=== PATIENT | male | born 1980 | race Caucasian/White ===

== ENCOUNTER 2019-11-09 21:18 | Inpatient (IN) | payer OTHER, SELFPAY ==
--- NOTE | ~2019-11-09 | XR_ITS ---
EXAMINATION: XR chest 1V portable EXAM DATE: 11/09/2019 22:23 INDICATION: Fever. TECHNIQUE: Portable AP frontal chest x-ray was obtained. Comparison is made to prior examination from 11/09/2019. FINDINGS: The lungs are clear. There are no pleural effusions. Cardiac silhouette is prominent but magnified on this AP technique. There is no pneumothorax suspected. The bones and soft tissues are unremarkable. IMPRESSION: No acute cardiopulmonary findings. Reviewed, dictated and finalized at location A.
[2019-11-09 21:14] VITALS: BP 157/67; PULSE 119; RESP 18; TEMP 37.8; O2SAT 98
--- NOTE | 2019-11-09 21:24 | ECG_ITS ---
Measurements Intervals [place] Rate: 108 P: WI: 0 QRS: 65 QRSD: 105 T: 33 QT: 342 QTc: 459 Interpretive Statements ATRIAL FIBRILLATION WITH RAPID VENTRICULAR RESPONSE NONSPECIFIC ST & T-WAVE ABNORMALITY- INF/LAT LEADS ABNORMAL ECG Electronically Signed On 11-10-2019 7:02:05 CDT by Dl Dobbs D.O.
[2019-11-09 21:46] LABS: Basophils Percent Auto 0.2 % (0.2-1.2); Eosinophils Absolute Auto 0.1 K/mm3 (0-0.3); Hemoglobin 12.1 g/dL (14.0-18.0); Immature Granulocyte Percent A 0.7 % (0-0.5); Lymphocytes Absolute Auto 1.14 K/mm3 (0.9-3.2); Lymphocytes Percent Auto 8.3 % (18.3-44.2); Mean Corpuscular Hemoglobin 25.1 pg (26-34); Mean Corpuscular Volume 80.9 fl (80-100); Mean Platelet Volume 10.6 fl (7.4-10.4); Monocytes Absolute Auto 0.8 K/mm3 (0.1-0.6); Monocytes Percent Auto 5.7 % (2.6-8.5); Neutrophils Absolute Auto 11.5 K/mm3 (1.3-6.7); Neutrophils Percent Auto 84.1 % (45.5-73.1); Platelet Count Result 300 k/mm3 (150-375); Red Blood Count 4.82 M/mm3 (4.6-6.20); Red Cell Distribution Width 13.3 % (11.5-14.5); White Blood Count 13.7 K/mm3 (4.5-10.0)
[2019-11-09 21:50] LABS: Add Urine Microscopic? YES; Appearance Urine Clear (Clear); Bilirubin Urine Negative (Negative); Blood Urine 1+ (Negative); Color Urine Straw (Yellow); Glucose Urine UA 1+ mg/dL (Negative); Ketones Urine Negative (Negative); Leukocyte Esterase Ur Negative LEU/UL (Negative); Mucus Urine Rare /lpf; Nitrate Urine Negative (Negative); Protein Urine 1+ mg/dL (Negative); Specific Grav Ur 1.012 (1.001-1.035); Squamous Epithelial Cell Urine Rare /hpf (Few); WBC Urine 0-3 /hpf
[2019-11-09 21:54] VITALS: BP 138/64; PULSE 103; RESP 21; O2SAT 95
[2019-11-09 21:55] LABS: INR 1.3; Prothrombin Time 16.1 Seconds (11.1-14.7)
[2019-11-09 21:56] LABS: Partial Thromboplastin Time 30.1 SECONDS (22.3-36.8)
[2019-11-09 21:58] LABS: Lactic Acid Reflex 1.6 mmol/L (0.7-2.1)
[2019-11-09 22:00] LABS: Alanine Aminotransferase 15 U/L (4-50); Albumin Level 4.1 g/dL (3.5-5.1); Alkaline Phosphatase 90 U/L (38-126); Aspartate Amino Transferase 18 U/L (17-59); Bilirubin,Total 0.7 mg/dL (0.2-1.3); Blood Urea Nitrogen 7 mg/dL (9-20); CRP 5.5 mg/dL (<1.0); Calcium 8.7 mg/dL (8.4-10.2); Carbon Dioxide 32 mmol/L (22-30); Chloride 92 mmol/L (98-107); Estimated CRCL calculation 285 ml/min; Estimated Glomerular Filt Rate > 60; Glucose 202 mg/dL (75-110); Potassium 4.3 mmol/L (3.4-5.0); Sodium 131 mmol/L (137-145)
[2019-11-09 22:09] LABS: NT Pro B Type Natriuretic Pept 624 PG/ML (5-100); Troponin I < 0.012 ng/mL (0.000-0.034)
--- NOTE | 2019-11-09 22:24 | ED.GENADULT ---
HPI - General Adult General Chief complaint: Extremity Injury, Lower Stated complaint: leg swelling, dental pain Time Seen by Provider: 11/09/19 21:23 Source: patient Mode of arrival: EMS Limitations: no limitations History of Present Illness HPI narrative: This patient is a 39 yo morbidly obese male with h/o chronic afib, bed bound, HTN who presents from home for evaluation of worsening leg pain and chills. Patient reports he has bilateral lower extremity swelling progressively worsening over the past 1 month. He has swelling, weaping and redness. Tonight he developed severe chills that made his feel like he was breathing fast and developing a fever. He states in the past when he had similar symptoms he was septic. Patient states his shortness of breath has resolved. He was found to have a fever in the ER. HE reports mild productive cough x 1 week. Onset (ago): month(s) (1 month) Location: lower extremity Related Data Home Medications Medication Instructions Recorded Confirmed chlorthalidone 25 mg PO DAILY 11/09/19 11/10/19 diltiazem HCl 90 mg TID 11/09/19 11/10/19 gabapentin 200 mg PO TID 11/09/19 11/10/19 lisinopril 40 mg PO DAILY 11/09/19 11/10/19 rivaroxaban [Xarelto] 20 mg PO DAILY 11/09/19 11/10/19 Lantus U-100 Insulin 15 units HS 11/10/19 11/10/19 Novolog PenFill U-100 Insulin See Protocol ACHS 11/10/19 11/10/19 Allergies Allergy/AdvReac Type Severity Reaction Status Date / Time No Known Allergies Allergy Verified 11/09/19 21:23 Review of Systems Review of Systems: All systems reviewed & are unremarkable except as noted in HPI and below Constitutional: Constitutional: Reports chills, Reports fever(s) and Reports weakness ENT: Reports dental pain and Reports sore throat Cardiovascular: Cardiovascular: Reports chest pain (chest tightness that has resolved), Denies rapid heart rate and Denies radiating jaw, neck or arm pain Respiratory: Respiratory: Reports cough and Reports dyspnea (now resolved) Gastrointestinal: Gastrointestinal: Denies abdominal pain, Denies diarrhea, Reports nausea and Denies vomiting Genitourinary: Genitourinary: Denies oliguria and Denies dysuria Musculoskeletal: Musculoskeletal: Reports muscle cramps (bilateral leg pain and swelling) Integumentary/Breasts: Skin/Breast: Reports erythema PMFSH Surgical History Surgical History Hx of tonsillectomy Family History Family History (Updated 11/10/19 @ 12:13 by Jovani Antonio PA-C) Father Patient's father is Diabetes mellitus Acute myocardial infarction Mother COPD (chronic obstructive pulmonary disease) Social History Social History Social History: Patient lives at home alone with a ve teacher coming to the house every day for 8 hours and with her aunt/uncle and another uncle living next door to either side of him. He wishes to list his Aunt, Kailyn, as his surrogate MDM. He wishes to be listed as a Full Code. His PCP is Dr. Pettit from [facility] Smoking status: Never smoker Second hand tobacco smoke exposure: No Alcohol intake: former Substance use: never Gender identity (if verbalized by the patient): Male Spiritual care concerns: No Agree to blood products: Yes Exam Const: General: no acute distress and alert Nutritional Appearance: obese morbidly obese Orientation/consciousness: patient oriented x3 Eyes: Pupils: Equal, round and reactive pupils present EOM: EOMs intact bilaterally Chest: Chest palpation & inspection: normal inspection of the chest Resp: Effort & Inspection: normal respiratory effort, not tachypneic and no use of accessory muscles Auscultation: clear to auscultation bilaterally Cardio: Rate: tachycardic Rhythm: abnormal rhythm irregularly irregular GI: GI Palp: Yes Soft to palpation, No Tenderness to palpation present (GI), No G
[2019-11-09 22:31] VITALS: TEMP 37.6
[2019-11-09 23:09] VITALS: BP 138/64; PULSE 101; RESP 18; TEMP 37.3; O2SAT 94
[2019-11-10] VITALS (18 sets, daily range): BP systolic 104–158; BP diastolic 42–83; PULSE 89–110; RESP 12–24; TEMP 36.3–37.9; O2SAT 95–100; BMI 72.3
--- NOTE | 2019-11-10 01:53 | PC.NURSE ---
No PRN 4mg Morphine dose given to patient. Patient states he took Suboxone yesterday. Per EDP Gracia, do not give Morphine at this time.
[2019-11-10] MEDS: MORPHINE SULFATE 4 MG/ML INJ IV PUSH (06:46)
--- NOTE | 2019-11-10 08:00 | PC.NURSE ---
PT RESTING QUIETLY. STILL AWAITING THE BARIATRIC BED TO ARRIVE PRIOR TO TAKING PT UP TO 327. FLOOR IS TO CALL US WHEN THE BED ARRIVES.
[2019-11-10 09:03] LABS: Glucose Point of Care 176 (65-105)
--- NOTE | 2019-11-10 09:30 | PC.NURSE ---
STILL AWAITING THE BED TO ARRIVE FOR 327. FLOOR STATES WILL CALL WHEN IT ARRIVES. PT CONT TO REST QUIETLY AT THIS TIME.
--- NOTE | 2019-11-10 10:20 | PC.NURSE ---
BED HAS ARRIVED AND IS CURRENTLY BEING SET UP. WILL TAKE PT UP AT 1034
--- NOTE | 2019-11-10 11:31 | PC.NURSE ---
This patient, Tito Fam, was admitted to [facility] Surg Room 327-01. Patient/family oriented to hospital policies and general routines including ID bracelet, bed and alarms, visiting hours, pain management, procedures, bathroom and other care routines, personal items, smoking policy, room service/diet, and visiting hours. Valuables list has been completed. Information on how to activate the Rapid Response Team has been discussed. Patient/Family are encouraged to report perceived risks to care and to ask questions if they do not understand what they are told or what they should do.
--- NOTE | 2019-11-10 11:34 | PM.IMHP ---
H&P: HPI History of Present Illness Chief complaint: Sepsis, Right leg Cellulitis Narrative: Tito Fam is a 39 year old diabetic, morbidly obese (bed bound) male with history of chronic a. fib (on chronic a/c, rate controlled), HTN, and sleep apnea who presented to the ER on evening of 11/08 with complaints of worsening lower extremity redness and pain. As above, patient is morbidly obese and primarily bed bound and has not left the house since July. About one month prior to presentation he noticed some increased swelling and some wounds on primarily his right lower leg that eventually scabbed over and started flaking off . He then began noticing the swelling worsening and noticed some yellowish discharge from where the flaked skin was located. He has some associated pain. He notes that both legs appear red and swollen but more so on the right. He attempted to rub topical triple antibiotic on the leg with little relief. He denies any history of lymphedema or DVT. He is complaint with his Xarelto. While in the ER he was noted to have temp of 100.0, HR of 119, BP 157/67, RR 18, saturations of 98% on RA. He was placed on vancomycin and zosyn for suspected b/l LE cellulitis. He had improvement in HR with two doses of cardizem in the ER. He reports feeling somewhat better at this time but does note he has a headache which is abnormal for him. Upon further questioning, he denies any recent contacts of COVID or showing signs of respiratory issues at home but was coughing in the ER and was subsequently tested for COVID. He was hesitant on seeing his PCP about his LE symptoms given the recent COVID outbreak but decided to come into the ED due to worsening pain, swelling, and redness/discharge from some areas. [facility] Surgical History Surgical History Hx of tonsillectomy Family History Family History (Updated 11/10/19 @ 12:13 by Jovani Antonio PA-C) Father Patient's father is Diabetes mellitus Acute myocardial infarction Mother COPD (chronic obstructive pulmonary disease) Social History Social History Social History: Patient lives at home alone with a composite mechanic coming to the house every day for 8 hours and with her aunt/uncle and another uncle living next door to either side of him. He wishes to list his Aunt, Kailyn, as his surrogate MDM. He wishes to be listed as a Full Code. His PCP is Dr. Pettit from [facility] Smoking status: Never smoker Second hand tobacco smoke exposure: No Alcohol intake: former Substance use: never Gender identity (if verbalized by the patient): Male Spiritual care concerns: No Agree to blood products: Yes Meds Home Medications and Allergies Home Medications Medication Instructions Recorded Confirmed Type chlorthalidone 11/09/19 History diltiazem HCl 11/09/19 History gabapentin 11/09/19 History lisinopril 11/09/19 History rivaroxaban [Xarelto] mg 11/09/19 History Lantus U-100 Insulin 15 units HS 11/10/19 11/10/19 History Novolog PenFill U-100 Insulin See Protocol ACHS 11/10/19 11/10/19 History Allergies Allergy/AdvReac Type Severity Reaction Status Date / Time No Known Allergies Allergy Verified 11/09/19 21:23 Vital Signs Vital Signs - 24 hr 11/09/19 21:14 11/09/19 21:54 11/09/19 22:31 Temperature 100.0 F H 99.6 F Pulse Rate 119 H 103 H Respiratory Rate 18 21 H Blood Pressure 157/67 H 138/64 Pulse Oximetry 98 95 11/09/19 23:09 11/10/19 00:21 11/10/19 01:30 Temperature 99.1 F 99.6 F Pulse Rate 101 H 100 97 Respiratory Rate 18 22 H 15 Blood Pressure 138/64 158/48 H 142/42 H Pulse Oximetry 94 95 96 11/10/19 02:30 11/10/19 02:33 11/10/19 03:30 Temperature 99.6 F 100.2 F H Pulse Rate 109 H 110 H Respiratory Rate 23 H 12 Blood Pressure 115/67 130/48 L Pulse Oximetry 95 95 11/10/19 04:36 11/10/19 0
[2019-11-10 11:37] LABS: Basophils Percent Auto 0.2 % (0.2-1.2); Eosinophils Percent Auto 0.3 % (0-4.4); Hemoglobin 11.4 g/dL (14.0-18.0); Immature Granulocyte Absolute 0.08 K/mm3 (0.00-0.031); Immature Granulocyte Percent A 0.7 % (0-0.5); Lymphocytes Absolute Auto 0.96 K/mm3 (0.9-3.2); Lymphocytes Percent Auto 7.9 % (18.3-44.2); Mean Corpuscular HGB Conc 30.8 g/dl (32-36); Mean Corpuscular Hemoglobin 24.6 pg (26-34); Mean Corpuscular Volume 79.9 fl (80-100); Mean Platelet Volume 10.2 fl (7.4-10.4); Monocytes Absolute Auto 0.4 K/mm3 (0.1-0.6); Monocytes Percent Auto 3.6 % (2.6-8.5); Neutrophils Absolute Auto 10.6 K/mm3 (1.3-6.7); Neutrophils Percent Auto 87.3 % (45.5-73.1); Platelet Count Result 254 k/mm3 (150-375); Red Blood Count 4.63 M/mm3 (4.6-6.20); Red Cell Distribution Width 13.7 % (11.5-14.5); White Blood Count 12.1 K/mm3 (4.5-10.0)
[2019-11-10 11:48] LABS: Alanine Aminotransferase 13 U/L (4-50); Albumin Level 3.8 g/dL (3.5-5.1); Alkaline Phosphatase 80 U/L (38-126); Aspartate Amino Transferase 15 U/L (17-59); Blood Urea Nitrogen 6 mg/dL (9-20); Calcium 8.4 mg/dL (8.4-10.2); Carbon Dioxide 29 mmol/L (22-30); Chloride 94 mmol/L (98-107); Estimated CRCL calculation 285 ml/min; Estimated Glomerular Filt Rate > 60; Glucose 153 mg/dL (75-110); Sodium 130 mmol/L (137-145)
[2019-11-10] MEDS: ACETAMINOPHEN 325 MG TABLET 650 MG PO (11:50)
[2019-11-10 12:16] LABS: Hemoglobin A1C 7.8 % (<5.7)
[2019-11-10 14:01] LABS: SARS-CoV-2 RNA PCR Negative
[2019-11-10] MEDS: GABAPENTIN 100 MG CAPSULE 200 MG PO ×2 (15:54→17:57)
[2019-11-10] MEDS: DILTIAZEM HCL 30 MG TABLET 90 MG PO ×2 (15:55→17:57)
[2019-11-10] MEDS: CHLORTHALIDONE 25 MG TABLET PO (15:56)
[2019-11-10] MEDS: lisinopriL 20 MG TABLET 40 MG PO (15:56)
[2019-11-10] MEDS: RIVAROXABAN 20 MG TABLET PO (15:57)
[2019-11-10] MEDS: FUROSEMIDE INJ 40 MG/4 ML VIAL 20 MG IV PUSH (16:00)
[2019-11-10 17:35] LABS: Glucose Point of Care 131 (65-105)
[2019-11-10 18:13] LABS: Glucose Point of Care 140 (65-105)
[2019-11-10] MEDS: MORPHINE SULFATE 2 MG/ML INJ IV PUSH (20:48)
[2019-11-10] MEDS: INSULIN GLARGINE (LANTUS) 1,000 UNITS/10 ML VIAL 15 UNITS SUB-Q (22:34)
[2019-11-10 22:47] LABS: Glucose Point of Care 205 (65-105)
[2019-11-11 02:00] VITALS: BP 123/66; PULSE 90; RESP 20; TEMP 36.5; O2SAT 94
[2019-11-11 06:00] VITALS: BP 106/64; PULSE 84; RESP 20; TEMP 36.6; O2SAT 96
[2019-11-11 06:06] LABS: Basophils Percent Auto 0.4 % (0.2-1.2); Eosinophils Absolute Auto 0.1 K/mm3 (0-0.3); Eosinophils Percent Auto 1.7 % (0-4.4); Hematocrit 34.9 % (42.0-52.0); Hemoglobin 10.7 g/dL (14.0-18.0); Immature Granulocyte Absolute 0.03 K/mm3 (0.00-0.031); Immature Granulocyte Percent A 0.4 % (0-0.5); Lymphocytes Percent Auto 23.5 % (18.3-44.2); Mean Corpuscular HGB Conc 30.7 g/dl (32-36); Mean Corpuscular Hemoglobin 24.7 pg (26-34); Mean Corpuscular Volume 80.4 fl (80-100); Mean Platelet Volume 10.3 fl (7.4-10.4); Monocytes Absolute Auto 0.7 K/mm3 (0.1-0.6); Monocytes Percent Auto 9.7 % (2.6-8.5); Neutrophils Absolute Auto 4.7 K/mm3 (1.3-6.7); Neutrophils Percent Auto 64.3 % (45.5-73.1); Platelet Count Result 249 k/mm3 (150-375); Red Blood Count 4.34 M/mm3 (4.6-6.20); Red Cell Distribution Width 13.7 % (11.5-14.5); White Blood Count 7.2 K/mm3 (4.5-10.0)
[2019-11-11 06:13] LABS: Blood Urea Nitrogen 8 mg/dL (9-20); Calcium 8.4 mg/dL (8.4-10.2); Carbon Dioxide 32 mmol/L (22-30); Chloride 96 mmol/L (98-107); Estimated CRCL calculation 328 ml/min; Estimated Glomerular Filt Rate > 60; Glucose 145 mg/dL (75-110); Magnesium 2.2 mg/dL (1.6-2.3); Potassium 3.8 mmol/L (3.4-5.0); Sodium 130 mmol/L (137-145)
[2019-11-11] MEDS: GABAPENTIN 100 MG CAPSULE 200 MG PO ×3 (10:11→17:45)
[2019-11-11 10:12] VITALS: BP 140/71; PULSE 94; RESP 18; TEMP 36.6; O2SAT 97
[2019-11-11] MEDS: CHLORTHALIDONE 25 MG TABLET PO (10:13)
[2019-11-11] MEDS: DILTIAZEM HCL 30 MG TABLET 90 MG PO ×3 (10:13→17:45)
[2019-11-11] MEDS: RIVAROXABAN 20 MG TABLET PO (10:14)
[2019-11-11] MEDS: lisinopriL 20 MG TABLET 40 MG PO (10:14)
[2019-11-11 10:21] LABS: Glucose Point of Care 131 (65-105)
--- NOTE | 2019-11-11 10:44 | P.PNIM_ITS ---
Progress Note: A&P Assessment and Plan (1) Cellulitis of right leg: Code(s): L03.115 - Cellulitis of right lower limb Status: Acute Assessment and Plan: Right more so then left. Left appears to be more chronic venous stasis in nature. Appears to be improved symptomatically with IV antibiotics since presentation. DVT less likely as patient is on chronic a/c. Osteomyelitis less likely based on exam. Interval improvement in swelling b/l LE. * Wound Care following; recommendations appreciated * Will continue with IV vanc and Zosyn for now; consider switching to PO medications at discharge * Monitor for improvement * Trend CBC, monitor vitals * Tyenol for pain/fevers and morphine for breakthrough pain * Will do another one time dose of IV lasix for swelling; continue home chlorthalidone * Encourage elevation of LE, particularly right * Patient bed bound so will hold off on PT/OT (2) Sepsis: Code(s): A41.9 - Sepsis, unspecified organism Status: Acute Assessment and Plan: With leukocytosis, tachypnea, tachycardia, and fever at presentation. WBC WNL today, VSS, afebrile. Lactic acid 1.6. Likely secondary to above * Will monitor vitals and trend CBC daily * Treat underlying infection as above (3) Atrial fibrillation, chronic: Code(s): I48.20 - Chronic atrial fibrillation, unspecified Status: Acute Assessment and Plan: Rate controlled and on vermin exterminator a/c. No cp/palpitations. No acute issues. HR currently 94 * Continue home diltiazem and Xarelto * Monitor closely (4) Neuropathy: Code(s): G62.9 - Polyneuropathy, unspecified Status: Acute Assessment and Plan: Pain reasonable at the moment * Continue with home gabapentin (5) Hypertension: Code(s): I10 - Essential (primary) hypertension Status: Acute Assessment and Plan: BP reviewed and relatively stable - 140s sys this morning * Continue home antihypertensives * Monitor closely * consider PRN hydralazine if elevated (6) Diabetes mellitus: Code(s): E11.9 - Type 2 diabetes mellitus without complications Status: Acute Assessment and Plan: BGL in mid 100s today. A1c 7.8 which is up from his last A1c 7.0 which he reported * Continue home 15 u lantus qhs * Will do pulping machine operator consultation for encouraging healthy lifestyles/diet changes although patient is bed bound * F/u with PCP on worsened A1c * Accuchecks ACHS, hypoglycemia protocol, correctional insulin, diabetic diet during stay * Monitor (7) Suspected COVID-19 virus infection: Code(s): R68.89 - Other general symptoms and signs Status: Ruled-out Assessment and Plan: COVID testing negative. (8) Sleep apnea with use of continuous positive airway pressure (CPAP): Code(s): G47.30 - Sleep apnea, unspecified Status: Acute Assessment and Plan: * Continue home CPAP settings Subjective Date/time seen: 11/11/19 10:44 Interval history: Patient is a 39 yo diabetic, morbidly obese (bed bound) male with history of chronic a. fib (on chronic a/c, rate controlled), HTN, and sleep apnea who is here for right lower leg cellulitis. Patient states he feels somewhat better today. He noticed his swelling has improved, noting that legs
--- NOTE | 2019-11-11 10:44 | PM.IMPN ---
Progress Note: A&P Assessment and Plan (1) Cellulitis of right leg: Code(s): L03.115 - Cellulitis of right lower limb Status: Acute Assessment and Plan: Right more so then left. Left appears to be more chronic venous stasis in nature. Appears to be improved symptomatically with IV antibiotics since presentation. DVT less likely as patient is on chronic a/c. Osteomyelitis less likely based on exam. Interval improvement in swelling b/l LE. Wound Care following; recommendations appreciated Will continue with IV vanc and Zosyn for now; consider switching to PO medications at discharge Monitor for improvement Trend CBC, monitor vitals Tyenol for pain/fevers and morphine for breakthrough pain Will do another one time dose of IV lasix for swelling; continue home chlorthalidone Encourage elevation of LE, particularly right Patient bed bound so will hold off on PT/OT (2) Sepsis: Code(s): A41.9 - Sepsis, unspecified organism Status: Acute Assessment and Plan: With leukocytosis, tachypnea, tachycardia, and fever at presentation. WBC WNL today, VSS, afebrile. Lactic acid 1.6. Likely secondary to above Will monitor vitals and trend CBC daily Treat underlying infection as above (3) Atrial fibrillation, chronic: Code(s): I48.20 - Chronic atrial fibrillation, unspecified Status: Acute Assessment and Plan: Rate controlled and on terminal computer operator a/c. No cp/palpitations. No acute issues. HR currently 94 Continue home diltiazem and Xarelto Monitor closely (4) Neuropathy: Code(s): G62.9 - Polyneuropathy, unspecified Status: Acute Assessment and Plan: Pain reasonable at the moment Continue with home gabapentin (5) Hypertension: Code(s): I10 - Essential (primary) hypertension Status: Acute Assessment and Plan: BP reviewed and relatively stable - 140s sys this morning Continue home antihypertensives Monitor closely consider PRN hydralazine if elevated (6) Diabetes mellitus: Code(s): E11.9 - Type 2 diabetes mellitus without complications Status: Acute Assessment and Plan: BGL in mid 100s today. A1c 7.8 which is up from his last A1c 7.0 which he reported Continue home 15 u lantus [facility] Will do top distribution executive consultation for encouraging healthy lifestyles/diet changes although patient is bed bound F/u with PCP on worsened A1c Accuchecks ACHS, hypoglycemia protocol, correctional insulin, diabetic diet during stay Monitor (7) Suspected COVID-19 virus infection: Code(s): R68.89 - Other general symptoms and signs Status: Ruled-out Assessment and Plan: COVID testing negative. (8) Sleep apnea with use of continuous positive airway pressure (CPAP): Code(s): G47.30 - Sleep apnea, unspecified Status: Acute Assessment and Plan: Continue home CPAP settings Subjective Date/time seen: 11/11/19 10:44 Interval history: Patient is a 39 yo diabetic, morbidly obese (bed bound) male with history of chronic a. fib (on chronic a/c, rate controlled), HTN, and sleep apnea who is here for right lower leg cellulitis. Patient states he feels somewhat better today. He noticed his swelling has improved, noting that legs looks like a prune . He notes some discomfort in his right side of pannus stating it feels like a knot ; he also notes he is typically shifted over to his right side most of the time. He notes some loose stools. Noting increased urine op with lasix yesterday. Has a cough when he gets sinus drainage. Otherwise has no complaints. Denies f/c/s, cp/palpitations, sob, n/v, abd pain, dysuria, hematuria, cloud
[2019-11-11] MEDS: FUROSEMIDE INJ 40 MG/4 ML VIAL 20 MG IV PUSH (10:57)
--- NOTE | 2019-11-11 11:51 | PCDIET ---
Physician consult for Morbid Obesity, unable to walk due to neck injury: bed bound. See Nutritional Teaching Intervention. Thank you for the consult.
[2019-11-11 12:38] LABS: Glucose Point of Care 169 (65-105)
[2019-11-11] MEDS: SACCHAROMYCES BOULARDII 250 MG CAPSULE PO ×2 (14:30→17:45)
[2019-11-11 14:32] VITALS: BP 129/68; PULSE 81
[2019-11-11 17:23] LABS: Glucose Point of Care 127 (65-105)
[2019-11-11 19:15] LABS: Vancomycin Trough 10.2 ug/mL (10.0-20.0)
[2019-11-11 21:05] VITALS: PULSE 84; O2SAT 97
[2019-11-11] MEDS: INSULIN GLARGINE (LANTUS) 1,000 UNITS/10 ML VIAL 15 UNITS SUB-Q (21:25)
[2019-11-11 22:00] VITALS: BP 130/54; PULSE 81; RESP 18; TEMP 37.7; O2SAT 98
[2019-11-12 00:29] VITALS: PULSE 86; O2SAT 96
[2019-11-12 02:08] LABS: Glucose Point of Care 178 (65-105)
[2019-11-12 06:00] VITALS: BP 126/62; PULSE 87; RESP 18; TEMP 36.6; O2SAT 98
[2019-11-12 06:36] LABS: Basophils Percent Auto 0.4 % (0.2-1.2); Eosinophils Absolute Auto 0.2 K/mm3 (0-0.3); Eosinophils Percent Auto 2.7 % (0-4.4); Hematocrit 36.2 % (42.0-52.0); Hemoglobin 11.1 g/dL (14.0-18.0); Immature Granulocyte Absolute 0.06 K/mm3 (0.00-0.031); Immature Granulocyte Percent A 0.8 % (0-0.5); Lymphocytes Absolute Auto 1.67 K/mm3 (0.9-3.2); Lymphocytes Percent Auto 23.6 % (18.3-44.2); Mean Corpuscular HGB Conc 30.7 g/dl (32-36); Mean Corpuscular Hemoglobin 24.6 pg (26-34); Mean Corpuscular Volume 80.3 fl (80-100); Mean Platelet Volume 10.6 fl (7.4-10.4); Monocytes Absolute Auto 0.6 K/mm3 (0.1-0.6); Monocytes Percent Auto 8.9 % (2.6-8.5); Neutrophils Absolute Auto 4.5 K/mm3 (1.3-6.7); Neutrophils Percent Auto 63.6 % (45.5-73.1); Platelet Count Result 271 k/mm3 (150-375); Red Blood Count 4.51 M/mm3 (4.6-6.20); Red Cell Distribution Width 13.6 % (11.5-14.5); White Blood Count 7.1 K/mm3 (4.5-10.0)
[2019-11-12 06:51] LABS: Blood Urea Nitrogen 9 mg/dL (9-20); Calcium 8.4 mg/dL (8.4-10.2); Carbon Dioxide 34 mmol/L (22-30); Chloride 94 mmol/L (98-107); Estimated CRCL calculation 285 ml/min; Estimated Glomerular Filt Rate > 60; Glucose 158 mg/dL (75-110); Magnesium 2.2 mg/dL (1.6-2.3); Potassium 3.6 mmol/L (3.4-5.0); Sodium 131 mmol/L (137-145)
[2019-11-12] MEDS: GABAPENTIN 100 MG CAPSULE 200 MG PO ×2 (08:52→13:04)
[2019-11-12] MEDS: DILTIAZEM HCL 30 MG TABLET 90 MG PO ×2 (08:52→13:04)
[2019-11-12] MEDS: POTASSIUM CHLORIDE 20 MEQ TABLET 40 MEQ PO (08:52)
[2019-11-12] MEDS: RIVAROXABAN 20 MG TABLET PO (08:53)
[2019-11-12] MEDS: lisinopriL 20 MG TABLET 40 MG PO (08:53)
[2019-11-12] MEDS: CHLORTHALIDONE 25 MG TABLET PO (08:53)
[2019-11-12 09:13] LABS: Glucose Point of Care 146 (65-105)
--- NOTE | 2019-11-12 11:03 | PM.DS ---
DS: Diagnosis Admitting Diagnosis Admitting Diagnosis: Cellulitis of right lower limb Discharge Diagnosis (1) Cellulitis of right leg: Code(s): L03.115 - Cellulitis of right lower limb Status: Acute Assessment and Plan: Right more so then left. Left appears to be more chronic venous stasis in nature; sloughing of skin noted. Appears to be improved symptomatically with IV antibiotics since presentation. DVT less likely as patient is on chronic a/c. Osteomyelitis less likely based on exam. Interval improvement in swelling b/l LE again today. Wound Care following; recommendations appreciated Will continue with IV vanc and Zosyn during stay; will discharge on clindamycin 300 mg Q8hrs through 11/15 Continue home chlorthalidone Encourage elevation of LE (2) Sepsis: Code(s): A41.9 - Sepsis, unspecified organism Status: Acute Assessment and Plan: With leukocytosis, tachypnea, tachycardia, and fever at presentation. WBC WNL today, VSS, afebrile although mild fever last night. Lactic acid 1.6. Likely secondary to above Will monitor vitals and trend CBC daily Treat underlying infection as above (3) Atrial fibrillation, chronic: Code(s): I48.20 - Chronic atrial fibrillation, unspecified Status: Acute Assessment and Plan: Rate controlled and on rn long term care a/c. No cp/palpitations. No acute issues. HR currently 87 Continue home diltiazem and Xarelto (4) Neuropathy: Code(s): G62.9 - Polyneuropathy, unspecified Status: Acute Assessment and Plan: Pain reasonable at the moment Continue with home gabapentin (5) Hypertension: Code(s): I10 - Essential (primary) hypertension Status: Acute Assessment and Plan: BP reviewed and relatively stable - 120s sys this morning Continue home antihypertensives Monitor closely consider PRN hydralazine if elevated (6) Diabetes mellitus: Code(s): E11.9 - Type 2 diabetes mellitus without complications Status: Acute Assessment and Plan: BGL in mid 100s today. A1c 7.8 which is up from his last A1c 7.0 which he reported Continue home insulin regimen Will do lens edge grinder machine consultation for encouraging healthy lifestyles/diet changes although patient is bed bound F/u with PCP on worsened A1c Accuchecks ACHS, hypoglycemia protocol, correctional insulin, diabetic diet during stay (7) Suspected COVID-19 virus infection: Code(s): R68.89 - Other general symptoms and signs Status: Ruled-out Assessment and Plan: COVID testing negative. (8) Sleep apnea with use of continuous positive airway pressure (CPAP): Code(s): G47.30 - Sleep apnea, unspecified Status: Acute Assessment and Plan: Continue home CPAP settings DS: Summary Hospital Course Reason for hospitalization: Cellulitis and sepsis Hospital Course: Patient is a 39 yo old diabetic, morbidly obese (bed bound) male with history of chronic a. fib (on chronic a/c, rate controlled), HTN, and sleep apnea who presented to the ER on evening of 11/08 with complaints of worsening lower extremity redness and pain. Patient had noticed progressively worsening swelling LE, primarily in his right leg and subsequent unlcers in his leg that had skin flaking off . This started to become warm and erythematous with drainage. Patient attempted to place triple antibiotic ointment on the area without much relief and decided to come into the hospital for further evaluation. In the ER, he had a temp as high as 100.2, HR 119, and leukocytosis of 13.7k; patient technically septic with cellulitis of lower leg as source of infection. Please see H&P fo
[2019-11-12] MEDS: SACCHAROMYCES BOULARDII 250 MG CAPSULE PO ×2 (11:15→13:04)
[2019-11-12 12:43] LABS: Glucose Point of Care 148 (65-105)
[2019-11-12 15:21] VITALS: BP 126/65; PULSE 76; RESP 18; TEMP 36.1; O2SAT 96
== END 2019-11-12 19:35 | disposition home or self-care (01) | DRG 720 ==
LOC: ANHED 21:39 → ANH3MEDSUR 11-10 01:53
PROVIDERS: Physician Assistant; Admitting Provider Internal Medicine; Emergency Provider General Practice; PCP Internal Medicine; Visit Provider Hospitalist
DX: A41.9 Sepsis, unspecified organism (principal); E11.628 Type 2 diabetes mellitus with other skin complications; L03.115 Cellulitis of right lower limb; Z20.828 Contact with and (suspected) exposure to other viral communicable diseases; R05 Cough; I87.2 Venous insufficiency (chronic) (peripheral); I48.20 Chronic atrial fibrillation, unspecified; E11.42 Type 2 diabetes mellitus with diabetic polyneuropathy; I10 Essential (primary) hypertension; G47.30 Sleep apnea, unspecified; E66.01 Morbid (severe) obesity due to excess calories; Z68.45 Body mass index [BMI] 70 or greater, adult
CPT/HCPCS: 36415; 71045; 80048; 80053; 80202; 81001; 82728; 83036; 83605; 83735; 83880; 84484; 85025; 85610; 85730; 86140; 87040; 87635; 93005; 96374; 97161; 97165; 99285; A9270; C9803; J0131; J1815; J1940; J2270; J2543; J3370; U0003

== ENCOUNTER 2020-01-01 13:32 | Inpatient (IN) | payer OTHER, SELFPAY ==
[2020-01-01] VITALS (13 sets, daily range): BP systolic 152–175; BP diastolic 74–96; PULSE 72–120; RESP 16–30; TEMP 36–38.8; O2SAT 96–98; BMI 75.2
--- NOTE | ~2020-01-01 | XR_ITS ---
EXAMINATION: XR chest 2V EXAM DATE: 01/01/2020 14:21 INDICATION: Fever, sepsis. TECHNIQUE: Frontal and lateral projections of the chest obtained and reviewed. Comparison is made to prior examination from 11/09/2019. FINDINGS: Cardiac monitoring device. The cardiac silhouette is enlarged. No confluent consolidation, pneumothorax or pleural effusion suspected. There are no osseous abnormalities identified. There is no significant interval change. IMPRESSION: Cardiomegaly. Reviewed, dictated and finalized at location A. IMPRESSION: Cardiomegaly.
--- NOTE | 2020-01-01 13:45 | ECG_ITS ---
Measurements Intervals [place] Rate: 115 P: MA: 0 QRS: 43 QRSD: 106 T: 81 QT: 330 QTc: 458 Interpretive Statements ATRIAL FIBRILLATION WITH RAPID VENTRICULAR RESPONSE NONSPECIFIC ST & T-WAVE ABNORMALITY- INF/LAT LEADS BASELINE ARTIFACT- II, III, V2 ABNORMAL ECGT Electronically Signed On 01-01-2020 17:09:45 CDT by Dl Dobbs D.O.
--- NOTE | 2020-01-01 13:50 | ED.FEVER ---
HPI - Fever General Chief Complaint: Fever Stated Complaint: fever Source: patient and EMS Mode of arrival: EMS Limitations: no limitations History of Present Illness HPI Narrative: Patient is a 39-year-old male with a history of morbid obesity, type 2 diabetes, A. fib currently anticoagulated, who presents for evaluation of fever, concern for cellulitis. Patient states he noticed a sore on his right lower extremity that popped and then now has had increasing warmth, redness of the right lower leg. Patient states he awakened this morning with a fever, chills, and noticed that the right side of his abdomen was red and warm as well. Patient has a recent history of cellulitis last month which required admission to the hospital on IV antibiotics. Patient denies any rhinorrhea, congestion, sore throat. No chest pain, cough or shortness of breath. He has been compliant with his medications including his anticoagulation. Related Data Home Medications Medication Instructions Recorded Confirmed Xarelto 20 mg PO DAILY 11/09/19 11/10/19 chlorthalidone 25 mg PO DAILY 11/09/19 11/10/19 diltiazem HCl 90 mg PO TID 11/09/19 11/10/19 lisinopril 40 mg PO DAILY 11/09/19 11/10/19 insulin glargine [Lantus U-100 15 unit SUBCUT QPM #0 11/10/19 11/10/19 Insulin] insulin glulisine U-100 [Apidra See Protocol SUBCUT USEASDIRECTD #0 11/10/19 11/10/19 U-100 Insulin] gabapentin 200 mg PO TID 01/01/20 Allergies Allergy/AdvReac Type Severity Reaction Status Date / Time No Known Allergies Allergy Verified 01/01/20 13:40 Review of Systems Review of Systems: Narrative: CONSTITUTIONAL: Reports fever, chills, diaphoresis EYES: Denies visual changes ENT: Denies rhinorrhea, congestion, sore throat, or otalgia. CARDIOVASCULAR: Denies chest pain, palpitations, or edema. RESPIRATORY: Denies cough or dyspnea. GASTROINTESTINAL: Denies abdominal pain, nausea, vomiting, or diarrhea. GENITOURINARY: Denies dysuria or hematuria. SKIN: Reports warm rash over right abdomen and right leg MUSCULOSKELETAL: Denies back pain, joint pain, or myalgia. NEUROLOGIC: Denies headache, numbness, or weakness. PMF Past Medical History Medical History Chronic atrial fibrillation Diabetes mellitus Hypertension Neuropathy Sleep apnea with use of continuous positive airway pressure (CPAP) Surgical History Surgical History Hx of tonsillectomy Family History Family History Father Patient's father is Diabetes mellitus Acute myocardial infarction Mother COPD (chronic obstructive pulmonary disease) Social History Social History Social History: Patient lives at home alone with a civil engineering specialist coming to the house every day for 8 hours and with her aunt/uncle and another uncle living next door to either side of him. He wishes to list his Aunt, Kailyn, as his surrogate MDM. He wishes to be listed as a Full Code. His PCP is Dr. Pettit from [facility] Smoking status: Never smoker Second hand tobacco smoke exposure: No Alcohol intake: former Substance use: never Gender identity (if verbalized by the patient): Male Spiritual care concerns: No Agree to blood products: Yes Exam Narrative: Exam Narrative: GENERAL: Awake, alert, conversant, morbidly obese HEAD: Normocephalic, atraumatic. EYES: PERRLA and EOMI. ENT: Nares clear, no rhinorrhea or epistaxis. Mucous membranes moist. NECK: Supple. CHEST: No respiratory distress, breathing even and non labored HEART: Tachycardic rate rate, sinus rhythm ABDOMEN:Non distended, non tender, large area of warmth, erythema over 25 cm over the right side of the abdomen, area is indurated, blanches with pressure, no purpura or ecchymoses EXTREMITIES: Normal range of motion due to body [place]
[2020-01-01 14:56] LABS: Basophils Percent Auto 0.2 % (0.2-1.2); Eosinophils Percent Auto 0.1 % (0-4.4); Hemoglobin 11.3 g/dL (14.0-18.0); Immature Granulocyte Percent A 0.6 % (0-0.5); Lymphocytes Absolute Auto 1.26 K/mm3 (0.9-3.2); Lymphocytes Percent Auto 7.7 % (18.3-44.2); Mean Corpuscular HGB Conc 30.5 g/dl (32-36); Mean Corpuscular Hemoglobin 24.4 pg (26-34); Mean Corpuscular Volume 79.9 fl (80-100); Mean Platelet Volume 10.8 fl (7.4-10.4); Monocytes Absolute Auto 0.5 K/mm3 (0.1-0.6); Monocytes Percent Auto 2.9 % (2.6-8.5); Neutrophils Absolute Auto 14.5 K/mm3 (1.3-6.7); Neutrophils Percent Auto 88.5 % (45.5-73.1); Platelet Count Result 298 k/mm3 (150-375); Red Blood Count 4.63 M/mm3 (4.6-6.20); Red Cell Distribution Width 14.6 % (11.5-14.5); White Blood Count 16.4 K/mm3 (4.5-10.0)
[2020-01-01] MEDS: SODIUM CHLORIDE 0.9% IV 1,000 ML 999 ML IV CONT (15:06)
[2020-01-01 15:07] LABS: INR 2.1; Lactic Acid Reflex 1.3 mmol/L (0.7-2.1); Partial Thromboplastin Time 32.4 SECONDS (22.3-36.8); Prothrombin Time 23.1 Seconds (11.1-14.7)
[2020-01-01 15:17] LABS: Alanine Aminotransferase 16 U/L (4-50); Albumin Level 3.7 g/dL (3.5-5.1); Alkaline Phosphatase 78 U/L (38-126); Aspartate Amino Transferase 15 U/L (17-59); Bilirubin,Total 0.9 mg/dL (0.2-1.3); Blood Urea Nitrogen 9 mg/dL (9-20); Calcium 8.4 mg/dL (8.4-10.2); Carbon Dioxide 26 mmol/L (22-30); Chloride 100 mmol/L (98-107); Estimated Glomerular Filt Rate > 60; Glucose 132 mg/dL (75-110); Potassium 4.3 mmol/L (3.4-5.0); Sodium 132 mmol/L (137-145)
[2020-01-01 15:48] LABS: CRP 14.5 mg/dL (<1.0)
[2020-01-01 16:10] LABS: Add Urine Microscopic? YES; Appearance Urine Cloudy (Clear); Bacteria Urine 4+ /hpf; Bilirubin Urine Negative (Negative); Blood Urine 2+ (Negative); Color Urine Amber (Yellow); Glucose Urine UA Negative (Negative); Ketones Urine Negative (Negative); Leukocyte Esterase Ur Trace LEU/UL (Negative); Mucus Urine Moderate /lpf; Nitrate Urine Positive (Negative); Protein Urine 2+ mg/dL (Negative); Specific Grav Ur 1.028 (1.001-1.035); Squamous Epithelial Cell Urine Rare /hpf (Few)
--- NOTE | 2020-01-01 17:17 | ADMGEN ---
This patient, Tito Fam, was admitted to IMU Room 213-01. Patient/family oriented to hospital policies and general routines including ID bracelet, bed and alarms, visiting hours, pain management, procedures, bathroom and other care routines, personal items, smoking policy, room service/diet, and visiting hours. Valuables list has been completed. Information on how to activate the Rapid Response Team has been discussed. Patient/Family are encouraged to report perceived risks to care and to ask questions if they do not understand what they are told or what they should do.
[2020-01-01] MEDS: ACETAMINOPHEN 325 MG TABLET 650 MG PO (18:10)
[2020-01-01] MEDS: ONDANSETRON INJ 4 MG/2 ML VIAL IV PUSH (18:41)
[2020-01-01 19:16] LABS: Glucose Point of Care 148 (65-105)
--- NOTE | 2020-01-01 20:00 | PM.IMHP ---
H&P: HPI History of Present Illness Chief complaint: Fever. Narrative: Tito Fam is a pleasant, morbidly obese 39-year-old male who is essentially bedbound with type 2 diabetes mellitus, paroxysmal atrial fibrillation, obstructive sleep apnea, and hypertension who presented to the emergency department earlier today via EMS from home for evaluation of a fever. He is known to the hospitalist service and was recently admitted to us in November 2019 for sepsis and right lower extremity cellulitis, treated with clindamycin. Last evening he awoke from sleep with the subjective fever and diffuse sweats and at that time noticed erythema of his right leg. He took Tylenol and was able to sleep somewhat however once again woke up with hot sweats this morning. It is at that time that he noticed erythema diffusely along the abdominal wall on the right side. Neither site is necessarily painful. He has taken Tylenol for the fever with some improvement. Appetite has been okay and he denies nausea and vomiting. He also denies recent cold or flu symptoms and sick contacts. He has no swelling or erythema in the groin he. Review of Systems Review of Systems: Narrative: Twelve systems were reviewed with pertinent positives and negatives as per HPI. No headache or neck ache. He denies sinus congestion, rhinorrhea, otalgia, and odynophagia. No cough or shortness of breath. He denies chest pain. No nausea or vomiting. He denies diarrhea. No dysuria. He denies blurry vision, polydipsia, and polyuria. He has essentially been bed-bound for about 3 years, but has been working hard with physical therapy and was able to stand albeit assisted, for the 1st time just this past Thursday. He has a referral for bariatric surgery but in the past has been denied by his insurance. Except as documented, all other systems were reviewed and are negative. [facility] Past Medical History Medical History (Updated 01/02/20 @ 00:03 by Penny Mendoza PA-C) Chronic anemia Chronic atrial fibrillation On long-term anticoagulation. 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 He was discharged to an LTAC after he left [place] and was on a wound VAC for approximately 60 days. Hypertension Insulin dependent type 2 diabetes mellitus Hemoglobin A1c was 7.8% on 11/10/2019. 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 Obstructive sleep apnea on CPAP Peripheral neuropathy Due to diabetes and spinal stenosis. 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 Family History Family History Father Patient's father is Diabetes mellitus Acute myocardial infarction Mother COPD (chronic obstructive pulmonary disease) Social History Social History (Updated 01/01/20 @ 23:53 by Penny Mendoza PA-C) Social History: The patient lives in his own house in [place], [place]. He has a brim cutter that comes to the home for 8 hours a day. He has an aunt and uncle that live next to him who help with his care as well. He designates his mother and his aunt, Kailyn, as his surrogate decision makers. He wishes to be a full code. He denies alcohol, tobacco, and drug use. Spiritual care concerns: No Agree to blood products: Yes Meds Home Medications and Allergies Home Medications Medication Instructions Recorded Confirmed Type Xarelto 20 mg PO DAILY 11/09/19 01/01/20 History chlorthalidone 25 mg PO DAILY 11/09/19 01/01/20 History diltiazem HCl 90 mg PO TID 11/09/19 01/01/20 History lisinopril 40 mg PO DAILY 11/09/19 01/01/20 History insulin glargine [Lantus U-100 15 unit SUBCUT QPM
[2020-01-01] MEDS: DILTIAZEM HCL 30 MG TABLET 90 MG PO (23:17)
[2020-01-01] MEDS: GABAPENTIN 100 MG CAPSULE 200 MG PO (23:18)
[2020-01-01] MEDS: RIVAROXABAN 20 MG TABLET PO (23:18)
[2020-01-01] MEDS: INSULIN GLARGINE (*BKC) 100 UNITS/ML 15 UNITS SUB-Q (23:19)
[2020-01-01 23:32] LABS: Glucose Point of Care 125 (65-105)
[2020-01-02] VITALS (15 sets, daily range): BP systolic 122–186; BP diastolic 66–95; PULSE 73–111; RESP 18–24; TEMP 35.7–37.3; O2SAT 96–99
[2020-01-02 05:14] LABS: Estimated CRCL calculation 293 ml/min; Estimated Glomerular Filt Rate > 60
[2020-01-02] MEDS: WATER FOR IRRIGATION, STERILE 1,000 ML BOTTLE 1000 ML (06:03)
[2020-01-02 08:40] LABS: Glucose Point of Care 122 (65-105)
[2020-01-02] MEDS: CHLORTHALIDONE 25 MG TABLET PO (10:06)
[2020-01-02] MEDS: GABAPENTIN 100 MG CAPSULE 200 MG PO ×3 (10:07→19:26)
[2020-01-02] MEDS: DILTIAZEM HCL 30 MG TABLET 90 MG PO ×3 (10:08→20:39)
[2020-01-02] MEDS: lisinopriL 20 MG TABLET 40 MG PO (10:09)
--- NOTE | 2020-01-02 11:26 | PM.IMPN ---
Progress Note: A&P Assessment and Plan (1) Sepsis: Qualifiers: Sepsis acute organ dysfunction status: without acute organ dysfunction Sepsis type: sepsis due to unspecified organism Qualified Code(s): A41.9 - Sepsis, unspecified organism Code(s): A41.9 - Sepsis, unspecified organism Status: Acute Assessment and Plan: -----on admission the patient showed signs of sepsis with fever, tachycardia and leukocytosis. These have improved with antibiotics. Source appears to be his abdominal cellulitis. Blood cultures are pending. Lactic acid within normal limits. (2) Cellulitis of right leg: Code(s): L03.115 - Cellulitis of right lower limb Status: Acute Assessment and Plan: -----abdominal cellulitis extents to his upper right leg. Continue imipenem and vancomycin as stated above (3) Abdominal wall cellulitis: Code(s): L03.311 - Cellulitis of abdominal wall Status: Acute Assessment and Plan: -----significant cellulitis to the abdomen. No definite abscess palpated. Continue antibiotics as stated above. (4) Insulin dependent type 2 diabetes mellitus: Code(s): E11.9 - Type 2 diabetes mellitus without complications; Z79.4 - it architect (current) use of insulin Status: Acute Assessment and Plan: -----last glucose 122. Continue sliding scale insulin and basal insulin. A1c 7.8. Will adjust basal insulin since patient has a regulated diet here in the hospital. (5) Obstructive sleep apnea on CPAP: Code(s): G47.33 - Obstructive sleep apnea (adult) (pediatric); Z99.89 - Dependence on other enabling machines and devices Status: Acute Assessment and Plan: -----patient has his home CPAP in the room. Continue with that (6) Chronic atrial fibrillation: Code(s): I48.20 - Chronic atrial fibrillation, unspecified Status: Acute Assessment and Plan: -----continue diltiazem and Xarelto. 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 (8) Hypertension: Code(s): I10 - Essential (primary) hypertension Status: Acute Assessment and Plan: -----last blood pressure 186/76 before blood pressure medications given this morning. Patient states he does not usually run that high. I have asked the nurse to recheck the blood pressure 2 hours after giving his morning meds. Hydralazine has been added. Could be elevated due to pain. (9) Morbid obesity: Code(s): E66.01 - Morbid (severe) obesity due to excess calories Status: Acute Assessment and Plan: -----patient seriously needs to consider gastric bypass evaluation. Spoke to him about this and he said his insurance requires a couple months of weight watchers prior. I have encouraged him to do online weight watchers since he is bed-bound Time Spent With Patient Time with patient: 25 - 35 minutes Subjective Date/time seen: 01/02/20 11:27 Interval history: Pt is a morbidly obese 39-year-old male here for abdominal wall cellulitis. Patient was seen today and states he is feeling better. He is still having some pain in the right lower quadrant. He said he started having chills on Thursday night but did not remember any trauma or irritation to the right lower quadrant. Patient is morbidly obese and has not got out of bed for over a year. It all started in 2012 with a spinal injury. He started walking with a wheeled walker and wheelchair after that. In 2017 he started to get weaker and became more bed-bound but never really saw anybody for that. He thinks it is his neuropathy. Just this month he started physical therapy at home and he is stood on his feet for the 1st time in years. He is having issues urinating because
[2020-01-02 13:39] LABS: Glucose Point of Care 136 (65-105)
[2020-01-02 15:34] LABS: Troponin I < 0.012 ng/mL (0.000-0.034)
[2020-01-02 17:05] LABS: Glucose Point of Care 140 (65-105)
[2020-01-02] MEDS: RIVAROXABAN 20 MG TABLET PO (19:25)
[2020-01-02] MEDS: INSULIN GLARGINE (*BKC) 100 UNITS/ML 10 UNITS SUB-Q (20:05)
[2020-01-02 20:47] LABS: Glucose Point of Care 152 (65-105)
[2020-01-03] VITALS (15 sets, daily range): BP systolic 141–149; BP diastolic 76–99; PULSE 60–105; RESP 18–22; TEMP 35.8–37.5; O2SAT 96–97
[2020-01-03 05:03] LABS: Basophils Percent Auto 0.2 % (0.2-1.2); Eosinophils Absolute Auto 0.1 K/mm3 (0-0.3); Eosinophils Percent Auto 1.1 % (0-4.4); Hematocrit 34.3 % (42.0-52.0); Hemoglobin 10.4 g/dL (14.0-18.0); Immature Granulocyte Absolute 0.03 K/mm3 (0.00-0.031); Immature Granulocyte Percent A 0.4 % (0-0.5); Lymphocytes Absolute Auto 1.43 K/mm3 (0.9-3.2); Lymphocytes Percent Auto 17.3 % (18.3-44.2); Mean Corpuscular HGB Conc 30.3 g/dl (32-36); Mean Corpuscular Hemoglobin 24.1 pg (26-34); Mean Corpuscular Volume 79.4 fl (80-100); Mean Platelet Volume 10.2 fl (7.4-10.4); Monocytes Absolute Auto 0.8 K/mm3 (0.1-0.6); Monocytes Percent Auto 9.2 % (2.6-8.5); Neutrophils Absolute Auto 5.9 K/mm3 (1.3-6.7); Neutrophils Percent Auto 71.8 % (45.5-73.1); Platelet Count Result 253 k/mm3 (150-375); Red Blood Count 4.32 M/mm3 (4.6-6.20); Red Cell Distribution Width 14.5 % (11.5-14.5); White Blood Count 8.3 K/mm3 (4.5-10.0)
[2020-01-03 05:21] LABS: Alanine Aminotransferase 11 U/L (4-50); Albumin Level 3.3 g/dL (3.5-5.1); Alkaline Phosphatase 69 U/L (38-126); Aspartate Amino Transferase 12 U/L (17-59); Bilirubin,Total 0.6 mg/dL (0.2-1.3); Blood Urea Nitrogen 9 mg/dL (9-20); Calcium 8.3 mg/dL (8.4-10.2); Carbon Dioxide 30 mmol/L (22-30); Chloride 99 mmol/L (98-107); Estimated CRCL calculation 342 ml/min; Estimated Glomerular Filt Rate > 60; Glucose 144 mg/dL (75-110); Magnesium 2.2 mg/dL (1.6-2.3); Potassium 3.7 mmol/L (3.4-5.0); Sodium 131 mmol/L (137-145)
[2020-01-03] MEDS: DILTIAZEM HCL 30 MG TABLET 90 MG PO ×3 (06:31→21:04)
[2020-01-03 08:14] LABS: Glucose Point of Care 136 (65-105)
[2020-01-03] MEDS: CHLORTHALIDONE 25 MG TABLET PO (08:17)
[2020-01-03] MEDS: lisinopriL 20 MG TABLET 40 MG PO (08:17)
[2020-01-03] MEDS: GABAPENTIN 100 MG CAPSULE 200 MG PO ×3 (08:18→16:55)
--- NOTE | 2020-01-03 10:47 | P.PNIM_ITS ---
Progress Note: A&P Assessment and Plan (1) Abdominal wall cellulitis: Code(s): L03.311 - Cellulitis of abdominal wall Status: Acute Assessment and Plan: * Cellulitis to R lower abdomen; seems improved compared to pen markings but still indurated requiring IV antibiotics. * Continue IV vancomycin and imipenem (day 2). (2) Cellulitis of right leg: Code(s): L03.115 - Cellulitis of right lower limb Status: Acute Assessment and Plan: * Continue IV vancomycin and imipenem as above. * Will have wound RN assess legs tomorrow; chronic venous stasis changes with wound to right bruno. * Pedal edema ++; IV lasix x 1 today and will monitor. (3) UTI (urinary tract infection): Qualifiers: Hematuria presence: without hematuria Urinary tract infection type: site unspecified Qualified Code(s): N39.0 - Urinary tract infection, site not s pecified Code(s): N39.0 - Urinary tract infection, site not specified Status: Acute Assessment and Plan: * Urine culture grew > 100,000 E coli sensitive to the imipenem is he on. (4) Sepsis: Qualifiers: Sepsis acute organ dysfunction status: without acute organ dysfunction Sepsis type: sepsis due to unspecified organism Qualified Code(s): A41.9 - Sepsis, unspecified organism Code(s): A41.9 - Sepsis, unspecified organism Status: Acute Assessment and Plan: * Evident by fever, leukocytosis and tachycardia on arrival. Blood cultures pending with no growth to date. Source soft tissue vs. urinary. (5) Insulin dependent type 2 diabetes mellitus: Code(s): E11.9 - Type 2 diabetes mellitus without complications; Z79.4 - prison (cur rent) use of insulin Status: Acute Assessment and Plan: * A1c 7.8 in November. Continue to monitor with accu-cheks; Continue lantus and SSI coverage. Optimize glycemic control for wound healing. (6) Obstructive sleep apnea on CPAP: Code(s): G47.33 - Obstructive sleep apnea (adult) (pediatric); Z99.89 - Dependence on other enabling machines and devices Status: Acute Assessment and Plan: * CPAP. (7) Chronic atrial fibrillation: Code(s): I48.20 - Chronic atrial fibrillation, unspecified Status: Acute Assessment and Plan: * Rate controlled today on his home diltiazem. Systemic anticoagulation with Xarelto. 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 (9) Hypertension: Qualifiers: Hypertension type: unspecified Qualified Code(s): I10 - Essential (primary) hypertension Code(s): I10 - Essential (primary) hypertension Status: Acute Assessment and Plan: * Elevated but improved today after his home medications have been resumed. Monitor BP and adjust treatment as needed. * He remains on chlorthalidone, lisinopril. (10) Morbid obesity: Code(s): E66.01 - Morbid (severe) obesity due to excess calories Status: Acute Assessment and Plan: * Patient needs trial of lifestyle modifications for weight loss prior to insurance covering any type of bypass surgery. He is essentially bed-bound at this point. Contin
--- NOTE | 2020-01-03 10:47 | PM.IMPN ---
Progress Note: A&P Assessment and Plan (1) Abdominal wall cellulitis: Code(s): L03.311 - Cellulitis of abdominal wall Status: Acute Assessment and Plan: Cellulitis to R lower abdomen; seems improved compared to pen markings but still indurated requiring IV antibiotics. Continue IV vancomycin and imipenem (day 2). (2) Cellulitis of right leg: Code(s): L03.115 - Cellulitis of right lower limb Status: Acute Assessment and Plan: Continue IV vancomycin and imipenem as above. Will have wound RN assess legs tomorrow; chronic venous stasis changes with wound to right bruno. Pedal edema ++; IV lasix x 1 today and will monitor. (3) UTI (urinary tract infection): Qualifiers: Hematuria presence: without hematuria Urinary tract infection type: site unspecified Qualified Code(s): N39.0 - Urinary tract infection, site not specified Code(s): N39.0 - Urinary tract infection, site not specified Status: Acute Assessment and Plan: Urine culture grew > 100,000 E coli sensitive to the imipenem is he on. (4) Sepsis: Qualifiers: Sepsis acute organ dysfunction status: without acute organ dysfunction Sepsis type: sepsis due to unspecified organism Qualified Code(s): A41.9 - Sepsis, unspecified organism Code(s): A41.9 - Sepsis, unspecified organism Status: Acute Assessment and Plan: Evident by fever, leukocytosis and tachycardia on arrival. Blood cultures pending with no growth to date. Source soft tissue vs. urinary. (5) Insulin dependent type 2 diabetes mellitus: Code(s): E11.9 - Type 2 diabetes mellitus without complications; Z79.4 - correction (current) use of insulin Status: Acute Assessment and Plan: A1c 7.8 in November. Continue to monitor with accu-cheks; Continue lantus and SSI coverage. Optimize glycemic control for wound healing. (6) Obstructive sleep apnea on CPAP: Code(s): G47.33 - Obstructive sleep apnea (adult) (pediatric); Z99.89 - Dependence on other enabling machines and devices Status: Acute Assessment and Plan: CPAP. (7) Chronic atrial fibrillation: Code(s): I48.20 - Chronic atrial fibrillation, unspecified Status: Acute Assessment and Plan: Rate controlled today on his home diltiazem. Systemic anticoagulation with Xarelto. (8) correction current use of anticoagulant: Code(s): Z79.01 - ocean transportation intermediary (current) use of anticoagulants Status: Acute Assessment and Plan: Continue Xarelto and monitor for s/s bleeding. (9) Hypertension: Qualifiers: Hypertension type: unspecified Qualified Code(s): I10 - Essential (primary) hypertension Code(s): I10 - Essential (primary) hypertension Status: Acute Assessment and Plan: Elevated but improved today after his home medications have been resumed. Monitor BP and adjust treatment as needed. He remains on chlorthalidone, lisinopril. (10) Morbid obesity: Code(s): E66.01 - Morbid (severe) obesity due to excess calories Status: Acute Assessment and Plan: Patient needs trial of lifestyle modifications for weight loss prior to insurance covering any type of bypass surgery. He is essentially bed-bound at this point. Continue PT/OT. Subjective Date/time seen: 01/03/20 10:00 Interval history: Mr. Fam is a 39yo M admitted with abdominal wall cellulitis he noted began over the weekend. He reports the redness and pain to right lower abdominal wall is improved compared to yesterday. He denies any chest pain, shortness of breath, or cough. He agrees his legs are swollen but thinks they
[2020-01-03 11:52] LABS: Glucose Point of Care 133 (65-105)
[2020-01-03] MEDS: polyethylene glycoL 3350 17 GM POWD.PACK PO (12:17)
[2020-01-03] MEDS: FUROSEMIDE INJ 40 MG/4 ML VIAL IV PUSH (12:17)
--- NOTE | 2020-01-03 15:34 | PC.NURSE ---
This patient, Tito Fam, was transferred to [25 ] on 01/03/20 at 1533. Personal belongings sent with patient. Belongings list checked and signed with receiving [ ]. Report given to [ Abby]. Appropriate documentation sent with patient.
--- NOTE | 2020-01-03 15:36 | PC.NURSE ---
This patient, Tito Fam, was received from IMU on 01/03/20 at 1535. Personal belongings list checked and signed. Patient/family oriented to unit policies and routines
[2020-01-03 16:30] LABS: Glucose Point of Care 124 (65-105)
[2020-01-03] MEDS: INSULIN GLARGINE (*BKC) 100 UNITS/ML 10 UNITS SUB-Q (16:54)
[2020-01-03] MEDS: RIVAROXABAN 20 MG TABLET PO (16:56)
[2020-01-03 20:34] LABS: Glucose Point of Care 148 (65-105)
[2020-01-04] VITALS (9 sets, daily range): BP systolic 144–155; BP diastolic 65–89; PULSE 67–98; RESP 16–20; TEMP 36–37.3; O2SAT 95–98
[2020-01-04 05:39] LABS: Basophils Percent Auto 0.3 % (0.2-1.2); Eosinophils Absolute Auto 0.2 K/mm3 (0-0.3); Eosinophils Percent Auto 2.7 % (0-4.4); Hematocrit 37.1 % (42.0-52.0); Hemoglobin 11.3 g/dL (14.0-18.0); Immature Granulocyte Absolute 0.04 K/mm3 (0.00-0.031); Immature Granulocyte Percent A 0.6 % (0-0.5); Lymphocytes Absolute Auto 1.55 K/mm3 (0.9-3.2); Lymphocytes Percent Auto 22.1 % (18.3-44.2); Mean Corpuscular HGB Conc 30.5 g/dl (32-36); Mean Corpuscular Hemoglobin 24.4 pg (26-34); Mean Platelet Volume 10.3 fl (7.4-10.4); Monocytes Absolute Auto 0.6 K/mm3 (0.1-0.6); Monocytes Percent Auto 8.7 % (2.6-8.5); Neutrophils Absolute Auto 4.6 K/mm3 (1.3-6.7); Neutrophils Percent Auto 65.6 % (45.5-73.1); Platelet Count Result 295 k/mm3 (150-375); Red Blood Count 4.64 M/mm3 (4.6-6.20); Red Cell Distribution Width 14.4 % (11.5-14.5)
[2020-01-04] MEDS: DILTIAZEM HCL 30 MG TABLET 90 MG PO ×3 (06:24→22:26)
[2020-01-04 06:43] LABS: Blood Urea Nitrogen 11 mg/dL (9-20); Calcium 8.3 mg/dL (8.4-10.2); Carbon Dioxide 32 mmol/L (22-30); Chloride 95 mmol/L (98-107); Estimated CRCL calculation 288 ml/min; Estimated Glomerular Filt Rate > 60; Glucose 187 mg/dL (75-110); Magnesium 2.2 mg/dL (1.6-2.3); Phosphorus 4.5 mg/dL (2.5-4.5); Potassium 3.9 mmol/L (3.4-5.0); Sodium 131 mmol/L (137-145)
[2020-01-04 07:38] LABS: Glucose Point of Care 141 (65-105)
[2020-01-04] MEDS: lisinopriL 20 MG TABLET 40 MG PO (08:34)
[2020-01-04] MEDS: CHLORTHALIDONE 25 MG TABLET PO (08:35)
[2020-01-04] MEDS: GABAPENTIN 100 MG CAPSULE 200 MG PO ×3 (08:35→17:07)
--- NOTE | 2020-01-04 11:25 | PCOTNOTE ---
Attempted to see patient this A.M. for session. Patient in bed upon entry and reports of no pain. When asked if patient would like to participate in skilled OT session, patient declined, stating, I really don't need this. I can clothe myself, bathe myself, brush my own teeth, and my upper body is strong, the only thing I need is PT and I already had that today. Patient refused skilled OT session this date.
[2020-01-04 11:29] LABS: Glucose Point of Care 112 (65-105)
--- NOTE | 2020-01-04 14:12 | PM.IMPN ---
Progress Note: A&P Assessment and Plan (1) Abdominal wall cellulitis: Code(s): L03.311 - Cellulitis of abdominal wall Status: Acute Assessment and Plan: Cellulitis to R lower abdomen; seems improved compared to pen markings but still indurated. Continue IV vancomycin and imipenem (day 3). Urinary catheter was initiated due to immobility and to promote wound healing. (2) Cellulitis of right leg: Code(s): L03.115 - Cellulitis of right lower limb Status: Resolved Assessment and Plan: Cellulitis was reported to previously extend to right upper thigh, R thigh is clear today. See above. (3) UTI (urinary tract infection): Qualifiers: Urinary tract infection type: site unspecified Hematuria presence: without hematuria Qualified Code(s): N39.0 - Urinary tract infection, site not specified Code(s): N39.0 - Urinary tract infection, site not specified Status: Acute Assessment and Plan: Urine culture grew > 100,000 E coli sensitive to the imipenem is he on. (4) Sepsis: Qualifiers: Sepsis acute organ dysfunction status: without acute organ dysfunction Sepsis type: sepsis due to unspecified organism Qualified Code(s): A41.9 - Sepsis, unspecified organism Code(s): A41.9 - Sepsis, unspecified organism Status: Acute Assessment and Plan: Evident by fever, leukocytosis and tachycardia on arrival. Blood cultures pending with no growth to date. Source soft tissue vs. urinary. (5) Insulin dependent type 2 diabetes mellitus: Code(s): E11.9 - Type 2 diabetes mellitus without complications; Z79.4 - snf (current) use of insulin Status: Acute Assessment and Plan: A1c 7.8 in November. Continue to monitor with accu-cheks; Continue lantus and SSI coverage. Optimize glycemic control for wound healing. (6) Obstructive sleep apnea on CPAP: Code(s): G47.33 - Obstructive sleep apnea (adult) (pediatric); Z99.89 - Dependence on other enabling machines and devices Status: Acute Assessment and Plan: CPAP. (7) Chronic atrial fibrillation: Code(s): I48.20 - Chronic atrial fibrillation, unspecified Status: Acute Assessment and Plan: Rate controlled today on his home diltiazem. Systemic anticoagulation with Xarelto. 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 (9) Hypertension: Qualifiers: Hypertension type: unspecified Qualified Code(s): I10 - Essential (primary) hypertension Code(s): I10 - Essential (primary) hypertension Status: Acute Assessment and Plan: Stable on his home chlorthalidone and lisinopril. Monitor BP and adjust treatment as needed. (10) Morbid obesity: Code(s): E66.01 - Morbid (severe) obesity due to excess calories Status: Acute Assessment and Plan: Patient needs trial of lifestyle modifications for weight loss prior to insurance covering any type of bypass surgery. He is essentially bed-bound at this point. Continue PT/OT. Subjective Date/time seen: 01/04/20 1330 Interval history: Mr. Fam is a 39yo M admitted with abdominal wall cellulitis. Improving today. He feels redness and pain to right side abdomen is improved but still feeling hard (indurated). He denies any chest pain, shortness of breath, or cough. He feels leg swelling has improved. He has tolerated oral intake without nausea or vomiting. No longer constipated and had a BM yesterday. Sat on edge of bed today with
[2020-01-04] MEDS: SILVERGEL (ELTA) 45 ML 1 APPLIC TOPICAL (14:48)
[2020-01-04] MEDS: EUCERIN CREAM 120 GM JAR 1 APPLIC TOPICAL (14:48)
[2020-01-04 16:45] LABS: Glucose Point of Care 142 (65-105)
[2020-01-04] MEDS: RIVAROXABAN 20 MG TABLET PO (17:07)
[2020-01-04] MEDS: INSULIN GLARGINE (*BKC) 100 UNITS/ML 10 UNITS SUB-Q (17:12)
[2020-01-04 22:36] LABS: Glucose Point of Care 166 (65-105)
[2020-01-05] VITALS (10 sets, daily range): BP systolic 118–148; BP diastolic 64–83; PULSE 69–103; RESP 18–20; TEMP 35.8–36.8; O2SAT 93–98
[2020-01-05 05:15] LABS: Estimated CRCL calculation 331 ml/min; Estimated Glomerular Filt Rate > 60
[2020-01-05] MEDS: DILTIAZEM HCL 30 MG TABLET 90 MG PO ×3 (06:17→21:04)
[2020-01-05 07:56] LABS: Glucose Point of Care 141 (65-105)
[2020-01-05] MEDS: polyethylene glycoL 3350 17 GM POWD.PACK PO (08:38)
[2020-01-05] MEDS: CHLORTHALIDONE 25 MG TABLET PO (08:39)
[2020-01-05] MEDS: GABAPENTIN 100 MG CAPSULE 200 MG PO ×3 (08:39→17:41)
[2020-01-05] MEDS: lisinopriL 20 MG TABLET 40 MG PO (08:39)
[2020-01-05] MEDS: BISACODYL 5 MG TABLET EC PO (08:39)
[2020-01-05] MEDS: EUCERIN CREAM 120 GM JAR 1 APPLIC TOPICAL (08:42)
[2020-01-05] MEDS: SILVERGEL (ELTA) 45 ML 1 APPLIC TOPICAL (08:42)
--- NOTE | 2020-01-05 11:05 | PCOTNOTE ---
Attempted to see patient this am, however patient declined. Pt reported good use of upper body with no concerns as pertains to occupational therapy. Pt stated his main focus is lower body and physical therapy. Pt requested to be discharged from services. OT notified.
[2020-01-05 11:18] LABS: Glucose Point of Care 135 (65-105)
[2020-01-05 11:53] LABS: Vancomycin Trough 13.9 ug/mL (10.0-20.0)
--- NOTE | 2020-01-05 12:23 | PM.IMPN ---
Progress Note: A&P Assessment and Plan (1) Abdominal wall cellulitis: Code(s): L03.311 - Cellulitis of abdominal wall Status: Acute Assessment and Plan: Cellulitis to R lower abdomen; seems improved compared to pen markings but still indurated. Continue IV vancomycin and imipenem (day 4). Urinary catheter was initiated due to immobility and to promote wound healing. Anticipate discharge tomorrow. (2) UTI (urinary tract infection): Qualifiers: Hematuria presence: without hematuria Urinary tract infection type: site unspecified Qualified Code(s): N39.0 - Urinary tract infection, site not specified Code(s): N39.0 - Urinary tract infection, site not specified Status: Acute Assessment and Plan: Urine culture grew > 100,000 E coli sensitive to the imipenem is he on. (3) Sepsis: Qualifiers: Sepsis acute organ dysfunction status: without acute organ dysfunction Sepsis type: sepsis due to unspecified organism Qualified Code(s): A41.9 - Sepsis, unspecified organism Code(s): A41.9 - Sepsis, unspecified organism Status: Acute Assessment and Plan: Evident by fever, leukocytosis and tachycardia on arrival. Blood cultures pending with no growth to date. Source soft tissue vs. urinary. (4) Insulin dependent type 2 diabetes mellitus: Code(s): E11.9 - Type 2 diabetes mellitus without complications; Z79.4 - shelter (current) use of insulin Status: Acute Assessment and Plan: A1c 7.8 in November. Continue to monitor with accu-cheks; Continue lantus and SSI coverage. Optimize glycemic control for wound healing. (5) Obstructive sleep apnea on CPAP: Code(s): G47.33 - Obstructive sleep apnea (adult) (pediatric); Z99.89 - Dependence on other enabling machines and devices Status: Acute Assessment and Plan: CPAP. (6) Chronic atrial fibrillation: Code(s): I48.20 - Chronic atrial fibrillation, unspecified Status: Acute Assessment and Plan: Rate controlled today on his home diltiazem. Systemic anticoagulation with Xarelto. DC tele. (7) rn long term care current use of anticoagulant: Code(s): Z79.01 - rn long term care (current) use of anticoagulants Status: Acute Assessment and Plan: Continue Xarelto and monitor for s/s bleeding. (8) Hypertension: Qualifiers: Hypertension type: unspecified Qualified Code(s): I10 - Essential (primary) hypertension Code(s): I10 - Essential (primary) hypertension Status: Acute Assessment and Plan: Last . Stable on his home chlorthalidone and lisinopril. Monitor BP and adjust treatment as needed. (9) Morbid obesity: Code(s): E66.01 - Morbid (severe) obesity due to excess calories Status: Acute Assessment and Plan: Patient needs trial of lifestyle modifications for weight loss prior to insurance covering any type of bypass surgery. He is essentially bed-bound at this point. Continue PT/OT. Subjective Date/time seen: 01/05/20 12:00 Interval history: Mr. Fam is a 39yo M admitted with abdominal wall cellulitis. Improving today. Right side abdomen still indurated but improving. He denies chest pain, shortness of breath or cough. No nausea, vomiting, or abdominal pain. He feels constipated again today. Patient is morbidly obese and has not been out of bed for over 1 year. He recently has been working with PT/OT at home and tells me he recently stood out of the bed for the first time in years. Review of Systems Review of Systems: Narrative: Twelve systems were reviewed with pertinent positives and negatives as per HPI. Exam Narrative: Exam Narrative:
[2020-01-05] MEDS: NYSTATIN 100,000 UNITS/ML SUSP 5 ML ORAL.SUSP PO ×3 (14:23→21:04)
[2020-01-05 16:29] LABS: Glucose Point of Care 144 (65-105)
[2020-01-05] MEDS: RIVAROXABAN 20 MG TABLET PO (17:41)
[2020-01-05] MEDS: INSULIN GLARGINE (*BKC) 100 UNITS/ML 10 UNITS SUB-Q (17:43)
[2020-01-05 21:08] LABS: Glucose Point of Care 184 (65-105)
[2020-01-06 02:21] VITALS: BP 124/75; PULSE 88; RESP 18; TEMP 36.3; O2SAT 97
[2020-01-06 05:47] LABS: Hematocrit 38.6 % (42.0-52.0); Hemoglobin 11.8 g/dL (14.0-18.0)
[2020-01-06] MEDS: DILTIAZEM HCL 30 MG TABLET 90 MG PO (05:49)
[2020-01-06 06:01] LABS: Blood Urea Nitrogen 10 mg/dL (9-20); Calcium 8.5 mg/dL (8.4-10.2); Carbon Dioxide 30 mmol/L (22-30); Chloride 93 mmol/L (98-107); Estimated CRCL calculation 330 ml/min; Estimated Glomerular Filt Rate > 60; Glucose 187 mg/dL (75-110); Magnesium 2.2 mg/dL (1.6-2.3); Potassium 3.8 mmol/L (3.4-5.0); Sodium 130 mmol/L (137-145)
[2020-01-06 06:31] VITALS: BP 130/81; PULSE 94; RESP 20; TEMP 36.1; O2SAT 98
[2020-01-06 07:56] LABS: Glucose Point of Care 153 (65-105)
[2020-01-06] MEDS: NYSTATIN 100,000 UNITS/ML SUSP 5 ML ORAL.SUSP PO (08:32)
[2020-01-06] MEDS: GABAPENTIN 100 MG CAPSULE 200 MG PO (08:32)
[2020-01-06] MEDS: lisinopriL 20 MG TABLET 40 MG PO (08:32)
[2020-01-06] MEDS: SILVERGEL (ELTA) 45 ML 1 APPLIC TOPICAL (08:33)
[2020-01-06] MEDS: EUCERIN CREAM 120 GM JAR 1 APPLIC TOPICAL (08:33)
[2020-01-06 10:06] VITALS: BP 127/63; PULSE 84; RESP 22; TEMP 36.1; O2SAT 95
--- NOTE | 2020-01-06 10:12 | PM.DS ---
DS: Admitting Diagnosis Admitting Diagnosis Admitting Diagnosis: Sepsis, unspecified organism DS: Discharge Diagnosis Discharge Diagnosis (1) Abdominal wall cellulitis: Code(s): L03.311 - Cellulitis of abdominal wall Status: Acute Assessment and Plan: Date of Service 01/06/20 Mr. 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 He was admitted to the hospitalist service for further management of abdominal wall cellulitis and treated with IV vancomycin and imipenem. There were no associated open wounds or abscesses identified. He does have significant chronic venous stasis changes to JOSÉ MIGUEL legs and very dry flaking skin to JOSÉ MIGUEL feet. He was maintained on his home chlorthalidone and treated with a dose of IV lasix which greatly improved lower extremity swelling. Urinary moody catheter was initiated, as the patient was unable to roll over on to his side to urinate like he normally does due to pain from the cellulitis. Urinary catheter was discontinued morning of discharge and he was able to void without difficulty. Initial urine culture grew E coli which was sensitive to the imipenem he was on. He did have a mild hyponatremia 130-132 which was stable. He clinically improved with the therapy outlined above and was discharged with oral clindamycin to complete the course. He was hemodynamically stable for discharge 01/06/20 to follow up with PCP in 1 week. We discussed his weight loss and the idea of a gastric bypass procedure. He notes that his insurance will not cover the surgery until he does Weight Watchers first. We discussed lifestyle modifications for weight loss. Blood sugars were stable through this admission and he will continue his home insulin regimen. (2) UTI (urinary tract infection): Qualifiers: Urinary tract infection type: site unspecified Hematuria presence: without hematuria Qualified Code(s): N39.0 - Urinary tract infection, site not specified Code(s): N39.0 - Urinary tract infection, site not specified Status: Acute Assessment and Plan: Urine culture grew > 100,000 E coli; treated with imipenem. (3) Sepsis: Qualifiers: Sepsis acute organ dysfunction status: without acute organ dysfunction Sepsis type: sepsis due to unspecified organism Qualified Code(s): A41.9 - Sepsis, unspecified organism Code(s): A41.9 - Sepsis, unspecified organism Status: Acute Assessment and Plan: Evident by fever, leukocytosis and tachycardia on arrival all resolved. Blood cultures negative. Source soft tissue vs. urinary. (4) Insulin dependent type 2 diabetes mellitus: Code(s): E11.9 - Type 2 diabetes mellitus without complications; Z79.4 - alf (current) use of insulin Status: Acute Assessment and Plan: A1c 7.8 in November. Blood sugars stable; continue his home regimen and follow up with PCP. Optimize glycemic control for wound healing. (5) Obstructive sleep apnea on CPAP: Code(s): G47.33 - Obstructive sleep apnea (adult) (pediatric); Z99.89 - Dependence on other enabling machines and devices Status: Acute Assessment and Plan: CPAP. (6) Chronic atrial fibrillation: Code(s): I48.20 - Chronic atrial fibrillation, unspecified Status: Acute Assessment and Plan: Rate controlled on his home diltiazem. Systemic anticoagulation with Xarelto. 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
[2020-01-06 11:41] LABS: Glucose Point of Care 130 (65-105)
== END 2020-01-06 14:00 | disposition home health service (06) | DRG 720 ==
LOC: ANHED 15:58 → ANHIMU 16:23 → ANH2MED 01-03 15:25
PROVIDERS: Physician Assistant; Admitting Provider Internal Medicine; Emergency Provider Emergency Medicine; PCP Internal Medicine; Visit Provider Family Medicine
DX: A41.9 Sepsis, unspecified organism (principal); L03.311 Cellulitis of abdominal wall; N39.0 Urinary tract infection, site not specified; B96.20 Unspecified Escherichia coli [E. coli] as the cause of diseases classified elsewhere; E87.1 Hypo-osmolality and hyponatremia; G47.33 Obstructive sleep apnea (adult) (pediatric); I48.20 Chronic atrial fibrillation, unspecified; I10 Essential (primary) hypertension; D64.9 Anemia, unspecified; E11.42 Type 2 diabetes mellitus with diabetic polyneuropathy; M48.00 Spinal stenosis, site unspecified; I87.8 Other specified disorders of veins; E66.01 Morbid (severe) obesity due to excess calories; Z68.45 Body mass index [BMI] 70 or greater, adult; Z79.01 Long term (current) use of anticoagulants; Z79.4 Long term (current) use of insulin
CPT/HCPCS: 36415; 71046; 80048; 80053; 80076; 80202; 81001; 82565; 83605; 83735; 84100; 84443; 84484; 85014; 85018; 85025; 85610; 85730; 86140; 87040; 87077; 87086; 87088; 87186; 93005; 96361; 96365; 96366; 96367; 96368; 96374; 96375; 96376; 97110; 97161; 97165; 97530; 99285; A9270; G0378; G0379; J0743; J1815; J1940; J2405; J3370; J7030

== ENCOUNTER 2020-08-14 16:23 | Inpatient (IN) | payer OTHER, SELFPAY ==
[2020-08-14] VITALS (27 sets, daily range): BP systolic 109–176; BP diastolic 50–131; PULSE 115–161; RESP 15–37; TEMP 37.3; O2SAT 92–99
--- NOTE | ~2020-08-14 | XR_ITS ---
EXAMINATION: XR chest 1V portable DATE: 08/14/2020 17:36 INDICATION: Atrial fibrillation. Hypertension. Fever. TECHNIQUE: frontal view of the chest was obtained. COMPARISON: Chest radiograph dated 01/01/2020 FINDINGS: The lungs remain clear with no focal airspace opacities, pulmonary edema, pleural effusion or pneumot horax. Cardiomegaly. Implantable noc engineer projects over the left hilum. IMPRESSION: 1. Cardiomegaly. No acute cardiopulmonary disease. Reviewed, dictated and finalized at location A. NT SUPPORT CONSULTANT
--- NOTE | 2020-08-14 17:06 | ECG_ITS ---
Measurements Intervals [place] Rate: 123 P: MA: 0 QRS: 72 QRSD: 100 T: 229 QT: 280 QTc: 401 Interpretive Statements ATRIAL FIBRILLATION WITH RAPID VENTRICULAR RESPONSE BORDERLINE ST-T WAVE ABNORMALITY- INF/LAT LEADS BASELINE ARTIFACT- I, II, V1 ABNORMAL ECG Electronically Signed On 08-15-2020 7:00:48 PLUMBING INSPECTOR by Dl Dobbs D.O.
--- NOTE | 2020-08-14 17:15 | ED.GENADULT ---
HPI - General Adult General Chief complaint: Wound/Laceration Stated complaint: Wound Time Seen by Provider: 08/14/20 16:35 Source: patient History of Present Illness HPI narrative: Patient is a 40 y/o male complaining of shaking chills today. He states that he noticed a small bump in left groin and it busted open yesterday. He also notice right lower abdominal redness and swelling. He denies any chest pain or SOB. He had one episode of vomiting. Related Data Home Medications Medication Instructions Recorded Confirmed Xarelto 20 mg PO DAILY 11/09/19 01/01/20 chlorthalidone 25 mg PO DAILY 11/09/19 01/01/20 diltiazem HCl 90 mg PO TID 11/09/19 01/01/20 lisinopril 40 mg PO DAILY 11/09/19 01/01/20 Apidra U-100 Insulin See Protocol SUBCUT USEASDIRECTD #0 11/10/19 01/01/20 Lantus U-100 Insulin 15 unit SUBCUT QPM #0 11/10/19 01/01/20 gabapentin 200 mg PO TID 01/01/20 01/01/20 Allergies Allergy/AdvReac Type Severity Reaction Status Date / Time No Known Allergies Allergy Verified 01/01/20 13:40 Review of Systems Constitutional: Constitutional: Reports chills, Denies fever(s), Denies headache(s) and Denies weakness Eyes: Eyes: Denies blurry vision ENT: Denies headache(s) and Denies neck pain Cardiovascular: Cardiovascular: Denies chest pain and Denies dyspnea Respiratory: Respiratory: Denies cough and Denies dyspnea Gastrointestinal: Gastrointestinal: Denies abdominal pain, Denies diarrhea, Denies nausea and Reports vomiting Genitourinary: Genitourinary: Denies hematuria and Denies dysuria Musculoskeletal: Musculoskeletal: Denies back pain and Denies neck pain Integumentary/Breasts: Skin/Breast: Reports erythema (right lower abdomen) Neurologic: Denies headache(s) and Denies weakness PMFSH Past Medical History Medical History Chronic anemia Chronic atrial fibrillation On long-term anticoagulation. 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 He was discharged to an LTAC after he left [facility] and was on a wound VAC for approximately 60 days. Hypertension Insulin dependent type 2 diabetes mellitus Hemoglobin A1c was 7.8% on 11/10/2019. 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 Obstructive sleep apnea on CPAP Peripheral neuropathy Due to diabetes and spinal stenosis. 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 Family History Family History Father Patient's father is Diabetes mellitus Acute myocardial infarction Mother COPD (chronic obstructive pulmonary disease) Social History Social History Social History: The patient lives in his own house in [place], [place]. He has a spice blender that comes to the home for 8 hours a day. He has an aunt and uncle that live next to him who help with his care as well. He designates his mother and his aunt, Kailyn, as his surrogate decision makers. He wishes to be a full code. He denies alcohol, tobacco, and drug use. Spiritual care concerns: No Agree to blood products: Yes Exam Const: General: no acute distress and well developed Nutritional Appearance: obese Orientation/consciousness: oriented to person, oriented to place, oriented to time and patient oriented x3 HENMT: Head: normocephalic Ears: external ears normal General nose exam: Normal external nose present Eyes: General: appearance normal, both eyes and all related structures Conjunctivae: conjunctivae normal Neck: Neck: normal visual inspection and full ROM Chest: Chest palpation & inspection: norm
[2020-08-14 17:30] LABS: Basophils Percent Auto 0.2 % (0.2-1.2); Eosinophils Absolute Auto 0.1 K/mm3 (0-0.3); Eosinophils Percent Auto 0.6 % (0-4.4); Hematocrit 43.3 % (42.0-52.0); Hemoglobin 13.4 g/dL (14.0-18.0); Immature Granulocyte Percent A 0.8 % (0-0.5); Lymphocytes Absolute Auto 0.97 K/mm3 (0.9-3.2); Lymphocytes Percent Auto 7.3 % (18.3-44.2); Mean Corpuscular HGB Conc 30.9 g/dl (32-36); Mean Corpuscular Hemoglobin 25.8 pg (26-34); Mean Corpuscular Volume 83.3 fl (80-100); Mean Platelet Volume 10.5 fl (7.4-10.4); Monocytes Absolute Auto 0.5 K/mm3 (0.1-0.6); Monocytes Percent Auto 3.8 % (2.6-8.5); Neutrophils Absolute Auto 11.6 K/mm3 (1.3-6.7); Neutrophils Percent Auto 87.3 % (45.5-73.1); Platelet Count Result 306 k/mm3 (150-375); Red Cell Distribution Width 13.6 % (11.5-14.5); White Blood Count 13.3 K/mm3 (4.5-10.0)
[2020-08-14 17:45] LABS: Lactic Acid Reflex 2.1 mmol/L (0.7-2.1)
[2020-08-14 17:51] LABS: Alanine Aminotransferase 28 U/L (4-50); Albumin Level 3.8 g/dL (3.5-5.1); Alkaline Phosphatase 82 U/L (38-126); Anion Gap 6 mmol/L (8-16); Aspartate Amino Transferase 26 U/L (17-59); Bilirubin,Total 0.6 mg/dL (0.2-1.3); Blood Urea Nitrogen 14 mg/dL (9-20); Calcium 8.8 mg/dL (8.4-10.2); Carbon Dioxide 30 mmol/L (22-30); Chloride 100 mmol/L (98-107); Estimated CRCL calculation 213 ml/min; Estimated Glomerular Filt Rate > 60; Glucose 228 mg/dL (75-110); Potassium 4.6 mmol/L (3.4-5.0); Sodium 136 mmol/L (137-145)
[2020-08-14 18:37] LABS: Add Urine Microscopic? YES; Appearance Urine Clear (Clear); Bilirubin Urine Negative (Negative); Blood Urine 1+ (Negative); Color Urine Yellow (Yellow); Glucose Urine UA 3+ mg/dL (Negative); Ketones Urine Trace mg/dL (Negative); Leukocyte Esterase Ur Negative LEU/UL (Negative); Mucus Urine Rare /lpf; Nitrate Urine Negative (Negative); Protein Urine 2+ mg/dL (Negative); RBC Urine 0-2 /hpf (0-2); Specific Grav Ur 1.023 (1.001-1.035); Squamous Epithelial Cell Urine Rare /hpf (Few); Urobilinogen Urine Negative mg/dL (<2.0)
[2020-08-14] MEDS: AMIODARONE 150 MG/D5W 100 ML 150 MG/100 ML BAG 600 MG IV CONT (18:42)
[2020-08-14 20:28] LABS: Reflex Lactic Acid Yes or No Add Lactic
[2020-08-14 21:21] LABS: Lactic Acid 1.9 mmol/L (0.7-2.1)
--- NOTE | 2020-08-14 22:26 | PC.NURSE ---
Per EDP Rakan, increase Cardizem drip to 15mg/hr
[2020-08-14] MEDS: KETOROLAC 30 MG/ML VIAL (*BKC) IV PUSH (22:30)
[2020-08-15] VITALS (20 sets, daily range): BP systolic 123–155; BP diastolic 66–91; PULSE 78–121; RESP 18–22; TEMP 36–38.2; O2SAT 93–98; BMI 106.9; BMI 76.5
[2020-08-15] MEDS: ACETAMINOPHEN 500 MG TABLET 1000 MG PO (00:19)
--- NOTE | 2020-08-15 00:25 | PC.NURSE ---
OB registration called to change patient to boarded status per supervisor order takers.
--- NOTE | 2020-08-15 01:59 | ADMGEN ---
This patient, Tito Fam, was admitted to IMU Room 200-01. Patient/family oriented to hospital policies and general routines including ID bracelet, bed and alarms, visiting hours, pain management, procedures, bathroom and other care routines, personal items, smoking policy, room service/diet, and visiting hours. Information on how to activate the Rapid Response Team has been discussed. Patient/Family are encouraged to report perceived risks to care and to ask questions if they do not understand what they are told or what they should do. Report from Aidan BONILLA. Arrived approx 0130.
[2020-08-15] MEDS: ACETAMINOPHEN 325 MG TABLET 650 MG PO ×2 (07:46→14:06)
--- NOTE | 2020-08-15 08:06 | PM.IMHP ---
H&P: HPI History of Present Illness Date/Time: 08/15/20 06:20 Chief Complaint: Chills Narrative: Tito Fam is a 40 year old male with past medical history of morbid obesity, diabetes, paroxysmal atrial fibrillation, obstructive sleep apnea, hypertension and distant history of Shahbaz's gangrene 2014 who presented to the ER due to evaluation of chills, drainage from a left scrotal wound and right abdominal pain. The patient reported that he noticed a small lump in his left groin on 06/12/2021 at busted open and produced a fair amount of green drainage. He reports that he is not having any pain in his groin. Infected area where he had a blister popped is not erythematous and has a clean base. Then on the he noticed a right lower abdominal redness swelling and pain. Reported this abdomen felt hot and firm. Pain as a 7/10 in intensity and aching in nature. It is made worse with palpation of the area and movement. This is usually the area where he gets abdominal cellulitis. When he gets cellulitis he usually becomes septic. He was just admitted the hospital in November 2019 for right lower extremity cellulitis and for cellulitis of the right lower extremity and abdominal wall cellulitis. He was admitted to [facility] ICU for abdominal wall cellulitis in June. The patient reported the last time he was admitted for cellulitis he developed oral thrush. He reports that his glucoses are usually well controlled ranging between 90 and 120. His last hemoglobin A1c was 7. He had 1 episode of vomiting on the . He denies any changes in his bowel habits and denies constipation or hematochezia or melena. He denies any difficulty with urination. Patient had a White catheter placed in the ER any as blood-tinged urine present. He denies any shortness of breath. He has been compliant with his home auto titrating CPAP therapy. He denies any palpitations. He was found to be in AFib RVR in the ER. He was initially started on amiodarone by the ER physician. I discontinued amiodarone and change the patient to Cardizem drip as he is on Cardizem at home. Patient had immediate improvement in his heart rate. He reports that he has great much bed-bound since he had a spine and developed spinal stenosis and has been on disability for many years. He developed Shahbaz's gangrene in 2015 was admitted our facility and transferred to [facility] where he was hospitalized for 2 months and underwent acute rehab for another month after that. He reports that he can roll to the right side and that is pannus mainly hangs to the right side Review of Systems Review of Systems: Narrative: 12 systems were reviewed with pertinent positives and negatives per HPI. Except as documented in the HPI, all other systems were reviewed and are negative. [facility] Past Medical History Medical History (Updated 08/15/20 @ 08:22 by Morena Brewer DO) Chronic anemia Chronic atrial fibrillation On long-term anticoagulation. 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 He was discharged to an LTAC after he left [facility] and was on a wound VAC for approximately 60 days. Hypertension Insulin dependent type 2 diabetes mellitus Hemoglobin A1c was 7.8% on 11/10/2019. 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 Obstructive sleep apnea on CPAP Peripheral neuropathy Due to diabetes and spinal stenosis. 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 Family History Family History Father Patient's father is Diabetes mellitus Acute myocardial infarction Mother COPD (chronic obstructive pulmo
[2020-08-15 09:19] LABS: Hematocrit 36.5 % (42.0-52.0); Hemoglobin 11.5 g/dL (14.0-18.0); Mean Corpuscular HGB Conc 31.5 g/dl (32-36); Mean Corpuscular Hemoglobin 25.8 pg (26-34); Mean Platelet Volume 10.4 fl (7.4-10.4); Platelet Count Result 263 k/mm3 (150-375); Red Blood Count 4.45 M/mm3 (4.6-6.20); Red Cell Distribution Width 13.7 % (11.5-14.5); White Blood Count 14.5 K/mm3 (4.5-10.0)
[2020-08-15 09:31] LABS: Anion Gap 4 mmol/L (8-16); Blood Urea Nitrogen 13 mg/dL (9-20); Calcium 8.1 mg/dL (8.4-10.2); Carbon Dioxide 26 mmol/L (22-30); Chloride 100 mmol/L (98-107); Estimated CRCL calculation 259 ml/min; Estimated Glomerular Filt Rate > 60; Glucose 290 mg/dL (75-110); Potassium 3.9 mmol/L (3.4-5.0); Sodium 130 mmol/L (137-145)
[2020-08-15] MEDS: dilTIAZem HCL 30 MG TABLET 90 MG PO ×2 (11:26→17:02)
[2020-08-15] MEDS: CHLORTHALIDONE 25 MG TABLET PO (11:26)
[2020-08-15] MEDS: lisinopriL 20 MG TABLET 40 MG PO (11:26)
[2020-08-15] MEDS: GABAPENTIN 300 MG CAPSULE PO ×2 (11:26→17:02)
[2020-08-15] MEDS: EUCERIN CREAM 120 GM JAR 1 APPLIC TOPICAL (11:51)
[2020-08-15 12:52] LABS: Glucose Point of Care 196 (65-105)
[2020-08-15 16:22] LABS: Glucose Point of Care 208 (65-105)
--- NOTE | 2020-08-15 16:24 | PM.IMPN ---
Progress Note: A&P Assessment and Plan (1) Atrial fibrillation with rapid ventricular response: Code(s): I48.91 - Unspecified atrial fibrillation Status: Acute Assessment and Plan: 08/15/20 16:24 Patient is morbidly obese presented with a right lower abdomen cellulitis with history of atrial fibrillation and developed RVR patient was started on diltiazem drip from emergency depart the rate is trending down, patient drip was stopped and switched her over diltiazem 90 mg t.i.d. rate is controlled, patient with cellulitis of right lower abdomen and scrotum patient was started on vancomycin and imipenem was added, patient denies any chest pain shortness of breath palpitation fever or chills. (2) Abdominal wall cellulitis: Code(s): L03.311 - Cellulitis of abdominal wall Status: Acute Assessment and Plan: Plan is above (3) shelter current use of anticoagulant: Code(s): Z79.01 - optical designer (current) use of anticoagulants Status: Acute Assessment and Plan: Patient on Xarelto for atrial fibrillation will monitor (4) Insulin dependent type 2 diabetes mellitus: Code(s): E11.9 - Type 2 diabetes mellitus without complications; Z79.4 - optical designer (current) use of insulin Status: Acute Assessment and Plan: Will continue home regimen and monitor Additional Plan Patient has chronic atrial fibrillation but in AFib with RVR. The patient is currently on a Cardizem drip at 15. His heart rate is improved control. Will transition back to home Cardizem since his rate is better controlled. For his abdominal wall cellulitis he has been placed a vancomycin in the ER. Will add imipenem for diabetic related cellulitis for antibiotic stewardship guidelines. He did not receive Lantus last evening and he did not arrived to the IMU until 2:30 a.m... He does have some hyperglycemia. The patient may need a partial dose of his Lantus. Will repeat CBC and BMP this a.m.. The patient's home auto titrating CPAP has been ordered. Will continue patient's home Xarelto. Subjective Date/time seen: 08/15/20 16:24 Patient is morbidly obese presented with a right lower abdomen cellulitis with history of atrial fibrillation and developed RVR patient was started on diltiazem drip from emergency depart the rate is trending down, patient drip was stopped and switched her over diltiazem 90 mg t.i.d. rate is controlled, patient with cellulitis of right lower abdomen and scrotum patient was started on vancomycin and imipenem was added, patient denies any chest pain shortness of breath palpitation fever or chills. Review of Systems Review of Systems: All systems reviewed & are unremarkable except as noted in HPI and below Exam Narrative: Exam Narrative: Morbidly obese with BMI 76.6 Patient is comfortable, NAD HEENT: eyes are clear and none icteric LUNGS:CTA HEART: Irregularly irregular ABD: Morbidly obese distended BS+, Soft and nontender, right lower quadrant erythematosus no induration and non flocculent Lower extremities: no edema SKIN: nonjaundiced Neuro: grossly intact. Objective Data Vital Signs Vital Signs: Vital Signs - 24 hr 08/14/20 16:30 08/14/20 18:42 08/14/20 19:09 Temperature 99.1 F Pulse Rate 133 H 128 H 156 H Respiratory Rate 18 37 H Blood Pressure 159/94 H 176/98 H Pulse Oximetry 97 08/14/20 19:17 08/14/20 19:18 08/14/20 20:11 Temperature Pulse Rate 161 H 127 H Respiratory Rate 20 29 H 24 H Blood Pressure 109/84 Pulse Oximetry 08/14/20 20:15 08/14/20 21:15 08/14/20 21:16 Temperature Pulse Rate 145 H 131 H 138 H Respiratory Rate 19 19 27 H Blood Pressure 166/70 H Pulse Oximetry 96 96 08/14/20 21:30 08/14/20 21:31 08/14/20 21:33 Temperature Pulse Rate 135 H 128 H 144 H Respiratory Rate 23 H 19 Blood Pressure 170/131 H 166/70 H Pulse Oximetry 99 96 08/14/20 21:51 08/14/20 22:00 08/14/20 22:01 Temperature Pulse
[2020-08-15] MEDS: INSULIN GLARGINE (*BKC) 100 UNITS/ML 15 UNITS SUB-Q (17:00)
[2020-08-15] MEDS: INSULIN ASPART (*BKC) 100 UNITS/ML SUB-Q (17:01)
[2020-08-15] MEDS: RIVAROXABAN 20 MG TABLET PO (17:20)
[2020-08-15 20:24] LABS: Glucose Point of Care 199 (65-105)
[2020-08-16] VITALS (13 sets, daily range): BP systolic 94–148; BP diastolic 67–78; PULSE 75–106; RESP 14–22; TEMP 36–37.3; O2SAT 95–99
[2020-08-16 05:58] LABS: Basophils Percent Auto 0.2 % (0.2-1.2); Eosinophils Absolute Auto 0.2 K/mm3 (0-0.3); Eosinophils Percent Auto 1.4 % (0-4.4); Hematocrit 36.5 % (42.0-52.0); Hemoglobin 11.3 g/dL (14.0-18.0); Immature Granulocyte Absolute 0.06 K/mm3 (0.00-0.031); Immature Granulocyte Percent A 0.5 % (0-0.5); Lymphocytes Absolute Auto 1.65 K/mm3 (0.9-3.2); Lymphocytes Percent Auto 14.9 % (18.3-44.2); Mean Corpuscular Hemoglobin 25.7 pg (26-34); Mean Corpuscular Volume 83.1 fl (80-100); Mean Platelet Volume 10.4 fl (7.4-10.4); Monocytes Absolute Auto 0.9 K/mm3 (0.1-0.6); Monocytes Percent Auto 8.3 % (2.6-8.5); Neutrophils Absolute Auto 8.3 K/mm3 (1.3-6.7); Neutrophils Percent Auto 74.7 % (45.5-73.1); Platelet Count Result 254 k/mm3 (150-375); Red Blood Count 4.39 M/mm3 (4.6-6.20); Red Cell Distribution Width 13.7 % (11.5-14.5); White Blood Count 11.1 K/mm3 (4.5-10.0)
[2020-08-16 06:09] LABS: Alanine Aminotransferase 21 U/L (4-50); Alkaline Phosphatase 62 U/L (38-126); Anion Gap 2 mmol/L (8-16); Aspartate Amino Transferase 16 U/L (17-59); Bilirubin,Total 0.4 mg/dL (0.2-1.3); Blood Urea Nitrogen 9 mg/dL (9-20); Calcium 8.2 mg/dL (8.4-10.2); Carbon Dioxide 31 mmol/L (22-30); Chloride 98 mmol/L (98-107); Estimated CRCL calculation 261 ml/min; Estimated Glomerular Filt Rate > 60; Glucose 191 mg/dL (75-110); Potassium 3.9 mmol/L (3.4-5.0); Sodium 131 mmol/L (137-145)
[2020-08-16] MEDS: INSULIN ASPART (*BKC) 100 UNITS/ML SUB-Q ×2 (08:21→12:49)
[2020-08-16] MEDS: EUCERIN CREAM 120 GM JAR 1 APPLIC TOPICAL (08:22)
[2020-08-16] MEDS: lisinopriL 20 MG TABLET 40 MG PO (08:23)
[2020-08-16] MEDS: dilTIAZem HCL 30 MG TABLET 90 MG PO ×3 (08:23→17:43)
[2020-08-16] MEDS: GABAPENTIN 300 MG CAPSULE PO ×3 (08:23→17:44)
[2020-08-16 08:54] LABS: Glucose Point of Care 215 (65-105)
--- NOTE | 2020-08-16 13:00 | PM.IMPN ---
Progress Note: A&P Assessment and Plan (1) Atrial fibrillation with rapid ventricular response: Code(s): I48.91 - Unspecified atrial fibrillation Status: Acute Assessment and Plan: Patient is morbidly obese presented with a right lower abdomen cellulitis with history of atrial fibrillation and developed RVR, patient drip was stopped and switched her over diltiazem 90 mg t.i.d. rate is controlled. 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: Code(s): Z79.01 - production designer (current) use of anticoagulants Status: Acute Assessment and Plan: Patient on Xarelto for atrial fibrillation will monitor (4) Insulin dependent type 2 diabetes mellitus: Code(s): E11.9 - Type 2 diabetes mellitus without complications; Z79.4 - [facility] (current) use of insulin Status: Acute Assessment and Plan: Will continue home regimen and monitor Subjective Date/time seen: 08/16/20 13:00 Interval history: Sarwat is a 40 year old male with past medical history of morbid obesity, diabetes, paroxysmal atrial fibrillation, obstructive sleep apnea, hypertension and distant history of Shahbaz's gangrene 2015 who presented to the ER due to evaluation of chills, drainage from a left scrotal wound and right abdominal pain. pt is admitted for AF with RVR and cellulitis of lower right side of abdominal wall, Review of Systems Review of Systems: All systems reviewed & are unremarkable except as noted in HPI and below Exam Narrative: Exam Narrative: Morbidly obese with BMI 76.6 Patient is comfortable LUNGS:Clear HEART: Irregularly irregular@100. ABD: Morbidly obese distended BS+, Soft and nontender, right lower quadrant erythematosus Lower extremities: no edema SKIN: nonjaundiced Neuro: grossly intact. Objective Data Vital Signs Vital Signs: Vital Signs - 24 hr 08/15/20 14:00 08/15/20 16:00 08/15/20 17:39 Temperature 36.0 C L Pulse Rate 78 85 87 Respiratory Rate 20 Blood Pressure 140/76 Pulse Oximetry 98 08/15/20 18:47 08/15/20 20:00 08/15/20 21:10 Temperature 36.1 C L Pulse Rate 79 84 88 Respiratory Rate 18 Blood Pressure 154/69 H Pulse Oximetry 96 97 08/15/20 21:30 08/15/20 22:00 08/16/20 00:00 Temperature 37.3 C Pulse Rate 88 93 97 Respiratory Rate 20 Blood Pressure 148/68 H Pulse Oximetry 96 98 08/16/20 02:00 08/16/20 04:00 08/16/20 06:00 Temperature 36.3 C L Pulse Rate 90 106 H 88 Respiratory Rate 18 Blood Pressure 126/75 Pulse Oximetry 97 08/16/20 08:00 08/16/20 10:00 08/16/20 12:00 Temperature 36.7 C 37.0 C Pulse Rate 102 H 96 92 Respiratory Rate 14 22 H Blood Pressure 142/77 H 119/67 Pulse Oximetry 98 96 Intake/Output Intake/Output: Intake & Output 08/13/20 08/14/20 08/15/20 08/16/20 23:59 23:59 23:59 23:59 Intake Total 600 3910 1510 Output Total 2680 1900 Balance 600 1230 -390 Meds/Results Medications: Active Medications Generic Name Dose Route Start Last Admin Trade Name Freq PRN Reason Stop Dose Admin Acetaminophen 650 mg 08/15/20 07:34 08/15/20 14:06 Acetaminophen 325 Mg Tablet PO 650 mg Q6H PRN Administration Mild Pain (1-3) or Fever Hydrocodone Bitart/Acetaminophen 1 tab 08/15/20 08:07 Hydrocodone/Acetaminophen (*Crx) 5-325 Mg Tablet PO Q6H PRN Pain Rated 4-6 Chlorthalidone 25 mg 08/15/20 09:00 08/15/20 11:26 Chlorthalidone 25 Mg Tablet PO 25 mg Q48HR GATO Administration Dextrose 12.5 gm 08/15/20 08:33 Dextrose 50% 25 Gm/50 Ml Syringe IV PUSH PRN PRN Hypoglycemia Protocol Diltiazem HCl 90 mg 08/15/20 13:00 08/16/20 12:49 Diltiazem Hcl 30 Mg Tablet PO 09/14/20 13:01 90 mg TID GATO Administration Gabapentin 300 mg
--- NOTE | 2020-08-16 15:26 | PC.NURSE ---
This patient, Tito Fam, was transferred to [facility] on 08/16/20 at 1527. Personal belongings sent with patient. Report given to Pilar. Appropriate documentation sent with patient.
[2020-08-16] MEDS: RIVAROXABAN 20 MG TABLET PO (17:44)
[2020-08-16 18:36] LABS: Glucose Point of Care 197 (65-105)
[2020-08-16] MEDS: INSULIN GLARGINE (*BKC) 100 UNITS/ML 15 UNITS SUB-Q (18:37)
[2020-08-16 19:00] LABS: Glucose Point of Care 208 (65-105)
[2020-08-16 22:13] LABS: Glucose Point of Care 219 (65-105)
[2020-08-17] VITALS (9 sets, daily range): BP systolic 121–146; BP diastolic 69–86; PULSE 68–116; RESP 16–20; TEMP 35.9–36.9; O2SAT 96–98
[2020-08-17 05:50] LABS: Basophils Percent Auto 0.2 % (0.2-1.2); Eosinophils Absolute Auto 0.2 K/mm3 (0-0.3); Eosinophils Percent Auto 2.4 % (0-4.4); Hematocrit 36.4 % (42.0-52.0); Hemoglobin 11.3 g/dL (14.0-18.0); Immature Granulocyte Absolute 0.05 K/mm3 (0.00-0.031); Immature Granulocyte Percent A 0.6 % (0-0.5); Lymphocytes Absolute Auto 1.64 K/mm3 (0.9-3.2); Lymphocytes Percent Auto 18.7 % (18.3-44.2); Mean Corpuscular Hemoglobin 25.6 pg (26-34); Mean Corpuscular Volume 82.5 fl (80-100); Mean Platelet Volume 10.2 fl (7.4-10.4); Monocytes Absolute Auto 0.7 K/mm3 (0.1-0.6); Monocytes Percent Auto 7.6 % (2.6-8.5); Neutrophils Absolute Auto 6.2 K/mm3 (1.3-6.7); Neutrophils Percent Auto 70.5 % (45.5-73.1); Platelet Count Result 267 k/mm3 (150-375); Red Blood Count 4.41 M/mm3 (4.6-6.20); Red Cell Distribution Width 13.7 % (11.5-14.5); White Blood Count 8.8 K/mm3 (4.5-10.0)
[2020-08-17 05:59] LABS: Alanine Aminotransferase 19 U/L (4-50); Albumin Level 3.2 g/dL (3.5-5.1); Alkaline Phosphatase 58 U/L (38-126); Anion Gap 4 mmol/L (8-16); Aspartate Amino Transferase 15 U/L (17-59); Bilirubin,Total 0.6 mg/dL (0.2-1.3); Blood Urea Nitrogen 10 mg/dL (9-20); Carbon Dioxide 29 mmol/L (22-30); Chloride 99 mmol/L (98-107); Estimated CRCL calculation 339 ml/min; Estimated Glomerular Filt Rate > 60; Glucose 209 mg/dL (75-110); Sodium 132 mmol/L (137-145)
[2020-08-17] MEDS: dilTIAZem HCL 30 MG TABLET 90 MG PO ×3 (07:48→17:27)
[2020-08-17] MEDS: GABAPENTIN 300 MG CAPSULE PO ×3 (07:49→17:27)
[2020-08-17] MEDS: lisinopriL 20 MG TABLET 40 MG PO (07:50)
[2020-08-17] MEDS: EUCERIN CREAM 120 GM JAR 1 APPLIC TOPICAL (07:50)
[2020-08-17] MEDS: CHLORTHALIDONE 25 MG TABLET PO (07:50)
[2020-08-17] MEDS: INSULIN ASPART (*BKC) 100 UNITS/ML SUB-Q ×3 (07:58→17:27)
[2020-08-17 08:38] LABS: Glucose Point of Care 218 (65-105)
[2020-08-17 11:25] LABS: Glucose Point of Care 242 (65-105)
--- NOTE | 2020-08-17 12:57 | PM.IMPN ---
Progress Note: A&P Assessment and Plan (1) Atrial fibrillation with rapid ventricular response: Code(s): I48.91 - Unspecified atrial fibrillation Status: Acute Assessment and Plan: Patient is morbidly obese presented with a right lower abdomen cellulitis with history of atrial fibrillation and developed RVR, patient drip was stopped and switched her over diltiazem 90 mg t.i.d. rate is controlled. can move to medical floor wit telemetry (2) Abdominal wall cellulitis: Code(s): L03.311 - Cellulitis of abdominal wall Status: Acute Assessment and Plan: Plan is above continue iv Primaxin and iv vancomycin (3) long-term current use of anticoagulant: Code(s): Z79.01 - long term care phlebotomist (current) use of anticoagulants Status: Acute Assessment and Plan: Patient on Xarelto for atrial fibrillation will monitor (4) Insulin dependent type 2 diabetes mellitus: Code(s): E11.9 - Type 2 diabetes mellitus without complications; Z79.4 - long-term (current) use of insulin Status: Acute Assessment and Plan: Will continue home regimen and monitor Subjective Date/time seen: 08/17/20 12:57 Interval history: Sarwat is a 40 year old male with past medical history of morbid obesity, diabetes, paroxysmal atrial fibrillation, obstructive sleep apnea, hypertension and distant history of Shahbaz's gangrene 2015 who presented to the ER due to evaluation of chills, drainage from a left scrotal wound and right abdominal pain. pt is admitted for AF with RVR and cellulitis of lower right side of abdominal wall, which is slowly improving. Pt is morbidly obese and bedridden since spinal injury. Review of Systems Review of Systems: All systems reviewed & are unremarkable except as noted in HPI and below Exam Narrative: Exam Narrative: Morbidly obese with BMI 76.6 Patient is comfortable LUNGS:Clear HEART: Irregularly irregular@100. ABD: Morbidly obese distended BS+, Soft and nontender, right lower quadrant erythematosus more indurated Lower extremities: no edema SKIN: nonjaundiced Neuro: grossly intact. Objective Data Vital Signs Vital Signs: Vital Signs - 24 hr 08/16/20 14:00 08/16/20 16:00 08/16/20 18:00 Temperature 36.0 C L Pulse Rate 84 79 102 H Respiratory Rate 22 H Blood Pressure 94/76 L Pulse Oximetry 95 08/16/20 20:00 02/11/21 20:20 08/16/20 22:00 Temperature 37.3 C Pulse Rate 91 89 80 Respiratory Rate 20 Blood Pressure 132/78 Pulse Oximetry 97 99 08/17/20 00:00 08/17/20 02:00 08/17/20 02:39 Temperature 36.4 C L Pulse Rate 84 95 86 Respiratory Rate 20 Blood Pressure 146/86 H Pulse Oximetry 98 96 08/17/20 06:00 08/17/20 08:00 08/17/20 12:00 Temperature 36.2 C L 36.9 C 36.3 C L Pulse Rate 87 116 H 97 Respiratory Rate 20 16 18 Blood Pressure 121/86 137/71 121/69 Pulse Oximetry 98 97 98 Intake/Output Intake/Output: Intake & Output 08/14/20 08/15/20 08/16/20 08/17/20 23:59 23:59 23:59 23:59 Intake Total 600 3910 3690 2160 Output Total 2680 5450 2200 Balance 600 1230 1760 -40 Meds/Results Medications: Active Medications Generic Name Dose Route Start Last Admin Trade Name Freq PRN Reason Stop Dose Admin Acetaminophen 650 mg 08/15/20 07:34 08/15/20 14:06 Acetaminophen 325 Mg Tablet PO 650 mg Q6H PRN Administration Mild Pain (1-3) or Fever Hydrocodone Bitart/Acetaminophen 1 tab 08/15/20 08:07 Hydrocodone/Acetaminophen (*Crx) 5-325 Mg Tablet PO Q6H PRN Pain Rated 4-6 Chlorthalidone 25 mg 08/15/20 09:00 08/17/20 07:50 Chlorthalidone 25 Mg Tablet PO 25 mg Q48HR GATO Administration Dextrose 12.5 gm 08/15/20 08:33 Dextrose 50% 25 Gm/50 Ml Syringe IV PUSH PRN PRN Hypoglycemia Protocol Diltiazem HCl 90 mg 08/15/20 13:00 08/17/20 12:16 Diltiazem Hcl 30 Mg Tablet PO 09/14/20 13:01 90 mg TID GATO Administration Gabapentin 300 mg 08/06
[2020-08-17 16:42] LABS: Glucose Point of Care 208 (65-105)
[2020-08-17] MEDS: RIVAROXABAN 20 MG TABLET PO (17:27)
[2020-08-17] MEDS: INSULIN GLARGINE (*BKC) 100 UNITS/ML 15 UNITS SUB-Q (17:28)
[2020-08-17 22:11] LABS: Vancomycin Trough 9.4 ug/mL (10.0-20.0)
[2020-08-18] VITALS (10 sets, daily range): BP systolic 118–162; BP diastolic 67–81; PULSE 71–94; RESP 16–20; TEMP 36–36.3; O2SAT 95–97
[2020-08-18 00:24] LABS: Glucose Point of Care 173 (65-105)
[2020-08-18 05:53] LABS: Basophils Percent Auto 0.4 % (0.2-1.2); Eosinophils Absolute Auto 0.2 K/mm3 (0-0.3); Hematocrit 38.1 % (42.0-52.0); Hemoglobin 11.8 g/dL (14.0-18.0); Immature Granulocyte Absolute 0.05 K/mm3 (0.00-0.031); Immature Granulocyte Percent A 0.6 % (0-0.5); Lymphocytes Absolute Auto 1.64 K/mm3 (0.9-3.2); Lymphocytes Percent Auto 21.2 % (18.3-44.2); Mean Corpuscular Hemoglobin 25.4 pg (26-34); Mean Corpuscular Volume 82.1 fl (80-100); Mean Platelet Volume 10.3 fl (7.4-10.4); Monocytes Absolute Auto 0.7 K/mm3 (0.1-0.6); Monocytes Percent Auto 9.3 % (2.6-8.5); Neutrophils Absolute Auto 5.1 K/mm3 (1.3-6.7); Neutrophils Percent Auto 65.5 % (45.5-73.1); Platelet Count Result 312 k/mm3 (150-375); Red Blood Count 4.64 M/mm3 (4.6-6.20); Red Cell Distribution Width 13.4 % (11.5-14.5); White Blood Count 7.7 K/mm3 (4.5-10.0)
[2020-08-18 06:12] LABS: Alanine Aminotransferase 21 U/L (4-50); Albumin Level 3.1 g/dL (3.5-5.1); Alkaline Phosphatase 64 U/L (38-126); Anion Gap 4 mmol/L (8-16); Aspartate Amino Transferase 18 U/L (17-59); Bilirubin,Total 0.6 mg/dL (0.2-1.3); Blood Urea Nitrogen 10 mg/dL (9-20); Calcium 8.3 mg/dL (8.4-10.2); Carbon Dioxide 31 mmol/L (22-30); Chloride 98 mmol/L (98-107); Estimated CRCL calculation 296 ml/min; Estimated Glomerular Filt Rate > 60; Glucose 218 mg/dL (75-110); Potassium 3.9 mmol/L (3.4-5.0); Sodium 133 mmol/L (137-145)
[2020-08-18] MEDS: GABAPENTIN 300 MG CAPSULE PO ×3 (08:18→16:54)
[2020-08-18] MEDS: dilTIAZem HCL 30 MG TABLET 90 MG PO ×3 (08:18→16:54)
[2020-08-18] MEDS: lisinopriL 20 MG TABLET 40 MG PO (08:18)
[2020-08-18] MEDS: EUCERIN CREAM 120 GM JAR 1 APPLIC TOPICAL (08:23)
[2020-08-18 08:28] LABS: Glucose Point of Care 226 (65-105)
[2020-08-18] MEDS: INSULIN ASPART (*BKC) 100 UNITS/ML SUB-Q ×3 (09:04→17:05)
--- NOTE | 2020-08-18 10:07 | PCOTNOTE ---
OT Evaluation Note: Patient was seen for an occupational therapy evaluation on 08/18/20. Observation/Report: Pt. reports he has been bedbound since 2014 and hasn't walked since then. He did not feel comfortable or confident to attempt sit<>stand today d/t numbness in his lower extremities and decreased movement in his lower extremities in the past 5 years. He reports he has strong arms and is able to sit on the side of the bed at home to urinate. This was not attempted at the time of the evaluation d/t safety concerns regarding the extended pieces on the bed being able to hold the patient up safely. He He reports his home is set up for him to utilize a wide wheelchair, but he is no longer transferring to the wheelchair d/t decreased strength and function of his lower extremities. He stated he was receiving home health care PT in February of last year. He reports that stopped unexpectedly and that was the re-start of him being bedbound. Patient states he has a home nurse (his cousin) that comes to his home each day to help with benefits specialist recruiter and help him with anything he needs. Although he did state he is able to get himself dressed independently. Recommendations: Based upon patient report and clinical observation, it is recommended that this patient be discharged home with home health care evaluation set up for him. This patient would benefit from home modifications, evaluation of functional transfers at home and general exercises at home to improve his ability to function more independently and transfer out of bed more often.
--- NOTE | 2020-08-18 10:15 | PCPTNOTE ---
PT/OT orders received for this patient...patient is bedridden at home...he does not transfer to , but sits only at eob...states that he has not stood for 'years', although he was able to stand 1x with physical therapy, but for some reason therapy was cancelled at that time...feel that patient has potential to be able to transfer to a with some usp, home health skilled therapy...recommend home health therapy for this patient.
[2020-08-18] MEDS: ACETAMINOPHEN 325 MG TABLET 650 MG PO (10:34)
[2020-08-18 12:24] LABS: Glucose Point of Care 207 (65-105)
--- NOTE | 2020-08-18 13:01 | PM.IMPN ---
Progress Note: A&P Assessment and Plan (1) Atrial fibrillation with rapid ventricular response: Code(s): I48.91 - Unspecified atrial fibrillation Status: Acute Assessment and Plan: Patient is morbidly obese presented with a right lower abdomen cellulitis with history of atrial fibrillation and developed RVR, patient drip was stopped and switched her over diltiazem 90 mg t.i.d. rate is controlled. (2) Abdominal wall cellulitis: Code(s): L03.311 - Cellulitis of abdominal wall Status: Acute Assessment and Plan: Plan is above continue iv Primaxin and iv vancomycin can stop vancomycin if cultures come back negative (3) correction current use of anticoagulant: Code(s): Z79.01 - intermediate frame tender (current) use of anticoagulants Status: Acute Assessment and Plan: Patient on Xarelto for atrial fibrillation will monitor (4) Insulin dependent type 2 diabetes mellitus: Code(s): E11.9 - Type 2 diabetes mellitus without complications; Z79.4 - correction (current) use of insulin Status: Acute Assessment and Plan: Will continue home regimen and monitor Subjective Date/time seen: 08/18/20 13:01 Interval history: Sarwat is a 40 year old male with past medical history of morbid obesity, diabetes, paroxysmal atrial fibrillation, obstructive sleep apnea, hypertension and distant history of Shahbaz's gangrene 2015 who presented to the ER due to evaluation of chills, drainage from a left scrotal wound and right abdominal pain. pt is admitted for AF with RVR and cellulitis of lower right side of abdominal wall, which is slowly improving. Pt is morbidly obese and bedridden since spinal injury. awaiting final report. Review of Systems Review of Systems: All systems reviewed & are unremarkable except as noted in HPI and below Exam Narrative: Exam Narrative: Morbidly obese with BMI 76.6 Patient is comfortable LUNGS:Clear HEART: Irregularly irregular@89. ABD: Morbidly obese distended BS+, Soft and nontender, right lower quadrant erythematosus more indurated Lower extremities: no edema Neuro: grossly intact. Objective Data Vital Signs Vital Signs: Vital Signs - 24 hr 08/17/20 16:00 08/17/20 20:00 08/17/20 20:52 Temperature 36.9 C 35.9 C L Pulse Rate 77 75 91 Respiratory Rate 16 20 20 Blood Pressure 137/73 133/81 Pulse Oximetry 97 96 96 08/18/20 00:00 08/18/20 02:07 08/18/20 04:00 Temperature 36.0 C L Pulse Rate 79 94 92 Respiratory Rate 18 Blood Pressure 137/76 Pulse Oximetry 97 08/18/20 06:10 08/18/20 08:15 08/18/20 12:00 Temperature 36.1 C L 36.3 C L Pulse Rate 89 87 89 Respiratory Rate 20 16 Blood Pressure 147/81 H 118/67 Pulse Oximetry 95 97 Intake/Output Intake/Output: Intake & Output 08/15/20 08/16/20 08/17/20 08/18/20 23:59 23:59 23:59 23:59 Intake Total 3910 3690 4580 1360 Output Total 2683 8943 7768 9955 Balance 1230 -1760 -470 -390 Meds/Results Medications: Active Medications Generic Name Dose Route Start Last Admin Trade Name Freq PRN Reason Stop Dose Admin Acetaminophen 650 mg 08/15/20 07:34 08/18/20 10:34 Acetaminophen 325 Mg Tablet PO 650 mg Q6H PRN Administration Mild Pain (1-3) or Fever Hydrocodone Bitart/Acetaminophen 1 tab 08/15/20 08:07 Hydrocodone/Acetaminophen (*Crx) 5-325 Mg Tablet PO Q6H PRN Pain Rated 4-6 Chlorthalidone 25 mg 08/15/20 09:00 08/17/20 07:50 Chlorthalidone 25 Mg Tablet PO 25 mg Q48HR GATO Administration Dextrose 12.5 gm 08/15/20 08:33 Dextrose 50% 25 Gm/50 Ml Syringe IV PUSH PRN PRN Hypoglycemia Protocol Diltiazem HCl 90 mg 08/15/20 13:00 08/18/20 12:20 Diltiazem Hcl 30 Mg Tablet PO 09/14/20 13:01 90 mg TID GATO Administration Gabapentin 300 mg 08/15/20 09:00 08/18/20 12:21 Gabapentin 300 Mg Capsule PO 300 mg TID GATO Administration Glucagon 1 mg 08/15/20 08:33 Glucagon For Inj 1
[2020-08-18] MEDS: NYSTATIN 100,000 UNITS/ML SUSP 5 ML ORAL.SUSP PO ×2 (16:54→20:36)
[2020-08-18] MEDS: RIVAROXABAN 20 MG TABLET PO (16:55)
[2020-08-18 16:59] LABS: Glucose Point of Care 214 (65-105)
[2020-08-18] MEDS: INSULIN GLARGINE (*BKC) 100 UNITS/ML 15 UNITS SUB-Q (17:06)
[2020-08-18 20:41] LABS: Glucose Point of Care 202 (65-105)
[2020-08-19] VITALS (10 sets, daily range): BP systolic 105–137; BP diastolic 66–79; PULSE 75–92; RESP 18–20; TEMP 36.2–36.6; O2SAT 94–100
[2020-08-19 05:18] LABS: Basophils Percent Auto 0.4 % (0.2-1.2); Eosinophils Absolute Auto 0.3 K/mm3 (0-0.3); Eosinophils Percent Auto 3.7 % (0-4.4); Hematocrit 38.3 % (42.0-52.0); Immature Granulocyte Absolute 0.08 K/mm3 (0.00-0.031); Lymphocytes Absolute Auto 1.83 K/mm3 (0.9-3.2); Lymphocytes Percent Auto 22.8 % (18.3-44.2); Mean Corpuscular HGB Conc 31.3 g/dl (32-36); Mean Corpuscular Hemoglobin 25.5 pg (26-34); Mean Corpuscular Volume 81.3 fl (80-100); Mean Platelet Volume 9.9 fl (7.4-10.4); Monocytes Absolute Auto 0.6 K/mm3 (0.1-0.6); Monocytes Percent Auto 7.1 % (2.6-8.5); Neutrophils Absolute Auto 5.2 K/mm3 (1.3-6.7); Platelet Count Result 315 k/mm3 (150-375); Red Blood Count 4.71 M/mm3 (4.6-6.20); Red Cell Distribution Width 13.2 % (11.5-14.5)
[2020-08-19 05:58] LABS: Alanine Aminotransferase 22 U/L (4-50); Albumin Level 3.2 g/dL (3.5-5.1); Alkaline Phosphatase 65 U/L (38-126); Anion Gap 0 mmol/L (8-16); Aspartate Amino Transferase 19 U/L (17-59); Bilirubin,Total 0.6 mg/dL (0.2-1.3); Blood Urea Nitrogen 8 mg/dL (9-20); Calcium 8.4 mg/dL (8.4-10.2); Carbon Dioxide 31 mmol/L (22-30); Chloride 100 mmol/L (98-107); Estimated CRCL calculation 296 ml/min; Estimated Glomerular Filt Rate > 60; Glucose 214 mg/dL (75-110); Potassium 3.8 mmol/L (3.4-5.0); Sodium 131 mmol/L (137-145)
[2020-08-19 06:03] LABS: Vancomycin Trough 11.2 ug/mL (10.0-20.0)
[2020-08-19] MEDS: dilTIAZem HCL 30 MG TABLET 90 MG PO ×3 (08:59→17:31)
[2020-08-19] MEDS: CHLORTHALIDONE 25 MG TABLET PO (08:59)
[2020-08-19] MEDS: GABAPENTIN 300 MG CAPSULE PO ×3 (09:00→17:31)
[2020-08-19] MEDS: lisinopriL 20 MG TABLET 40 MG PO (09:00)
[2020-08-19] MEDS: EUCERIN CREAM 120 GM JAR 1 APPLIC TOPICAL (09:01)
[2020-08-19] MEDS: NYSTATIN 100,000 UNITS/ML SUSP 5 ML ORAL.SUSP PO ×4 (09:01→21:22)
[2020-08-19 09:16] LABS: Glucose Point of Care 215 (65-105)
[2020-08-19] MEDS: INSULIN ASPART (*BKC) 100 UNITS/ML SUB-Q ×3 (09:31→17:34)
[2020-08-19 12:08] LABS: Glucose Point of Care 228 (65-105)
--- NOTE | 2020-08-19 14:11 | PM.IMPN ---
Progress Note: A&P Assessment and Plan (1) Atrial fibrillation with rapid ventricular response: Code(s): I48.91 - Unspecified atrial fibrillation Status: Acute Assessment and Plan: 08/19/20 14:11 Patient is morbidly obese presented with a right lower abdomen cellulitis with history of atrial fibrillation and developed RVR patient was started on diltiazem drip from emergency depart the rate is trending down, patient drip was stopped and switched her over diltiazem 90 mg t.i.d. rate is controlled, patient with cellulitis of right lower abdomen and scrotum patient was started on vancomycin and imipenem was added, patient denies any chest pain shortness of breath palpitation fever or chills. 08/19 patient with atrial fibrillation status post RVR was on diltiazem drip now on oral diltiazem 90 mg t.i.d. and the rate is controlled, patient is anticoagulated with Xarelto, the right lower abdomen cellulitis being treated with imipenem and vancomycin so far blood culture is not growing any bacteria, will continue 1 more day vancomycin if there is no MRSA will stop the vancomycin if remains clinically stable may discharge patient home on oral antibiotics. 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: Code(s): Z79.01 - petroleum terminal plant operator (current) use of anticoagulants Status: Acute Assessment and Plan: Patient on Xarelto for atrial fibrillation will monitor (4) Insulin dependent type 2 diabetes mellitus: Code(s): E11.9 - Type 2 diabetes mellitus without complications; Z79.4 - petroleum terminal plant operator (current) use of insulin Status: Acute Assessment and Plan: Will continue home regimen and monitor Subjective Date/time seen: 08/19/20 14:11 Patient is morbidly obese presented with a right lower abdomen cellulitis with history of atrial fibrillation and developed RVR patient was started on diltiazem drip from emergency depart the rate is trending down, patient drip was stopped and switched her over diltiazem 90 mg t.i.d. rate is controlled, patient with cellulitis of right lower abdomen and scrotum patient was started on vancomycin and imipenem was added, patient denies any chest pain shortness of breath palpitation fever or chills. 08/19 patient with atrial fibrillation status post RVR was on diltiazem drip now on oral diltiazem 90 mg t.i.d. and the rate is controlled, patient is anticoagulated with Xarelto, the right lower abdomen cellulitis being treated with imipenem and vancomycin so far blood culture is not growing any bacteria, will continue 1 more day vancomycin if there is no MRSA will stop the vancomycin if remains clinically stable may discharge patient home on oral antibiotics. Review of Systems Review of Systems: All systems reviewed & are unremarkable except as noted in HPI and below Exam Narrative: Exam Narrative: Morbidly obese with BMI 76.6 Patient is comfortable LUNGS:Clear HEART: Irregularly irregular@89. ABD: Morbidly obese distended BS+, Soft and nontender, right lower quadrant erythematosus more indurated Lower extremities: no edema Neuro: grossly intact. Objective Data Vital Signs Vital Signs: Vital Signs - 24 hr 08/18/20 16:00 08/18/20 20:00 08/18/20 21:17 Temperature 96.9 F L 97.0 F L Pulse Rate 88 77 86 Respiratory Rate 16 20 Blood Pressure 145/73 H 162/77 H Pulse Oximetry 97 96 08/18/20 23:45 08/19/20 00:00 08/19/20 04:00 Temperature Pulse Rate 89 85 85 Respiratory Rate Blood Pressure Pulse Oximetry 97 08/19/20 06:00 08/19/20 08:00 08/19/20 09:35 Temperature 97.1 F L 97.9 F Pulse Rate 88 75 92 Respiratory Rate 20 18 Blood Pressure 126/75 137/79 Pulse Oximetry 97 98 08/19/20 10:12 08/19/20 12:00 Temperature 97.2 F L Pulse Rate 77 Respiratory Rate 18 Blood Pressure 132/77 Pulse Oximetr
[2020-08-19 17:25] LABS: Glucose Point of Care 230 (65-105)
[2020-08-19] MEDS: RIVAROXABAN 20 MG TABLET PO (17:31)
[2020-08-19] MEDS: INSULIN GLARGINE (*BKC) 100 UNITS/ML 15 UNITS SUB-Q (17:35)
[2020-08-19 21:59] LABS: Glucose Point of Care 219 (65-105)
[2020-08-20] VITALS (8 sets, daily range): BP systolic 125–143; BP diastolic 70–88; PULSE 76–95; RESP 16–20; TEMP 36–36.7; O2SAT 96–98
[2020-08-20 05:52] LABS: Basophils Percent Auto 0.4 % (0.2-1.2); Eosinophils Absolute Auto 0.3 K/mm3 (0-0.3); Eosinophils Percent Auto 3.4 % (0-4.4); Hematocrit 38.8 % (42.0-52.0); Hemoglobin 12.3 g/dL (14.0-18.0); Immature Granulocyte Absolute 0.09 K/mm3 (0.00-0.031); Lymphocytes Percent Auto 22.1 % (18.3-44.2); Mean Corpuscular HGB Conc 31.7 g/dl (32-36); Mean Corpuscular Hemoglobin 25.9 pg (26-34); Mean Corpuscular Volume 81.7 fl (80-100); Mean Platelet Volume 10.4 fl (7.4-10.4); Monocytes Absolute Auto 0.6 K/mm3 (0.1-0.6); Monocytes Percent Auto 6.3 % (2.6-8.5); Neutrophils Percent Auto 66.8 % (45.5-73.1); Platelet Count Result 331 k/mm3 (150-375); Red Blood Count 4.75 M/mm3 (4.6-6.20); Red Cell Distribution Width 13.3 % (11.5-14.5)
[2020-08-20 06:17] LABS: Alanine Aminotransferase 23 U/L (4-50); Albumin Level 3.1 g/dL (3.5-5.1); Alkaline Phosphatase 65 U/L (38-126); Anion Gap 2 mmol/L (8-16); Aspartate Amino Transferase 20 U/L (17-59); Bilirubin,Total 0.6 mg/dL (0.2-1.3); Blood Urea Nitrogen 9 mg/dL (9-20); Calcium 8.3 mg/dL (8.4-10.2); Carbon Dioxide 31 mmol/L (22-30); Chloride 98 mmol/L (98-107); Estimated CRCL calculation 296 ml/min; Estimated Glomerular Filt Rate > 60; Glucose 203 mg/dL (75-110); Potassium 3.8 mmol/L (3.4-5.0); Sodium 131 mmol/L (137-145)
[2020-08-20 07:55] LABS: Glucose Point of Care 220 (65-105)
[2020-08-20] MEDS: dilTIAZem HCL 30 MG TABLET 90 MG PO ×3 (09:03→17:58)
[2020-08-20] MEDS: lisinopriL 20 MG TABLET 40 MG PO (09:03)
[2020-08-20] MEDS: GABAPENTIN 300 MG CAPSULE PO ×3 (09:03→17:58)
[2020-08-20] MEDS: EUCERIN CREAM 120 GM JAR 1 APPLIC TOPICAL (09:04)
[2020-08-20] MEDS: NYSTATIN 100,000 UNITS/ML SUSP 5 ML ORAL.SUSP PO ×4 (09:04→20:49)
[2020-08-20] MEDS: INSULIN ASPART (*BKC) 100 UNITS/ML SUB-Q ×2 (09:09→12:03)
--- NOTE | 2020-08-20 10:12 | PM.IMPN ---
Progress Note: A&P Assessment and Plan (1) Atrial fibrillation with rapid ventricular response: Code(s): I48.91 - Unspecified atrial fibrillation Status: Acute Assessment and Plan: 08/20/20 10:12 Patient is morbidly obese presented with a right lower abdomen cellulitis with history of atrial fibrillation and developed RVR patient was started on diltiazem drip from emergency depart the rate is trending down, patient drip was stopped and switched her over diltiazem 90 mg t.i.d. rate is controlled, patient with cellulitis of right lower abdomen and scrotum patient was started on vancomycin and imipenem was added, patient denies any chest pain shortness of breath palpitation fever or chills. 08/19 patient with atrial fibrillation status post RVR was on diltiazem drip now on oral diltiazem 90 mg t.i.d. and the rate is controlled, patient is anticoagulated with Xarelto, the right lower abdomen cellulitis being treated with imipenem and vancomycin so far blood culture is not growing any bacteria, will continue 1 more day vancomycin if there is no MRSA will stop the vancomycin if remains clinically stable may discharge patient home on oral antibiotics. 08/20 patient with atrial fibrillation rate is controlled will diltiazem 90 mg t.i.d. and anticoagulated with Xarelto, patient with a right lower abdomen cellulitis, redness and swelling has improved, denies any fever or chills, blood cultures still no growth so far, will stop vancomycin today, will continue imipenem plan is to discharge the patient tomorrow. (2) Abdominal wall cellulitis: Code(s): L03.311 - Cellulitis of abdominal wall Status: Acute Assessment and Plan: Plan is above (3) intermediate current use of anticoagulant: Code(s): Z79.01 - intermediate (current) use of anticoagulants Status: Acute Assessment and Plan: Patient on Xarelto for atrial fibrillation will monitor (4) Insulin dependent type 2 diabetes mellitus: Code(s): E11.9 - Type 2 diabetes mellitus without complications; Z79.4 - manager intermediate (current) use of insulin Status: Acute Assessment and Plan: Will continue home regimen and monitor Subjective Date/time seen: 08/20/20 10:12 Patient is morbidly obese presented with a right lower abdomen cellulitis with history of atrial fibrillation and developed RVR patient was started on diltiazem drip from emergency depart the rate is trending down, patient drip was stopped and switched her over diltiazem 90 mg t.i.d. rate is controlled, patient with cellulitis of right lower abdomen and scrotum patient was started on vancomycin and imipenem was added, patient denies any chest pain shortness of breath palpitation fever or chills. 08/19 patient with atrial fibrillation status post RVR was on diltiazem drip now on oral diltiazem 90 mg t.i.d. and the rate is controlled, patient is anticoagulated with Xarelto, the right lower abdomen cellulitis being treated with imipenem and vancomycin so far blood culture is not growing any bacteria, will continue 1 more day vancomycin if there is no MRSA will stop the vancomycin if remains clinically stable may discharge patient home on oral antibiotics. 08/20 patient with atrial fibrillation rate is controlled will diltiazem 90 mg t.i.d. and anticoagulated with Xarelto, patient with a right lower abdomen cellulitis, redness and swelling has improved, denies any fever or chills, blood cultures still no growth so far, will stop vancomycin today, will continue imipenem plan is to discharge the patient tomorrow. Review of Systems Review of Systems: All systems reviewed & are unremarkable except as noted in HPI and below Exam Narrative: Exam Narrative: Morbidly obese with BMI 76.6 Patient is comfortable LUNGS:Clear HEART: Irregularly irregular@89. ABD: Morbidly obese distended BS+, Soft and nontender, right lower quadrant hyperemic no induration Lower extremities: no edema Neuro: grossly int
[2020-08-20 11:47] LABS: Glucose Point of Care 248 (65-105)
[2020-08-20 17:33] LABS: Glucose Point of Care 167 (65-105)
[2020-08-20] MEDS: RIVAROXABAN 20 MG TABLET PO (17:58)
[2020-08-20] MEDS: INSULIN GLARGINE (*BKC) 100 UNITS/ML 15 UNITS SUB-Q (18:00)
[2020-08-20 21:39] LABS: Glucose Point of Care 202 (65-105)
[2020-08-21] VITALS (7 sets, daily range): BP systolic 117–137; BP diastolic 72–81; PULSE 60–97; RESP 16–18; TEMP 35–36.3; O2SAT 96–98
[2020-08-21 05:41] LABS: Basophils Percent Auto 0.5 % (0.2-1.2); Eosinophils Absolute Auto 0.3 K/mm3 (0-0.3); Eosinophils Percent Auto 3.2 % (0-4.4); Hematocrit 39.1 % (42.0-52.0); Hemoglobin 12.1 g/dL (14.0-18.0); Immature Granulocyte Absolute 0.12 K/mm3 (0.00-0.031); Immature Granulocyte Percent A 1.4 % (0-0.5); Lymphocytes Absolute Auto 2.02 K/mm3 (0.9-3.2); Lymphocytes Percent Auto 22.9 % (18.3-44.2); Mean Corpuscular HGB Conc 30.9 g/dl (32-36); Mean Corpuscular Hemoglobin 25.2 pg (26-34); Mean Corpuscular Volume 81.3 fl (80-100); Mean Platelet Volume 10.2 fl (7.4-10.4); Monocytes Absolute Auto 0.5 K/mm3 (0.1-0.6); Neutrophils Absolute Auto 5.8 K/mm3 (1.3-6.7); Platelet Count Result 367 k/mm3 (150-375); Red Blood Count 4.81 M/mm3 (4.6-6.20); Red Cell Distribution Width 13.2 % (11.5-14.5); White Blood Count 8.8 K/mm3 (4.5-10.0)
[2020-08-21 05:49] LABS: Alanine Aminotransferase 22 U/L (4-50); Albumin Level 3.2 g/dL (3.5-5.1); Alkaline Phosphatase 67 U/L (38-126); Anion Gap 4 mmol/L (8-16); Aspartate Amino Transferase 18 U/L (17-59); Bilirubin,Total 0.6 mg/dL (0.2-1.3); Blood Urea Nitrogen 9 mg/dL (9-20); Calcium 8.5 mg/dL (8.4-10.2); Carbon Dioxide 30 mmol/L (22-30); Chloride 99 mmol/L (98-107); Estimated CRCL calculation 296 ml/min; Estimated Glomerular Filt Rate > 60; Glucose 191 mg/dL (75-110); Potassium 3.7 mmol/L (3.4-5.0); Sodium 133 mmol/L (137-145)
[2020-08-21 07:47] LABS: Glucose Point of Care 181 (65-105)
[2020-08-21] MEDS: dilTIAZem HCL 30 MG TABLET 90 MG PO ×3 (08:02→18:22)
[2020-08-21] MEDS: CHLORTHALIDONE 25 MG TABLET PO (08:02)
[2020-08-21] MEDS: lisinopriL 20 MG TABLET 40 MG PO (08:02)
[2020-08-21] MEDS: GABAPENTIN 300 MG CAPSULE PO ×3 (08:02→18:22)
[2020-08-21] MEDS: NYSTATIN 100,000 UNITS/ML SUSP 5 ML ORAL.SUSP PO ×4 (08:02→22:41)
[2020-08-21] MEDS: EUCERIN CREAM 120 GM JAR 1 APPLIC TOPICAL (08:03)
--- NOTE | 2020-08-21 08:26 | PM.DS ---
DS: Admitting Diagnosis Admitting Diagnosis Admitting Diagnosis: Chief Complaint: Chills DS: Discharge Diagnosis Discharge Diagnosis (1) Atrial fibrillation with rapid ventricular response: Code(s): I48.91 - Unspecified atrial fibrillation Status: Acute Assessment and Plan: 08/20/20 10:12 Patient is morbidly obese presented with a right lower abdomen cellulitis with history of atrial fibrillation and developed RVR patient was started on diltiazem drip from emergency depart the rate is trending down, patient drip was stopped and switched her over diltiazem 90 mg t.i.d. rate is controlled, patient with cellulitis of right lower abdomen and scrotum patient was started on vancomycin and imipenem was added, patient denies any chest pain shortness of breath palpitation fever or chills. 08/19 patient with atrial fibrillation status post RVR was on diltiazem drip now on oral diltiazem 90 mg t.i.d. and the rate is controlled, patient is anticoagulated with Xarelto, the right lower abdomen cellulitis being treated with imipenem and vancomycin so far blood culture is not growing any bacteria, will continue 1 more day vancomycin if there is no MRSA will stop the vancomycin if remains clinically stable may discharge patient home on oral antibiotics. 08/20 patient with atrial fibrillation rate is controlled will diltiazem 90 mg t.i.d. and anticoagulated with Xarelto, patient with a right lower abdomen cellulitis, redness and swelling has improved, denies any fever or chills, blood cultures still no growth so far, will stop vancomycin today, will continue imipenem plan is to discharge the patient tomorrow. (2) Abdominal wall cellulitis: Code(s): L03.311 - Cellulitis of abdominal wall Status: Acute Assessment and Plan: Plan is above (3) [facility] current use of anticoagulant: Code(s): Z79.01 - [facility] (current) use of anticoagulants Status: Acute Assessment and Plan: Patient on Xarelto for atrial fibrillation will monitor (4) Insulin dependent type 2 diabetes mellitus: Code(s): E11.9 - Type 2 diabetes mellitus without complications; Z79.4 - [facility] (current) use of insulin Status: Acute Assessment and Plan: Will continue home regimen and monitor DS: Summary Hospital Course Reason for hospitalization: Chief Complaint: Chills Narrative: Tito Fam is a 40 year old male with past medical history of morbid obesity, diabetes, paroxysmal atrial fibrillation, obstructive sleep apnea, hypertension and distant history of Shahbaz's gangrene 2015 who presented to the ER due to evaluation of chills, drainage from a left scrotal wound and right abdominal pain. The patient reported that he noticed a small lump in his left groin on 06/12/2021 at busted open and produced a fair amount of green drainage. He reports that he is not having any pain in his groin. Infected area where he had a blister popped is not erythematous and has a clean base. Then on the he noticed a right lower abdominal redness swelling and pain. Reported this abdomen felt hot and firm. Pain as a 7/10 in intensity and aching in nature. It is made worse with palpation of the area and movement. This is usually the area where he gets abdominal cellulitis. When he gets cellulitis he usually becomes septic. He was just admitted the hospital in November 2019 for right lower extremity cellulitis and for cellulitis of the right lower extremity and abdominal wall cellulitis. He was admitted to [facility] for abdominal wall cellulitis in June. The patient reported the last time he was admitted for cellulitis he developed oral thrush. He reports that his glucoses are usually well controlled ranging between 90 and 120. His last hemoglobin A1c was 7. He had 1 episode of vomiting on the . He denies any changes in his bowel habits and denies constipation or hematochezia or melena. He denies any difficulty with urination. Guera
[2020-08-21 12:09] LABS: Glucose Point of Care 230 (65-105)
--- NOTE | 2020-08-21 12:16 | PCDIET ---
Weekly nutritional screen. Patient is tolerating current diet with adequate intake. No weight loss reported. Patient denies questions re: diet. States has been through this discussion a thousand times and understands diet fully. No nutritional needs at this time.
[2020-08-21] MEDS: RIVAROXABAN 20 MG TABLET PO (18:22)
[2020-08-21] MEDS: INSULIN GLARGINE (*BKC) 100 UNITS/ML 15 UNITS SUB-Q (18:24)
[2020-08-22] VITALS: BP 115/62; PULSE 79; RESP 20; TEMP 36.9; O2SAT 98
--- NOTE | 2020-08-22 03:14 | PC.NURSE ---
IV medications are non-admin due to no IV access per Dr. Ma
[2020-08-22 04:00] VITALS: BP 146/88; PULSE 78; RESP 20; TEMP 36.8; O2SAT 97
== END 2020-08-22 05:01 | disposition home or self-care (01) | DRG 420 ==
LOC: ANHED 21:52 → ANHIMU 08-15 00:28 → ANH2MED 08-16 15:06
PROVIDERS: Internal Medicine; Admitting Provider Family Medicine; Emergency Provider Emergency Medicine; PCP Internal Medicine; Visit Provider Family Medicine
DX: E11.628 Type 2 diabetes mellitus with other skin complications (principal); L03.311 Cellulitis of abdominal wall; E66.01 Morbid (severe) obesity due to excess calories; Z68.45 Body mass index [BMI] 70 or greater, adult; E11.65 Type 2 diabetes mellitus with hyperglycemia; I48.91 Unspecified atrial fibrillation; G47.33 Obstructive sleep apnea (adult) (pediatric); E11.42 Type 2 diabetes mellitus with diabetic polyneuropathy; I10 Essential (primary) hypertension; M48.00 Spinal stenosis, site unspecified; Z74.01 Bed confinement status; Z79.01 Long term (current) use of anticoagulants; Z79.4 Long term (current) use of insulin; Z79.899 Other long term (current) drug therapy
CPT/HCPCS: 36415; 71045; 80048; 80053; 80202; 81001; 82948; 83605; 85025; 85027; 87040; 93005; 96374; 99285; A9270; J0282; J0743; J1815; J1885; J3370

== ENCOUNTER 2021-01-07 12:29 | Emergency (ER) | payer OTHER, SELFPAY ==
--- NOTE | ~2021-01-07 | XR_ITS ---
EXAMINATION: XR chest 2V DATE: 01/07/2021 13:01 INDICATION: Hemoptysis TECHNIQUE: Frontal and lateral views of the chest are obtained COMPARISON: 08/14/2020 FINDINGS: The examination is limited by the patient's body habitus. The lungs are free of acute opaci ties. There is no pleural effusion or pneumothorax. There is stable cardiomegaly. There is mild thora cic spondylosis. A cardiac monitoring device projects in the anterior subcutaneous tissues of the lef t thorax. IMPRESSION: 1. Cardiomegaly. Reviewed, dictated and finalized at location A. IMPRESSION: 1. Cardiomegaly.
[2021-01-07 12:35] VITALS: BP 175/90; PULSE 97; RESP 19; TEMP 36.8; O2SAT 100
[2021-01-07 12:38] VITALS: PULSE 93
[2021-01-07 12:51] LABS: Basophils Percent Auto 0.5 % (0.2-1.2); Eosinophils Absolute Auto 0.1 K/mm3 (0-0.3); Eosinophils Percent Auto 1.6 % (0-4.4); Hematocrit 39.3 % (42.0-52.0); Hemoglobin 12.1 g/dL (14.0-18.0); Immature Granulocyte Absolute 0.05 K/mm3 (0.00-0.031); Immature Granulocyte Percent A 0.6 % (0-0.5); Lymphocytes Percent Auto 24.4 % (18.3-44.2); Mean Corpuscular HGB Conc 30.8 g/dl (32-36); Mean Corpuscular Hemoglobin 25.3 pg (26-34); Mean Corpuscular Volume 82.2 fl (80-100); Mean Platelet Volume 10.8 fl (7.4-10.4); Monocytes Absolute Auto 0.5 K/mm3 (0.1-0.6); Monocytes Percent Auto 6.2 % (2.6-8.5); Neutrophils Absolute Auto 5.8 K/mm3 (1.3-6.7); Neutrophils Percent Auto 66.7 % (45.5-73.1); Platelet Count Result 344 k/mm3 (150-375); Red Blood Count 4.78 M/mm3 (4.6-6.20); Red Cell Distribution Width 13.8 % (11.5-14.5); White Blood Count 8.6 K/mm3 (4.5-10.0)
--- NOTE | 2021-01-07 13:03 | ED.GENADULT ---
HPI - General Adult General Chief complaint: Unspecified Stated complaint: coughing up blood Time Seen by Provider: 01/07/21 13:03 Source: patient Mode of arrival: ambulatory Limitations: no limitations History of Present Illness HPI narrative: Patient is a 41-year-old male complaining of sore throat and hemoptysis, one episode started this morning. Patient states that his hemoptysis has not recurred since but still having sore throat, this is how it felt like when I had strep throat in the past . Patient denies any epistaxis, hematemesis, chest pain, shortness of breath, abdominal pain, fever or chills. Patient denies any GI bleeding. Patient is on Xarelto for atrial fib. Related Data Home Medications Medication Instructions Recorded Confirmed Xarelto 20 mg PO DAILY 11/09/19 08/15/20 chlorthalidone 25 mg PO EVERY OTHER DAY 11/09/19 08/15/20 diltiazem HCl 90 mg PO TID 11/09/19 08/15/20 lisinopril 40 mg PO DAILY 11/09/19 08/15/20 Apidra U-100 Insulin See Protocol SUBCUT USEASDIRECTD #0 11/10/19 08/15/20 Lantus U-100 Insulin 15 unit SUBCUT QPM #0 11/10/19 08/15/20 gabapentin 300 mg PO TID 01/01/20 08/15/20 Allergies Allergy/AdvReac Type Severity Reaction Status Date / Time No Known Allergies Allergy Verified 01/07/21 12:39 Review of Systems Review of Systems: All systems reviewed & are unremarkable except as noted in HPI and below Constitutional: Constitutional: Denies body ache(s), Denies chills, Denies excessive sweating, Denies fatigue, Denies fever(s), Denies headache(s), Denies lethargy, Denies malaise, Denies weakness and Denies weight loss Eyes: Eyes: Denies blurry vision, Denies change in vision and Denies loss of vision ENT: Denies dizziness, Denies ear discharge, Denies headache(s), Denies lip swelling, Denies epistaxis, Denies nasal congestion, Denies neck pain, Denies throat swelling and Denies tongue swelling Cardiovascular: Cardiovascular: Denies chest pain, Denies chest pain at rest, Denies chest pain with activity, Denies diaphoresis, Denies rapid heart rate, Denies edema, Denies irregular heart rhythm, Denies lightheadedness, Denies palpitations, Denies dyspnea and Denies dyspnea on exertion Respiratory: Respiratory: Denies chest congestion, Denies dyspnea and Denies dyspnea on exertion Gastrointestinal: Gastrointestinal: Denies abdominal pain, Denies melena, Denies hematochezia, Denies diarrhea, Denies nausea, Denies vomiting and Denies hematemesis Musculoskeletal: Musculoskeletal: Denies abnormal gait, Denies deformity, Denies joint swelling, Denies limited range of motion, Denies neck pain and Denies numbness Neurologic: Denies Abnormal speech present, Denies abnormal gait, Denies confusion, Denies dizziness, Denies headache(s), Denies focal weakness, Denies loss of vision, Denies numbness, Denies Other visual disturbances, Denies Sensory deficit (Neuro) and Denies weakness Psychiatric: Psychiatric: Denies confusion, Denies depression, Denies auditory hallucinations, Denies homicidal ideation and Denies suicidal ideation Endocrine: Endocrine: Denies cold intolerance, Denies excessive sweating, Denies fatigue, Denies heat intolerance and Denies palpitations Hematologic/Lymphatic: Hematologic/Lymphatic: Denies easy bleeding and Denies easy bruising Allergic/Immunologic: Allergic/Immunologic: Denies lip swelling, Denies throat swelling and Denies tongue swelling PMFSH Past Medical History Medical History Chronic anemia Chronic atrial fibrillation On long-term anticoagulation. 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 He was discharged to an LTAC after he left [place] and was on a wound VAC for approximately 60 days. Hypertension Insulin dependent type 2 diabetes mellitus Hemoglobin A1c was 7.8% on 11/10/2019. 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
[2021-01-07 13:44] LABS: Add Urine Microscopic? YES; Appearance Urine Clear (Clear); Bacteria Urine 1+ /hpf; Bilirubin Urine Negative (Negative); Blood Urine 1+ (Negative); Color Urine Yellow (Yellow); Glucose Urine UA 2+ mg/dL (Negative); Ketones Urine Negative (Negative); Leukocyte Esterase Ur Negative LEU/UL (Negative); Mucus Urine Rare /lpf; Nitrate Urine Negative (Negative); Protein Urine 1+ mg/dL (Negative); Specific Grav Ur 1.026 (1.001-1.035); Squamous Epithelial Cell Urine Occasional /hpf (Few); Urobilinogen Urine Negative mg/dL (<2.0); WBC Urine 0-3 /hpf
[2021-01-07 14:02] LABS: Alanine Aminotransferase 19 U/L (4-50); Albumin Level 3.6 g/dL (3.5-5.1); Alkaline Phosphatase 78 U/L (38-126); Anion Gap 6 mmol/L (8-16); Aspartate Amino Transferase 18 U/L (17-59); Bilirubin,Total 0.5 mg/dL (0.2-1.3); Blood Urea Nitrogen 11 mg/dL (9-20); Calcium 8.8 mg/dL (8.4-10.2); Carbon Dioxide 26 mmol/L (22-30); Chloride 102 mmol/L (98-107); Estimated CRCL calculation 324 ml/min; Estimated Glomerular Filt Rate > 60; Glucose 231 mg/dL (75-110); Potassium 4.2 mmol/L (3.4-5.0); Sodium 134 mmol/L (137-145)
[2021-01-07 14:43] VITALS: BP 121/77; PULSE 68; RESP 18; O2SAT 99
[2021-01-07 15:25] VITALS: BP 188/68; PULSE 97; RESP 17; O2SAT 98
[2021-01-07] MEDS: DOXYCYCLINE HYCLATE 100 MG TABLET PO (15:26)
[2021-01-07 16:25] VITALS: BP 161/96; PULSE 99; RESP 17; O2SAT 100
[2021-01-07] MEDS: HYDROcodone/acetaminophen (*CRX) 5-325 MG TABLET 2 TAB PO (16:25)
--- NOTE | 2021-01-07 16:42 | PC.NURSE ---
made contact with [facility] to transfer pt back home to [place]. [facility]ones is in route eta [id number]
== END 2021-01-07 17:33 | disposition home or self-care (01) ==
PROVIDERS: Emergency Provider Emergency Medicine
DX: J20.9 Acute bronchitis, unspecified (principal); J02.9 Acute pharyngitis, unspecified; I48.20 Chronic atrial fibrillation, unspecified; I10 Essential (primary) hypertension; E11.42 Type 2 diabetes mellitus with diabetic polyneuropathy; E66.01 Morbid (severe) obesity due to excess calories; Z68.45 Body mass index [BMI] 70 or greater, adult; Z74.01 Bed confinement status; Z79.4 Long term (current) use of insulin; Z79.01 Long term (current) use of anticoagulants
CPT/HCPCS: 36415; 51701; 71046; 80053; 81001; 85025; 87081; 87880; 99283; A9270

== ENCOUNTER 2021-06-10 19:02 | Inpatient (IN) | payer OTHER, SELFPAY ==
[2021-06-10] VITALS (7 sets, daily range): BP systolic 109–186; BP diastolic 77–89; PULSE 112–128; RESP 16–25; TEMP 37.7–38.2; O2SAT 94–100
--- NOTE | 2021-06-10 19:10 | ECG_ITS ---
Measurements Intervals [place] Rate: 127 P: WI: 0 QRS: 64 QRSD: 103 T: -52 QT: 338 QTc: 491 Interpretive Statements ATRIAL FIBRILLATION WITH RAPID VENTRICULAR RESPONSE INCOMPLETE RIGHT BUNDLE BRANCH BLOCK BORDERLINE ST-T WAVE ABNORMALITY- ANTEROLAT/INF LEADS ABNORMAL ECG Electronically Signed On 06-10-2021 20:11:11 SIGNAL SUPERVISOR by Dl Dobbs D.O.
--- NOTE | 2021-06-10 19:33 | ED.SKABFB ---
HPI - Skin/Abscess/Foreign Bdy General Chief complaint: Skin/Abscess/Foreign Body <Betzy Harris PA-C - Last Filed: 06/10/21 22:32> Stated complaint: CELLULITIS <BLAKE Nielsen Last Filed: 06/10/21 22:32> Time Seen by Provider: 06/10/21 19:10 <BLAKE Nielsen Last Filed: 06/10/21 22:32> Source: patient <BLAKE Nielsen Last Filed: 06/10/21 22:32> Mode of arrival: EMS <BLAKE Nielsen Last Filed: 06/10/21 22:32> Limitations: no limitations <BLAKE Nielsen Last Filed: 06/10/21 22:32> History of Present Illness HPI narrative: This is a 41-year-old male that presents to the emergency department for chills that started this afternoon. Reports he started to notice redness to the right side of his abdomen as well. Reports history of frequent abdominal wall cellulitis. Also reports nausea. Denies fever, vomiting or dysuria. <BLAKE Nielsen Last Filed: 06/10/21 22:32> Related Data Home medications: Home Medications Medication Instructions Recorded Confirmed Xarelto 20 mg PO DAILY 11/09/19 08/15/20 chlorthalidone 25 mg PO EVERY OTHER DAY 11/09/19 08/15/20 diltiazem HCl 90 mg PO TID 11/09/19 08/15/20 lisinopril 40 mg PO DAILY 11/09/19 08/15/20 Apidra U-100 Insulin See Protocol SUBCUT USEASDIRECTD #0 11/10/19 08/15/20 Lantus U-100 Insulin 15 unit SUBCUT QPM #0 11/10/19 08/15/20 gabapentin 300 mg PO TID 01/01/20 08/15/20 <LBAKE Nielsen Last Filed: 06/10/21 22:32> Allergies/Adverse reactions: Allergies Allergy/AdvReac Type Severity Reaction Status Date / Time No Known Allergies Allergy Verified 01/07/21 12:39 <Betzy Harris PA-C - Last Filed: 06/10/21 22:32> Review of Systems Review of Systems: CONSTITUTIONAL: Reports chills. Denies fever GASTROINTESTINAL: Reports nausea. Denies abdominal pain, vomiting GENITOURINARY: Denies dysuria SKIN: Reports erythema <Betzy Harris PA-C - Last Filed: 06/10/21 22:32> All systems reviewed & are unremarkable except as noted in HPI and below <Betzy Harris PA-C - Last Filed: 06/10/21 22:32> [facility] Past Medical History Medical History: Medical History Chronic anemia Chronic atrial fibrillation On long-term anticoagulation. 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 He was discharged to an LTAC after he left [place] and was on a wound VAC for approximately 60 days. Hypertension Insulin dependent type 2 diabetes mellitus Hemoglobin A1c was 7.8% on 11/10/2019. 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 Obstructive sleep apnea on CPAP Peripheral neuropathy Due to diabetes and spinal stenosis. 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 <Betzy Harris PA-C - Last Filed: 06/10/21 22:32> Family History Family History: Family History Father Patient's father is Diabetes mellitus Acute myocardial infarction Mother COPD (chronic obstructive pulmonary disease) <BLAKE Nielsen Last Filed: 06/10/21 22:32> Social History Social History: Social History Social History: The patient lives in his own house in [place], [place]. He has a interior plant caretaker that comes to the home for 8 hours a day. He has an aunt and uncle that live next to him who help with his care as well. He designates his mother and his aunt, Kailyn, as his surrogate decision makers. He wish
[2021-06-10 20:05] LABS: Basophils Percent Auto 0.2 % (0.2-1.2); Eosinophils Absolute Auto 0.1 K/mm3 (0-0.3); Eosinophils Percent Auto 0.4 % (0-4.4); Hematocrit 42.5 % (42.0-52.0); Hemoglobin 13.2 g/dL (14.0-18.0); Immature Granulocyte Absolute 0.07 K/mm3 (0.00-0.031); Immature Granulocyte Percent A 0.5 % (0-0.5); Lymphocytes Absolute Auto 1.03 K/mm3 (0.9-3.2); Lymphocytes Percent Auto 7.4 % (18.3-44.2); Mean Corpuscular HGB Conc 31.1 g/dl (32-36); Mean Corpuscular Hemoglobin 26.3 pg (26-34); Mean Corpuscular Volume 84.8 fl (80-100); Mean Platelet Volume 10.9 fl (7.4-10.4); Monocytes Absolute Auto 0.5 K/mm3 (0.1-0.6); Monocytes Percent Auto 3.5 % (2.6-8.5); Neutrophils Absolute Auto 12.2 K/mm3 (1.3-6.7); Platelet Count Result 268 k/mm3 (150-375); Red Blood Count 5.01 M/mm3 (4.6-6.20); White Blood Count 13.9 K/mm3 (4.5-10.0)
--- NOTE | 2021-06-10 20:10 | PC.NURSE ---
REGALADO INSERTED BY THIS RN AT THIS TIME.
[2021-06-10] MEDS: ONDANSETRON INJ 4 MG/2 ML VIAL IV PUSH (20:13)
[2021-06-10] MEDS: dilTIAZem HCl INJ 25 MG/5 ML VIAL 10 MG IV PUSH (20:15)
[2021-06-10 20:16] LABS: Lactic Acid Reflex 2.6 mmol/L (0.7-2.1)
[2021-06-10 20:19] LABS: INR 1.2; Prothrombin Time 14.7 Seconds (11.1-14.7)
[2021-06-10 20:20] LABS: Partial Thromboplastin Time 27.2 SECONDS (22.3-36.8)
[2021-06-10 20:20] LABS: Add Urine Microscopic? YES; Appearance Urine Clear (Clear); Bacteria Urine Trace /hpf; Bilirubin Urine Negative (Negative); Blood Urine 1+ (Negative); Color Urine Yellow (Yellow); Glucose Urine UA 3+ mg/dL (Negative); Ketones Urine Negative (Negative); Leukocyte Esterase Ur Negative LEU/UL (Negative); Mucus Urine Rare /lpf; Nitrate Urine Negative (Negative); Protein Urine 1+ mg/dL (Negative); Specific Grav Ur 1.029 (1.001-1.035); Squamous Epithelial Cell Urine Occasional /hpf (Few); Urobilinogen Urine Negative mg/dL (<2.0)
[2021-06-10 20:42] LABS: Alanine Aminotransferase 33 U/L (4-50); Albumin Level 3.9 g/dL (3.5-5.1); Alkaline Phosphatase 96 U/L (38-126); Anion Gap 7 mmol/L (8-16); Aspartate Amino Transferase 24 U/L (17-59); Bilirubin,Total 0.6 mg/dL (0.2-1.3); Blood Urea Nitrogen 8 mg/dL (9-20); CRP 3.7 mg/dL (<1.0); Carbon Dioxide 27 mmol/L (22-30); Chloride 97 mmol/L (98-107); Estimated CRCL calculation 327 ml/min; Estimated Glomerular Filt Rate > 60; Glucose 262 mg/dL (65-110); Lipase 47 U/L (23-300); Potassium 4.2 mmol/L (3.4-5.0); Sodium 131 mmol/L (137-145)
--- NOTE | 2021-06-10 21:35 | PM.IMHP ---
H&P: HPI History of Present Illness Date/Time: 06/10/21 21:35 Chief Complaint: Cellulitis right abdomen Narrative: 41-year-old male well-known to myself in the hospitalist service with past medical history of insulin-dependent diabetes mellitus, morbid obesity, paroxysmal atrial fibrillation, obstructive sleep apnea, distant history of Shahbaz's gangrene 2014 and history of recurrent cellulitis of the right lower abdominal wall who presented to the ER from home via EMS due to concerns for recurrent cellulitis. The patient reports that around 3:00 p.m. today he suddenly developed a burning hot sensation in his right lower abdomen. It was accompanied by chills and feeling hot. He then noticed some redness to his right lower abdomen. He had some associated nausea. He did not actually check his temperature but on arrival to the ER the patient did spike a temperature to 100.7. He reports that he was last hospitalized 6 months ago for abdominal wall cellulitis. Prior to that he had been hospitalized 5 times in a four-month interval with the last several hospitalizations being at [facility] where he receives most of his care. He denies any injury to his abdomen. He does usually Lay with the right side of his abdomen/pannus hanging to the right. He reports that his fasting glucose this morning was in the 90s however over the course of the day his glucoses have climbed in her now in the mid 200s. He reports that his last hemoglobin A1c two months ago was 7.8. He reports that over the last week his legs have been more swollen. He reports that his legs are more swollen currently as they are not elevated. He had an echocardiogram and cardiac catheterization about 6 months ago. He was told that his heart is in good condition given his size. He denies known history of heart failure. He does have a history of paroxysmal atrial fibrillation and was in AFib RVR on arrival to the ER. He had taken his morning and afternoon doses of Cardizem before coming in. He is compliant with his home Xarelto. He has not had any difficulty urinating but usually sits on the edge of his bed in urinate into a bucket at home. When he is at the hospital he is unable to using urinal due to his body habitus. He requested a White catheter be placed in the ER which was ordered by the ER staff. He received his [employer] COVID vaccine in December. He denies any shortness of breath, cough or congestion. He is essentially bed-bound at home and has a caregiver that comes in 8 hours a day. His aunt and uncle live next door and helps with his care as well. His brother also lives with him part-time and helps provide some of his care. Review of Systems Review of Systems: 12 systems were reviewed with pertinent positives and negatives per HPI. Except as documented in the HPI, all other systems were reviewed and are negative. [facility] Past Medical History Medical History Chronic anemia Chronic atrial fibrillation On long-term anticoagulation. 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 He was discharged to an LTAC after he left [place] and was on a wound VAC for approximately 60 days. Hypertension Insulin dependent type 2 diabetes mellitus Hemoglobin A1c was 7.8% on 04/2021. 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 Obstructive sleep apnea on CPAP Peripheral neuropathy Due to diabetes and spinal stenosis. 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 Family History Family History Father Patient's father is
[2021-06-10 23:02] LABS: Reflex Lactic Acid Yes or No Add Lactic
[2021-06-10] MEDS: SODIUM CHLORIDE 0.9% IV 1,000 ML 999 ML IV CONT (23:11)
[2021-06-10] MEDS: dilTIAZem HCL TAB 30 MG, dilTIAZem HCL TAB 60 MG 90 MG PO (23:11)
[2021-06-10] MEDS: MORPHINE SULFATE (*CRX) 4 MG/ML INJ IV PUSH (23:44)
--- NOTE | 2021-06-10 23:52 | PC.NURSE ---
Maintenance to room to evaluate home CPAP at this time. CPAP cleared for use.
[2021-06-11] VITALS (16 sets, daily range): BP systolic 126–168; BP diastolic 63–78; PULSE 64–122; RESP 18–28; TEMP 36.2–37.5; O2SAT 96–100; BMI 74.9
[2021-06-11 00:36] LABS: Lactic Acid 1.9 mmol/L (0.7-2.1)
--- NOTE | 2021-06-11 01:02 | ADMGEN ---
This patient, Tito Fam, was admitted to IMU Room 203-01 [id number]. Patient/family oriented to hospital policies and general routines including ID bracelet, bed and alarms, visiting hours, pain management, procedures, bathroom and other care routines, personal items, smoking policy, room service/diet, and visiting hours. Information on how to activate the Rapid Response Team has been discussed. Patient/Family are encouraged to report perceived risks to care and to ask questions if they do not understand what they are told or what they should do.
[2021-06-11] MEDS: IBUPROFEN IV 400 MG in SODIUM CHLORIDE 0.9% IV 100 ML 200 MG IVPB (01:18)
[2021-06-11] MEDS: ACETAMINOPHEN 325 MG TABLET 650 MG PO (08:30)
[2021-06-11] MEDS: INSULIN ASPART (*BKC) 100 UNITS/ML SUB-Q ×3 (08:37→17:37)
[2021-06-11 10:23] LABS: Basophils Percent Auto 0.2 % (0.2-1.2); Eosinophils Percent Auto 0.3 % (0-4.4); Hematocrit 36.9 % (42.0-52.0); Hemoglobin 11.4 g/dL (14.0-18.0); Immature Granulocyte Absolute 0.08 K/mm3 (0.00-0.031); Immature Granulocyte Percent A 0.6 % (0-0.5); Lymphocytes Absolute Auto 1.09 K/mm3 (0.9-3.2); Mean Corpuscular HGB Conc 30.9 g/dl (32-36); Mean Corpuscular Hemoglobin 25.9 pg (26-34); Mean Corpuscular Volume 83.9 fl (80-100); Mean Platelet Volume 10.6 fl (7.4-10.4); Monocytes Absolute Auto 0.6 K/mm3 (0.1-0.6); Monocytes Percent Auto 4.1 % (2.6-8.5); Neutrophils Absolute Auto 11.8 K/mm3 (1.3-6.7); Neutrophils Percent Auto 86.8 % (45.5-73.1); Platelet Count Result 232 k/mm3 (150-375); Red Cell Distribution Width 14.3 % (11.5-14.5); White Blood Count 13.6 K/mm3 (4.5-10.0)
[2021-06-11 10:35] LABS: Lactic Acid Reflex 1.5 mmol/L (0.7-2.1)
[2021-06-11 10:40] LABS: Alanine Aminotransferase 24 U/L (4-50); Albumin Level 3.3 g/dL (3.5-5.1); Alkaline Phosphatase 66 U/L (38-126); Anion Gap 5 mmol/L (8-16); Aspartate Amino Transferase 15 U/L (17-59); Bilirubin,Total 0.8 mg/dL (0.2-1.3); Blood Urea Nitrogen 10 mg/dL (9-20); CRP 8.3 mg/dL (<1.0); Calcium 8.1 mg/dL (8.4-10.2); Carbon Dioxide 25 mmol/L (22-30); Chloride 97 mmol/L (98-107); Estimated CRCL calculation 286 ml/min; Estimated Glomerular Filt Rate > 60; Glucose 309 mg/dL (65-110); Potassium 4.2 mmol/L (3.4-5.0); Sodium 127 mmol/L (137-145)
[2021-06-11] MEDS: RIVAROXABAN 20 MG TABLET PO (10:55)
[2021-06-11] MEDS: lisinopriL 20 MG TABLET 40 MG PO (11:02)
[2021-06-11 11:50] LABS: Glucose Point of Care 229 mg/dl (65-105)
[2021-06-11 11:50] LABS: Glucose Point of Care 241 mg/dl (65-105)
--- NOTE | 2021-06-11 12:16 | PM.IMPN ---
Progress Note: A&P Assessment and Plan (1) Abdominal wall cellulitis: Code(s): L03.311 - Cellulitis of abdominal wall Status: Acute Assessment and Plan: Physical exam consistent with abdominal wall cellulitis -continue vanc and imipenem at this time which is consistent with the antibiotic stewardship -I have elevated the pannus since it drips down to the right and is dependent -I spoke with Dr. gates who agrees to see the patient. I appreciate his expertise with this gentleman since he has a history of multiple infections in the same area (2) Sepsis: Qualifiers: Sepsis type: sepsis due to unspecified organism Sepsis acute organ dysfunction status: without acute organ dysfunction Qualified Code(s): A41.9 - Sepsis, unspecified organism Code(s): A41.9 - Sepsis, unspecified organism Status: Acute Assessment and Plan: Secondary to above with elevated white blood cell count, heart rate and fever -blood cultures pending -continue vanc and imipenem (3) Atrial fibrillation with RVR: Code(s): I48.91 - Unspecified atrial fibrillation Status: Acute Assessment and Plan: Likely due to above -patient states he has a history of tachycardia due to hyperthyroidism. Will check TSH tomorrow morning although this seems less likely -will transition from IV Cardizem to oral. May consider increasing dose if he continues to be tachycardic. Once he is transitioned and he remains with a heart rate less than 110 for a couple of hours he can be downgraded (4) Obstructive sleep apnea on CPAP: Code(s): G47.33 - Obstructive sleep apnea (adult) (pediatric); Z99.89 - Dependence on other enabling machines and devices Status: Acute Assessment and Plan: continue cpap at bedside (5) Insulin dependent type 2 diabetes mellitus: Code(s): E11.9 - Type 2 diabetes mellitus without complications; Z79.4 - meterman (current) use of insulin Status: Acute Assessment and Plan: Last glucose 229 -Continue SSI and lantus -check a1c in the AM (6) Hyponatremia: Code(s): E87.1 - Hypo-osmolality and hyponatremia Status: Acute Assessment and Plan: Last sodium 127 today. Pt was fluid overloaded (improving). Likely the cause -continue home chlothalidone -recheck in the AM -No need to fluid restrict at this time but may need to consider if he worsenes or doesn't improve. (7) Morbid (severe) obesity due to excess calories: Code(s): E66.01 - Morbid (severe) obesity due to excess calories Status: Acute Assessment and Plan: Pt would benefit from lifestyle changes (8) Hypertension: Qualifiers: Hypertension type: unspecified Qualified Code(s): I10 - Essential (primary) hypertension Code(s): I10 - Essential (primary) hypertension Status: Acute Assessment and Plan: Last bp 150/69 -continue lisinopril, diltiazem and chlorthalidone Time Spent With Patient Time with patient: 25 - 35 minutes Subjective Date/time seen: 06/11/21 12:16 Interval history: Pt is a 41-year-old male here for abdominal wall cellulitis. Patient was seen today and states he feels a whole lot better today compared to yesterday. He thinks his fever is breaking because he is constantly sweating and woke up with sweats. He feels like he is stronger today. He said the redness is about the same. He does mention his lower extremity swelling has markedly improved compared to yesterday. He denies vomiting, chest pain or shortness of breath. He says he sees an infectious disease doctor at [facility]. He has not had this type of infection for 6 months. He does not recall any trauma to the area. Review of Systems Review of Systems: All systems reviewed & are unremarkable except as noted in HPI and below Exam Narrative: General: Morbidly obese obese patient resting comfortably in bed in no acut
[2021-06-11] MEDS: dilTIAZem HCL 60 MG TABLET PO ×2 (14:35→21:35)
[2021-06-11] MEDS: GABAPENTIN 300 MG CAPSULE PO ×2 (14:35→21:36)
[2021-06-11] MEDS: dilTIAZem HCL 30 MG TABLET PO ×2 (14:35→21:35)
[2021-06-11] MEDS: INSULIN GLARGINE (*BKC) 100 UNITS/ML 15 UNITS SUB-Q (17:34)
[2021-06-11 17:56] LABS: Glucose Point of Care 222 mg/dl (65-105)
[2021-06-11 20:24] LABS: Glucose Point of Care 259 mg/dl (65-105)
[2021-06-11 23:44] LABS: Vancomycin Trough 7.8 ug/mL (10.0-20.0)
[2021-06-12] VITALS (8 sets, daily range): BP systolic 150–177; BP diastolic 70–81; PULSE 76–94; RESP 16–24; TEMP 36.2–36.7; O2SAT 95–100
[2021-06-12 05:37] LABS: Basophils Percent Auto 0.2 % (0.2-1.2); Eosinophils Absolute Auto 0.2 K/mm3 (0-0.3); Eosinophils Percent Auto 2.1 % (0-4.4); Hematocrit 37.4 % (42.0-52.0); Hemoglobin 11.5 g/dL (14.0-18.0); Immature Granulocyte Absolute 0.07 K/mm3 (0.00-0.031); Immature Granulocyte Percent A 0.7 % (0-0.5); Lymphocytes Absolute Auto 1.75 K/mm3 (0.9-3.2); Lymphocytes Percent Auto 18.7 % (18.3-44.2); Mean Corpuscular HGB Conc 30.7 g/dl (32-36); Mean Corpuscular Hemoglobin 26.1 pg (26-34); Mean Platelet Volume 10.8 fl (7.4-10.4); Monocytes Absolute Auto 0.8 K/mm3 (0.1-0.6); Neutrophils Absolute Auto 6.6 K/mm3 (1.3-6.7); Neutrophils Percent Auto 70.3 % (45.5-73.1); Platelet Count Result 237 k/mm3 (150-375); Red Cell Distribution Width 14.3 % (11.5-14.5); White Blood Count 9.3 K/mm3 (4.5-10.0)
[2021-06-12 06:03] LABS: Alanine Aminotransferase 20 U/L (4-50); Albumin Level 3.2 g/dL (3.5-5.1); Alkaline Phosphatase 72 U/L (38-126); Anion Gap 5 mmol/L (8-16); Aspartate Amino Transferase 14 U/L (17-59); Bilirubin,Total 0.5 mg/dL (0.2-1.3); Blood Urea Nitrogen 7 mg/dL (9-20); Calcium 8.2 mg/dL (8.4-10.2); Carbon Dioxide 27 mmol/L (22-30); Chloride 101 mmol/L (98-107); Estimated CRCL calculation 329 ml/min; Estimated Glomerular Filt Rate > 60; Glucose 241 mg/dL (65-110); Sodium 133 mmol/L (137-145)
[2021-06-12 06:09] LABS: CRP 18.9 mg/dL (<1.0)
[2021-06-12] MEDS: dilTIAZem HCL 30 MG TABLET PO ×3 (06:15→21:09)
[2021-06-12] MEDS: GABAPENTIN 300 MG CAPSULE PO ×3 (06:15→21:09)
[2021-06-12] MEDS: dilTIAZem HCL 60 MG TABLET PO ×3 (06:15→21:09)
[2021-06-12 07:00] LABS: Hemoglobin A1C 9.3 % (<5.7)
[2021-06-12 09:09] LABS: Glucose Point of Care 196 mg/dl (65-105)
[2021-06-12] MEDS: lisinopriL 20 MG TABLET 40 MG PO (09:18)
[2021-06-12] MEDS: RIVAROXABAN 20 MG TABLET PO (09:18)
[2021-06-12] MEDS: CHLORTHALIDONE 25 MG TABLET PO (09:18)
--- NOTE | 2021-06-12 10:08 | PM.IMPN ---
Progress Note: A&P Assessment and Plan (1) Abdominal wall cellulitis: Code(s): L03.311 - Cellulitis of abdominal wall Status: Acute Assessment and Plan: Physical exam consistent with abdominal wall cellulitis that is improving -continue vanc and imipenem at this time which is consistent with the antibiotic stewardship recommendations -continue to elevate the pannus since it drips down to the right and is dependent -I spoke with Dr. gates 06/11 who agrees to see the patient. I appreciate his expertise with this gentleman since he has a history of multiple infections in the same area (2) Sepsis: Qualifiers: Sepsis type: sepsis due to unspecified organism Sepsis acute organ dysfunction status: without acute organ dysfunction Qualified Code(s): A41.9 - Sepsis, unspecified organism Code(s): A41.9 - Sepsis, unspecified organism Status: Acute Assessment and Plan: Secondary to above with elevated white blood cell count, heart rate and fever -blood cultures NGTD -continue vanc and imipenem (3) Atrial fibrillation with RVR: Code(s): I48.91 - Unspecified atrial fibrillation Status: Acute Assessment and Plan: Resolved -patient states he has a history of tachycardia due to hyperthyroidism -TSH normal -continue oral Cardizem -okay to transfer to regular floor off tele and monitor with routine vitals (4) Obstructive sleep apnea on CPAP: Code(s): G47.33 - Obstructive sleep apnea (adult) (pediatric); Z99.89 - Dependence on other enabling machines and devices Status: Acute Assessment and Plan: continue cpap at bedside (5) Insulin dependent type 2 diabetes mellitus: Code(s): E11.9 - Type 2 diabetes mellitus without complications; Z79.4 - intermediate (current) use of insulin Status: Acute Assessment and Plan: Last glucose 196 -Continue SSI and lantus -A1c 9.3. Pt states he only takes his lantus about 3x a week and he said 'he could do better' about taking his DM meds (6) Hyponatremia: Code(s): E87.1 - Hypo-osmolality and hyponatremia Status: Acute Assessment and Plan: Last sodium 133 today -continue home chlothalidone -recheck in the AM -No need to fluid restrict at this time but may need to consider if he worsens or doesn't improve. (7) Morbid (severe) obesity due to excess calories: Code(s): E66.01 - Morbid (severe) obesity due to excess calories Status: Acute Assessment and Plan: Pt would benefit from lifestyle changes (8) Hypertension: Qualifiers: Hypertension type: unspecified Qualified Code(s): I10 - Essential (primary) hypertension Code(s): I10 - Essential (primary) hypertension Status: Acute Assessment and Plan: Last bp 177/80 prior to home meds -will recheck bp, add hydralzine as needed -continue lisinopril, diltiazem and chlorthalidone Subjective Date/time seen: 06/12/21 10:08 Interval history: Pt is a 41-year-old male here for abdominal wall cellulitis. Patient was seen today and doing much better. He is no longer having night sweats and his erythema is improving. He thinks he is getting thrush. He is eating and drinking well. He feels a bit constipated. No CP or SOB. Exam Narrative: General: Morbidly obese obese patient resting comfortably in bed in no acute distress HEENT: normocephalic Neck: supple Neuro: Alert and oriented x4 CV: Irregularly irregular consistent with AFib but decreased sounds due to body habitus. Telemetry shows atrial fibrillation with a heart rate of 86 currently Resp:CTA from anterior chest (decreased due to body habitus) Abd: Soft, non distended. No pain to palpation. Positive bowel sounds. Right lower quadrant/pannus is erythematous with no discharge wrapping around to his flank--improved since yesterday Extremities: Chronic swelling to lower extremities with derma
[2021-06-12] MEDS: NYSTATIN 100,000 UNITS/ML SUSP 5 ML ORAL.SUSP PO ×3 (12:22→21:09)
--- NOTE | 2021-06-12 12:28 | WPDINFPN2 ---
Progress Note: A&P Assessment and Plan (1) Abdominal wall cellulitis: Code(s): L03.311 - Cellulitis of abdominal wall Status: Acute Assessment and Plan: Abd wall cellulitis, recurrent but uncomplicated REC Clindamycin. Once he has substantial clinical improvement, oral clinda 300 tid through 06/19/21. Resumption of chronic oral suppression, if any, per his primary MD and my colleagues at [facility]. Call if Qs Subjective Date/time seen: 06/12/21 12:28 Objective Data Vital Signs Vital Signs: Vital Signs - 24 hr 06/11/21 14:00 06/11/21 16:00 06/11/21 18:00 Temperature 36.7 C Pulse Rate 84 90 89 Respiratory Rate 18 Blood Pressure 168/78 H Pulse Oximetry 98 06/11/21 19:24 06/11/21 20:00 06/11/21 22:00 Temperature 36.6 C Pulse Rate 88 78 82 Respiratory Rate 22 H 22 H Blood Pressure 139/63 Pulse Oximetry 100 100 06/12/21 00:00 06/12/21 02:00 06/12/21 04:00 Temperature 36.6 C 36.2 C L Pulse Rate 77 84 87 Respiratory Rate 20 22 H Blood Pressure 154/70 H 150/79 H Pulse Oximetry 96 96 06/12/21 06:00 06/12/21 08:00 Temperature 36.3 C L Pulse Rate 88 94 Respiratory Rate 16 Blood Pressure 177/80 H Pulse Oximetry 96 Intake/Output Intake/Output: Intake & Output 06/09/21 06/10/21 06/11/21 06/12/21 23:59 23:59 23:59 23:59 Intake Total 100 4280 1840 Output Total 4550 5875 Balance 100 -574 -3939 Meds/Results Medications: Active Medications Generic Name Dose Route Start Last Admin Trade Name Freq PRN Reason Stop Dose Admin Acetaminophen 650 mg 06/10/21 23:54 06/11/21 08:30 Acetaminophen 325 Mg Tablet PO 650 mg Q4H PRN Administration Mild Pain (1-3) or Fever Chlorthalidone 25 mg 06/12/21 09:00 06/12/21 09:18 Chlorthalidone 25 Mg Tablet PO 25 mg DAILY GATO Administration Dextrose 12.5 gm 06/10/21 23:55 Dextrose 50% 25 Gm/50 Ml Syringe IV PUSH PRN PRN Hypoglycemia Protocol Diltiazem HCl 30 mg 06/11/21 14:00 06/12/21 06:15 Diltiazem Hcl 30 Mg Tablet PO 30 mg Q8HR GATO Administration Diltiazem HCl 60 mg 06/11/21 14:00 06/12/21 06:15 Diltiazem Hcl 60 Mg Tablet PO 60 mg Q8HR GATO Administration Gabapentin 300 mg 06/11/21 14:00 06/12/21 06:15 Gabapentin 300 Mg Capsule PO 300 mg Q8HR GATO Administration Glucagon 1 mg 06/10/21 23:55 Glucagon For Inj 1 Mg Vial IM PRN PRN Hypoglycemia Protocol Glucose 15 gm 06/10/21 23:55 Glucose Oral Gel 15 Gm Of Glucse In 37.5 Gm Tube PO PRN PRN Hypoglycemia Protocol Hydralazine HCl 10 mg 06/12/21 10:21 Hydralazine Hcl 20 Mg/Ml Vial IV PUSH Q8H PRN Blood Pressure - High Dextrose 1,000 mls @ 100 mls/hr 06/10/21 23:55 Dextrose 5% 1,000 Ml IVPB PRN PRN Hypoglycemia Protocol Clindamycin Phosphate 600 mg in 50 mls @ 100 mls/hr 06/12/21 14:00 Clindamycin 600 Mg/D5w 50 Ml IVPB Q8HR [facility] Insulin Aspart 4 - 8 units 06/12/21 08:00 06/12/21 09:11 Insulin Aspart (*Bkc) 100 Units/Ml SUB-Q Not Given TIDWM [facility] Protocol Insulin Glargine 20 units 06/12/21 18:00 Insulin Glargine (*Bkc) 100 Units/Ml SUB-Q QPM [facility] Lisinopril 40 mg 06/11/21 09:45 06/12/21 09:18 Lisinopril 20 Mg Tablet PO 40 mg DAILY [facility] Administration Morphine Sulfate 4 mg 06/10/21 23:54 Morphine Sulfate (*Crx) 4 Mg/Ml Inj IV PUSH Q4H PRN Pain Rated 7-10 Nystatin 5 ml 06/12/21 13:00 06/12/21 12:22 Nystatin 100,000 Units/Ml Susp 5 Ml Oral.Susp PO 5 ml QID GATO Administration Rivaroxaban 20 mg 06/11/21 09:45 06/12/21 09:18 Rivaroxaban 20 Mg Tablet PO 20 mg DAILY GATO Administration Labs Labs: Laboratory Results - last 24 hr 06/11/21 06/11/21 06/11/21 17:03 19:57 23:20 WBC RBC Hgb Hct MCV MCH MCHC RDW Plt Count MPV Immature Gran % (Auto) Neut % (Auto) Lymph % (Auto) [place] %
[2021-06-12] MEDS: CLINDAMYCIN 600 MG/D5W 50 ML 600 MG/50 ML PIGGYBACK 100 MG IVPB ×2 (14:15→21:08)
[2021-06-12] MEDS: INSULIN ASPART (*BKC) 100 UNITS/ML SUB-Q ×2 (14:18→17:33)
[2021-06-12 14:20] LABS: Glucose Point of Care 280 mg/dl (65-105)
[2021-06-12] MEDS: INSULIN GLARGINE (*BKC) 100 UNITS/ML 20 UNITS SUB-Q (17:32)
[2021-06-12 17:57] LABS: Glucose Point of Care 217 mg/dl (65-105)
--- NOTE | 2021-06-12 19:10 | CONS_ITS ---
DATE OF CONSULTATION: 06/12/2021 REASON FOR CONSULTATION: Cellulitis of abdominal wall. HISTORY OF PRESENT ILLNESS: A 41-year-old male with morbid obesity. He had recurrent episodes of infection in the right lower quadrant of his pannus, last treated at [facility] in December of this year. He was given a month of cephalexin apparently for prophylaxis followed by 2 months of clindamycin. He had no subsequent problems until the morning of admission when he developed a sensation of warmth in the right lower quadrant as well as chills. He presented to the hospital, was admitted. He has been given imipenem and vancomycin. Consultation requested. No events here in the hospital. He has never had previous abdominal surgery. 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 He has had no trauma to the abdominal wall. No known fever. He has not required surgical intervention while here. ALLERGIES: NONE KNOWN. MEDICATIONS: No immunosuppressants here nor at home. HABITS: No tobacco or alcohol, illicit drugs. PAST MEDICAL HISTORY: In addition to the above, AF, hypertension, JANEY, peripheral neuropathy, spinal stenosis, and tonsillectomy. SOCIAL HISTORY: He is minimally ambulatory at home, which he ascribes to his cervical spine illness resulting weakness in the lower extremities, lesser extent in upper extremities. He apparently is not a surgical candidate due to his obesity. FAMILY HISTORY: Diabetes, heart disease, and COPD. REVIEW OF SYSTEMS: Blood sugars reviewed and within normal range. Five-point review otherwise negative. 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 Aunt and uncle live next door to him. He lives locally. PHYSICAL EXAMINATION: GENERAL: Middle-aged male appears actual age. No acute distress. VITAL SIGNS: Shortly after arrival here, T-max 38.2, afebrile x36 hours. Pulse 81, respirations 16, blood pressure 177/80, 96% on room air. SKIN: Warm and dry. No generalized rashes. HEENT: Conjunctivae are normal. Pupils equal, round, and reactive to light. Oropharynx oral mucosa normal. NECK: No masses or thyromegaly. LUNGS: Clear to auscultation. CARDIAC: Regular rate and rhythm. No murmurs or gallops. ABDOMEN: Massively obese. He has erythema and warmth with some dimpling over the right lower quadrant pannus. He has no draining sinus tracts. There is minimal tenderness. No fluctuance. No areas of necrosis nor crusting. EXTREMITIES: Lymphedema, hyperpigmentation in distal shins. No cellulitis. LABORATORY DATA: Blood cultures, no growth 1/2 days incubation. White count 9.3, hemoglobin 11.5, platelets are 237. Differential shows no abnormalities. His sodium is 133, glucose 241, otherwise chemistry panel is normal. A1c 9.3%. CRP is 19. RADIOLOGY: Not redone. ASSESSMENT: 1. Recurrent cellulitis of the right lower quadrant pannus, suspicion for gram-negative pathogens is low. He is continent of stool and urine. Exam suggest skin organisms and skin jojo. I doubt deep space infection. I doubt that this is a primarily a deep infection manifesting in superficial symptoms. 2. Morbid obesity. 3. Diabetes mellitus, not optimally controlled. RECOMMENDATIONS: 1. Glycemic control underway. 2. Clindamycin as monotherapy using IV. Oral therapy once he has substantial clinical improvement. 3. Long-term oral suppression at the discretion of his primary care physician, as well as my colleagues at [facility]. Thank you for asking me to see him. GASPER KELLOGG M.D. [employer]
[2021-06-12 21:37] LABS: Glucose Point of Care 223 mg/dl (65-105)
[2021-06-13] VITALS (8 sets, daily range): BP systolic 145–158; BP diastolic 76–90; PULSE 72–105; RESP 18–24; TEMP 36.1–36.8; O2SAT 95–97
[2021-06-13 05:20] LABS: Basophils Percent Auto 0.4 % (0.2-1.2); Eosinophils Absolute Auto 0.2 K/mm3 (0-0.3); Eosinophils Percent Auto 2.9 % (0-4.4); Hematocrit 38.8 % (42.0-52.0); Immature Granulocyte Absolute 0.06 K/mm3 (0.00-0.031); Immature Granulocyte Percent A 0.8 % (0-0.5); Lymphocytes Absolute Auto 1.68 K/mm3 (0.9-3.2); Lymphocytes Percent Auto 21.1 % (18.3-44.2); Mean Corpuscular HGB Conc 30.9 g/dl (32-36); Mean Corpuscular Hemoglobin 25.7 pg (26-34); Mean Corpuscular Volume 83.1 fl (80-100); Mean Platelet Volume 10.6 fl (7.4-10.4); Monocytes Absolute Auto 0.6 K/mm3 (0.1-0.6); Monocytes Percent Auto 7.9 % (2.6-8.5); Neutrophils Absolute Auto 5.4 K/mm3 (1.3-6.7); Neutrophils Percent Auto 66.9 % (45.5-73.1); Platelet Count Result 256 k/mm3 (150-375); Red Blood Count 4.67 M/mm3 (4.6-6.20); Red Cell Distribution Width 13.8 % (11.5-14.5)
[2021-06-13 05:33] LABS: Anion Gap 8 mmol/L (8-16); Blood Urea Nitrogen 7 mg/dL (9-20); Calcium 8.6 mg/dL (8.4-10.2); Carbon Dioxide 28 mmol/L (22-30); Chloride 98 mmol/L (98-107); Estimated CRCL calculation 285 ml/min; Estimated Glomerular Filt Rate > 60; Glucose 218 mg/dL (65-110); Potassium 3.9 mmol/L (3.4-5.0); Sodium 134 mmol/L (137-145)
[2021-06-13] MEDS: dilTIAZem HCL 30 MG TABLET PO ×3 (06:09→21:33)
[2021-06-13] MEDS: dilTIAZem HCL 60 MG TABLET PO ×3 (06:09→21:33)
[2021-06-13] MEDS: GABAPENTIN 300 MG CAPSULE PO ×3 (06:09→21:33)
[2021-06-13] MEDS: CLINDAMYCIN 600 MG/D5W 50 ML 600 MG/50 ML PIGGYBACK 100 MG IVPB ×3 (06:10→21:32)
[2021-06-13 07:55] LABS: Glucose Point of Care 173 mg/dl (65-105)
[2021-06-13] MEDS: RIVAROXABAN 20 MG TABLET PO (08:27)
[2021-06-13] MEDS: NYSTATIN 100,000 UNITS/ML SUSP 5 ML ORAL.SUSP PO ×4 (08:27→21:32)
[2021-06-13] MEDS: CHLORTHALIDONE 25 MG TABLET PO (08:27)
[2021-06-13] MEDS: lisinopriL 20 MG TABLET 40 MG PO (08:27)
--- NOTE | 2021-06-13 09:17 | PCPTNOTE ---
Patient is bed bound at baseline, has not stood in over a year, patient is able to perform bed mobility with stand by assist per OT evaluation, no skilled PT needs at this time, will D/C orders.
--- NOTE | 2021-06-13 10:38 | PM.IMPN ---
Progress Note: A&P Assessment and Plan (1) Abdominal wall cellulitis: Code(s): L03.311 - Cellulitis of abdominal wall Status: Acute Assessment and Plan: Physical exam consistent with abdominal wall cellulitis that is improving -continue clindamycin IV and may transition to oral tomorrow if he continues to do well -continue to elevate the pannus since it drips down to the right and is dependent -Dr. Elias's recommendations noted (2) Sepsis: Qualifiers: Sepsis type: sepsis due to unspecified organism Sepsis acute organ dysfunction status: without acute organ dysfunction Qualified Code(s): A41.9 - Sepsis, unspecified organism Code(s): A41.9 - Sepsis, unspecified organism Status: Acute Assessment and Plan: Secondary to above with elevated white blood cell count, heart rate and fever -blood cultures NGTD -continue clindamycin (3) Atrial fibrillation with RVR: Code(s): I48.91 - Unspecified atrial fibrillation Status: Acute Assessment and Plan: Resolved -patient states he has a history of tachycardia due to hyperthyroidism -TSH normal -continue oral Cardizem -okay to transfer to regular floor off tele and monitor with routine vitals (4) Obstructive sleep apnea on CPAP: Code(s): G47.33 - Obstructive sleep apnea (adult) (pediatric); Z99.89 - Dependence on other enabling machines and devices Status: Acute Assessment and Plan: continue cpap at bedside (5) Insulin dependent type 2 diabetes mellitus: Code(s): E11.9 - Type 2 diabetes mellitus without complications; Z79.4 - [facility] (current) use of insulin Status: Acute Assessment and Plan: Last glucose 173 -Continue SSI and lantus -A1c 9.3. Pt states he only takes his lantus about 3x a week and he said 'he could do better' about taking his DM meds (6) Hyponatremia: Code(s): E87.1 - Hypo-osmolality and hyponatremia Status: Acute Assessment and Plan: Last sodium 134 today -continue home chlothalidone (7) Morbid (severe) obesity due to excess calories: Code(s): E66.01 - Morbid (severe) obesity due to excess calories Status: Acute Assessment and Plan: Pt would benefit from lifestyle changes (8) Hypertension: Qualifiers: Hypertension type: unspecified Qualified Code(s): I10 - Essential (primary) hypertension Code(s): I10 - Essential (primary) hypertension Status: Acute Assessment and Plan: Last bp 152/90 -continue lisinopril, diltiazem and chlorthalidone Subjective Date/time seen: 06/13/21 10:38 Interval history: Pt is a 41-year-old male here for abdominal wall cellulitis. Patient was seen today and doing better. He is no longer having night sweats and his erythema is improving. He is eating and drinking well. He feels a bit constipated. No CP or SOB. Exam Narrative: General: Morbidly obese obese patient resting comfortably in bed in no acute distress HEENT: normocephalic Neck: supple Neuro: Alert and oriented x4 CV: Irregularly irregular consistent with AFib but decreased sounds due to body habitus. Resp:CTA from anterior chest (decreased due to body habitus) Abd: Soft, non distended. No pain to palpation. Positive bowel sounds. Right lower quadrant/pannus is erythematous with no discharge wrapping around to his flank--improved since yesterday Extremities: Chronic swelling to lower extremities with dermatitis changes. No pain to palpation or erythema. Objective Data Vital Signs Vital Signs: Vital Signs - 24 hr 06/12/21 16:00 06/12/21 20:00 06/12/21 22:30 Temperature 97.9 F 98.0 F Pulse Rate 76 76 88 Respiratory Rate 18 24 H Blood Pressure 154/81 H 150/81 H Pulse Oximetry 98 97 95 06/13/21 00:00 06/13/21 04:00 06/13/21 04:30 Temperature 97.1 F L Pulse Rate 88 72 72 Respiratory Rate 20 Blood Pressure 145/82 H
[2021-06-13 12:11] LABS: Glucose Point of Care 196 mg/dl (65-105)
--- NOTE | 2021-06-13 13:31 | PC.NURSE ---
On 06/13/21, the student, [Selena Mantilla], provided care and completed [facility] documentation on this patient. I have reviewed the student's documentation and agree with the findings.
[2021-06-13] MEDS: INSULIN ASPART (*BKC) 100 UNITS/ML SUB-Q (17:16)
[2021-06-13] MEDS: INSULIN GLARGINE (*BKC) 100 UNITS/ML 20 UNITS SUB-Q (17:17)
[2021-06-13 17:38] LABS: Glucose Point of Care 212 mg/dl (65-105)
[2021-06-13 21:36] LABS: Glucose Point of Care 219 mg/dl (65-105)
[2021-06-14 00:12] VITALS: PULSE 103; O2SAT 94
[2021-06-14 04:17] VITALS: PULSE 102; O2SAT 94
[2021-06-14] MEDS: dilTIAZem HCL 30 MG TABLET PO ×3 (06:04→22:45)
[2021-06-14] MEDS: dilTIAZem HCL 60 MG TABLET PO ×3 (06:04→22:45)
[2021-06-14] MEDS: GABAPENTIN 300 MG CAPSULE PO ×3 (06:04→22:45)
[2021-06-14] MEDS: CLINDAMYCIN 600 MG/D5W 50 ML 600 MG/50 ML PIGGYBACK 100 MG IVPB ×3 (06:04→22:45)
[2021-06-14 07:38] LABS: Glucose Point of Care 193 mg/dl (65-105)
[2021-06-14 07:44] VITALS: BP 154/90; PULSE 90; RESP 18; TEMP 36.6; O2SAT 97
[2021-06-14] MEDS: RIVAROXABAN 20 MG TABLET PO (08:39)
[2021-06-14] MEDS: lisinopriL 20 MG TABLET 40 MG PO (08:39)
[2021-06-14] MEDS: CHLORTHALIDONE 25 MG TABLET PO (08:40)
[2021-06-14] MEDS: NYSTATIN 100,000 UNITS/ML SUSP 5 ML ORAL.SUSP PO ×2 (08:40→22:45)
--- NOTE | 2021-06-14 11:14 | PM.DS ---
DS: Admitting Diagnosis Discharge Date 06/14/21 Admitting Diagnosis abdominal wall cellulitis DS: Discharge Diagnosis Discharge Diagnosis (1) Abdominal wall cellulitis: Code(s): L03.311 - Cellulitis of abdominal wall Status: Acute Assessment and Plan: Physical exam consistent with abdominal wall cellulitis that is improving -He received clindamycin IV and was transitioned to oral to finish treatment -He was instructed to continue to elevate the pannus since it drops down to the right and is dependent -f/u with pcp to ensure adequate healing. (2) Sepsis: Qualifiers: Sepsis type: sepsis due to unspecified organism Sepsis acute organ dysfunction status: without acute organ dysfunction Qualified Code(s): A41.9 - Sepsis, unspecified organism Code(s): A41.9 - Sepsis, unspecified organism Status: Acute Assessment and Plan: Secondary to above with elevated white blood cell count, heart rate and fever -blood cultures NGTD and will be monitored until finalized -continue clindamycin -resolved (3) Atrial fibrillation with RVR: Code(s): I48.91 - Unspecified atrial fibrillation Status: Acute Assessment and Plan: Resolved -patient states he has a history of tachycardia due to hyperthyroidism -TSH normal -continue oral Cardizem (4) Obstructive sleep apnea on CPAP: Code(s): G47.33 - Obstructive sleep apnea (adult) (pediatric); Z99.89 - Dependence on other enabling machines and devices Status: Acute Assessment and Plan: continue cpap at home (5) Insulin dependent type 2 diabetes mellitus: Code(s): E11.9 - Type 2 diabetes mellitus without complications; Z79.4 - [employer] (current) use of insulin Status: Acute Assessment and Plan: Last glucose 224 -Continue home regimen -A1c 9.3. Pt states he only takes his lantus about 3x a week and he said 'he could do better' about taking his DM meds. He does not want any adjustments until he sees what his a1c is once he takes his medications as directed. (6) Hyponatremia: Code(s): E87.1 - Hypo-osmolality and hyponatremia Status: Acute Assessment and Plan: last na 134, a little low due to hyperglycemia -continue home chlothalidone (7) Morbid (severe) obesity due to excess calories: Code(s): E66.01 - Morbid (severe) obesity due to excess calories Status: Acute Assessment and Plan: Pt would benefit from lifestyle changes (8) Hypertension: Qualifiers: Hypertension type: unspecified Qualified Code(s): I10 - Essential (primary) hypertension Code(s): I10 - Essential (primary) hypertension Status: Acute Assessment and Plan: Last bp 154/90 -continue lisinopril, diltiazem and chlorthalidone (9) Diarrhea: Code(s): R19.7 - Diarrhea, unspecified Status: Acute Assessment and Plan: Pt was constipated for many days and is now having diarrhea -doubt cdiff, no fevers or abdominal pain -could be abx associated -due to his need for clindamycin, will give 10 days of flagyl at d/c but he is to come back or call his infectious disease doctor if he continues to have frequent liquid stools DS: Summary Hospital Course Hospital Course: DOS 06/14/21 Patient is a 41-year-old male with a past medical history of AFib, abdominal wall cellulitis, morbid obesity, diabetes,and hypertension who presented emergency room for abdominal erythema. vitals in the ER were temperature 37.7? C, pulse 128, respiratory rate 16, pulse ox 100 on room air. Initial white blood cell count 13.9, hemoglobin 13.2, hematocrit 42.5, platelets 268. BMP 131 for the sodium, potassium 4.2, chloride 97, CO2 27, BUN 8, creatinine 0.6, glucose 262. Lactic acid initially elevated 2.6. patient was found to be in AFib RVR. He was admitted to the hospitalist service and started on IV diltiazem and antibiotics.
[2021-06-14 11:19] LABS: Glucose Point of Care 200 mg/dl (65-105)
--- NOTE | 2021-06-14 13:44 | PC.NURSE ---
On 06/14/21, the student, [Cleopatra Cooley], provided care and completed [facility] documentation on this patient. I have reviewed the student's documentation and agree with the findings.
[2021-06-14 16:00] VITALS: BP 153/88; PULSE 86; RESP 22; TEMP 36.4; O2SAT 97
--- NOTE | 2021-06-14 16:07 | PCOTNOTE ---
Attempted to see patient at this time. Upon entry, patient reports he is waiting for ambulance to go home. Discharge order is in EMR. Patient was not seen this date for OT.
[2021-06-14 16:31] LABS: Glucose Point of Care 224 mg/dl (65-105)
[2021-06-14] MEDS: INSULIN GLARGINE (*BKC) 100 UNITS/ML 20 UNITS SUB-Q (18:15)
[2021-06-14 21:00] VITALS: BP 171/77; PULSE 92; RESP 17; TEMP 36.6; O2SAT 96
[2021-06-14 21:27] LABS: Glucose Point of Care 274 mg/dl (65-105)
--- NOTE | 2021-06-14 21:50 | PC.NURSE ---
This patient, Tito Fam, was received from [U [id number] ] on 06/14/21 at 2150. Patient/family oriented to unit policies and routines
--- NOTE | 2021-06-14 21:54 | PC.NURSE ---
pt. transferred to room 356 no report given per house supervisors orders.
[2021-06-15 06:00] VITALS: BP 161/87; PULSE 90; RESP 20; TEMP 36.9; O2SAT 97
[2021-06-15] MEDS: dilTIAZem HCL 60 MG TABLET PO ×2 (06:47→13:17)
[2021-06-15] MEDS: metroNIDAZOLE 250 MG TABLET 375 MG PO ×2 (06:47→13:17)
[2021-06-15] MEDS: dilTIAZem HCL 30 MG TABLET PO ×2 (06:47→13:16)
[2021-06-15] MEDS: GABAPENTIN 300 MG CAPSULE PO ×2 (06:47→13:16)
[2021-06-15] MEDS: CLINDAMYCIN HCL 150 MG CAP 300 MG PO ×2 (06:47→13:16)
[2021-06-15 07:50] LABS: Glucose Point of Care 191 mg/dl (65-105)
[2021-06-15] MEDS: RIVAROXABAN 20 MG TABLET PO (08:37)
[2021-06-15] MEDS: NYSTATIN 100,000 UNITS/ML SUSP 5 ML ORAL.SUSP PO ×2 (08:37→13:16)
[2021-06-15] MEDS: lisinopriL 20 MG TABLET 40 MG PO (08:37)
[2021-06-15] MEDS: CHLORTHALIDONE 25 MG TABLET PO (08:54)
--- NOTE | 2021-06-15 08:55 | PM.IMPN ---
Progress Note: A&P Assessment and Plan (1) Discharge planning issues: Code(s): Z02.9 - Encounter for administrative examinations, unspecified Status: Acute Assessment and Plan: patient unable to get transport home yesterday and is discharging later today. please see yesterday's discharge summary for full discharge report (2) Abdominal wall cellulitis: Code(s): L03.311 - Cellulitis of abdominal wall Status: Acute Assessment and Plan: Physical exam consistent with abdominal wall cellulitis that is improving -He received clindamycin IV and was transitioned to oral to finish treatment -He was instructed to continue to elevate the pannus since it drops down to the right and is dependent -f/u with pcp to ensure adequate healing. (3) Sepsis: Qualifiers: Sepsis type: sepsis due to unspecified organism Sepsis acute organ dysfunction status: without acute organ dysfunction Qualified Code(s): A41.9 - Sepsis, unspecified organism Code(s): A41.9 - Sepsis, unspecified organism Status: Acute Assessment and Plan: Secondary to above with elevated white blood cell count, heart rate and fever -blood cultures NGTD and will be monitored until finalized -continue clindamycin -resolved (4) Atrial fibrillation with RVR: Code(s): I48.91 - Unspecified atrial fibrillation Status: Acute Assessment and Plan: Resolved -patient states he has a history of tachycardia due to hyperthyroidism -TSH normal -continue oral Cardizem (5) Obstructive sleep apnea on CPAP: Code(s): G47.33 - Obstructive sleep apnea (adult) (pediatric); Z99.89 - Dependence on other enabling machines and devices Status: Acute Assessment and Plan: continue cpap at home (6) Insulin dependent type 2 diabetes mellitus: Code(s): E11.9 - Type 2 diabetes mellitus without complications; 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 Pt states he only takes his lantus about 3x a week and he said 'he could do better' about taking his DM meds. He does not want any adjustments until he sees what his a1c is once he takes his medications as directed. (7) Hyponatremia: Code(s): E87.1 - Hypo-osmolality and hyponatremia Status: Acute Assessment and Plan: last na 134, a little low due to hyperglycemia -continue home chlothalidone (8) Morbid (severe) obesity due to excess calories: Code(s): E66.01 - Morbid (severe) obesity due to excess calories Status: Acute Assessment and Plan: Pt would benefit from lifestyle changes (9) Hypertension: Qualifiers: Hypertension type: unspecified Qualified Code(s): I10 - Essential (primary) hypertension Code(s): I10 - Essential (primary) hypertension Status: Acute Assessment and Plan: Last bp 161/87 -continue home lisinopril, diltiazem and chlorthalidone - he has been running high and he states his blood pressure usually runs around 150 at home. Norvasc started. Educated to monitor for lower extremity swelling and follow up with primary care physician for additional monitoring of his blood pressure (10) Diarrhea: Code(s): R19.7 - Diarrhea, unspecified Status: Acute Assessment and Plan: resolved - was previously stated and then had 4 bowel movements yesterday. No diarrhea today. -doubt cdiff, no fevers or abdominal pain -could be abx associated -due to his need for clindamycin, will give 10 days of flagyl at d/c but he is to come back or call his infectious disease doctor if he continues to have frequent liquid stools Subjective Date/time seen: 06/15/21 08:55 Interval history: patient discharged 06/14 but was unable to get transport home. Please see yesterday's discharge summary for discharge information
[2021-06-15] MEDS: CALCIUM CARBONATE (TUMS) 500 MG (200 MG ELEMENTAL) PO (09:29)
[2021-06-15 11:50] LABS: Glucose Point of Care 189 mg/dl (65-105)
--- NOTE | 2021-06-15 13:23 | PCOTNOTE ---
Attempted to see patient at this time for skilled OT session. RN present in room and states patient is good to be seen, but is planning to d/c around 14:00 and it's up to patient. Patient refuses participation in therapy d/t being discharged. Will continue per POC accordingly.
[2021-06-15 13:33] VITALS: BP 127/90; PULSE 74; RESP 14; TEMP 35.8; O2SAT 98
--- NOTE | 2021-06-17 14:33 | PC.NURSE ---
Blood cx are negative.
== END 2021-06-15 14:30 | disposition home or self-care (01) | DRG 720 ==
LOC: ANHED 22:16 → ANHIMU 23:50 → ANH2MED 06-17 13:17 → ANHIMU 06-17 13:17
PROVIDERS: Physician Assistant; Admitting Provider Internal Medicine; Emergency Provider Family Medicine; Visit Provider Family Medicine
DX: A41.9 Sepsis, unspecified organism (principal); L03.311 Cellulitis of abdominal wall; E11.65 Type 2 diabetes mellitus with hyperglycemia; I48.91 Unspecified atrial fibrillation; G47.33 Obstructive sleep apnea (adult) (pediatric); I10 Essential (primary) hypertension; E87.1 Hypo-osmolality and hyponatremia; E11.42 Type 2 diabetes mellitus with diabetic polyneuropathy; R19.7 Diarrhea, unspecified; E66.01 Morbid (severe) obesity due to excess calories; Z68.45 Body mass index [BMI] 70 or greater, adult; Z23 Encounter for immunization; Z74.01 Bed confinement status; Z79.4 Long term (current) use of insulin; Z79.01 Long term (current) use of anticoagulants; Z79.899 Other long term (current) drug therapy; Z99.89 Dependence on other enabling machines and devices
CPT/HCPCS: 36415; 51701; 80048; 80053; 80076; 80202; 81001; 82948; 83036; 83605; 83690; 84443; 85025; 85610; 85730; 86140; 87040; 90471; 90653; 93005; 96361; 96365; 96366; 96367; 96375; 96376; 97167; 99285; A9270; G0008; G0378; G0379; J0131; J0743; J1741; J1815; J2270; J2405; J3370; J7030

== ENCOUNTER 2024-08-06 08:10 | Inpatient (IN) | payer OTHER, SELFPAY ==
[2024-08-06] VITALS (40 sets, daily range): BP systolic 61–132; BP diastolic 38–109; PULSE 78–131; RESP 11–24; TEMP 37–37.9; O2SAT 90–100
--- NOTE | ~2024-08-06 | XR_ITS ---
EXAMINATION: XR abdomen obstructive series DATE: 08/06/2024 09:00 INDICATION: Constipation. TECHNIQUE: Upright and supine views of the abdomen on 7 radiographs were obtained. COMPARISON: None. FINDINGS: There are no dilated loops of bowel. There is a small volume of stool in the colon. No free intraperitoneal gas. There is an electronic implant overlying left chest. IMPRESSION: 1. Normal bowel gas pattern. Reviewed, dictated and finalized at location A. R SAWYER
--- NOTE | ~2024-08-06 | XR_ITS ---
EXAMINATION: XR chest PICC line Exam Date/Time: 08/06/2024 16:30 PELLETIZER HISTORY: picc placement Comparison: 01/07/2021. RESULT: Exam limited by rotation in several views and body habitus. Lines, tubes, and devices: Right upper extremity PICC, likely terminating in the right atrium follow ed by 3 cm retraction with final positioning in the mid SVC. Loop recorder. Lungs and pleura: Clear. Right hemidiaphragm elevation. Cardiomediastinal silhouette: Stable. Other: No acute osseous or upper abdominal finding. IMPRESSION: New right upper extremity PICC, terminating in the SVC. Reviewed, dictated and finalized at location K. ETIZER
--- NOTE | ~2024-08-06 | US_ITS ---
EXAMINATION: US soft tissue buttock LT DATE: 08/06/2024 13:44 INDICATION: Open wound of the left buttock. TECHNIQUE: Multiple grayscale and Doppler ultrasound images of the left buttock were obtained. COMPARISON: None FINDINGS: There is no abscess. IMPRESSION: 1. No abscess. Reviewed, dictated and finalized at location A. NE WATCHMAN IMPRESSION: 1. No abscess.
--- NOTE | 2024-08-06 08:25 | ED.GENADULT ---
HPI - General Adult General Chief complaint: Urogenital-Male Stated complaint: difficulty urinating Time Seen by Provider: 08/06/24 08:17 Source: patient Mode of arrival: EMS History of Present Illness HPI narrative: 44 years old white male, came by ambulance from home complaining of burning urination in the last 24 hours Patient reports trouble having bowel movement for 1 week Patient report chills called hot feeling, patient bedbound bariatric patient 233 kg History of diabetes, hypertension. Did not take his medication today. Patient reports pain and discomfort and knot like feeling at the left buttocks for a while Related Data Home Medications ?Medication ?Instructions ?Recorded ?Confirmed ?Last Taken ?Type chlorthalidone 25 mg tablet 25 mg PO DAILY 11/09/19 06/11/21 Unknown History diltiazem HCl 90 mg tablet 90 mg PO TID 11/09/19 08/06/24 08/05/24 History lisinopril 40 mg tablet 40 mg PO DAILY 11/09/19 08/06/24 08/05/24 History rivaroxaban 20 mg tablet (Xarelto) 20 mg PO DAILY 11/09/19 08/06/24 08/05/24 History insulin glargine 100 unit/mL 15 unit subcut QPM ##0 11/10/19 08/06/24 08/05/24 History subcutaneous solution (Lantus U-100 Insulin) insulin glulisine U-100 100 See Protocol subcut USEASDIRECTD 11/10/19 08/06/24 08/05/24 History unit/mL subcutaneous solution ##0 (Apidra U-100 Insulin) gabapentin 100 mg capsule 300 mg PO TID 01/01/20 08/06/24 08/05/24 History Allergies Allergy/AdvReac Type Severity Reaction Status Date / Time No Known Allergies Allergy Verified 08/06/24 08:20 Review of Systems Review of Systems: All systems reviewed & are unremarkable except as noted in HPI and below PMFSH Past Medical History Medical History Chronic anemia Fourniers gangrene (~2014) He underwent extensive debridement in 3 separate surgeries and was on the ventilator for about a week. He was discharged to an LTAC after he left [facility] and was on a wound VAC for approximately 60 days. Morbid obesity He has been bed-bound for nearly 3 years. Peripheral neuropathy Due to diabetes and spinal stenosis. Spinal stenosis Obstructive sleep apnea on CPAP Insulin dependent type 2 diabetes mellitus Hemoglobin A1c was 7.8% on 04/2021. 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 History of tonsillectomy Family History Family History Father Patient's father is Diabetes mellitus Acute myocardial infarction Mother COPD (chronic obstructive pulmonary disease) Social History Social History Social History: The patient lives in his own house in [place], [place]. He has a sales representative facility services that comes to the home for 8 hours a day. He has an aunt and uncle that live next to him who help with his care as well. He designates his mother and his aunt, Kailyn, as his surrogate decision makers. He wishes to be a full code. He denies alcohol, tobacco, and drug use. His brother also comes and stays with him 5 days a week that is care. Primary care physician: Physician at [facility] care Smoking status: Never smoker Alcohol intake: never Substance use: never Gender identity (if verbalized by the patient): Male Spiritual care concerns: No Agree to blood products: Yes Exam Narrative: General appearance: Well-developed, well-nourished Skin: Normal color, right buttock showing decubitus ulcer, surrounded by erythematous skin, no discharge Head: Normocephalic, nontraumatic Eyes: Clear conjunctiva ENT: Oropharynx normal, ears normal, nose normal Neck: Supple, nontender Chest and respiratory: Airway patent, no respiratory distress, no accessory muscle use Heart: Regular rate/rhythm Abdomen: Soft, nontender, no organomegaly, quiet bowel sounds Vascular: Normal peripheral pulses, normal capillary refill. Musculoskeletal: Normal range of motion, nontender back Neurologic: Alert and oriented ?3, CHIEF NURSING EXECUTIVE is normal as tested, no gross motor deficit Course Consultations Consultation #1: dr dick Date: 08/06/24 Vital Signs Vital signs: Vital Signs Temperature 37.0 C 08/06/24 08:08 Pulse Rate 91 02/01/25 08:08 Respiratory Rate 20 08/06/24 08:08 Blood Pressure 114/86 08/06/24 08:08 Pulse Oximetry 98 08/06/24 08:08 Oxygen Delivery Room Air 08/06/24 08:08 Temperature 37.0 C 08/06/24 13:04 Pulse Rate 113 H 08/06/24 14:16 Respiratory Rate 18 08/06/24 14:16 Blood Pressure 76/50 L 08/06/24 14:16 Pulse Oximetry 98 08/06/24 14:16 Oxygen Delivery Room Air 08/06/24 08:08 Medical Decision Making MDM Narrative Medical decision making narrative: Patient came with dysuria and decubitus ulcer Vital signs are stable Physical examination showing morbidly obese patient with left buttock decubitus ulcer surrounded by erythematous skin Differential diagnosis include urinary tract infection, sepsis, cellulitis, electrolyte imbalance, diabetic hyperglycemia, dehydration Blood workup today includes CBC, CMP, lactic acid showed WBC of 15.6, sodium of 128 blood glucose 313, C-reactive protein 24.5, lactic acid 1.9 Urinalysis showed evidence of infection Obstructive series showed normal bowel gas, small amount of stool in the colon Consult Dr. Dick Admit to hospitalist for UTI, decubitus ulcer/cellulitis Differential Diagnosis Differential Diagnosis: As above Vital Signs Vital Signs: Vital Signs Temperature 37.0 C 08/06/24 08:08 Pulse Rate 91 08/06/24 08:08 Respiratory Rate 20 08/06/24 08:08 Blood Pressure 114/86 08/06/24 08:08 Pulse Oximetry 98 08/06/24 08:08 Oxygen Delivery Room Air 08/06/24 08:08 Temperature 37.0 C 08/06/24 13:04 Pulse Rate 113 H 08/06/24 14:16 Respiratory Rate 18 08/06/24 14:16 Blood Pressure 76/50 L 08/06/24 14:16 Pulse Oximetry 98 08/06/24 14:16 Oxygen Delivery Room Air 08/06/24 08:08 Lab Data 08/06/24 08:39 08/06/24 08:39 Labs: Lab Results 08/06/24 08/06/24 Range/Units 08:25 08:39 WBC 15.6 H (4.5-10.0) K/mm3 RBC 4.49 L (4.6-6.20) M/mm3 Hgb 12.4 L (14.0-18.0) g/dL Hct 38.4 L (42.0-52.0) % MCV 85.5 (80-100) fl MCH 27.6 (26-34) pg MCHC 32.3 (32-36) g/dl RDW 12.4 (11.5-14.5) % Plt Count 345 (150-375) k/mm3 MPV 10.5 H (7.4-10.4) fl Immature Gran % (Auto) 0.9 H (0-0.5) % Neut % (Auto) 80.5 H (45.5-73.1) % Lymph % (Auto) 9.8 L (18.3-44.2) % Providence % (Auto) 7.3 (2.6-8.5) % Eos % (Auto) 1.2 (0-4.4) % Baso % (Auto) 0.3 (0.2-1.2) % Lymph # (Auto) 1.52 (0.9-3.2) K/mm3 Providence # (Auto) 1.1 H (0.1-0.6) K/mm3 Eos # (Auto) 0.2 (0-0.3) K/mm3 Baso # (Auto) 0.1 (0.0-0.1) K/mm3 Abs Immat Gran (auto) 0.14 H (0.00-0.031) K/mm3 Absolute Neuts (auto) 12.5 H (1.3-6.7) K/mm3 Absolute Nucleated RBC 0.000 (0.0-0.012) K/mm3 Nucleated RBC % 0.0 (0.0-0.2) % PT 21.6 H (11.1-14.7) Seconds INR 1.8 APTT 34.6 (22.3-36.8) Seconds Sodium 128 L (137-145) mmol/L Potassium 3.7 (3.4-5.0) mmol/L Chloride 92 L (98-107) mmol/L Carbon Dioxide 28 (22-30) mmol/L Anion Gap 8 (4-12) mmol/L BUN 21 H D (9-20) mg/dL Creatinine 0.81 (0.7-1.3) mg/dL Estim Creat Clear Calc 208 ml/min Estimated GFR > 60 (59 - ) Glucose 313 H (65-110) mg/dL Lactic Acid 1.9 (0.7-2.0) mmol/L Calcium 8.3 L (8.4-10.2) mg/dL Total Bilirubin 1.4 H (0.2-1.3) mg/dL AST 15 L (17-59) U/L ALT 16 (6-50) U/L Alkaline Phosphatase 91 (38-126) U/L C-Reactive Protein 24.5 H (<1.0) mg/dL Total Protein 7.0 (6.3-8.2) g/dL Albumin 3.2 L (3.5-5.1) g/dL Urine Color Dark yellow (Yellow) Urine Appearance Cloudy H (Clear) Urine pH 5.5 (5.0-9.0) Ur Specific Morrow 1.027 (1.001-1.035) Urine Protein 1+ H (Negative) mg/dL Urine Glucose (UA) 3+ H (Negative) mg/dL Urine Ketones Trace H (Negative) mg/dL Ur Blood (Man) Trace (Negative) Urine Nitrate Negative (Negative) Urine Bilirubin 1+ H (Negative) Urine Urobilinogen 2.0 H (<2.0) mg/dL Add Ur Microanalysis Reviewed Leukocyte Esterase Rfl 1+ H (Negative) ARASH/UL Urine RBC 21-50 H (0-2) /hpf Urine WBC >100 H (0-3) /hpf Ur Squamous Epith Cells None seen (Few) /hpf Urine Bacteria None seen /hpf Urine Casts 3-5 Imaging Data Radiologist's impression: Impressions Abdomen X-Ray 08/06/24 09:03 IMPRESSION: 1. Normal bowel gas pattern. Critical Care Time Critical Care Time Critical Care Time: No Discharge Plan Discharge Clinical Impression: Urinary tract infection, Cellulitis Patient Disposition: Still a Patient Condition: Stable
--- OUTSIDE RECORDS SUMMARY | 2024-08-06 08:32 | XMS_ITS | Clinical Summary ---
Author Organization [facility] Address [address] [place] [address] Care Team Providers Care Separations Scientist Name Role Phone Alfreda Montgomery DO Unavailable Alexandru Burns MD Primary Care Provider [phone] Source Comments [facility],non-owned Affiliates and Associated Physician Practices is amultiple site organization consisting of ambulatory clinics and hospital sitesin [place], [place], [place] and [place]. This disclosure is being madepursuant to the Care Everywhere program and may not contain all information available regarding this patient. Last updated 18.[facility] Allergies No known active allergies Medications * Be aware that medications may not be up to date on this document. Alwaysverify current medications with the patient. Medication Sig Dispensed Refills Start Date End Date Status XARELTO 20 MG tablet Take 20 mg by mouth once daily 07/11/2019 Active lisinopril (PRINIVIL; ZESTRIL) 40 MG tablet Take 40 mg by mouth once daily 07/11/2019 Active dilTIAZem (CARDIZEM) 90 MG tablet Take 90 mg by mouth 3 times daily 07/02/2019 Active Gauze Pads & Dressings (GAUZE DRESSING) 4 X4 PADS Use 1 Bag 2 times daily 2 Each 2 10/04/2020 Active acetaminophen (TYLENOL) 500 MG tablet Take 2 (two) tablets by mouth every 8 hours as needed Maximum allowable Acetaminophen amount = 4 Grams (4000 mg) / 24 hours. 11/01/2020 Active clotrimazole (LOTRIMIN AF) 1 % creamIndications:B alanitis Apply to affected area 2 times daily 60 g 6 12/10/2020 Active Additional Information Patient not taking.Reported on 03/18/2021 insulin pen needle (NOVOFINE 31) 31G X 5 MM needle 1 (one) Each 4 times daily 100 Each 11 02/06/2021 Active Accu-Chek FastClix Lancets Use 1 Each 3 times daily 100 Each 11 02/06/2021 Active Blood Glucose Monitoring Suppl (ONE TOUCH ULTRA 2) w/Device KIT Use 1 device once daily 1 kit 03/18/2021 Active metFORMIN (GLUCOPHAGE) 500 MG tablet Take 1 (one) tablet by mouth 2 times daily with morning and evening meal . 120 tablet 3 03/18/2021 Active furosemide (LASIX) 20 MG tablet Take 1 (one) tablet by mouth once daily 90 tablet 4 07/03/2021 Active silver sulfADIAZINE (SSD) 1 % cream Apply to affected area 2 times daily 400 g 07/12/2022 Active blood glucose test stripIndications:T ype 2 diabetes mellitus without complication, unspecified whether half-way insulin use (HCC) Use 1 (one) strip as directed With Zojiuch ultra II 500 strip 3 12/31/2022 Active gabapentin (Neurontin) 300 MG capsule Take 1 (one) capsule by mouth 3 times daily 180 capsule 05/01/2023 Active Active Problems Problem Noted Date Diagnosed Date Family history of coronary artery disease 2020 Family history of hyperlipidemia 03/18/2021 Family history of stroke 03/18/2021 Cellulitis of abdominal wall 10/01/2020 Healthcare maintenance 09/03/2020 Controlled type 2 diabetes m ellitus without complication, with long-term current use of insulin 07/19/2019 Encounter for immunization 07/19/2019 Sick sinus syndrome 12/18/2017 Chronic atrial fibrillation 10/31/2017 JANEY (obstructive sleep apnea) 10/31/2017 Spinal stenosis 10/31/2017 Weakness of both lower extremities 10/31/2017 Morbid obesity 10/31/2017 Chest pain 10/30/2017 Recurrent cellulitis Obesity HTN (hypertension) Resolved Problems Problem Noted Date Diagnosed Date Resolved Date Cough 07/02/2021 07/31/2021 Immunizations Name Administration Dates Next Due COVID MELODIE PRIMARY 18+YR 12/18/2020 Covid Pfizer primary monoval ent 12+ yr 0.3mL Purple cap 07/03/2021 HEP B VACCINE, ADULT 3 DOSE 04/02/2020 INFLUENZA VACCINE 04/05/2021 INFLUENZA VACCINE, QUADR. (F LUZONE; FLULAVAL; FLUARIX; AFLURIA QUADRIVALENT; 6MO+), 0.5 ML (IIV4) 06/15/2021,07/19/2019 TD VACCINE 09/07/2000 Family History Medical History Relation Name Comments Diabetes - Type 2 Father Hypertension Father COPD - Chronic Obstructive Pulmonary Disease Mother Hypertension Mother Cancer - Lung Other Relation Name Status Comments Father Mother Other Social History Tobacco Use Types Packs/Day Years Used Date Smoking Tobacco: Never Smokeless Tobacco: Never Tobacco Cessation:Counseling Given: Yes Alcohol Use Standard Drinks/Week Comments No 0 (1 standard drink = 0.6 oz pur e alcohol) PHQ-2 Answer Date Recorded Patient Health Questionnaire-2 Score 0 04/23/2023 Sex and Gender Information Value Date Recorded Sex Assigned at Not on file Gender Identity Not on file Sexual Orientation Not on file Last Filed Vital Signs Vital Sign Reading Time Taken Comments Blood Pressure 130/78 04/23/2023 9:28 AM CDT Pulse 99 07/02/2021 11:00 AM DISH CLOTH INSPECTOR Temperature 36.1 ??C (96.9 ??F) 07/03/2021 8:27 AM CS T Respiratory Rate 22 07/02/2021 11:00 AM DISH CLOTH INSPECTOR Oxygen Saturation 93% 07/03/2021 12:32 PM DISH CLOTH INSPECTOR Inhaled Oxygen Concentration 32% 07/03/2021 1 1:02 PM DISH CLOTH INSPECTOR Weight 272.2 kg (600 lb) 04/23/2023 9:28 AM CDT Height 198.1 cm (6' 6 ) 04/23/2023 9:28 AM CDT Body Mass Index 69.34 04/23/2023 9:28 AM CDT Plan of Treatment Health Maintenance Due Date Last Done Comments COLOGUARD (AGES 45-75) - COLON CA SCREENING 1978 COLON MONITORING 1978 COLONOSCOPY - COLON CA SCREENING 1978 CT COLONOGRAPHY - COLON CA SCREENING 1978 Colorectal Cancer Screening 1978 FIT - COLON CA SCREENING 1978 FLEX SIG - COLON CA SCREENING 1978 HEPATITIS C SCREENING 04/23/1996 PNEUMOCOCCAL VACCINE (1 of 2 - PCV) 1997 DTAP/TDAP/TD VACCINES (2 - Td or Tdap) 09/07/2010 09/07/2000 DIABETES-FOOT EXAM WITH MONOFILAMENT 07/19/2019 HEPATITIS B VACCINE (2 of 3 - 19+ 3-dose series) 04/30/2020 04/02/2020 DIABETES-HGB A1C 01/02/2021 10/02/2020, , 10/31/2017 DIABETES RETINOPATHY SCREENING 06/06/2021 06/06/2019 (Done Outside Per Patient) DIABETES-SERUM CREATININE 07/03/20222020, 07/02/2021, 12/01/2020, Additional history exists COVID-19 VACCINE ( season) 2024 07/03/2021, 12/18/2020 INFLUENZA VACCINE (#1) 2024 , 04/05/2021, 07/19/2019 DEPRESSION SCREENING 07/06/2024 04/23/2023, 04/16/20 DIABETES - URINE PROTEIN SCREENING 07/06/2024 ZOSTER VACCINE (1 of 2) 2028 HIV SCREENING Completed 10/04/2020 DIABETES-STATIN Discontinued HIB VACCINE Aged Out No longer eligi ble based on patient's age to complete this topic HPV VACCINE Aged Out No longer eligi ble based on patient's age to complete this topic MENINGOCOCCAL (Group B) VACCINE Aged Out No longer eligible based on patient's age to complete this topic MENINGOCOCCAL VACCINE Aged Out No raquel atul eligible based on patient's age to complete this topic Procedures Procedure Name Priority Date/Time Associated Diagnosis Comments BASIC METABOLIC PANEL (CALCIUM TOTAL) STAT 07/03/2021 3:54 AM DISH CLOTH INSPECTOR Cellulitis of abdominal wall HIV-1 HIV-2 ANTIGEN/ANTIBODY AM Draw 10/04/2020 7:46 AM CDT HEMOGLOBIN A1C Routine 10/02/2020 8:50 AM CDT from Last 3 Months or Most Recently Relevant to Health Maintenance Results * (ABNORMAL) BASIC METABOLIC PANEL (CALCIUM TOTAL) (07/03/2021 3:54 AM DISH CLOTH INSPECTOR) BUN 6(L) 7 - 26 mg/dL 07/03/2021 4:22 AM DISH CLOTH INSPECTOR [facility] Creatinine 0.69(L) 0.71 - 1.16 mg/dL 07/03/2021 4:22 AM [facility] Sodium 136 136 - 145 mmol/L 07/03/2021 4:22 AM [facility] Potassium 4.2 3.5 - 4.5 mmol/L 07/03/2021 4:22 AM [facility] Chloride 104 98 - 107 mmol/L 07/03/2021 4:22 AM [facility] CO2 23 22 - 29 mmol/L 07/03/2021 4:22 AM [facility] Glucose 243(H) 70 - 115 mg/dL 07/03/2021 4:22 AM [facility] Calcium 8.6 8.4 - 10.2 mg/dL 07/03/2021 4:22 AM [facility] Anion Gap 13 8 - 18 07/03/2021 4:22 AM [facility] BUN/Creatinine Ratio 9 7 - 23 07/03/2021 4:22 AM [facility] Osmolality Calculated 288 270 - 300 mOsm/kg 07/03/2021 4:22 AM [facility] eGFR by CKD-EPI >90 >=90 mL/min/1.7 3 m2 07/03/2021 4:22 AM [facility] Blood BLOOD SPECIMEN / Unknown Venipuncture / Unknown 07/03/2021 3:54 AM DISH CLOTH INSPECTOR 07/03/2021 3:59 AM [facility] Doyle Kc MD LAB - CHEMISTR Y ORDERABLES Performing Organization Address [facility]/State/RUST Co de Phone Number [facility] [address] [place] [address], [facility] [phone] * HIV-1 HIV-2 ANTIGEN/ANTIBODY (10/04/2020 7:46 AM CDT) HIV Antigen/Antibod y 1 & 2 Non-reacti ve Non-react lynette 10/04/2020 10:35 AM CDT [facility] Comment:Neither HIV-1 p24 An tigen nor HIV-1/HIV-2 Antibodies are detected. Blood BLOOD SPECIMEN / Unknown Lab Venipuncture / Unknown 10/04/2020 7:46 AM CDT 10/04/2020 9:44 AM CDT Carla Gonzales MD LAB - HEMATOLOGY ORD ANDREE [facility] [address] [place] [address], [facility] [phone] * (ABNORMAL) HEMOGLOBIN A1C (10/02/2020 8:50 AM CDT) Hemoglobin A1c 9.4(H) 4.4 - 6.3 % 10/02/2020 3:05 PM CDT [facility] Estimated Average Glucose 223 mg/dL 10/02/2020 3:05 PM CDT [facility] Comment: HbA1c Interpretation: Treatment target values recommended by ADA and other clinical organizations should be used to evaluate metabolic control in patients. Treatment Target Values: Normal : < 5.7% Pre-diabetes: 5.7-6.4% Diabetes: Equal to or greater than 6.5% Reference: [place] Diabetes Association Standards of Care in Diabetes -2014 In patients 70 years and older consider HbA1c target range of 7.0-7.5% Reference: ??Diabetes Mellitus in Older People: Position Statement on behalf of the International Association of Gerontology and Geriatrics (IAGG), the Diabetes Working Alliance Party for Older People (EDWPOP), and the International Task Force of Experts in Diabetes. ??Pacheco Burch, et al. J [employer] Medical Directors Association. 2012 Test results diagnostic of diabetes should be repeated for confirmation. The Sebia Capillary 2 assay for the measurement of HbA1c is a National Glycohemoglobin Standardization Program (NGSP)certified method. Blood BLOOD SPECIMEN / Unknown Lab Venipuncture / Unknown 10/02/2020 8:50 AM CDT 10/02/2020 10:03 AM CDT Awais Mcallister MD LAB - CHEMISTRY PINA CRAWFORD Performing Organization Address City/[facility]/ZIP Co de Phone Number [facility] [address] [place] [address], [place] [phone] from Last 3 Months or Most Recently Relevant to Health Maintenance Advance Directives Documents on File Type Date Recorded Patient Stockroom Coordinator Expl anation Adv Directive/Living Will/POA 11/30/2020 1:40 PM EMS * Full Code (Latest Code Status on File) Date Activated Date Inactivated Comments 07/02/2021 1:35 PM 07/04/2021 2:58 PM * Full Code Date Activated Date Inactivated Comments 11/30/2020 2:27 AM 12/06/2020 2:50 AM * Full Code Date Activated Date Inactivated Comments 11/30/2020 2:16 AM 11/30/2020 2:27 AM * Full Code Date Activated Date Inactivated Comments 10/29/2020 2:05 PM 11/01/2020 5:10 PM * Full Code Date Activated Date Inactivated Comments 10/01/2020 8:06 PM 10/05/2020 2:52 AM Care Teams Separations Scientist Relationship Specialty Start Date End Date Alexandru Burns MD [address] [place] [address] PCP - General Internal Medicine 03/03/23 Alfreda Montgomery DO [address] [place] [address] Resident - PCP Internal Medicine 01/08/22
--- OUTSIDE RECORDS SUMMARY | 2024-08-06 08:33 | XMS_ITS | Encounter Summary ---
Author Organization [facility] Address [address] [place] [address] Care Team Providers Care Aerophysicist Name Role Phone Nicki Gama MD Primary Care Provider [phone] Alfreda Montgomery DO Unavailable Alexandru Burns MD Primary Care Provider [phone] Reason for Visit * Reason Onset Date Comments MEDICATION REFILL 07/04/2022 Encounter Details Date Type Department Care Team (Late st Contact Info) Description 07/04/2022 Refill [facility] Internal Medicine [address] [place] [address], [place] [address] Marcelino Ortiz III, MD [address] [place] [address] [place] [id number] MEDICATION REFILL Social History Tobacco Use Types Packs/Day Years Used Date Smoking Tobacco: Never Smokeless Tobacco: Never Alcohol Use Standard Drinks/Week Comments No 0 (1 standard drink = 0.6 oz pur e alcohol) PHQ-2 Answer Date Recorded PHQ2 TOTAL SCORE 0 07/29/2021 Sex and Gender Information Value Date Recorded Sex Assigned at Not on file Gender Identity Not on file Sexual Orientation Not on file documented as of this encounter Functional Status Functional Status Response Date of Assess ment Is person deaf or have serious hearing difficult y? No 11/30/2020 Is person blind or have serious difficulty seein g? No 11/30/2020 Does person have serious dif ficulty walking/climbing stairs? Yes 11/30/2020 Does person have difficulty dressing/bathing? No 11/30/2020 Does person have difficulty doing errands alone? Yes 11/30/2020 Cognitive Status Response Date of Assessm ent Does person have difficulty concentrating/remembering/making decisions? No 11/30/2020 documented as of this encounter Miscellaneous Notes * Telephone Encounter - Aaliyah Webb RN - 07/04/2022 2:29 PM METAL FITTER Refill Request Tito Corrales Fam RONA: 04/16/22 NOV scheduled: Visit date not found LRF: 04/24/22 Qty Disp: 180 # of refills: 0 Allergies: No Known Allergies Pended Medication Order: Requested Prescriptions Pending Prescriptions Disp Refills ??? gabapentin (Neurontin) 300 MG capsule 180 capsule 0 Sig: Take 1 (one) capsule by mouth 3 times daily L FITTER documented in this encounter Plan of Treatment Not on file documented as of this encounter Visit Diagnoses Not on filedocumented in this encounter Care Teams Aerophysicist Relationship Specialty Start Date End Date Nicki Gama MD PCP - General 09/03/20 03/02/23 Alexandru Burns MD [address] [place] [address] PCP - General Internal Medicine 03/03/23 Alfreda Montgomery DO [address] [place] [address] Resident - PCP Internal Medicine 01/08/22 documented as of this encounter
--- OUTSIDE RECORDS SUMMARY | 2024-08-06 08:33 | XMS_ITS | Clinical Summary ---
Author Organization [facility] Address [address] [place] [address] Phone Care Team Providers Care Clay Temperer Name Role Phone Unavailable Primary Care Provider Unavailabl e Social History Tobacco Use Types Packs/Day Years Used Date Smoking Tobacco: Never Assessed Sex and Gender Information Value Date Recorded Sex Assigned at Not on file Legal Sex Male 1:43 PM CDT Gender Identity Not on file Sexual Orientation Not on file Plan of Treatment Health Maintenance Due Date Last Done Comments DTAP/TDAP/TD VACCINES (1 - Tdap) 1997 HEPATITIS B VACCINES (1 of 3 - 19+ 3-dose series) 1997 COLORECTAL SCREENING 2023 Colorectal Cancer Screening 2023 FIT-DNA Q 3 years 2023 FIT/FOBT Q 1 year 2023 Flex Sig/CT Colonography Q 5 years 2023 INFLUENZA VACCINE (#1) 2024 HPV VACCINES Aged Out No longer eligi ble based on patient's age to complete this topic PNEUMOCOCCAL VACCINE 0-64 YEARS Aged Out No longer eligible based on patient's age to complete this topic
--- OUTSIDE RECORDS SUMMARY | 2024-08-06 08:34 | XMS_ITS | Referral Summary ---
Author Organization [facility] Address [address] [place] [address] Care Team Providers Care Signal Tester Name Role Phone Zachary Moreno MD Primary Care Provider [phone] Encounters Date Type Department Care Team Description 07/01/2024 Orders Only [facility] [address] [address] Zachary Moreno MD 06/30/2024 Telephone [facility] [address] [address] Zachary Moreno MD Prior Auth Semglee pen injection from Last 3 Months Allergies No known active allergies Medications rivaroxaban (XARELTO) 20 mg tablet Take 1 tablet (20 mg total) by mouth Active dilTIAZem (CARDIZEM) 90 mg tablet Take 1 tablet (90 mg total) by mouth 3 (three) times a day Active lisinopriL (PRINIVIL,ZESTRI L) 40 mg tablet Take 1 tablet (40 mg total) by mouth daily Active chlorthalidone (HYGROTON) 25 mg tablet Take 1 tablet (25 mg total) by mouth daily Active insulin lispro (HumaLOG, ADMELOG) 100 unit/mL pen for injection Inject under the skin Active blood-glucose meter kit Use as directed to test blood sugars 1 kit 06/12/20 23 Active pen needle, diabetic 32 gauge x 1/4 needle Use as directed with insulin pens to administer insulin 100 each 11 06/12/20 23 Active blood glucose diagnostic (glucose blood) strip 1 each by Not Applicable route as directed 01/01/20 23 Active metFORMIN (GLUCOPHAGE) 500 mg tablet Take 1 tablet (500 mg total) by mouth 03/18/20 21 Active pen needle, diabetic (Pen Needle) 31 gauge x 3/16 needle 1 each 4 (four) times a day 02/07/20 21 Active OneTouch Ultra Test strip Use 1 test strip as directed with [employer] ultra monitor 100 strip 11 08/17/19 24 Active lancing device with lancets kit 1 each by Not Applicable route 3 (three) times a day 1 kit 3 08/17/19 24 Active silver sulfadiazine (SILVADENE, SSD) 1 % cream Apply topically 2 (two) times a day 07/12/19 23 Active OneTouch Delica Plus Lancet 33 gauge misc USE TO CHECK GLUCOSE THREE TIMES DAILY 100 each 06/30/20 24 Active insulin detemir (LEVEMIR) 100 unit/mL (3 mL) pen for injection Inject 15 Units under the skin nightly 45 mL 4 07/01/20 24 Active gabapentin (NEURONTIN) 300 mg capsule TAKE 1 CAPSULE BY MOUTH THREE TIMES DAILY 270 capsule 07/08/19 25 Active gabapentin (NEURONTIN) 300 mg capsule Take 1 capsule (300 mg total) by mouth 3 (three) times a day 270 capsule 3 06/30/20 23 025 Discontinued Active Problems Problem Noted Date Diagnosed Date Morbid (severe) obesity due to excess calories 0 02/03/2024 Body mass index (BMI) 60.0-69.9, adult 4 JANEY on CPAP 06/09/2023 Social History Tobacco Use Types Packs/Day Years Used Date Smoking Tobacco: Never Smokeless Tobacco: Never Tobacco Cessation:Counseling Given: Not Answered Alcohol Use Standard Drinks/Week Comments No 0 (1 standard drink = 0.6 oz pur e alcohol) PHQ-2 Answer Date Recorded PHQ-2 Total Score (If total score is 3 or more points, staff should administer the PHQ-9) 0 02/03/2024 Sex and Gender Information Value Date Recorded Sex Assigned at Not on file 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[employer] Gender Identity Not on file Sexual Orientation Not on file Last Filed Vital Signs Vital Sign Reading Time Taken Comments Blood Pressure 132/74 02/03/2024 2:05 PM CDT Pulse 90 03/29/2015 12:41 PM CDT Temperature - - Respiratory Rate - - Oxygen Saturation 94% 03/29/2015 12:41 PM CDT Inhaled Oxygen Concentration - - Weight 260.8 kg (575 lb) 02/03/2024 2:05 PM CDT Height 198.1 cm (6' 6 ) 02/03/2024 2:05 PM CDT Body Mass Index 66.45 02/03/2024 2:05 PM CDT Plan of Treatment Not on file Procedures Procedure Name Priority Date/Time Associated Diagnosis Comments SERUM LIPID PANEL Routine 03/16/2015 8:0 3 PM CDT from Last 3 Months or Most Recently Relevant to Health Maintenance Results * (ABNORMAL) Serum lipid panel (03/16/2015 8:03 PM CDT) Cholesterol 117 0 - 200 mg/dl HISTORICAL RESULTS Comment: Interpretive Data Desirable: ?<200 mg/dL Borderline high: ??200-239 mg/dL High: ? >240 mg/dL Literature Reference: National Cholesterol Education Program (NCEP) Expert Panel on Detection, Evaluation, and Treatment of High Blood Cholesterol in Adults (Adult Treatment Panel III). ??Circulation 2004; 110:227. Current interpretive data was last revised on 2005. Triglycerides 111 0 - 150 mg/dl HISTORICAL RESULTS Comment: Interpretive Data Desirable: ? < 150 mg/dL Borderline High: ? 150 - 199 mg/dL High: ?> 200 mg/dL Literature Reference: See Cholesterol Current interpretive data was last revised on 06. HDL 32(L) 40 - 199 mg/dl HISTORICAL RESULTS Comment: Interpretive Data Less than 40 mg/dL - low; A major risk factor for heart disease. Greater than or equal to 60 mg/dL - High; ??considered protective of heart disease. Literature Reference: See Cholesterol Current interpretive data was last revised on 2008. LDL 63 0 - 129 mg/dl HISTORICAL RESULTS Comment: Interpretive Data Optimal: ? < 100 mg/dL Near Optimal: ?100 - 129 mg/dL Borderline High: ?? 130 - 159 mg/dL High: ?> 160 mg/dL Literature Reference: See Cholesterol Current interpretive data was last revised on 06. Non-HDL cholesterol, calculated 85 mg/dl HISTORICAL RESULTS Comment: Interpretive Data When triglycerides are >200 mg/dL, non-HDL C is a secondary target of therapy, with a goal 30 mg/dL higher than the identified LDL-C goal. Reference: ??See Cholesterol Reference. Current interpretive data was last revised 2012. Serum 03/16/2015 8:03 PM CDT us Historical Provider LAB BLOOD ORDERABLES Ann Marie lozano Result HISTORICAL RESULTS from Last 3 Months or Most Recently Relevant to Health Maintenance Insurance [facility] Care Teams Signal Tester Relationship Specialty Start Date End Date [place] [address] PCP - General Family Medicine 06/08/23
--- OUTSIDE RECORDS SUMMARY | 2024-08-06 08:34 | XMS_ITS | Encounter Summary ---
Author Organization [facility] Address [address] [place] [address] Care Team Providers Care Assistant Pastry Chef Name Role Phone Nicki Gama MD Primary Care Provider [phone] Jono Sharpe MD Unavailable [phone] Alfreda Montgomery DO Unavailable Alexandru Burns MD Primary Care Provider [phone] Encounter Details Date Type Department Care Team (Late st Contact Info) Description 01/18/2021 Telephone [facility] [address] [place] [address] Morena Elliott, RD/LD [address] [place] [address] Social History Tobacco Use Types Packs/Day Years Used Date Smoking Tobacco: Never Smokeless Tobacco: Never Alcohol Use Standard Drinks/Week Comments No 0 (1 standard drink = 0.6 oz pur e alcohol) Sex and Gender Information Value Date Recorded [...] No 11/30/2020 documented as of this encounter Patient Instructions * Patient Instructions* Jewell Cyr - 01/18/2021 12:19 PM CDT Patient has referral in place for Nutritcian Therapy for your review. [id number] REF: [id number] documented in this encounter Plan of Treatment Not on file documented as of this encounter Visit Diagnoses Not on filedocumented in this encounter Additional Health Concerns Infection Onset Date Last Indicated Resolved Time COVID-19 Under Investigation 07/02/2021 07/02/2021 07/02/2021 12:11 PM F[facility]ELER documented as of this encounter Care Teams Assistant Pastry Chef Relationship Specialty Start Date End Date Nicki Gama MD PCP - General 09/03/20 03/02/23 Alexandru Burns MD [address] [place] [id number] PCP - General Internal Medicine 03/03/23 Jono Sharpe MD [address] [facility] [place] [place] Resident - PCP Student Resident 10/05/20 01/07/22 Alfreda Montgomery DO [address] [place] [id number] Resident - PCP Internal Medicine 01/08/22 documented as of this encounter
--- OUTSIDE RECORDS SUMMARY | 2024-08-06 08:34 | XMS_ITS | Referral Summary ---
Author Organization [facility] Address [address] [place] [address] Care Team Providers Care Banquet Waiter/Waitress Name Role Phone Alfreda Montgomery DO Unavailable Alexandru Burns MD Primary Care Provider [phone] Source Comments [facility],non-owned Affiliates and Associated Physician Practices is amultiple site organization consisting of ambulatory clinics and hospital sitesin [place], [place], [place] and [place]. This disclosure is being madepursuant to the Care Everywhere program and may not contain all information available regarding this patient. Last updated 18.[facility] Allergies No known active allergies Medications * [...] 2 diabetes mellitus without complication, unspecified whether shelter insulin use (HCC) Use 1 (one) strip as directed With [employer] ultra II 500 strip 3 12/31/2022 Active [...] 0.5 ML (IIV4) 06/15/2021,07/19/2019 TD VACCINE 09/07/2000 Social History Tobacco Use Types Packs/Day Years [...] AM CDT Pulse 99 07/02/2021 11:00 AM [facility] Temperature 36.1 ??C (96.9 ??F) 07/03/2021 8:27 AM CS T Respiratory Rate 22 07/02/2021 11:00 AM [facility] Oxygen Saturation 93% 07/03/2021 12:32 PM [facility] Inhaled Oxygen Concentration 32% 07/03/2021 1 1:02 PM [facility] Weight 272.2 kg (600 lb) 04/23/2023 9:28 AM CDT Height 198.1 cm (6' 6 ) 04/23/2023 9:28 AM CDT Body Mass Index 69.34 04/23/2023 9:28 AM CDT Functional Status Functional Status Response Date of [...] person have difficulty concentrating/remembering/making decisions? No 11/30/2020 Plan of Treatment Not on file Procedures Procedure Name Priority Date/Time Associated Diagnosis Comments BASIC METABOLIC PANEL (CALCIUM TOTAL) STAT 07/03/2021 3:54 AM [facility] Cellulitis of abdominal wall HIV-1 HIV-2 ANTIGEN/ANTIBODY AM Draw 10/04/2020 7:46 AM CDT HEMOGLOBIN A1C Routine 10/02/2020 8:50 AM CDT from Last 3 Months or Most Recently Relevant to Health Maintenance Results * (ABNORMAL) BASIC METABOLIC PANEL (CALCIUM TOTAL) (07/03/2021 3:54 AM [facility]) BUN 6(L) 7 - 26 mg/dL 07/03/2021 4:22 AM [facility] Creatinine 0.69(L) 0.71 - 1.16 mg/dL 07/03/2021 4:22 AM [facility] Sodium 136 136 - 145 mmol/L 07/03/2021 4:22 AM [facility] Potassium 4.2 3.5 - 4.5 mmol/L 07/03/2021 4:22 AM [facility] Chloride 104 98 - 107 mmol/L 07/03/2021 4:22 AM [facility] CO2 23 22 - 29 mmol/L 07/03/2021 4:22 AM [facility] Glucose 243(H) 70 - 115 mg/dL 07/03/2021 4:22 AM [facility] Calcium 8.6 8.4 - 10.2 mg/dL 07/03/2021 4:22 AM [facility] Anion Gap 13 8 - 18 07/03/2021 4:22 AM [facility] BUN/Creatinine Ratio 9 7 - 23 07/03/2021 4:22 AM [facility] Osmolality Calculated 288 270 - 300 mOsm/kg 07/03/2021 4:22 AM [facility] eGFR by CKD-EPI >90 >=90 mL/min/1.7 3 m2 07/03/2021 4:22 AM [facility] Blood BLOOD SPECIMEN / Unknown Venipuncture / Unknown 07/03/2021 3:54 AM [facility] 07/03/2021 3:59 AM [facility] Doyle Kc MD LAB - CHEMISTR Y ORDERABLES [facility] [address] [place] [address], [facility] [phone] * HIV-1 HIV-2 ANTIGEN/ANTIBODY (10/04/2020 7:46 AM CDT) HIV Antigen/Antibod y 1 & 2 Non-reacti ve Non-react lynette 10/04/2020 10:35 AM CDT [facility] Comment:Neither HIV-1 p24 An tigen nor HIV-1/HIV-2 Antibodies are detected. Blood BLOOD SPECIMEN / Unknown Lab Venipuncture / Unknown 10/04/2020 7:46 AM CDT 10/04/2020 9:44 AM CDT Carla Gonzales MD LAB - HEMATOLOGY ORD ERABLES Performing Organization Address [facility] Co de Phone Number [address] [address], [facility] [phone] * (ABNORMAL) HEMOGLOBIN A1C (10/02/2020 8:50 AM CDT) Hemoglobin A1c 9.4(H) 4.4 - 6.3 % 10/02/2020 3:05 PM CDT [facility] Estimated Average Glucose 223 mg/dL 10/02/2020 3:05 PM CDT [facility] Comment: HbA1c Interpretation: Treatment target values recommended by ADA and other clinical organizations should be used to evaluate metabolic control in patients. Treatment Target Values: Normal : < 5.7% Pre-diabetes: 5.7-6.4% Diabetes: Equal to or greater than 6.5% Reference: [place] Diabetes Association Standards of Care in Diabetes -2014 In patients 70 years and older consider HbA1c target range of 7.0-7.5% Reference: ??Diabetes Mellitus in Older People: Position Statement on behalf of the International Association of Gerontology and Geriatrics (IAGG), the Diabetes Working Libertarian for Older People (EDWPOP), and the International Task Force of Experts in Diabetes. ??Pacheco Burch, et al. J [place] Medical Directors Association. 2012 Test results diagnostic of diabetes should be repeated for confirmation. The Sebia Capillary 2 assay for the measurement of HbA1c is a National Glycohemoglobin Standardization Program (NGSP)certified method. 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
--- OUTSIDE RECORDS SUMMARY | 2024-08-06 08:34 | XMS_ITS | Clinical Summary ---
Author Organization [facility] Address [address] [place] [address] Care Team Providers Care Collateral Analyst Name Role Phone Zachary Moreno MD Primary Care Provider [phone] Allergies No known active allergies Medications rivaroxaban [...] Use 1 test strip as directed with onetouch ultra monitor 100 strip 11 08/17/19 24 [...] 02/03/2024 Body mass index (BMI) 60.0-69.9, adult JANEY on CPAP 06/09/2023 Encounters Date Type Department Care Team Description 07/01/2024 Orders Only [facility] [address] [phone] Zachary Moreno MD 06/30/2024 Telephone [facility] [address] [phone] Zachary Moreno MD Prior Auth Semglee pen injection from Last 3 Months Surgical History Surgery Date Site/Laterality Comments TONSILLECTOMY/ADENOIDECTOMY ABCESS DRAINAGE Medical History Medical History Date Comments Hx Other Medical Severe neck str ain DM (diabetes mellitus) (HCC) 201 3 Hypertension 2012 JANEY on CPAP 2012 Congenital spinal stenosis Morbid obesity (HCC) Family History Medical History Relation Name Comments Diabetes Father Hypertension Father Stroke Father Stroke; COPD Mother Hypertension Mother Diabetes Other Hypertension Other Stroke Other Relation Name Status Comments Father (Age 50) Mother (Age 70) Other (Age 59) uncle Social History Tobacco Use Types Packs/Day Years [...] on file 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 Gender Identity Not on file Sexual Orientation Not on file Obstetrics History Last Filed Vital Signs Vital Sign Reading [...] 02/03/2024 2:05 PM CDT Plan of Treatment Health Maintenance Due Date Last Done Comments Albumin Creatinine Ratio, Urine 1978 Colon Cancer Screening-Colonoscopy 1978 Hemoglobin A1C 1978 Hepatitis C Screening 1978 eGFR 1978 Dilated Eye Exam 1978 Foot Exam 1978 Pneumococcal vaccine <65 (1 of 2 - PCV) 1984 Regular Well Visit/Exam 18-64 1996 DTaP/Tdap/Td Vaccine (1 - Tdap) 09/08/2000 09/07/2000 Lipid Panel 03/16/2016 03/16/2015, 04/0 02/2013, 08/16/2012 Covid-19 Vaccine (3 - season) 2024 07/03/2021, 12/18/2020 Influenza Vaccine (#1) 2024 , 04/05/2021, 07/19/2019, Additional history exists Depression Screening 02/02/2025 02/03/2024 HPV Vaccines Aged Out No longer eligi ble based [...] Most Recently Relevant to Health Maintenance Insurance [facility] Care Teams Collateral Analyst Relationship Specialty Start Date End Date Zachary Moreno MD [address] [place] [address] PCP - General Family Medicine 06/08/23
--- OUTSIDE RECORDS SUMMARY | 2024-08-06 08:34 | XMS_ITS | Patient Health Summary ---
Author Organization [facility] Address [address] [place] [address] Care Team Providers Care Religious Activities Director Name Role Phone Alfreda Montgomery DO Unavailable Alexandru Burns MD Primary Care Provider [phone] Note from [facility],non-owned Affiliates and Associated Physician Practices is amultiple site organization consisting of ambulatory clinics and hospital sitesin [place], [place], [place] and [place]. This disclosure is being madepursuant to the Care Everywhere program and may not contain all information available regarding this patient. Last updated 18.[facility] Allergies No known active allergies Medications * Be aware that medications may not be up to date on this document. Alwaysverify current medications with the patient. * XARELTO 20 MG tablet(Started 07/11/2019) Take 20 mg by mouth once daily * lisinopril (PRINIVIL; ZESTRIL) 40 MG tablet(Started 07/11/2019) Take 40 mg by mouth once daily * dilTIAZem (CARDIZEM) 90 MG tablet(Started 07/02/2019) Take 90 mg by mouth 3 times daily * Gauze Pads & Dressings (GAUZE DRESSING) 4 X4 PADS(Started 10/04/2020) Use 1 Bag 2 times daily 2 refills by 10/04/2021 * acetaminophen (TYLENOL) 500 MG tablet(Started 11/01/2020) Take 2 (two) tablets by mouth every 8 hours as needed Maximum allowable Acetaminophen amount = 4 Grams (4000 mg) / 24 hours. * clotrimazole (LOTRIMIN AF) 1 % cream(Started 12/10/2020) Apply to affected area 2 times daily 6 refills by 12/10/2021 * insulin pen needle (NOVOFINE 31) 31G X 5 MM needle(Started 02/06/2021) 1 (one) Each 4 times daily 11 refills by 02/06/2022 * Accu-Chek FastClix Lancets(Started 02/06/2021) Use 1 Each 3 times daily 11 refills by 02/06/2022 * Blood Glucose Monitoring Suppl (ONE TOUCH ULTRA 2) w/Device KIT(Started 03/18/2021) Use 1 device once daily * metFORMIN (GLUCOPHAGE) 500 MG tablet(Started 03/18/2021) Take 1 (one) tablet by mouth 2 times daily with morning and evening meal . 3 refills by 03/18/2022 * furosemide (LASIX) 20 MG tablet(Started 07/03/2021) Take 1 (one) tablet by mouth once daily 4 refills by 07/03/2022 * silver sulfADIAZINE (SSD) 1 % cream(Started 07/12/2022) Apply to affected area 2 times daily * blood glucose test strip(Started 12/31/2022) Use 1 (one) strip as directed With SkySpecsuch ultra II 3 refills by 12/31/2023 * gabapentin (Neurontin) 300 MG capsule(Started 05/01/2023) Take 1 (one) capsule by mouth 3 times daily Active Problems Problem Noted Date Diagnosed Date [...] Date Resolved Date Cough 07/02/2021 07/31/2021 Immunizations * IRMA SEWELL PRIMARY 18+YR(Given 12/18/2020) * Covid Pfizer primary monovalent 12+ yr 0.3mL Purple cap(Given 07/03/2021) * HEP B VACCINE, ADULT 3 DOSE(Given 04/02/2020) * INFLUENZA VACCINE(Given 04/05/2021) * INFLUENZA VACCINE, QUADR. (FLUZONE; FLULAVAL; FLUARIX; AFLURIA QUADRIVALENT; 6MO+), 0.5 ML (IIV4)(Given 06/15/2021, 07/19/2019) * TD VACCINE(Given 09/07/2000) Social History Tobacco Use Types Packs/Day Years [...] AM CDT Pulse 99 07/02/2021 11:00 AM CHLOROBUTADIENE SCRUBBER OPERATOR Temperature 36.1 ??C (96.9 ??F) 07/03/2021 8:27 AM CS T Respiratory Rate 22 07/02/2021 11:00 AM CHLOROBUTADIENE SCRUBBER OPERATOR Oxygen Saturation 93% 07/03/2021 12:32 PM CHLOROBUTADIENE SCRUBBER OPERATOR Inhaled Oxygen Concentration 32% 07/03/2021 1 1:02 PM CHLOROBUTADIENE SCRUBBER OPERATOR Weight 272.2 kg (600 lb) 04/23/2023 9:28 AM CDT Height 198.1 cm (6' 6 ) 04/23/2023 9:28 AM CDT Body Mass Index 69.34 04/23/2023 9:28 AM CDT Procedures * GLUCOSE - POINT OF CARE(Performed 07/04/2021) * GLUCOSE - POINT OF CARE(Performed 07/03/2021) * GLUCOSE - POINT OF CARE(Performed 07/03/2021) * ECHO COMPLETE(Performed 07/03/2021) Performed for Lower extremity edema * GLUCOSE - POINT OF CARE(Performed 07/03/2021) * BASIC METABOLIC PANEL (CALCIUM TOTAL)(Performed 07/03/2021) Performed for Cellulitis of abdominal wall * CBC W/O DIFFERENTIAL(Performed 07/03/2021) Performed for Cellulitis of abdominal wall * GLUCOSE - POINT OF CARE(Performed 07/02/2021) * GLUCOSE - POINT OF CARE(Performed 07/02/2021) * SARS-COV-2 (COVID-19)+INFLU A+B PCR RAPID(Performed 07/02/2021) * LACTIC ACID BLOOD(Performed 07/02/2021) * TROPONIN I(Performed 07/02/2021) * CBC W AUTO DIFFERENTIAL(Performed 07/02/2021) * COMPREHENSIVE METABOLIC PANEL(Performed 07/02/2021) * CULTURE BLOOD(Performed 07/02/2021) * CULTURE BLOOD(Performed 07/02/2021) * XR CHEST 1VW PORTABLE(Performed 07/02/2021) Performed for Cough, Cellulitis of abdominal wall * CARDIAC RHYTHM STRIP ORDER(Performed 12/06/2020) * GLUCOSE - POINT OF CARE(Performed 12/05/2020) * GLUCOSE - POINT OF CARE(Performed 12/05/2020) * GLUCOSE - POINT OF CARE(Performed 12/05/2020) * GLUCOSE - POINT OF CARE(Performed 12/05/2020) * GLUCOSE - POINT OF CARE(Performed 12/04/2020) * GLUCOSE - POINT OF CARE(Performed 12/04/2020) * GLUCOSE - POINT OF CARE(Performed 12/04/2020) * HOME CPAP/BIPAP FOR HOSP USE: NOCTURNAL 02(Performed 12/04/2020) * GLUCOSE - POINT OF CARE(Performed 12/03/2020) * GLUCOSE - POINT OF CARE(Performed 12/03/2020) * GLUCOSE - POINT OF CARE(Performed 12/03/2020) * GLUCOSE - POINT OF CARE(Performed 12/03/2020) * HOME CPAP/BIPAP FOR HOSP USE: NOCTURNAL 02(Performed 12/03/2020) * GLUCOSE - POINT OF CARE(Performed 12/02/2020) * GLUCOSE - POINT OF CARE(Performed 12/02/2020) * GLUCOSE - POINT OF CARE(Performed 12/02/2020) * GLUCOSE - POINT OF CARE(Performed 12/02/2020) * HOME CPAP/BIPAP FOR HOSP USE: NOCTURNAL 02(Performed 12/02/2020) * GLUCOSE - POINT OF CARE(Performed 12/01/2020) * GLUCOSE - POINT OF CARE(Performed 12/01/2020) * GLUCOSE - POINT OF CARE(Performed 12/01/2020) * GLUCOSE - POINT OF CARE(Performed 12/01/2020) * CBC W/O DIFFERENTIAL(Performed 12/01/2020) * BASIC METABOLIC PANEL (CALCIUM TOTAL)(Performed 12/01/2020) * HOME CPAP/BIPAP FOR HOSP USE: NOCTURNAL 02(Performed 12/01/2020) * GLUCOSE - POINT OF CARE(Performed 11/30/2020) * GLUCOSE - POINT OF CARE(Performed 11/30/2020) * GLUCOSE - POINT OF CARE(Performed 11/30/2020) * GLUCOSE - POINT OF CARE(Performed 11/30/2020) * CULTURE BLOOD(Performed 11/30/2020) * HOME CPAP/BIPAP FOR HOSP USE: NOCTURNAL 02(Performed 11/30/2020) * HOME CPAP/BIPAP FOR HOSP USE: NOCTURNAL 02(Performed 11/30/2020) * CULTURE MRSA(Performed 11/30/2020) * LACTIC ACID BLOOD REFLEX TO REPEAT(Performed 11/30/2020) * ERYTHROCYTE SEDIMENTATION RATE(Performed 11/30/2020) * C-REACTIVE PROTEIN(Performed 11/30/2020) * CBC W AUTO DIFFERENTIAL(Performed 11/30/2020) * BASIC METABOLIC PANEL (CALCIUM TOTAL)(Performed 11/30/2020) * CULTURE BLOOD(Performed 11/30/2020) * SARS-COV-2 (COVID-19)+INFLU A+B PCR RAPID(Performed 11/29/2020) * LACTIC ACID BLOOD(Performed 11/29/2020) * COMPREHENSIVE METABOLIC PANEL(Performed 11/29/2020) * CBC W AUTO DIFFERENTIAL(Performed 11/29/2020) * CULTURE BLOOD(Performed 11/29/2020) * GLUCOSE - POINT OF CARE(Performed 11/01/2020) * GLUCOSE - POINT OF CARE(Performed 11/01/2020) * COMPREHENSIVE METABOLIC PANEL(Performed 11/01/2020) Performed for Cellulitis of abdominal wall * CBC W AUTO DIFFERENTIAL(Performed 11/01/2020) Performed for Cellulitis of abdominal wall * GLUCOSE - POINT OF CARE(Performed 11/01/2020) * GLUCOSE - POINT OF CARE(Performed 10/31/2020) * GLUCOSE - POINT OF CARE(Performed 10/31/2020) * GLUCOSE - POINT OF CARE(Performed 10/31/2020) * GLUCOSE - POINT OF CARE(Performed 10/31/2020) * VANCOMYCIN LEVEL TROUGH(Performed 10/31/2020) * CULTURE MRSA(Performed 10/31/2020) Performed for Recurrent cellulitis * GLUCOSE - POINT OF CARE(Performed 10/31/2020) * VANCOMYCIN LEVEL PEAK(Performed 10/31/2020) * GLUCOSE - POINT OF CARE(Performed 10/31/2020) * GLUCOSE - POINT OF CARE(Performed 10/30/2020) * GLUCOSE - POINT OF CARE(Performed 10/30/2020) * CARDIAC EKG ORDER(Performed 10/30/2020) * GLUCOSE - POINT OF CARE(Performed 10/30/2020) * GLUCOSE - POINT OF CARE(Performed 10/30/2020) * BASIC METABOLIC PANEL (CALCIUM TOTAL)(Performed 10/30/2020) Performed for Cellulitis of abdominal wall, Local infection of skin and subcutaneous tissue, Elevated sed rate * CBC W/O DIFFERENTIAL(Performed 10/30/2020) Performed for Cellulitis of abdominal wall, Local infection of skin and subcutaneous tissue, Elevated sed rate * GLUCOSE - POINT OF CARE(Performed 10/30/2020) * HOME CPAP/BIPAP FOR HOSP USE: NOCTURNAL 02(Performed 10/30/2020) * GLUCOSE - POINT OF CARE(Performed 10/29/2020) * HOME CPAP/BIPAP FOR HOSP USE: NOCTURNAL 02(Performed 10/29/2020) * URINALYSIS W/MICROSCOPIC NO CULTURE(Performed 10/29/2020) Performed for Cellulitis of abdominal wall, Local infection of skin and subcutaneous tissue, Elevated sed rate * SARS-COV-2 (COVID-19)+INFLU A+B PCR RAPID(Performed 10/29/2020) Performed for Cellulitis of abdominal wall * EKG 12-LEAD(Performed 10/29/2020) Performed for Cellulitis of abdominal wall * CULTURE BLOOD(Performed 10/29/2020) * ERYTHROCYTE SEDIMENTATION RATE(Performed 10/29/2020) * C-REACTIVE PROTEIN(Performed 10/29/2020) * MAGNESIUM BLOOD(Performed 10/29/2020) * LACTIC ACID BLOOD(Performed 10/29/2020) * COMPREHENSIVE METABOLIC PANEL(Performed 10/29/2020) * CBC W AUTO DIFFERENTIAL(Performed 10/29/2020) * CULTURE BLOOD(Performed 10/29/2020) * GLUCOSE - POINT OF CARE(Performed 10/29/2020) * CARDIAC EKG ORDER(Performed 10/06/2020) * GLUCOSE - POINT OF CARE(Performed 10/04/2020) * GLUCOSE - POINT OF CARE(Performed 10/04/2020) * GLUCOSE - POINT OF CARE(Performed 10/04/2020) * GLUCOSE - POINT OF CARE(Performed 10/04/2020) * HIV-1 HIV-2 ANTIGEN/ANTIBODY(Performed 10/04/2020) * CBC W AUTO DIFFERENTIAL(Performed 10/04/2020) Performed for Cellulitis of abdominal wall * VANCOMYCIN LEVEL TROUGH(Performed 10/03/2020) * GLUCOSE - POINT OF CARE(Performed 10/03/2020) * GLUCOSE - POINT OF CARE(Performed 10/03/2020) * GLUCOSE - POINT OF CARE(Performed 10/03/2020) * GLUCOSE - POINT OF CARE(Performed 10/03/2020) * PHOSPHORUS BLOOD(Performed 10/03/2020) Performed for Cellulitis of abdominal wall * MAGNESIUM BLOOD(Performed 10/03/2020) Performed for Cellulitis of abdominal wall * CBC W AUTO DIFFERENTIAL(Performed 10/03/2020) Performed for Cellulitis of abdominal wall * BASIC METABOLIC PANEL (CALCIUM TOTAL)(Performed 10/03/2020) Performed for Cellulitis of abdominal wall * GLUCOSE - POINT OF CARE(Performed 10/02/2020) * GLUCOSE - POINT OF CARE(Performed 10/02/2020) * CARDIAC EKG ORDER(Performed 10/02/2020) * GLUCOSE - POINT OF CARE(Performed 10/02/2020) * HEMOGLOBIN A1C(Performed 10/02/2020) * PHOSPHORUS BLOOD(Performed 10/02/2020) Performed for Cellulitis of abdominal wall * MAGNESIUM BLOOD(Performed 10/02/2020) Performed for Cellulitis of abdominal wall * CBC W AUTO DIFFERENTIAL(Performed 10/02/2020) Performed for Cellulitis of abdominal wall * BASIC METABOLIC PANEL (CALCIUM TOTAL)(Performed 10/02/2020) Performed for Cellulitis of abdominal wall * ERYTHROCYTE SEDIMENTATION RATE(Performed 10/02/2020) * C-REACTIVE PROTEIN(Performed 10/02/2020) * GLUCOSE - POINT OF CARE(Performed 10/02/2020) * GLUCOSE - POINT OF CARE(Performed 10/02/2020) * OT EVAL AND TREAT(Performed 10/02/2020) * GLUCOSE - POINT OF CARE(Performed 10/01/2020) * EKG 12-LEAD(Performed 10/01/2020) Performed for Cellulitis of abdominal wall * TROPONIN I(Performed 10/01/2020) * SARS-COV-2 (COVID-19)+INFLU A+B PCR RAPID(Performed 10/01/2020) * EKG 12-LEAD(Performed 10/01/2020) Performed for Cellulitis of abdominal wall * XR CHEST 1VW PORTABLE(Performed 10/01/2020) Performed for Cellulitis of abdominal wall * TROPONIN I(Performed 10/01/2020) * LACTIC ACID BLOOD REFLEX TO REPEAT(Performed 10/01/2020) * CULTURE BLOOD(Performed 10/01/2020) * CULTURE BLOOD(Performed 10/01/2020) * COMPREHENSIVE METABOLIC PANEL(Performed 10/01/2020) * CBC W AUTO DIFFERENTIAL(Performed 10/01/2020) * LAB RESULTS ORDER(Performed 01/18/2020) * LAB RESULTS ORDER(Performed 12/29/2019) * HEMOGLOBIN A1C - POINT OF CARE (AMB) SLU(Performed 07/19/2019) Performed for Controlled type 2 diabetes mellitus without complication, with long-term current use of insulin (HCC) * GLUCOSE - POINT OF CARE(Performed 11/02/2017) * GLUCOSE - POINT OF CARE(Performed 11/02/2017) * GLUCOSE - POINT OF CARE(Performed 11/02/2017) * PTT SLH(Performed 11/02/2017) * PT-INR SLH(Performed 11/02/2017) * GLUCOSE - POINT OF CARE(Performed 11/01/2017) * GLUCOSE - POINT OF CARE(Performed 11/01/2017) * GLUCOSE - POINT OF CARE(Performed 11/01/2017) * GLUCOSE - POINT OF CARE(Performed 11/01/2017) * GLUCOSE - POINT OF CARE(Performed 11/01/2017) * GLUCOSE - POINT OF CARE(Performed 10/31/2017) * GLUCOSE - POINT OF CARE(Performed 10/31/2017) * CARDIAC EKG ORDER(Performed 10/31/2017) * GLUCOSE - POINT OF CARE(Performed 10/31/2017) * LIPID PROFILE(Performed 10/31/2017) * TROPONIN I(Performed 10/31/2017) * HEMOGLOBIN A1C(Performed 10/31/2017) * CBC W AUTO DIFFERENTIAL(Performed 10/31/2017) * BASIC METABOLIC PANEL (CALCIUM TOTAL)(Performed 10/31/2017) * CPAP(Performed 10/30/2017) * URINALYSIS W/MICROSCOPIC NO CULTURE(Performed 10/30/2017) * TSH(Performed 10/30/2017) * GLUCOSE - POINT OF CARE(Performed 10/30/2017) * XR CHEST 1VW PORTABLE(Performed 10/30/2017) Performed for Chest pain, unspecified type * HYDROXYBUTYRATE BETA(Performed 10/30/2017) * BLOOD GASES JR(Performed 10/30/2017) * PTT SLH(Performed 10/30/2017) * PT-INR SLH(Performed 10/30/2017) * TSH(Performed 10/30/2017) * CK + CKMB PANEL(Performed 10/30/2017) * TROPONIN I(Performed 10/30/2017) * COMPREHENSIVE METABOLIC PANEL(Performed 10/30/2017) * CBC W AUTO DIFFERENTIAL(Performed 10/30/2017) * EKG 12-LEAD(Performed 10/30/2017) Performed for Chest pain, unspecified type Results * (ABNORMAL) GLUCOSE - POINT OF CARE (07/04/2021 7:52 AM CHLOROBUTADIENE SCRUBBER OPERATOR) Only the most recent of71 resultswithin the time period is included. Glucose WB/POC 213(H) 70 - 115 mg/dL 07/04/2021 7:57 AM CHLOROBUTADIENE SCRUBBER OPERATOR [facility] Specimen Type Cap Fingerstick 2020 7:57 AM CHLOROBUTADIENE SCRUBBER OPERATOR [facility] Blood BLOOD SPECIMEN / Unknown 07/04/2021 7:52 AM CHLOROBUTADIENE SCRUBBER OPERATOR 07/04/2021 7:57 AM CHLOROBUTADIENE SCRUBBER OPERATOR Zander Campoverde MD LAB - POINT OF CARE ORDERABLES [facility] [address] [place] [address], [facility] [phone] * ECHO COMPLETE (07/03/2021 9:11 AM CHLOROBUTADIENE SCRUBBER OPERATOR) Anatomical Region Laterality Modality Chest Echo 07/03/2021 8:31 AM CHLOROBUTADIENE SCRUBBER OPERATOR Narrative Procedure Note Avinash Rodriguez MD - 07/03/2021 Zander Campoverde MD ECHOCARDIOGRAPHY RAD IANT * (ABNORMAL) CBC W/O DIFFERENTIAL (07/03/2021 3:54 AM CHLOROBUTADIENE SCRUBBER OPERATOR) Only the most recent of3 resultswithin the time period is included. WBC 8.9 3.5 - 10.5 10? 3 /uL 07/03/2021 4:11 AM [facility] RBC 4.80 4.30 - 5.70 10? 6 /uL 07/03/2021 4:11 AM [facility] Hemoglobin 12.4 12.0 - 17.6 g/dL 07/03/2021 4:11 AM [facility] Hematocrit 40.0 35.2 - 51.7 % 07/03/2021 4:11 AM [facility] MCV 83.3 80.7 - 98.3 fL 07/03/2021 4:11 AM [facility] MCH 25.8(L) 26.7 - 34.0 pg 07/03/2021 4:11 AM [facility] MCHC 31.0 30.8 - 35.9 g/dL 07/03/2021 4:11 AM [facility] Platelet Count 281 150 - 400 10? 3 /uL 07/03/2021 4:11 AM [facility] RDW-SD 44.8 36.0 - 50.0 fL 07/03/2021 4:11 AM [facility] RDW-CV 14.6 11.2 - 14.8 % 07/03/2021 4:11 AM [facility] MPV 10.5 9.4 - 12.9 fL 07/03/2021 4:11 AM [facility] nRBC Absolute 0.00 0 10? 3 /uL 07/03/2021 4:11 AM [facility] nRBC Auto 0.0 0 /100 WBC 07/03/2021 4:11 AM [facility] Blood BLOOD SPECIMEN / Unknown Venipuncture / Unknown 07/03/2021 3:54 AM CHLOROBUTADIENE SCRUBBER OPERATOR 07/03/2021 3:59 AM CHLOROBUTADIENE SCRUBBER OPERATOR Doyle Kc MD LAB - HEMATOLO GY ORDERABLES [facility] [address] [place] [address], [facility] [phone] * (ABNORMAL) BASIC METABOLIC PANEL (CALCIUM TOTAL) (07/03/2021 3:54 AM CHLOROBUTADIENE SCRUBBER OPERATOR) Only the most recent of7 resultswithin the time period is included. BUN 6(L) 7 - 26 mg/dL 07/03/2021 4:22 AM [facility] Creatinine 0.69(L) 0.71 - 1.16 mg/dL 07/03/2021 4:22 AM [facility] Sodium 136 136 - 145 mmol/L 07/03/2021 4:22 AM [facility] Potassium 4.2 3.5 - 4.5 mmol/L 07/03/2021 4:22 AM [facility] Chloride 104 98 - 107 mmol/L 07/03/2021 4:22 AM [facility] CO2 23 22 - 29 mmol/L 07/03/2021 4:22 AM [facility] Glucose 243(H) 70 - 115 mg/dL 07/03/2021 4:22 AM [facility] Calcium 8.6 8.4 - 10.2 mg/dL 07/03/2021 4:22 AM [facility] Anion Gap 13 8 - 18 07/03/2021 4:22 AM [facility] BUN/Creatinine Ratio 9 7 - 23 07/03/2021 4:22 AM [facility] Osmolality Calculated 288 270 - 300 mOsm/kg 07/03/2021 4:22 AM [facility] eGFR by CKD-EPI >90 >=90 mL/min/1.7 3 m2 07/03/2021 4:22 AM [facility] Blood BLOOD SPECIMEN / Unknown Venipuncture / Unknown 07/03/2021 3:54 AM CHLOROBUTADIENE SCRUBBER OPERATOR 07/03/2021 3:59 AM CHLOROBUTADIENE SCRUBBER OPERATOR Doyle Kc MD LAB - CHEMISTR Y ORDERABLES [facility] [address] [place] [address], [facility] [phone] * SARS-COV-2 (COVID-19)+INFLU A+B PCR RAPID (07/02/2021 11:26 AM CHLOROBUTADIENE SCRUBBER OPERATOR) Only the most recent of4 resultswithin the time period is included. COVID-19 PCR Not detected Not detected 07/02/20 12:11 PM CHLOROBUTADIENE SCRUBBER OPERATOR [facility] Influenza A Rapid ELY Not Detected Not Detected 07/02/2021 12:11 PM CHLOROBUTADIENE SCRUBBER OPERATOR [facility] Influenza B ELY Rapid Not Detected Not Detected 07/02/2021 12:11 PM [facility] Microbiology SPECIMEN FROM NASOPHARYNGEAL STRUCTURE / Unknown Collection / Unknown 07/02/2021 11:26 AM CHLOROBUTADIENE SCRUBBER OPERATOR 07/02/2021 11:33 AM CHLOROBUTADIENE SCRUBBER OPERATOR Narrative [facility] - 07/02/2021 12:11 PM CHLOROBUTADIENE SCRUBBER OPERATOR Influenza assay performed by Nucleic Acid Amplification. Results do not exclude the possibility of a mixed viral infection. NOTE: ??Detecting and identifying specific viral nucleic acids from individuals exhibiting signs and symptoms of respiratory infection aids in the diagnosis of respiratory infection, if used in conjunction with other clinical and laboratory findings. The results of this test should not be used as the sole basis for diagnosis, treatment, or patient management decisions. This nucleic acid amplification assay performance was validated by [facility]. This test has been authorized by the Food and Drug administration (FDA)under an Emergency??Use Authorization (EUA). This test has been validated in accordance with the FDA's guidance document Policy for Diagnostic Testing in Laboratories Certified to perform High Complexity Testing under CLIA prior to Emergency Use Authorization for Coronavirus Disease-2019 during the Public Health Emergency issued on September 03, 2019. FDA independent review of this validation is pending. This test is only authorized for the duration of time the declaration that circumstances exist justifying the authorization of emergency use of in vitro diagnostic tests for detection of SARS-CoV-2 virus and/or diagnosis of COVID-19 infection under section 564(b)(1) of the Act, 21 U.S.C 360bbb-3 (b)(1), unless the authorization is terminated or revoked sooner. Fact Sheets for this EUA assay are available upon request. Doyle Kc MD LAB - MICROBIO LOGY ORDERABLES Performing Organization Address City/[facility]/ZIP Co de Phone Number [address] [address], [place] [phone] * LACTIC ACID BLOOD (07/02/2021 11:25 AM CHLOROBUTADIENE SCRUBBER OPERATOR) Only the most recent of3 resultswithin the time period is included. Pathologist [facility] Lactic Acid-Stat 1.8 <=2.0 mmol/L 07/02/2021 11:57 AM CHLOROBUTADIENE SCRUBBER OPERATOR [facility] Blood BLOOD SPECIMEN / Unknown Venipuncture / Unknown 07/02/2021 11:25 AM CHLOROBUTADIENE SCRUBBER OPERATOR 07/02/2021 11:35 AM CHLOROBUTADIENE SCRUBBER OPERATOR Doyle Kc MD LAB - CHEMISTR Y ORDERABLES Performing Organization Address [facility] Co de Phone Number [address] [address], [place] [phone] * TROPONIN I (07/02/2021 11:24 AM CHLOROBUTADIENE SCRUBBER OPERATOR) Only the most recent of5 resultswithin the time period is included. [facility] Troponin I <0.010 <0.032 ng/mL 07/02/2021 12:07 PM CHLOROBUTADIENE SCRUBBER OPERATOR [facility] Blood BLOOD SPECIMEN / Unknown Venipuncture / Unknown 07/02/2021 11:24 AM CHLOROBUTADIENE SCRUBBER OPERATOR 07/02/2021 11:35 AM CHLOROBUTADIENE SCRUBBER OPERATOR Doyle Kc MD LAB - CHEMISTR Y ORDERABLES Performing Organization Address City/[facility]/ZIP Co de Phone Number [address] [address], [place] [phone] * CULTURE BLOOD (07/02/2021 11:24 AM CHLOROBUTADIENE SCRUBBER OPERATOR) Only the most recent of9 resultswithin the time period is included. [facility] Culture No growth day 5 SPEEDY 07/07/2021 3:00 PM CHLOROBUTADIENE SCRUBBER OPERATOR [facility] Blood PERIPHERAL BLOOD / Unknown Venipuncture / Unknown 07/02/2021 11:24 AM CHLOROBUTADIENE SCRUBBER OPERATOR 07/02/2021 11:34 AM CHLOROBUTADIENE SCRUBBER OPERATOR Doyle Kc MD LAB - MICROBIO LOGY ORDERABLES [facility] [address] [place], [place] [address], [facility] [phone] * (ABNORMAL) CBC W AUTO DIFFERENTIAL (07/02/2021 11:24 AM CHLOROBUTADIENE SCRUBBER OPERATOR) Only the most recent of11 resultswithin the time period is included. WBC 12.5(H) 3.5 - 10.5 10? 3 /uL 07/02/2021 11:43 AM [facility] RBC 4.74 4.30 - 5.70 10? 6 /uL 07/02/2021 11:43 AM [facility] Hemoglobin 12.6 12.0 - 17.6 g/dL 07/02/2021 11:43 AM [facility] Hematocrit 40.0 35.2 - 51.7 % 07/02/2021 11:43 AM [facility] MCV 84.4 80.7 - 98.3 fL 07/02/2021 11:43 AM [facility] MCH 26.6(L) 26.7 - 34.0 pg 07/02/2021 11:43 AM [facility] MCHC 31.5 30.8 - 35.9 g/dL 07/02/2021 11:43 AM [facility] Platelet Count 294 150 - 400 10? 3 /uL 07/02/2021 11:43 AM [facility] RDW-SD 44.2 36.0 - 50.0 fL 07/02/2021 11:43 AM [facility] RDW-CV 14.5 11.2 - 14.8 % 07/02/2021 11:43 AM [facility] MPV 10.5 9.4 - 12.9 fL 07/02/2021 11:43 AM [facility] nRBC Absolute 0.00 0 10? 3 /uL 07/02/2021 11:43 AM [facility] nRBC Auto 0.0 0 /100 WBC 07/02/2021 11:43 AM [facility] Neutrophils % 85.4(H) 35.0 - 70.0 % 07/02/2021 11:43 AM [facility] Lymphocytes % 8.8(L) 20.0 - 43.0 % 07/02/2021 11:43 AM [facility] Monocytes % 4.0(L) 5.0 - 13.0 % 07/02/2021 11:43 AM [facility] Eosinophils % 1.0 0.0 - 6.0 % 07/02/2021 11:43 AM [facility] Basophil % 0.2 0.0 - 2.0 % 07/02/2021 11:43 AM [facility] Neutrophils Absolute 10.7(H) 1.6 - 7.0 10? 3 /uL 07/02/2021 11:43 AM [facility] Lymphocyte Absolute 1.1 1.1 - 3.9 10? 3 /uL 07/02/2021 11:43 AM [facility] Monocytes Absolute 0.50 0.26 - 1.07 10? 3 /uL 07/02/2021 11:43 AM [facility] Eosinophils Absolute 0.12 0.00 - 0.47 10? 3 /uL 07/02/2021 11:43 AM [facility] Basophils Absolute 0.03 0.00 - 0.08 10? 3 /uL 07/02/2021 11:43 AM [facility] Immature Granulocytes % 0.6 0.0 - 1.0 % 07/02/2021 11:43 AM [facility] Immature Granulocytes Absolute 0.07 07/02/2021 11:43 AM [facility] Blood BLOOD SPECIMEN / Unknown Venipuncture / Unknown 07/02/2021 11:24 AM CHLOROBUTADIENE SCRUBBER OPERATOR 07/02/2021 11:35 AM [facility] Doyle Kc MD LAB - HEMATOLO GY ORDERABLES [facility] [address] [place] [address], [facility] [phone] * (ABNORMAL) COMPREHENSIVE METABOLIC PANEL (07/02/2021 11:24 AM [facility]) Only the most recent of6 resultswithin the time period is included. BUN 6(L) 7 - 26 mg/dL 07/02/2021 12:03 PM [facility] Creatinine 0.68(L) 0.71 - 1.16 mg/dL 07/02/2021 12:03 PM [facility] Sodium 135(L) 136 - 145 mmol/L 07/02/2021 12:03 PM [facility] Potassium 4.3 3.5 - 4.5 mmol/L 07/02/2021 12:03 PM [facility] Chloride 102 98 - 107 mmol/L 07/02/2021 12:03 PM [facility] CO2 27 22 - 29 mmol/L 07/02/2021 12:03 PM [facility] Glucose 259(H) 70 - 115 mg/dL 07/02/2021 12:03 PM [facility] Calcium 9.0 8.4 - 10.2 mg/dL 07/02/2021 12:03 PM [facility] Protein Total 7.0 6.0 - 8.3 g/dL 07/02/2021 12:03 PM [facility] Albumin 2.9(L) 3.4 - 5.0 g/dL 07/02/2021 12:03 PM [facility] Bilirubin Total 0.6 0.2 - 1.2 mg/dL 07/02/2021 12:03 PM [facility] Alkaline Phosphatase 72 40 - 150 U/L 07/02/2021 12:03 PM [facility] ALT 21 5 - 55 U/L 07/02/2021 12:03 PM [facility] AST 11 5 - 34 U/L 07/02/2021 12:03 PM [facility] Anion Gap 10 8 - 18 07/02/2021 12:03 PM [facility] BUN/Creatinine Ratio 9 7 - 23 07/02/2021 12:03 PM [facility] Osmolality Calculated 287 270 - 300 mOsm/kg 07/02/2021 12:03 PM [facility] Albumin/Globulin Ratio 0.7(L) 1.1 - 2.3 07/02/2021 12:03 PM CHLOROBUTADIENE SCRUBBER OPERATOR [facility] eGFR by CKD-EPI >90 >=90 mL/min/1.7 3 m2 07/02/2021 12:03 PM CHLOROBUTADIENE SCRUBBER OPERATOR [facility] Blood BLOOD SPECIMEN / Unknown Venipuncture / Unknown 07/02/2021 11:24 AM CHLOROBUTADIENE SCRUBBER OPERATOR 07/02/2021 11:36 AM CHLOROBUTADIENE SCRUBBER OPERATOR Doyle Kc MD LAB - CHEMISTR Y ORDERABLES [facility] [address] [place] [address], [facility] [phone] * XR CHEST 1VW PORTABLE (07/02/2021 11:06 AM CHLOROBUTADIENE SCRUBBER OPERATOR) Only the most recent of3 resultswithin the time period is included. Anatomical Region Laterality Modality Chest Radiographic Jennifer ging 07/02/2021 11:3 7 AM CHLOROBUTADIENE SCRUBBER OPERATOR Impressions 07/02/2021 12:38 PM CHLOROBUTADIENE SCRUBBER OPERATOR FINDINGS/IMPRESSION: Lines and tubes: *Loop recorder over the left lower chest, unchanged. There is no focal consolidation, pleural effusion, or pneumothorax. The cardiomediastinal silhouette is normal. The visible bony thorax is intact. Dictated by Cornel Veliz MD (residential nurse). I, Dr. GREGORY GUSMAN have personally reviewed and interpreted this examination/study. This report was electronically signed by GREGORY GUSMAN ??on 07/02/2021 12:38 PM . Narrative 07/02/2021 12:38 PM CHLOROBUTADIENE SCRUBBER OPERATOR EXAMINATION: XR CHEST 1VW PORTABLE HISTORY: R05.9: Cough L03.311: Cellulitis of abdominal wall COMPARISON: Chest x-ray from 10/01/2020 Procedure Note Gregory Gusman, DO - 07/02/2021 EXAMINATION: XR CHEST 1VW PORTABLE HISTORY: R05.9: Cough L03.311: Cellulitis of abdominal wall COMPARISON: Chest x-ray from 10/01/2020 FINDINGS/IMPRESSION: Lines and tubes: *Loop recorder over the left lower chest, unchanged. There is no focal consolidation, pleural effusion, or pneumothorax. The cardiomediastinal silhouette is normal. The visible bony thorax isintact. Dictated by Cornel Veliz MD (residential nurse). I, Dr. GREGORY GUSMAN have personally reviewed and interpreted this examination/study. This report was electronically signed by GREGORY GUSMAN on 07/02/2021 12:38 PM . Doyle Kc MD DIAGNOSTIC JENNIFER GING ORDERABLES * CARDIAC RHYTHM STRIP ORDER (12/06/2020 11:19 PM CDT) Narrative 12/06/2020 11:19 PM CDT Ordered by an unspecified provider. Scanned Document CARDIAC SERVICES ORD ERABLES * CULTURE MRSA (11/30/2020 3:19 AM CDT) Only the most recent of2 resultswithin the time period is included. Pathologist [facility] Culture Negative for methicillin-resist ant Staphylococcus aureus (MRSA) SPEEDY 12/01/2020 5:58 AM CDT [facility] MICROBIOLOGY Microbiology SPECIMEN FROM NASAL FOSSAE / Unknown Collection / Unknown 11/30/2020 3:19 AM CDT 11/30/2020 3:36 AM CDT Ismael Juarez MD LAB - MICROBIOLOGY O RDERABLES Performing Organization Address City/[facility]/ZIP Co de Phone Number [facility] MICROBIOLOGY [address] [place] [address], [facility] [phone] * LACTIC ACID BLOOD REFLEX TO REPEAT (11/30/2020 3:18 AM CDT) Only the most recent of2 resultswithin the time period is included. Lactic Acid 0.92 0.5 - 2.2 mmol/L 11/30/2020 3:51 AM CDT [facility] Blood BLOOD SPECIMEN / Unknown Venipuncture / Unknown 11/30/2020 3:18 AM CDT 11/30/2020 3:36 AM CDT Ismael Juarez MD LAB - CHEMISTRY ORDE RABDEE Performing Organization Address City/[facility]/ZIP Co de Phone Number [facility] [address] [place], [place] [phone] * (ABNORMAL) C-REACTIVE PROTEIN (11/30/2020 3:18 AM CDT) Only the most recent of3 resultswithin the time period is included. [facility] C-Reactive Protein 9.51(H) <=0.50 mg/dL 11/30/2020 3:57 AM CDT [facility] Blood BLOOD SPECIMEN / Unknown Venipuncture / Unknown 11/30/2020 3:18 AM CDT 11/30/2020 3:36 AM CDT Ismael Juarez MD LAB - CHEMISTRY ORDE RABLES Performing Organization Address City/[facility]/ZIP Co de Phone Number [facility] [address] [place] [phone] * (ABNORMAL) ERYTHROCYTE SEDIMENTATION RATE (11/30/2020 3:18 AM CDT) Only the most recent of3 resultswithin the time period is included. [facility] Erythrocyte Sedimentation Rate Automated 63(H) 0 - 15 MM/HR 11/30/2020 4:31 AM CDT [facility] Blood BLOOD SPECIMEN / Unknown Venipuncture / Unknown 11/30/2020 3:18 AM CDT 11/30/2020 3:36 AM CDT Ismael Juarez MD LAB - HEMATOLOGY ORD ERABLES Performing Organization Address City/[facility]/ZIP Co de Phone Number [facility] [address] [place] [phone] * (ABNORMAL) VANCOMYCIN LEVEL TROUGH (10/31/2020 11:39 AM CDT) Only the most recent of2 resultswithin the time period is included. [facility] Vancomycin Trough 8.8(L) 10.0 - 20.0 mcg/mL 10/31/2020 1:24 PM CDT [facility] Blood BLOOD SPECIMEN / Unknown Lab Venipuncture / Unknown 10/31/2020 11:39 AM CDT 10/31/2020 12:49 PM CDT Zachary Arredondo MD LAB - CHEMISTRY PINA CRAWFORD Performing Organization Address [facility]/ZIP Co de Phone Number [address] [address], [facility] [phone] * (ABNORMAL) VANCOMYCIN LEVEL PEAK (10/31/2020 6:13 AM CDT) Vancomycin Peak 18.5(L) 20.0 - 40.0 mcg/mL 10/31/2020 7:29 AM CDT [facility] Blood BLOOD SPECIMEN / Unknown Lab Venipuncture / Unknown 10/31/2020 6:13 AM CDT 10/31/2020 7:08 AM CDT Zachary Arredondo MD LAB - CHEMISTRY PINA CRAWFORD Performing Organization Address [facility]/ZIP Co de Phone Number [address] [address], [facility] [phone] * CARDIAC EKG ORDER (10/30/2020 2:25 PM CDT) Only the most recent of4 resultswithin the time period is included. Narrative 10/30/2020 2:25 PM CDT Ordered by an unspecified provider. Scanned Document CARDIAC SERVICES ORD ERABLES * (ABNORMAL) URINALYSIS W/MICROSCOPIC NO CULTURE (10/29/2020 7:54 PM CDT) Only the most recent of2 resultswithin the time period is included. Color UA Yellow Straw, Yellow, Colorless 10/29/2020 8:28 PM CDT [facility] Clarity UA Clear Clear, Slt Cloudy 10/29/2020 8:28 PM CDT [facility] Specific [place] UA 1.018 1.005 - 1.030 10/29/2020 8:28 PM CDT [facility] pH UA 7.0 5.0 - 8.0 pH 10/29/2020 8:28 PM CDT [facility] Protein UA Negative Negative mg/dL 10/29/2020 8:28 PM CDT [facility] Glucose UA 3+(A) Negative mg/dL 10/29/2020 8:28 PM [facility] Ketone UA Negative Negative mg/dL 10/29/2020 8:28 PM [facility] Bilirubin UA Negative Negative mg/dL 10/29/2020 8:28 PM [facility] Blood UA Negative Negative 10/29/2020 8:28 PM [facility] Nitrite UA Negative Negative 10/29/2020 8:28 PM [facility] Leukocyte Esterase Negative Negative 10/29/2020 8:28 PM [facility] Urobilinogen UA 2.0(A) Negative mg/dL 10/29/2020 8:28 PM [facility] RBC UA 3-5 None Seen, 0-2, 3-5 /HPF 10/29/2020 8:28 PM [facility] WBC UA 0-5 None Seen, 0-5 /HPF 10/29/2020 8:28 PM [facility] Squamous Epithelial Cells UA 0-2 None Seen, 0-2 /HPF 10/29/2020 8:28 PM [facility] Mucus UA 1+ None, 1+ /LPF 10/29/2020 8:28 PM [facility] Hyaline Casts UA 0-2 None Seen, 0-2 /LPF 10/29/2020 8:28 PM [facility] Urine URINE SPECIMEN OBTAINED VIA [facility]INARY CATHETER / Unknown Collection / Unknown 10/29/2020 7:54 PM CDT 10/29/2020 8:05 PM CDT Narrative [facility] - 10/29/2020 8:28 PM CDT Fred Kearney MD LAB - URINALYSIS ORD ERABLES [facility] [address] [place] [address], [place] [phone] * EKG 12-LEAD (10/29/2020 10:49 AM CDT) Only the most recent of4 resultswithin the time period is included. Ventricular Rate 97 BPM [facility] QRS Duration ms 100 ms [facility] Q-T Interval ms 362 ms [facility] QTC Calculation (Bezet) 459 ms [facility] Calculated R [place] 67 degrees [facility] Calculated T [place] -117 degrees [facility] Interpretation EKG ATRIAL FIBRILLATION NONSPECIFIC T WAVE ABNORMALITY ABNORMAL ECG WHEN COMPARED WITH ECG OF 01-OCT-2020 22:41, NONSPECIFIC T WAVE ABNORMALITY, WORSE IN INFERIOR LEADS Confirmed by MD Kate., Teresa ([id number]) on 10/29/2020 12:53:11 PM [facility]USE 10/29/2020 10:4 9 AM CDT 10/29/2020 12:53 PM CDT Zachary Arredondo MD ECG ORDERABLES [facility] * MAGNESIUM BLOOD (10/29/2020 10:19 AM CDT) Only the most recent of3 resultswithin the time period is included. Magnesium 1.8 1.6 - 2.6 mg/dL 10/29/2020 11:05 AM CDT [facility] Blood BLOOD SPECIMEN / Unknown Venipuncture / Unknown 10/29/2020 10:19 AM CDT 10/29/2020 10:33 AM CDT Zachary Arredondo MD LAB - CHEMISTRY ORDRojelio CRAWFORD Performing Organization Address City/[facility]/ZIP Co de Phone Number [facility] [address] [place] [address], [facility] [phone] * HIV-1 HIV-2 ANTIGEN/ANTIBODY (10/04/2020 7:46 AM CDT) HIV Antigen/Antibod y 1 & 2 Non-reacti ve Non-react lynette 10/04/2020 10:35 AM CDT [facility] Comment:Neither HIV-1 p24 An tigen nor HIV-1/HIV-2 Antibodies are detected. Blood BLOOD SPECIMEN / Unknown Lab Venipuncture / Unknown 10/04/2020 7:46 AM CDT 10/04/2020 9:44 AM CDT Carla Gonzales MD LAB - HEMATOLOGY ORD ANDREE Performing Organization Address City/[facility]/ZIP Co de Phone Number [address] [address], [facility] [phone] * PHOSPHORUS BLOOD (10/03/2020 6:46 AM CDT) Only the most recent of2 resultswithin the time period is included. Phosphorus 3.6 2.3 - 4.7 mg/dL 10/03/2020 7:27 AM CDT [facility] Blood BLOOD SPECIMEN / Unknown Lab Venipuncture / Unknown 10/03/2020 6:46 AM CDT 10/03/2020 6:57 AM CDT Shaylee Ventura MD LAB - CHEMISTRY PINA CRAWFORD Performing Organization Address [facility]/ZIP Co de Phone Number [facility] [address] [address], [facility] [phone] * (ABNORMAL) HEMOGLOBIN A1C (10/02/2020 8:50 AM CDT) Only the most recent of2 resultswithin the time period is included. Hemoglobin A1c 9.4(H) 4.4 - 6.3 % 10/02/2020 3:05 PM CDT [facility] Estimated Average Glucose 223 mg/dL 10/02/2020 3:05 PM CDT [facility] Comment: HbA1c Interpretation: Treatment target values recommended by ADA and other clinical organizations should be used to evaluate metabolic control in patients. Treatment Target Values: Normal : < 5.7% Pre-diabetes: 5.7-6.4% Diabetes: Equal to or greater than 6.5% Reference: [place] [employer] Standards of Care in Diabetes -2014 In patients 70 years and older consider HbA1c target range of 7.0-7.5% Reference: ??Diabetes Mellitus in Older People: Position Statement on behalf of the International Association of Gerontology and Geriatrics (IAGG), the Diabetes Working Republican for Older People (EDWPOP), and the International Task Force of Experts in Diabetes. ??Pacheco Burch et al. J [employer] Association. 2012 Test results diagnostic of diabetes should be repeated for confirmation. The Sebia Capillary 2 assay for the measurement of HbA1c is a National Glycohemoglobin Standardization Program (NGSP)certified method. Blood BLOOD SPECIMEN / Unknown Lab Venipuncture / Unknown 10/02/2020 8:50 AM CDT 10/02/2020 10:03 AM CDT Awais Mcallister MD LAB - CHEMISTRY PINA CRAWFORD [facility] [address] [place] [address], [facility] [phone] * LAB RESULTS ORDER (01/18/2020 1:38 PM CDT) Only the most recent of2 resultswithin the time period is included. Narrative 01/18/2020 1:38 PM CDT Ordered by an unspecified provider. Scanned Document LAB - THERAPEUTIC DR UG MONITORING ORDERABLES * HEMOGLOBIN A1C - POINT OF CARE (AMB) [facility] (07/19/2019) Hemoglobin A1c POCT 6.6 BLOOD SPECIMEN / Unknown 07/19/2019 Jono Sharpe MD LAB - POINT OF CARE ORDERABLES * PTT [facility] (11/02/2017 2:42 AM CDT) Only the most recent of2 resultswithin the time period is included. APTT 28.4 23.0 - 38.4 Seconds 11/02/2017 3:02 AM CDT [facility] Comment: Suggested therapeutic range for full dose I.V. heparin therapy for venous thromboembolism is 66.0-91.0 seconds. Blood BLOOD SPECIMEN / Unknown Venipuncture / Unknown 11/02/2017 2:42 AM CDT 11/02/2017 2:49 AM CDT Caryn Veliz MD LAB - COAGULATION OR DERABLES [address] [phone] * PT-INR [facility] (11/02/2017 2:42 AM CDT) Only the most recent of2 resultswithin the time period is included. Pathologist [facility] PT 14.7 12.1 - 14.8 Seconds 11/02/2017 3:01 AM CDT [facility] INR 1.2 See Comment 11/02/2017 3:01 AM T [facility] Comment: Suggested therapeutic range for low-intensity coumadin therapy for venous thromboembolism prophylaxis is an INR of 2.0-3.0. ??For high risk patients (Mitral Valve Prosthesis, Atrial Fibrillation, history of TIA/stroke), suggested prophylactic therapeutic range is an INR of 2.5-3.5. Blood BLOOD SPECIMEN / Unknown Venipuncture / Unknown 11/02/2017 2:42 AM CDT 11/02/2017 2:49 AM CDT Caryn Veliz MD LAB - COAGULATION OR DERABLES Performing Organization Address City/State/[facility] Co de Phone Number [address] [phone] * (ABNORMAL) LIPID PROFILE (10/31/2017 3:25 AM CDT) Pathologist [facility] Cholesterol Total 123 <200 mg/dL 10/31/2017 5:10 AM [facility] HDL 35(L) >40 mg/dL 10/31/2017 5:10 AM [facility] Comment: ATP III Classification of HDL Cholesterol: ? <40 mg/dL: ??Considered a major risk factor. ? >60 mg/dL: ??Considered a negative risk factor. ? LDL Calculated 76 <100 mg/dL 10/31/2017 5:10 AM T [facility] Comment: ATP III Classification of LDL Cholesterol: ?<100 mg/dL: ??Optimal ? 100 - 129 mg/dL: ??Near Optimal/Above Optimal ? 130 - 159 mg/dL: ??Borderline High ? 160 - 189 mg/dL: ??High ?>190 mg/dL: ??Very High ? Triglycerides 61 <150 mg/dL 10/31/2017 5:10 AM CDT [facility] Comment: ATP III Classification of Triglycerides: ?<150 mg/dL: ??Normal ? 150 - 199 mg/dL: ??Borderline High ? 200 - 400 mg/dL: ??High ?>500 mg/dL: ??Very High Blood BLOOD SPECIMEN / Unknown 10/31/2017 3:25 AM CDT 10/31/2017 4:23 AM CDT Ulysses Billy MD LAB - CHEMISTRY PINA CRAWFORD Performing Organization Address [facility] Co de Phone Number [address] [phone] * TSH (10/30/2017 7:01 PM CDT) Only the most recent of2 resultswithin the time period is included. Pathologist [facility] TSH 1.356 0.350 - 4.940 uIU/mL 10/30/2017 7:51 PM CDT [facility] Blood BLOOD SPECIMEN / Unknown Venipuncture / Unknown 10/30/2017 7:01 PM CDT 10/30/2017 7:06 PM CDT Arlen Tang MD LAB - CHEMISTRY PINA CRAWFORD Performing Organization Address [facility] [place] [address], [facility] [phone] * HYDROXYBUTYRATE BETA (10/30/2017 5:04 PM CDT) Beta-Hydroxybu tyrate <0.15 0.02 - 0.27 mmol/L 10/30/2017 5:45 PM CDT [facility] Blood BLOOD SPECIMEN / Unknown Venipuncture / Unknown 10/30/2017 5:04 PM CDT 10/30/2017 5:09 PM CDT Joseline Paez MD LAB - CHEMISTRY PINA CRAWFORD [facility] Organization Address City/State/ZIP Co de Phone Number [facility] [address] [phone] * (ABNORMAL) BLOOD GASES JR (10/30/2017 5:04 PM CDT) pH Mixed Venous 7.44(H) 7.30 - 7.40 10/30/2017 5:11 PM CDT [facility] pCO2 Mixed Venous 46 40 - 46 mmHg 10/30/2017 5:11 PM T [facility] pO2 Mixed Venous 49(H) 35 - 42 mmHg 10/30/2017 5:11 PM T [facility] HCO3 Mixed Venous 30.2(H) 22.0 - 26.0 mmol/L 10/30/2017 5:11 PM [facility] TCO2 Mixed Venous 31.6(H) 25.0 - 29.0 mmol/L 10/30/2017 5:11 PM [facility] Base Excess Venous 5.3(H) -2.0 - 2.0 mmol/L 10/30/2017 5:11 PM [facility] Hemoglobin Mixed Venous 12.1(L) 13.5 - 17.5 g/dL 10/30/2017 5:11 PM [facility] Oxyhemoglobin Mixed Venous 83.5(H) 66.0 - 77.0 % 10/30/2017 5:11 PM [facility] Carboxyhemoglobin Venous 0.5 0.0 - 3.0 % 10/30/2017 5:11 PM [facility] Methemoglobin 0.2 0.0 - 2.0 % 10/30/2017 5:11 PM [facility] FI O2 Mixed Venous 21.0 % 2017 5:11 PM T [facility] Blood BLOOD SPECIMEN / Unknown Venipuncture / Unknown 10/30/2017 5:04 PM CDT 10/30/2017 5:09 PM CDT Joseline Paez MD LAB - BLOOD GASES OR DERABLES [facility] [address] [place], [place] [address] [place] [address] * CK + CKMB PANEL (10/30/2017 5:04 PM CDT) CK Total 167 30 - 200 Units/L 10/30/2017 5:43 PM CDT [facility] CK-MB 3.3 0.0 - 6.6 ng/mL 10/30/2017 5:43 PM CDT [facility] Blood BLOOD SPECIMEN / Unknown Venipuncture / Unknown 10/30/2017 5:04 PM CDT 10/30/2017 5:09 PM CDT Joseline Paez MD LAB - CHEMISTRY ORDE RABLES [address] [phone] Care Teams Religious Activities Director Relationship Specialty Start Date End Date Alexandru Burns MD [address] [place] [address] PCP - General Internal Medicine 03/03/23 Alfreda Montgomery DO [address] [place] [id number] Resident - PCP Internal Medicine 01/08/22
--- OUTSIDE RECORDS SUMMARY | 2024-08-06 08:34 | XMS_ITS | CONTINUITY OF CARE DOCUMENT ---
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 Name Role Phone Charmaine Neff MD Unavailable Charmaine Neff MD Unavailable [phone] KEE GUEVARA MD Unavailable [phone] PROBLEMS Condition Status Date Provider Notes Paraplegic spinal paralysis active Nilda Castellano RN Sick sinus syndrome active Brad Gurrola Diabetes mellitus active Charmaine Neff MD REVEAL active Charmaine Neff MD S/P [employer] REVEAL/LinQ ILR Sleep apnea active Charmaine Neff MD HTN Systolic active Charmaine Neff MD Morbid obesity active Brad Gurrola Atrial fibrillation active Charmaine roberts MD ENCOUNTERS Date Type Provider Location Encounter Diag nosis - In-person encounter Office Visit Charmaine Neff MD [place] [facility] - In-person encounter Office Visit Charmaine Neff MD [place] [facility] - In-person encounter Office Visit Charmaine Neff MD [place] [facility] - In-person encounter Office Visit Charmaine Neff MD [facility] Office - In-person encounter Office Visit Charmaine Neff MD [place] [facility] - In-person encounter Office Visit Charmaine Neff MD [place] [facility] Morbid obesitySick sinus syndrome - In-person encounter Office Visit Charmaine Neff MD [place] [facility] Diabetes mellitus - In-person encounter Office Visit Charmaine Neff MD [place] [facility] Atrial fibrillationREVEAL - In-person encounter Office Visit Charmaine Neff MD [place] [facility] - In-person encounter Office Visit Charmaine Neff MD [place] [facility] - In-person encounter Office Visit Charmaine Neff MD [place] [facility] - In-person encounter Office Visit Charmaine Neff MD [place] [facility] Atrial fibrillationMorbid obesityHTN SystolicSleep apnea VITAL SIGNS Date Observation Value Provider weight E&M 570 [lb_av] Ramone Barreto blood pressure, diastolic 78 mm[Hg] Ailyn Guthrie blood pressure, systolic 138 mm[Hg] Doug Simpson oxygen saturation, oximetry 99 % [facility] pulse rate 90 /min [facility] temperature E&M 98.1 [degF] [facility] Body Mass Index (Ratio) 73.76 kg/m2 [facility] oxygen saturation, oximetry 99 % [facility] respiratory rate E&M 18 /min [facility] pulse rate 99 /min [facility] blood pressure, diastolic, supine 82 mm[H g] [facility] blood pressure, systolic, supine E&M 154 mm[Hg] [facility] weight E&M 606 [lb_av] [facility], [facility] 90 [facility][Hg] Ness Fam blood pressure, systolic 160 mm[Hg] Lyric Fam pulse rate 81 /min Savannah corrales oxygen saturation, oximetry 97 % Savannah Fam respiratory rate E&M 18 /min Evelyn Fam Body Mass Index (Ratio) 68.40 kg/m2 Fanat Fam weight E&M 562 [lb_av] Savannah Kilgore carmen blood pressure, diastolic 93 mm[Hg] Co aly Florence blood pressure, systolic 176 mm[Hg] Shawna shin [place] pulse rate 98 /min Radha Florence oxygen saturation, oximetry 98 % Radha Florence respiratory rate E&M 15 /min Radha Florence blood pressure, diastolic 96 mm[Hg] An justine [facility] blood pressure, systolic 178 mm[Hg] Ane atris [facility] pulse rate 117 /min Aneatris [facility] oxygen saturation, oximetry 97 % Aneatris [facility] respiratory rate E&M 20 /min Aneatri s [facility] blood pressure, diastolic 86 mm[Hg] [facility], systolic 142 mm[Hg] Ane atris [facility] pulse rate 100 /min Aneatris [facility] oxygen saturation, oximetry 98 % Aneatris [facility] respiratory rate E&M 18 /min Aneatri s [facility] pulse rate 115 /min Verna Sterling byrnes oxygen saturation, oximetry 96 % Verna Jennifer blood pressure, diastolic 74 mm[Hg] Ke rri Jennifer blood pressure, systolic 165 mm[Hg] Ker ri Jennifer respiratory rate E&M 24 /min Verna G gabi Body Mass Index (Ratio) 67.79 kg/m2 Renner i Jennifer blood pressure, diastolic 94 mm[Hg] Ke rri Jennifer blood pressure, systolic 148 mm[Hg] Charley Rodriguez pulse rate 148 /min Verna noriegaer oxygen saturation, oximetry 96 % Verna Rodriguez respiratory rate E&M 24 /min Verna ashley weight E&M 557 [lb_av] Verna noriegaer height E&M 76 [in_i] Verna byrnes ALLERGIES No Known Drug Allergies HISTORY OF MEDICATION USE Medication Status Instructions Dates Provider Indications Com ments chlorthalidone 25 mg tablet active Take 1 tablet by mouth once a day NEEDS APPT 07/30 Verna Rodriguez Xarelto 20 mg tablet active Take 1 tablet by mouth once daily 09/01 Dian Soria chlorthalidone 25 mg tablet completed TAKE 1 TABLET BY MOUTH ONCE DAILY DIRECTED. DUE FOR APPOINTMENT 08/15 - 07/30 Verna Rodriguez chlorthalidone 25 mg tablet completed TAKE 1 TABLET BY MOUTH ONCE DAILY DIRECTED. DUE FOR FOLLOW UP APPOINTMENT. 07/14 - 08/15 Verna Rodriguez lisinopril 40 mg tablet active Take 1 tablet by mouth once daily 02/26 Lexis Aranda chlorthalidone 25 mg tablet completed TAKE 1 TABLET BY MOUTH ONCE DAILY DIRECTED. DUE FOR FOLLOW UP APPT. 02/16 - 07/14 Verna Rodriguez diltiazem HCl 90 mg tablet active TAKE 1 TABLET BY MOUTH THREE TIMES DAILY 02/16 Kyjessica Aranda chlorthalidone 25 mg tablet completed Take 1 tablet by mouth once a day as directed 08/07 - 02/16 Kylia Manoj diltiazem HCl 90 mg tablet completed Take 1 tablet by mouth three times a day 07/20 - 02/16 Kylia Manoj Xarelto 20 mg tablet completed Take 1 tablet by mouth once a day - 09/01 Dian Soria lisinopril 40 mg tablet completed Take 1 tablet by mouth once a day 03/18 - 02/26 Lexis Aranda chlorthalidone 25 mg tablet completed TAKE 1 TABLET BY MOUTH ONCE DAILY DIRECTED 11/19 - 08/07 Verna Rodriguez chlorthalidone 25 mg tablet completed ONE TAB. DAILY as directed 09/07 - 11/19 Ramone Barreto CEPHALEXIN 500 MG ORAL CAPSULE completed One tab 4 times a day for 10 days 12/18 - 09/07 Ramone Barreto CIPRO 500 MG ORAL TABLET completed ONE TAB TWICE DAILY x 10 days 12/18 - 09/07 Ramone Barreto replaces levofloxin DIFLUCAN 150 MG ORAL TABLET completed One tablet daily for 3 days 12/18 - 09/07 Ramone Barreto LASIX 40 MG ORAL TABLET completed 12/18 - 09/07 Ramone Barreto NOVOLOG 100 UNIT/ML SUBCUTANEOUS SOLUTION active as directed Radha Florence LANTUS SOLUTION active once a day Radha Florence CEPHALEXIN 500 MG ORAL CAPSULE completed one tablet 4 times a day for 7 days 07/26 - 07/18 Radha Flroence Atrial fibrillation triamcinolone acetonide 0.1% cream active Use once a day as needed Verna Rodriguez clobetasol 0.05% cream active once a day as needed Verna Rodriguez tizanidine 4 mg tablet active 2 every eight hours as needed Verna Rodriguez OXYCODONE HCL 20 MG ORAL TABLET completed take one pill 4 times a day - 09/07 Ramone Barreto HYDROCHLOROTHIAZID E 25 MG ORAL TABLET completed take one and one half pill a day - 09/07 Ramone Barreto Xarelto 20 mg tablet completed Take 1 tablet by mouth once a day 10/16 - Jeanine Garcia AMLODIPINE BESYLATE 10 MG ORAL TABLET completed take one pill a day - 11/19 Fanta Joseph RN diltiazem HCl 90 mg tablet completed Take 1 tablet by mouth three times a day 01/17 - 07/20 Dian Soria lisinopril 40 mg tablet completed Take 1 tablet by mouth once a day 10/11 - 03/18 Tahir Caba SOCIAL HISTORY Date Observation Value Provider smoking status Never smoker Ramone Barreto social history reviewed E&M revi ewed - no changes required Ramone Barreto social history reviewed E&M revi ewed - no changes required Manuelito Guthrie social history reviewed E&M revi ewed - no changes required Manuelito Guthrie number of grandchildren Charmaine Gurrola smoking status Never smoker Brad Gurrola social history E&M Smoking Histo ry: S moking History: P atient has never smoked. Brad Gurrola social history reviewed E&M revi ewed - no changes required Brad Gurrola social history reviewed E&M revi ewed - no changes required Charmaine Neff MD social history E&M Smoking Histo ry: Patient has never smoked. Charmaine Neff MD alcohol use no Savannah corrales smoking status Never smoker Savannah Jaramillo alcohol use no Radha Florence smoking status Never smoker Radha asencio social history reviewed E&M revi ewed - no changes required Charmaine Neff MD social history reviewed E&M revi ewed - no changes required Charmaine Neff MD social history reviewed E&M revi ewed - no changes required Charmaine Neff MD alcohol use no Verna byrnes smoking status Never smoker Verna fry FAMILY HISTORY Family Member Condition Father [place] male <55 Father Family History of Beard dden Cardiac : Father Family History of Co ngestive Heart Failure: Father Family History of Co ronary Artery Disease: Father Family History of Hy pertension: Father Family History of Hy perlipidemia: Father Family History of CV A or Stroke: Father Family History Coron ross Heart Disease male < 55: Mother Family History of Hy pertension: INSURANCE PROVIDERS Payer name Policy type / Coverage type Monica red libertarian [place] [employer] MEDICAID (2) Medicaid [id number] TREATMENT PLAN Date Name Performer [id number],S,575 lbs today Manoj Pimentel [id number],S, H is updated medication list for this problem includes: Lisinopril 40 Mg Tablet (Lisinopril) ..... Take 1 tablet by mouth once daily Manoj Crawleyri [id number],C,T he patient is using CPAP on a regular basis. The patient has been benefiting from therapy and should continue use. Manoj Aguilerainari [id number],S, Manoj Tucker lisa [id number],S, Andriy Gonzalesza i [id number],S, Andriy Tuanmedza i [id number],S, Andriy Christianza i [id number],S, Andriy Tuanmedza i [id number],C,B P was in the 130s this morning, he has been compliant on his medications. Andriy Gonzaleszai [id number],C, c ontinues on dilt, anticoagulation Andriy Gonzaleszai [id number],C, T he patient is using CPAP on a regular basis. The patient has been benefiting from therapy and should continue use. Andriy Gonzaleszai [id number],C,Has lost 50 l bs since last visit. [facility] [id number],C,I mproving according to him, has had significant weight loss. His updated medication list for this problem includes: Lisinopril 40 Mg Tablet (Lisinopril) ..... Take 1 tablet by mouth once daily [facility] [id number],C, N onfunctioning. Recommended removal. Will require coordination with transportation etc, but recommended to do as possible. Ramone Barreto [id number],C, C ompletely wheelchair dependent. Previously arrived via EMS. Weight loss guidelines reviewed with him. Ramone Estevan Telehealth [facility] Tele[facility]: H is updated medication list for this problem includes: Diltiazem Hcl 90 Mg Tablet (Diltiazem hcl) ..... Take 1 tablet by mouth three times a day Chlorthalidone 25 Mg Tablet (Chlorthalidone) ..... Take 1 tablet by mouth once a day as directed Lisinopril 40 Mg Tablet (Lisinopril) ..... Take 1 tablet by mouth once a day [facility] Telehealth: T he patient is using CPAP on a regular basis. The patient has been benefiting from therapy and should continue use. [facility] Telehealth: H is updated medication list for this problem includes: Lisinopril 40 Mg Tablet (Lisinopril) ..... Take 1 tablet by mouth once a day [facility] Telehealth:575 lbs today Manoj Margarito Telehealth: H is updated medication list for this problem includes: Lisinopril 40 Mg Tablet (Lisinopril) ..... Take 1 tablet by mouth once daily Manojdalia Pimentel Telehealth:The patie nt is using CPAP on a regular basis. The patient has been benefiting from therapy and should continue use. Manoj Pimentel Telehealth Manoj Pimentel Telehealth Andriy Lorenz Telehealth Andriy beni Telehealth Andriygage Lorenz [facility]:BP was in the 130s this morning, he has been compliant on his medications. [facility]: c ontinues on dilt, anticoagulation [facility]: T he patient is using CPAP on a regular basis. The patient has been benefiting from therapy and should continue use. [facility]:Has lost 50 lbs since last visit. [facility] Telehealth:Improving according to him, has had significant weight loss. His updated medication list for this problem includes: Lisinopril 40 Mg Tablet (Lisinopril) ..... Take 1 tablet by mouth once daily Andriy Lorenz Telehealth: N onfunctioning. Recommended removal. Will require coordination with transportation etc, but recommended to do as possible. Ramone Barreto Telehealth: C ompletely wheelchair dependent. Previously arrived via EMS. Weight loss guidelines reviewed with him. Ramone Barreto TeleHealth : E OS since 12/2017 Ramone Barreto TeleHealth : m eds adjusted in hospital, reportedly better controlled, pcpc follows His updated medication list for this problem includes: Chlorthalidone 25 Mg Oral Tablet (Chlorthalidone) ..... One tab. daily Diltiazem Hcl 90 Mg Oral Tablet (Diltiazem hcl) ..... Take 1 tablet by mouth three times daily Lisinopril 40 Mg Oral Tablet (Lisinopril) ..... Take 1 tablet by mouth once daily Ramone Barreto TeleHealth : c ontinues on dilt, anticoagulation Ramone Barreto TeleHealth : T he patient is using CPAP on a regular basis. The patient has been benefiting from therapy and should continue use. Ramone Barreto TeleHealth : I LR EOS since 12/2017 was never explanted or replaced denisha chowdhury to discuss at followup Orders: H [facility] Telemed Video ([id number]) S chedule Followup (*) His updated medication list for this problem includes: Diltiazem Hcl 90 Mg Oral Tablet (Diltiazem hcl) ..... Take 1 tablet by mouth three times daily Lisinopril 40 Mg Oral Tablet (Lisinopril) ..... Take 1 tablet by mouth once daily Ramone Barreto TeleHealth:The patie nt is using CPAP on a regular basis. The patient has been benefiting from therapy and should continue use. Manuelito Guthrie Electrophysiology: O rders: 9 9215 HIGH Complex (CPT-[id number]) Manuelito Guthrie Electrophysiology: P rior BP: 160/90 (02/08/2016) His updated medication list for this problem includes: Lasix 40 Mg Oral Tablet (Furosemide) Hydrochlorothiazide 25 Mg Oral Tablet (Hydrochlorothiazide) ..... Take one and one half pill a day Diltiazem Hcl 90 Mg Oral Tablet (Diltiazem hcl) ..... One tablet three times a day Lisinopril 40 Mg Oral Tablet (Lisinopril) ..... Take one pill a day Orders: 9 15 HIGH Complex ([id number]) Manuelito Guthrie Electrophysiology:beard gar 91 this morning H is updated medication list for this problem includes: Novolog 100 Unit/ml Subcutaneous Solution (Insulin aspart) ..... Per sliding scale Lantus Solution (Insulin glargine soln) ..... Daily Lisinopril 40 Mg Oral Tablet (Lisinopril) ..... Take one pill a day Orders: 9 9214 HIGH Complex (CPT-75080) Manuelito Guthrie Cardiology:Recommend PPM Brad K hannahe Cardiology:Recommend PPM H is updated medication list for this problem includes: Cardizem Cd 240 Mg Oral Capsule Extended Release 24 Hour (Diltiazem hcl coated beads) ..... Take one pill a day Lisinopril 40 Mg Oral Tablet (Lisinopril) ..... Take one pill a day [facility] Cardiology:Completel y wheelchair dependent. Arrived via EMS [facility] Cardiology:poorly co ntrolled His updated medication list for this problem includes: Lasix 40 Mg Oral Tablet (Furosemide) Hydrochlorothiazide 25 Mg Oral Tablet (Hydrochlorothiazide) ..... Take one and one half pill a day Cardizem Cd 240 Mg Oral Capsule Extended Release 24 Hour (Diltiazem hcl coated beads) ..... Take one pill a day Lisinopril 40 Mg Oral Tablet (Lisinopril) ..... Take one pill a day [facility] Card[facility]:wheelchair dependent. [facility] Cardiology: H is updated medication list for this problem includes: Cardizem Cd 240 Mg Oral Capsule Extended Release 24 Hour (Diltiazem hcl coated beads) ..... Take one pill a day Lisinopril 40 Mg Oral Tablet (Lisinopril) ..... Take one pill a day [facility] Cardiology faxed 02/03 09/18:His updated medication list for this problem includes: Novolog 100 Unit/ml Sc Soln (Insulin aspart) ..... Per sliding scale Lantus Soln (Insulin glargine soln) ..... Daily Lisinopril 40 Mg Tabs (Lisinopril) ..... Take one pill a day Aly [facility] Cardiology faxed 02/03 09/18:BP today: 160/90 P rior BP: 176/93 (05/18/2015) His updated medication list for this problem includes: Hydrochlorothiazide 25 Mg Tabs (Hydrochlorothiazide) ..... Take one and one half pill a day Cardizem Cd 240 Mg [id number] (Diltiazem hcl coated beads) ..... Take one pill a day Lisinopril 40 Mg Tabs (Lisinopril) ..... Take one pill a day [facility]ly [facility] Cardiology faxed 02/03 09/18:Orders: Sleep Study Titration (*) Aly Zhang Cardiology faxed 02/03 09/18:Continues on Xarelto 20mg. Monitored by ILR. Aly Zhang EP follow up faxed 07/24/14 [phone] Charmaine Neff MD EP follow up faxed [phone]: H is updated medication list for this problem includes: Hydrochlorothiazide 25 Mg Tabs (Hydrochlorothiazide) ..... Take one pill a day Amlodipine Besylate 10 Mg Tabs (Amlodipine besylate) ..... Take one pill a day Cardizem Cd 240 Mg [id number] (Diltiazem hcl coated beads) ..... Take one pill a day Lisinopril 40 Mg Tabs (Lisinopril) ..... Take one pill a day Orders: Rojelio KG (CPT-[id number]) BP today: 178/96 P rior BP: 142/86 (05/26/2014) Charmaine Neff MD hos follow up - ILR: no prolonged pauses on ILR H is updated medication list for this problem includes: Hydrochlorothiazide 25 Mg Tabs (Hydrochlorothiazide) ..... Take one pill a day Orders: Lizzy narvaez No Charge ([id number]) e Prescribe - Check this box if eRx is used ([id number]) Charmaine Neff MD hos follow up - ILR: H is updated medication list for this problem includes: Hydrochlorothiazide 25 Mg Tabs (Hydrochlorothiazide) ..... Take one pill a day Amlodipine Besylate 10 Mg Tabs (Amlodipine besylate) ..... Take one pill a day Cardizem Cd 240 Mg [id number] (Diltiazem hcl coated beads) ..... Take one pill a day Lisinopril 40 Mg Tabs (Lisinopril) ..... Take one pill a day Charmaine Neff MD pre-op for ILR:may n eed to stop H is updated medication list for this problem includes: Hydrochlorothiazide 25 Mg Tabs (Hydrochlorothiazide) ..... Take one pill a day Amlodipine Besylate 10 Mg Tabs (Amlodipine besylate) ..... Take one pill a day Cardizem Cd 240 Mg [id number] (Diltiazem hcl coated beads) ..... Take one pill a day Lisinopril 40 Mg Tabs (Lisinopril) ..... Take one pill a day BP today: 165/74 P rior BP: 148/94 (04/13/2014) Charmaine Neff MD pre-op for ILR:brianna frances dizziness and fatigue - likely has prolonged pauses -event recorder 1 week duration - start now, if none documented would recommend the ILR implantation on 05/16/2014 at [facility] at 8 AM Charmaine Neff MD pre-op for ILR Charmaine roberts MD pre-op for ILR Charmaine roberts MD pre-op for ILR: H is updated medication list for this problem includes: Hydrochlorothiazide 25 Mg Tabs (Hydrochlorothiazide) ..... Take one pill a day Amlodipine Besylate 10 Mg Tabs (Amlodipine besylate) ..... Take one pill a day Cardizem Cd 240 Mg [id number] (Diltiazem hcl coated beads) ..... Take one pill a day Lisinopril 40 Mg Tabs (Lisinopril) ..... Take one pill a day BP today: 165/74 P rior BP: 148/94 (04/13/2014) Charmaine Neff MD pre-op for ILR: H is updated medication list for this problem includes: Hydrochlorothiazide 25 Mg Tabs (Hydrochlorothiazide) ..... Take one pill a day Amlodipine Besylate 10 Mg Tabs (Amlodipine besylate) ..... Take one pill a day Cardizem Cd 240 Mg [id number] (Diltiazem hcl coated beads) ..... Take one pill a day Lisinopril 40 Mg Tabs (Lisinopril) ..... Take one pill a day Charmaine Neff MD New Patient : O rders: C palmira Lopez (CPT-[id number]) Charmaine Neff MD New Patient : H is updated medication list for this problem includes: Hydrochlorothiazide 25 Mg Tabs (Hydrochlorothiazide) ..... Take one pill a day Amlodipine Besylate 10 Mg Tabs (Amlodipine besylate) ..... Take one pill a day Cardizem Cd 240 Mg [id number] (Diltiazem hcl coated beads) ..... Take one pill a day Lisinopril 40 Mg Tabs (Lisinopril) ..... Take one pill a day Orders: E KG ([id number]) C palmira Lopez ([id number]) Charmaine Neff MD New Patient Charmaine roberts MD New Patient : H is updated medication list for this problem includes: Hydrochlorothiazide 25 Mg Tabs (Hydrochlorothiazide) ..... Take one pill a day Orders: E KG ([id number]) Angelo Lopez ([id number]) Radames chedule Followup (*) Charmaine Neff MD Date Name Monitor - Telemetry (Mobile Cardiac) Complete Echo Complete Echo URINALYSIS, COMPLETE W/REFLEX TO CULTURE Partial Thromboplast in Time, Activated PROTHROMBIN TIME WIT H INR CBC (INCLUDES DIFF/P LT) Sleep Study Titratio n Complete Echo Complete Echo Mobile Cardiac Tele Loop Rec Implant - C NE Holter Monitor 24 Hr Complete Echo HISTORY OF PROCEDURES Procedure Date Procedure Name Provider Procedure Notes S tatus Schedule Followup Charmaine good MD 6 months in person, pt should be vaccinated by then completed Loop Recorder Interrogation, Remote Charmaine Neff MD INTERROGATION EVALUATION REMOTE </30 D ILR SYS completed ICM Interrogation, Remote (Tech) Saulius Kalvaitis MD INTERROGATION EVAL REMOTE </30 D TECH REVIEW completed Schedule Followup Charmaine good MD let me see the patient in fu in next several weeks completed Loop Recorder Interrogation, Remote Saulius Kalvaitis MD INTERROGATION EVALUATION REMOTE </30 D ILR SYS completed ICM Interrogation, Remote (Tech) Saulius Kalvaitis MD INTERROGATION EVAL REMOTE </30 D TECH REVIEW completed Loop Recorder Interrogation, Remote Saulius Kalvaitis MD INTERROGATION EVALUATION REMOTE </30 D ILR SYS completed ICM Interrogation, Remote (Tech) Saulius Kalvaitis MD INTERROGATION EVAL REMOTE </30 D TECH REVIEW completed Loop Recorder Interrogation, Remote Saulius Kalkrisitis MD INTERROGATION EVALUATION REMOTE </30 D ILR SYS completed ICM Interrogation, Remote (Tech) Saulius Kalvaitis MD INTERROGATION EVAL REMOTE </30 D TECH REVIEW completed Loop Recorder Interrogation, Remote ulius Tawanda GARRETT completed ICM Interrogation, Remote (Tech) Saulius Tawanda GARRETT completed Loop Recorder Interrogation, Remote Saulius Kalvaitis INTERROGATION EVALUATION REMOTE </30 D ILR SYS completed ICM Interrogation, Remote (Tech) Saulius Kalvaitis MD INTERROGATION EVAL REMOTE </30 D TECH REVIEW completed Loop Recorder Interrogation, Remote Saulius Kalvaitis MD INTERROGATION EVALUATION REMOTE </30 D ILR SYS completed ICM Interrogation, Remote (Tech) Saulius Kalvaitis MD INTERROGATION EVAL REMOTE </30 D TECH REVIEW completed Loop Recorder Interrogation, Remote Saulius Kalvaitis MD INTERROGATION EVALUATION REMOTE </30 D ILR SYS completed ICM Interrogation, Remote (Tech) Saulius Kalvaitis MD INTERROGATION EVAL REMOTE </30 D TECH REVIEW completed Loop Recorder Interrogation, Remote Saulius Kalvaitis MD INTERROGATION EVALUATION REMOTE </30 D ILR SYS completed ICM Interrogation, Remote (Tech) Saulius Kalvaitis MD INTERROGATION EVAL REMOTE </30 D TECH REVIEW completed Loop Recorder Interrogation, Remote Saulius Kalvaitis MD INTERROGATION EVALUATION REMOTE </30 D ILR SYS completed ICM Interrogation, Remote (Tech) Saulius Kalvaitis MD INTERROGATION EVAL REMOTE </30 D TECH REVIEW completed Loop Recorder Interrogation, Remote Saulius Kalvaitis MD INTERROGATION EVALUATION REMOTE </30 D ILR SYS completed ICM Interrogation, Remote (Tech) Saulius Kalvaitis MD INTERROGATION EVAL REMOTE </30 D TECH REVIEW completed Loop Recorder Interrogation, Remote Saulius Kalvaitis MD INTERROGATION EVALUATION REMOTE </30 D ILR SYS completed ICM Interrogation, Remote (Tech) Saulius Kalvaitis MD INTERROGATION EVAL REMOTE </30 D TECH REVIEW completed Loop Recorder Interrogation, Remote Saulius Kalvaitis MD INTERROGATION EVALUATION REMOTE </30 D ILR SYS completed ICM Interrogation, Remote (Tech) Saulius Kalvaitis MD INTERROGATION EVAL REMOTE </30 D TECH REVIEW completed Loop Recorder Interrogation, Remote Saulius Kalvaitis MD INTERROGATION EVALUATION REMOTE </30 D ILR SYS completed ICM Interrogation, Remote (Tech) Saulius Kalvaitis MD INTERROGATION EVAL REMOTE </30 D TECH REVIEW completed Loop Recorder Interrogation, Remote Saulius Kalvaitis MD INTERROGATION EVALUATION REMOTE </30 D ILR SYS completed ICM Interrogation, Remote (Tech) Saulius Kalvaitis MD INTERROGATION EVAL REMOTE </30 D TECH REVIEW completed Loop Recorder Interrogation, Remote Saulius Kalvaitis MD INTERROGATION EVALUATION REMOTE </30 D ILR SYS completed ICM Interrogation, Remote (Tech) Saulius Kalvaitis MD INTERROGATION EVAL REMOTE </30 D TECH REVIEW completed Loop Recorder Interrogation, Remote Saulius Kalvaitis MD INTERROGATION EVALUATION REMOTE </30 D ILR SYS completed ICM Interrogation, Remote (Tech) Saulius Kalvaitis MD INTERROGATION EVAL REMOTE </30 D TECH REVIEW completed Loop Recorder Interrogation, Remote Saulius Kalvaitis MD INTERROGATION EVALUATION REMOTE </30 D ILR SYS completed ICM Interrogation, Remote (Tech) Saulius Kalvaitis MD INTERROGATION EVAL REMOTE </30 D TECH REVIEW completed Loop Recorder Interrogation, Remote Saulius Kalvaitis MD INTERROGATION EVALUATION REMOTE </30 D ILR SYS completed ICM Interrogation, Remote (Tech) Saulius Kalvaitis MD INTERROGATION EVAL REMOTE </30 D TECH REVIEW completed SNOMED-CT: 31994034 Physical Exam, Performed: Pulse Exam of Foot Charmaine Neff MD completed SNOMED-CT: [id number] Current Medications Documented Charmaine Neff MD completed Loop Recorder Interrogation, Remote Saulius Kalvaitis MD INTERROGATION EVALUATION REMOTE </30 D ILR SYS completed ICM Interrogation, Remote (Tech) Saulius Kalvaitis MD INTERROGATION EVAL REMOTE </30 D TECH REVIEW completed Loop Recorder Interrogation, Remote Saulius Kalvaitis MD INTERROGATION EVALUATION REMOTE </30 D ILR SYS completed ICM Interrogation, Remote (Tech) Saulius Kalvaitis MD INTERROGATION EVAL REMOTE </30 D TECH REVIEW completed Loop Recorder Interrogation, Remote Saulius Kalvaitis MD INTERROGATION EVALUATION REMOTE </30 D ILR SYS completed ICM Interrogation, Remote (Tech) Saulius Kalvaitis MD INTERROGATION EVAL REMOTE </30 D TECH REVIEW completed Loop Recorder Interrogation, Remote Saulius Kalvaitis MD INTERROGATION EVALUATION REMOTE </30 D ILR SYS completed ICM Interrogation, Remote (Tech) Saulius Kalvaitis MD INTERROGATION EVAL REMOTE </30 D TECH REVIEW completed Loop Recorder Interrogation, Remote Saulius Kalvaitis MD INTERROGATION EVALUATION REMOTE </30 D ILR SYS completed ICM Interrogation, Remote (Tech) Saulius Kalvaitis MD INTERROGATION EVAL REMOTE </30 D TECH REVIEW completed Loop Recorder Interrogation, Remote Saulius Kalvaitis MD INTERROGATION EVALUATION REMOTE </30 D ILR SYS completed ICM Interrogation, Remote (Tech) Saulius Kalvaitis MD INTERROGATION EVAL REMOTE </30 D TECH REVIEW completed Loop Recorder Interrogation, Remote Saulius Kalvaitis MD INTERROGATION EVALUATION REMOTE </30 D ILR SYS completed ICM Interrogation, Remote (Tech) Saulius Kalvaitis MD INTERROGATION EVAL REMOTE </30 D TECH REVIEW completed Loop Recorder Interrogation, Remote Saulius Kalvaitis MD INTERROGATION EVALUATION REMOTE </30 D ILR SYS completed ICM Interrogation, Remote (Tech) Saulius Kalvaitis MD INTERROGATION EVAL REMOTE </30 D TECH REVIEW completed Schedule Followup ulius Bishop good MD in 6 months completed SNOMED-CT: [id number] Current Medications Documented Saulius Tawanda GARRETT completed Loop Recorder Interrogation, Remote Saulius Kalvaitis INTERROGATION EVALUATION REMOTE </30 D ILR SYS completed ICM Interrogation, Remote (Tech) Saulius Kalvaitis MD INTERROGATION EVAL REMOTE </30 D TECH REVIEW completed Loop Recorder Interrogation, Remote Saulius Kalvaitis MD INTERROGATION EVALUATION REMOTE </30 D ILR SYS completed ICM Interrogation, Remote (Tech) Saulius Kalvaitis MD INTERROGATION EVAL REMOTE </30 D TECH REVIEW completed Loop Recorder Interrogation, Remote Saulius Kalvaitis MD INTERROGATION EVALUATION REMOTE </30 D ILR SYS completed ICM Interrogation, Remote (Tech) Saulius Kalvaitis MD INTERROGATION EVAL REMOTE </30 D TECH REVIEW completed Loop Recorder Interrogation, Remote Saulius Kalvaitis MD INTERROGATION EVALUATION REMOTE </30 D ILR SYS completed ICM Interrogation, Remote (Tech) Charmaine Neff MD INTERROGATION EVAL REMOTE </30 D TECH REVIEW completed Loop Recorder Interrogation, Remote Charmaine Neff MD INTERROGATION EVALUATION REMOTE </30 D ILR SYS completed ICM Interrogation, Remote (Tech) Charmaine Neff MD INTERROGATION EVAL REMOTE </30 D TECH REVIEW completed Schedule Followup Charmaine good MD fu with [facility] in 6 months completed EKG Charmaine roberts MD completed ePrescribe - Check t his box if eRx is used Charmaine Neff MD completed EKG Charmaine roberts MD completed EKG Charmaine roberts MD completed Schedule Followup Charmanie good MD fu in 2 weeks with [facility] completed EKG Charmaine roberts MD completed
[2024-08-06 08:50] LABS: Basophils Absolute Auto 0.1 K/mm3 (0.0-0.1); Basophils Percent Auto 0.3 % (0.2-1.2); Eosinophils Absolute Auto 0.2 K/mm3 (0-0.3); Eosinophils Percent Auto 1.2 % (0-4.4); Hematocrit 38.4 % (42.0-52.0); Hemoglobin 12.4 g/dL (14.0-18.0); Immature Granulocyte Absolute 0.14 K/mm3 (0.00-0.031); Immature Granulocyte Percent A 0.9 % (0-0.5); Lymphocytes Absolute Auto 1.52 K/mm3 (0.9-3.2); Lymphocytes Percent Auto 9.8 % (18.3-44.2); Mean Corpuscular HGB Conc 32.3 g/dl (32-36); Mean Corpuscular Hemoglobin 27.6 pg (26-34); Mean Corpuscular Volume 85.5 fl (80-100); Mean Platelet Volume 10.5 fl (7.4-10.4); Monocytes Absolute Auto 1.1 K/mm3 (0.1-0.6); Monocytes Percent Auto 7.3 % (2.6-8.5); Neutrophils Absolute Auto 12.5 K/mm3 (1.3-6.7); Neutrophils Percent Auto 80.5 % (45.5-73.1); Platelet Count Result 345 k/mm3 (150-375); Red Blood Count 4.49 M/mm3 (4.6-6.20); Red Cell Distribution Width 12.4 % (11.5-14.5); White Blood Count 15.6 K/mm3 (4.5-10.0)
[2024-08-06 09:04] LABS: Lactic Acid Reflex 1.9 mmol/L (0.7-2.0)
[2024-08-06 09:04] LABS: Add Urine Microscopic? YES; Appearance Urine Cloudy (Clear); Bacteria Urine None Seen /hpf; Bilirubin Urine 1+ (Negative); Blood Urine Trace (Negative); Color Urine Dark Yellow (Yellow); Glucose Urine UA 3+ mg/dL (Negative); Ketones Urine Trace mg/dL (Negative); Leukocyte Esterase Ur 1+ LEU/UL (Negative); Need Manual Microscopic Reviewed; Nitrate Urine Negative (Negative); Protein Urine 1+ mg/dL (Negative); RBC Urine 21-50 /hpf (0-2); Specific Grav Ur 1.027 (1.001-1.035); Squamous Epithelial Cell Urine None Seen /hpf (Few); WBC Urine >100 /hpf (0-3); pH Urine 5.5 (5.0-9.0)
[2024-08-06 09:10] LABS: INR 1.8; Partial Thromboplastin Time 34.6 Seconds (22.3-36.8); Prothrombin Time 21.6 Seconds (11.1-14.7)
[2024-08-06 09:11] LABS: Alanine Aminotransferase 16 U/L (6-50); Albumin Level 3.2 g/dL (3.5-5.1); Alkaline Phosphatase 91 U/L (38-126); Anion Gap 8 mmol/L (4-12); Aspartate Amino Transferase 15 U/L (17-59); Bilirubin,Total 1.4 mg/dL (0.2-1.3); Blood Urea Nitrogen 21 mg/dL (9-20); Calcium 8.3 mg/dL (8.4-10.2); Carbon Dioxide 28 mmol/L (22-30); Chloride 92 mmol/L (98-107); Estimated CRCL calculation 208 ml/min; Estimated Glomerular Filt Rate > 60; Glucose 313 mg/dL (65-110); Potassium 3.7 mmol/L (3.4-5.0); Sodium 128 mmol/L (137-145)
[2024-08-06 09:27] LABS: CRP 24.5 mg/dL (<1.0)
[2024-08-06] MEDS: ONDANSETRON INJ 4 MG/2 ML VIAL IV PUSH (10:06)
[2024-08-06] MEDS: HYDROmorphone HCL INJ (*CRX) 1 MG/ML SYR 0.5 MG IV PUSH ×2 (10:06→20:01)
[2024-08-06] MEDS: cefTRIAXone 1 GM/NS 50 ML BAG IVPB (10:06)
[2024-08-06] MEDS: LACTATED RINGERS 1,000 ML 125 ML IV CONT ×2 (10:48→17:53)
[2024-08-06] MEDS: VANCOMYCIN 1,250 MG/NS 250 ML 1,250 MG/250 ML BAG 166.67 MG IVPB ×2 (10:52→12:24)
[2024-08-06] MEDS: INSULIN HUMAN REGULAR (*BKC) 100 UNITS/ML 10 UNITS IV PUSH (10:56)
--- NOTE | 2024-08-06 11:01 | PC.NURSE ---
EDP made aware of low BP, per EDP Dr Kiran VALENZUELA LR to be hung by gravity. Pt is alert and aware of POC. Fluids infusing.
--- NOTE | 2024-08-06 11:52 | P.CONGS_ITS ---
Assessment and Plan Assessment and plan (1) Sepsis: Qualifiers: Sepsis acute organ dysfunction status: without acute organ dysfunction Sepsis type: sepsis due to unspecified organism Qualified Code(s): A41.9 - Sepsis, unspecified organism Code(s): A41.9 - Sepsis, unspecified organism Status: Acute Assessment and Plan: admitted to the Medical Service, continue IV antibiotics for UTI and likely urosepsis, resuscitation (2) Acute UTI: Code(s): N39.0 - Urinary tract infection, site not specified Status: Acute Assessment and Plan: see above (3) Wound of left buttock: Code(s): S31.829A - Unspecified open wound of left buttock, initial encounter Status: Acute Assessment and Plan: no obvious drainable area on exam, difficult exam given body habitus, will order ultrasound of the area for further evaluation History of Present Illness Consult details Consult date: 08/06/24 Reason for consult: wound care Requesting physician: Raúl Beck MD Narrative: The patient is a 44-year-old male with multiple medical issues presenting to the emergency department complaining of painful, burning urination. The patient with multiple medical issues including morbid obesity and largely immobility. The patient also reports a wound on his left buttock over the last week. The patient reports he has noticed some yellowish drainage over the last day or so. The patient reports that he has been very weak over the last few days. Workup in the emergency department is significant for sepsis likely secondary to UTI. Review of Systems 2 Review of Systems: All systems reviewed & are unremarkable except as noted in HPI and below PMFSH Past Medical History Medical History Chronic anemia Fourniers gangrene (~2014) He underwent extensive debridement in 3 separate surgeries and was on the ventilator for about a week. He was discharged to an LTAC after he left [place] and was on a wound VAC for approximately 60 days. Morbid obesity He has been bed-bound for nearly 3 years. Peripheral neuropathy Due to diabetes and spinal stenosis. Spinal stenosis Obstructive sleep apnea on CPAP Insulin dependent type 2 diabetes mellitus Hemoglobin A1c was 7.8% on 04/2021. 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 History of tonsillectomy Family History Family History Father Patient's father is Diabetes mellitus Acute myocardial infarction Mother COPD (chronic obstructive pulmonary disease) Social History Social History Social History: The patient lives in his own house in [place], [place]. He has a community outreach manager that comes to the home for 8 hours a day. He has an aunt and uncle that live next to him who help with his care as well. He designates his mother and his aunt, Kailyn, as his surrogate decision makers. He wishes to be a full code. He denies alcohol, tobacco, and drug use. His brother also comes and stays with him 5 days a week that is care. Primary care physician: Physician at [facility] care Smoking status: Never smoker Alcohol intake: never Substance use: never Gender identity (if verbalized by the patient): Male Spiritual care concerns: No Agree to blood products: Yes Meds Home Medications and Allergies Home Medications ?Medication ?Instructions ?Recorded ?Confirmed ?Type chlorthalidone 25 mg tablet 25 mg PO DAILY 11/09/19 06/11/21 History diltiazem HCl 90 mg tablet 90 mg PO TID 11/09/19 08/06/24 History lisinopril 40 mg tablet 40 mg PO DAILY 11/09/19 08/06/24 History rivaroxaban 20 mg tablet (Xarelto) 20 mg PO DAILY 11/09/19 08/06/24 History insulin glargine 100 unit/mL 15 unit subcut QPM ##0 11/10/19 08/06/24 History subcutaneous solution (Lantus U-100 Insulin) insulin glulisine U-100 100 See Protocol subcut USEASDIRECTD 11/10/19 08/06/24 History unit/mL subcutaneous solution ##0 (Apidra U-100 Insulin) gabapentin 100 mg capsule 300 mg PO TID 01/01/20 08/06/24 History clindamycin HCl 300 mg capsule 300 mg PO Q8H 5 days #15 caps 06/14/21 Rx metronidazole 375 mg capsule 375 mg PO Q8H 10 days #30 caps 06/14/21 Rx (Flagyl) amlodipine 5 mg tablet 5 mg PO DAILY #30 tabs 06/15/21 Rx Allergies Allergy/AdvReac Type Severity Reaction Status Date / Time No Known Allergies Allergy Verified 08/06/24 08:20 Vital Signs Vital Signs - 24 hr 08/06/24 08:08 08/06/24 09:46 08/06/24 10:41 Temperature 37.0 C Pulse Rate 91 118 H 78 Respiratory Rate 20 20 20 Blood Pressure 114/86 126/109 H Pulse Oximetry 98 99 99 Oxygen Delivery Room Air 08/06/24 11:00 Temperature Pulse Rate 121 H Respiratory Rate 17 Blood Pressure 85/55 L Pulse Oximetry 100 Oxygen Delivery Exam 2 Const: General: cooperative, no acute distress, ill appearing and obese HENMT: Head: normal to inspection, normocephalic and atraumatic Eyes: General: appearance normal, both eyes and all related structures Neck: Neck: normal visual inspection, full ROM and no lymphadenopathy Resp: Auscultation: diminished lung sounds Cardio: Rate: regular rate Rhythm: regular rhythm GI: Inspection: normal to inspection and obesity GI Palp: No abdominal tenderness and Yes Soft to palpation Skin: Other: Left buttock- area of excoriation measuring 6 x 4 cm, no drainage, no fluctuance, mild induration Neuro: General: patient oriented x3 and CN's II-XI intact bilaterally Extrem: General: normal to inspection and full ROM Psych: Appearance: grossly normal Results Labs 08/06/24 08:39 08/06/24 08:39 Labs: Abnormal lab results 08/06/24 08/06/24 Range/Units 08:25 08:39 WBC 15.6 H (4.5-10.0) K/mm3 RBC 4.49 L (4.6-6.20) M/mm3 Hgb 12.4 L (14.0-18.0) g/dL Hct 38.4 L (42.0-52.0) % MPV 10.5 H (7.4-10.4) fl Immature Gran % (Auto) 0.9 H (0-0.5) % Neut % (Auto) 80.5 H (45.5-73.1) % Lymph % (Auto) 9.8 L (18.3-44.2) % [place] # (Auto) 1.1 H (0.1-0.6) K/mm3 Abs Immat Gran (auto) 0.14 H (0.00-0.031) K/mm3 Absolute Neuts (auto) 12.5 H (1.3-6.7) K/mm3 PT 21.6 H (11.1-14.7) Seconds Sodium 128 L (137-145) mmol/L Chloride 92 L (98-107) mmol/L BUN 21 H D (9-20) mg/dL Glucose 313 H (65-110) mg/dL Calcium 8.3 L (8.4-10.2) mg/dL Total Bilirubin 1.4 H (0.2-1.3) mg/dL AST 15 L (17-59) U/L C-Reactive Protein 24.5 H (<1.0) mg/dL Albumin 3.2 L (3.5-5.1) g/dL Urine Appearance Cloudy H (Clear) Urine Protein 1+ H (Negative) mg/dL Urine Glucose (UA) 3+ H (Negative) mg/dL Urine Ketones Trace H (Negative) mg/dL Urine Bilirubin 1+ H (Negative) Urine Urobilinogen 2.0 H (<2.0) mg/dL Leukocyte Esterase Rfl 1+ H (Negative) ARASH/UL Urine RBC 21-50 H (0-2) /hpf Urine WBC >100 H (0-3) /hpf Diabetes panel 08/06/24 Range/Units 08:39 Sodium 128 L (137-145) mmol/L Potassium 3.7 (3.4-5.0) mmol/L Chloride 92 L (98-107) mmol/L Carbon Dioxide 28 (22-30) mmol/L BUN 21 H D (9-20) mg/dL Creatinine 0.81 (0.7-1.3) mg/dL Glucose 313 H (65-110) mg/dL Calcium 8.3 L (8.4-10.2) mg/dL AST 15 L (17-59) U/L ALT 16 (6-50) U/L Alkaline Phosphatase 91 (38-126) U/L Total Protein 7.0 (6.3-8.2) g/dL Albumin 3.2 L (3.5-5.1) g/dL Calcium panel 08/06/24 Range/Units 08:39 Calcium 8.3 L (8.4-10.2) mg/dL Albumin 3.2 L (3.5-5.1) g/dL Pituitary panel 08/06/24 Range/Units 08:39 Sodium 128 L (137-145) mmol/L Potassium 3.7 (3.4-5.0) mmol/L Chloride 92 L (98-107) mmol/L Carbon Dioxide 28 (22-30) mmol/L BUN 21 H D (9-20) mg/dL Creatinine 0.81 (0.7-1.3) mg/dL Glucose 313 H (65-110) mg/dL Calcium 8.3 L (8.4-10.2) mg/dL Adrenal panel 08/06/24 Range/Units 08:39 Sodium 128 L (137-145) mmol/L Potassium 3.7 (3.4-5.0) mmol/L Chloride 92 L (98-107) mmol/L Carbon Dioxide 28 (22-30) mmol/L BUN 21 H D (9-20) mg/dL Creatinine 0.81 (0.7-1.3) mg/dL Glucose 313 H (65-110) mg/dL Calcium 8.3 L (8.4-10.2) mg/dL Total Bilirubin 1.4 H (0.2-1.3) mg/dL AST 15 L (17-59) U/L ALT 16 (6-50) U/L Alkaline Phosphatase 91 (38-126) U/L Total Protein 7.0 (6.3-8.2) g/dL Albumin 3.2 L (3.5-5.1) g/dL All other labs normal.
[2024-08-06] MEDS: SODIUM CHLORIDE 0.9% IV 1,000 ML 999 ML IV CONT ×2 (12:13→15:04)
[2024-08-06 12:15] LABS: Glucose Point of Care 262 mg/dl (65-105)
--- NOTE | 2024-08-06 12:43 | PM.IMHP ---
H&P: HPI History of Present Illness Date/Time: 08/06/24 12:43 Chief Complaint: Hematuria Narrative: 44 y/o M presents here with hematuria with PMH of anemia, Shahbaz's gangrene (2014), JANEY, diabetes, hypertension, spinal stenosis, and chronic AFib on anticoagulation. The patient presents here from home via EMS for further evaluation of hematuria. The patient reports he has been experiencing hematuria for the past couple days. Initially was light yellow but has been progressively becoming darker and now has sediment. This is accompanied by dysuria, hot/cold flashes, and reduced urine output. Patient also reports constipation, lack of appetite, and bloating. Last bowel movement was approximately 1 week ago and hard/small. Patient has taken a few doses of stool softener and one dose of Miralax without relief. The patient also reports he has been experiencing pain to his left buttock that started 2-3 days ago. States that it feels like there is knot to this same region. He describes the pain as nonradiating, constant. Pain is accompanied by a drainage that he described as blood/purulence that began this morning. Initial VS at presentation: 98.6? F, HR 91, R 20, 114/86, 98% on RA. ED workup showed: WBC 15.6, hemoglobin 12.4 (previously 12.0 in 2020), INR 1.8, creatinine 0.81 and GFR >60, glucose 313, CRP 24.5, and UA suspicious for UTI. Abdominal x-ray showed normal bowel gas pattern. Review of Systems Review of Systems: All systems reviewed & are unremarkable except as noted in HPI and below PMFSH Past Medical History Medical History Chronic anemia Fourniers gangrene (~2014) He underwent extensive debridement in 3 separate surgeries and was on the ventilator for about a week. He was discharged to an LTAC after he left [place] and was on a wound VAC for approximately 60 days. Morbid obesity He has been bed-bound for nearly 3 years. Peripheral neuropathy Due to diabetes and spinal stenosis. Spinal stenosis Obstructive sleep apnea on CPAP Insulin dependent type 2 diabetes mellitus Hemoglobin A1c was 7.8% on 04/2021. 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 History of tonsillectomy Family History Family History Father Diabetes mellitus Acute myocardial infarction Patient's father is Mother COPD (chronic obstructive pulmonary disease) Mother Acute myocardial infarction Social History Social History Social History: The patient lives in his own house in [place], [place]. He has a gang ripsaw operator that comes to the home for 8 hours a day. He has an aunt and uncle that live next to him who help with his care as well. He designates his mother and his aunt, Kailyn, as his surrogate decision makers. He wishes to be a full code. He denies alcohol, tobacco, and drug use. His brother also comes and stays with him 5 days a week that is care. Primary care physician: Physician at [facility] care Smoking status: Never smoker Alcohol intake: never Substance use: never Do You Feel Safe in your Home?: Yes Lack of Transportation: No Lack of Food: Never True Current Housing: I Have Housing Concerned About Future Housing: No Difficulty Paying Gas/Electric Bills: No Difficulty Paying for Meds: No Currently Unemployed: No Education: High School Diploma/GED Difficulty w/ Childcare or Family Care: No Gender identity (if verbalized by the patient): Male Spiritual care concerns: No Agree to blood products: Yes Meds Home Medications and Allergies Home Medications ?Medication ?Instructions ?Recorded ?Confirmed ?Type chlorthalidone 25 mg tablet 25 mg PO DAILY 11/09/19 08/06/24 History diltiazem HCl 90 mg tablet 90 mg PO TID 11/09/19 08/06/24 History lisinopril 40 mg tablet 40 mg PO DAILY 11/09/19 08/06/24 History rivaroxaban 20 mg tablet (Xarelto) 20 mg PO DAILY 11/09/19 08/06/24 History insulin glargine 100 unit/mL 15 unit subcut QPM ##0 11/10/19 08/06/24 History subcutaneous solution (Lantus U-100 Insulin) insulin glulisine U-100 100 See Protocol subcut USEASDIRECTD 11/10/19 08/06/24 History unit/mL subcutaneous solution ##0 (Apidra U-100 Insulin) gabapentin 100 mg capsule 300 mg PO TID 01/01/20 08/06/24 History Allergies Allergy/AdvReac Type Severity Reaction Status Date / Time No Known Allergies Allergy Verified 08/06/24 08:20 Vital Signs Vital Signs - 24 hr 08/06/24 08:08 08/06/24 09:46 08/06/24 10:41 Temperature 98.6 F Pulse Rate 91 118 H 78 Respiratory Rate 20 20 20 Blood Pressure 114/86 126/109 H Pulse Oximetry 98 99 99 Oxygen Delivery Room Air 08/06/24 11:00 Temperature Pulse Rate 121 H Respiratory Rate 17 Blood Pressure 85/55 L Pulse Oximetry 100 Oxygen Delivery Exam Const: General: comfortable and no acute distress Other: , male, obese body habitus HENMT: Face/Nose/Sinus: Normal nares present Mouth: Yes moist mucous membranes Eyes: General: appearance normal, both eyes and all related structures Sclera: sclerae normal Pupils: Equal, round and reactive pupils present EOM: EOMs intact bilaterally Resp: Effort & Inspection: normal respiratory effort Auscultation: clear to auscultation bilaterally Cardio: Rate: regular rate Rhythm: regular rhythm Other: S1-S2 present without murmur, rub, ectopy GI: Other: Abdomen soft, nondistended, nontender. Urinary Catheter: Urinary Catheter: patent and draining Skin: General skin exam: normal color and no rashes or lesions noted Wounds: wounds noted Other: shallow wound proximal to coccyx with weeping, no active purulent drainage, pink wound bed. Neuro: Speech: normal speech Motor exam (neuro): 5/5 motor strength present throughout Sensory Exam: normal sensation Other: A&O 4 Extrem: General: normal exam except as noted Other: minimally blanchable hyperpigmentation to BLE. Trace nonpitting edema. Psych: Mental Status: mental status grossly normal Affect: normal affect Other: Good insight and judgment, pleasant H&P: Results Labs Labs: Short CBC 08/06/24 Range/Units 08:39 WBC 15.6 H (4.5-10.0) K/mm3 Hgb 12.4 L (14.0-18.0) g/dL Hct 38.4 L (42.0-52.0) % Plt Count 345 (150-375) k/mm3 BMP 08/06/24 08:39 Sodium 128 L Potassium 3.7 Chloride 92 L Carbon Dioxide 28 BUN 21 H D Creatinine 0.81 Glucose 313 H Calcium 8.3 L Liver Function 08/06/24 Range/Units 08:39 Total Bilirubin 1.4 H (0.2-1.3) mg/dL AST 15 L (17-59) U/L ALT 16 (6-50) U/L Alkaline Phosphatase 91 (38-126) U/L Albumin 3.2 L (3.5-5.1) g/dL Urine 08/06/24 Range/Units 08:25 Urine Color Dark yellow (Yellow) Urine Appearance Cloudy H (Clear) Urine pH 5.5 (5.0-9.0) Ur Specific [place] 1.027 (1.001-1.035) Urine Protein 1+ H (Negative) mg/dL Urine Glucose (UA) 3+ H (Negative) mg/dL Assessment and Plan Assessment and plan (1) Sepsis: Qualifiers: Sepsis acute organ dysfunction status: without acute organ dysfunction Sepsis type: sepsis due to unspecified organism Qualified Code(s): A41.9 - Sepsis, unspecified organism Code(s): A41.9 - Sepsis, unspecified organism Status: Acute Assessment and Plan: - meets SIRS criteria: HR, WBC. +hypotension -> PICC line to be inserted, possible pressors post 3L bolus. - lactic acid: 1.9 - 30 mL/kg = 6.9L, patient received 3L bolus -> 125 mL/hr - suspected source: UTI, buttock wound - started on vancomycin and ceftriaxone on 08/06 - blood cultures drawn on 08/06 - UA suspicious for UTI, see below - abdominal XR: Normal bowel gas pattern - monitor hemodynamic stability (2) UTI (urinary tract infection): Qualifiers: Hematuria presence: without hematuria Urinary tract infection type: site unspecified Qualified Code(s): N39.0 - Urinary tract infection, site not specified Code(s): N39.0 - Urinary tract infection, site not specified Status: Acute Assessment and Plan: - UA: Cloudy, 1+ protein, 3+ glucose, trace ketones, 1+ bilirubin, 2.0 urobilinogen, 1+ leuks, 21-50 RBC, greater than 100 WBC, no epithelial cells, no bacteria. - UC pending, follow - previous micro reviewed, no previous resistances - started on Ceftriaxone on 08/06 (3) Wound of left buttock: Qualifiers: Encounter type: initial encounter Qualified Code(s): S31.829A - Unspecified open wound of left buttock, initial encounter Code(s): S31.829A - Unspecified open wound of left buttock, initial encounter Status: Acute Assessment and Plan: - wound RN consulted - general surgery consulted, Kapil GARRETT provided the following recs: US - vancomycin initiated on 08/06 (4) Diabetes mellitus: Qualifiers: Diabetes mellitus type: type 2 Diabetes mellitus termite exterminator helper insulin use: with termite exterminator helper use Diabetes mellitus complication status: with hyperglycemia Qualified Code(s): E11.65 - Type 2 diabetes mellitus with hyperglycemia; Z79.4 - long-term (current) use of insulin Code(s): E11.9 - Type 2 diabetes mellitus without complications Status: Chronic Assessment and Plan: - hypoglycemia protocol - POC blood glucose ACHS - home medication: Hold home sliding scale. Continue Lantus 15 units p.m. - correct regimen ordered - high dose TIDWM, based off BMI - A1C 9.3% in 2020 (5) Hypertension: Qualifiers: Hypertension type: unspecified Qualified Code(s): I10 - Essential (primary) hypertension Code(s): I10 - Essential (primary) hypertension Status: Chronic Assessment and Plan: - chronic, initially soft. Currently 129/61. - home medications: Hold lisinopril and chlorthalidone, resume when appropriate - monitor (6) Obstructive sleep apnea on CPAP: Code(s): G47.33 - Obstructive sleep apnea (adult) (pediatric); Z99.89 - Dependence on other enabling machines and devices Status: Chronic Assessment and Plan: - continue home CPAP Plan Diet: diabetic GI Prophylaxis: pantoprazole PO DVT Prophylaxis: Xarelto Lines: Peripheral Code Status: Full code Quality VTE Prophylaxis VTE prophylaxis: pharmacologic ordered Critical Care Time: I personally spent 35 minutes of direct patient care including (but not limited to) the physical examination, decision-making, bedside evaluation, review of medical records, review of labs and imaging, discussion with nursing staff and other providers for collaborative, critical care management of this patient. Hospitalist [facility] Advance Care Plan I have confirmed that the patient's Advanced Care Plan is present, code status is documented, or surrogate decision maker is listed in patient medical record.: Yes Medication Reconciliation I have utilized all available resources to obtain, update and review the patients current medications (includes all prescriptions, OTC, herbals, cannabis, and nutritional supplements).: Yes
[2024-08-06] MEDS: ACETAMINOPHEN 325 MG TABLET 650 MG PO (13:09)
--- NOTE | 2024-08-06 14:01 | ECG_ITS ---
Test Date: 2024-08-06 14:05:53 Measurements Intervals [place] Rate: 124 P: 0 AL: 0 QRS: 139 QRSD: 105 T: -29 QT: 318 QTc: 458 Interpretive Statements ATRIAL FIBRILLATION WITH RAPID VENTRICULAR RESPONSE INCOMPLETE RIGHT BUNDLE BRANCH BLOCK BORDERLINE ST-T WAVE ABNORMALITY- INFERIOR LEADS HIGH LATERAL INFARCT, AGE INDETERMINATE BASELINE ARTIFACT- I, II, III, AVR, AVL, AVF, V1, V4-V6 ABNORMAL ECG No previous ECG available for comparison Electronically Signed On 08-06-2024 18:20:28 RANGE MOUNTER by Dl Dobbs D.O.
--- NOTE | 2024-08-06 14:25 | PC.NURSE ---
pt noted to be in Afib with RVR, Pt also hypotensive EKG done, shown to Dr Beck. Call placed to [facility], awaiting call back
[2024-08-06] MEDS: LACTATED RINGERS 1,000 ML 999 ML IV CONT (14:42)
[2024-08-06] MEDS: PANTOPRAZOLE 40 MG TABLET PO (14:55)
--- NOTE | 2024-08-06 15:12 | P.CONIN_ITS ---
Assessment and Plan Assessment and plan (1) Septic shock: Code(s): A41.9 - Sepsis, unspecified organism; R65.21 - Severe sepsis with septic shock Status: Acute Assessment and Plan: Secondary to UTI Patient is getting 3 L fluid bolus which will complete 30 mL/kg ideal body weight (IBW 91 kg) After that patient will be started on LR 125 mL/hour Blood cultures and urine culture Post fluid bolus patient will be started on Levophed if needed Patient has huge pannus and thick neck. We will request PICC line at this time as central venous catheter is not feasible Vancomycin and meropenem (2) Atrial fibrillation with RVR: Code(s): I48.91 - Unspecified atrial fibrillation Status: Acute Assessment and Plan: Continue Xarelto Hold diltiazem due to hypotension If heart rate further increases we may have to use amiodarone (3) Insulin dependent type 2 diabetes mellitus: Code(s): E11.9 - Type 2 diabetes mellitus without complications; Z79.4 - longterm (current) use of insulin Status: Acute Assessment and Plan: Sliding scale insert and Lantus (4) Morbid obesity: Code(s): E66.01 - Morbid (severe) obesity due to excess calories Status: Acute Assessment and Plan: Patient is morbidly obese and will be difficult to examine or manage. We are unable to perform CT scan on this patient if needed. I have discussed this frankly with the patient I explained that our ability to examine him and image him is limited here. As per initial patient's request and refusal to transfer patient is being admitted here. Patient will be started on IV antibiotics IV fluids and IV vasopressors. If he does not improve I have explained to him that he may still need to be transferred to outside facility if we need additional imaging or testing that cannot be performed here. Patient verbalized understanding at this time (5) Urinary tract infection: Code(s): N39.0 - Urinary tract infection, site not specified Status: Acute (6) Obstructive sleep apnea on CPAP: Code(s): G47.33 - Obstructive sleep apnea (adult) (pediatric); Z99.89 - Dependence on other enabling machines and devices Status: Chronic Assessment and Plan: CPAP ordered (7) Wound of left buttock: Qualifiers: Encounter type: initial encounter Qualified Code(s): S31.829A - Unspecified open wound of left buttock, initial encounter Code(s): S31.829A - Unspecified open wound of left buttock, initial encounter Status: Acute Assessment and Plan: Patient was examined by general surgery and recommend local wound care. Ultrasound was negative for any abscess. Clinically does not appear to be necrotizing fasciitis obviously cannot be completely ruled out without a CT scan which we are unable to do with this time Patient will be started on broad-spectrum antibiotic Will consult wound care Plan DVT prophylaxis -continue Xarelto Stress ulcer prophylaxis -PPI Nutrition -diabetic diet Code Status - Full Code Total Critical Care Time - 40 minutes Due to a high probability of clinically significant, life threatening deterioration, the patient required my highest level of preparedness to intervene emergently and I personally spent this critical care time directly and personally managing the patient. This critical care time included obtaining a history; examining the patient; pulse oximetry; ordering and review of studies; arranging urgent treatment with development of a management plan; evaluation of patient's response to treatment; frequent reassessment; and discussions with other providers. It was exclusive of separately billable procedures and treating other patients and teaching time. Please see Assessment and Plan section and the rest of the note for further information on patient assessment and treatment Internal Medicine Nurse Practitioner Consult Note Consult date: 08/06/24 Reason for consult: Sepsis, hypotension HPI: Tito Fam is a 44 year old male with past medical history of anemia, Shahbaz's gangrene (2015), JANEY, diabetes, hypertension, spinal stenosis, and chronic AFib on anticoagulation on Xarelto. Patient has been med bone for last many years and is taken care of by a full-time care provider and lives with his brother. Patient states that he has been feeling sick for last couple days. He has been constipated for last 1 week but was able to pass gas. For last 2 days he had difficulty urinating. And when he was able to urinate the urine was dark foul-smelling and much less in amount. He felt chills and cold did not check his temperature to adjusted any fever. He denies any chest pain shortness a breath nausea vomiting cough. He states he feels bloated and has had belly pain in lower part of his belly which he qualifies as bloating and is 7-8 out 10 and feels better after burping. All other systems were reviewed and were negative ER a White catheter was placed and patient had a UA which was suggestive UTI. Patient initially had 1 L fluid bolus and was started on IV antibiotics. Later blood pressure dropped and is getting another IV fluid bolus. Patient was too big for our CT scanner hence a abdominal x-ray was done. Apparently as per ER physician report patient was offered to transfer to [facility] which he refused stating that he does not believe he needs a CT scan. KUB will showed normal gas pattern. Patient also has a left decubitus ulcer which was evaluated by General surgery and recommended local wound care. Ultrasound was done which did not show any abscess. Patient was earlier being admitted to step-down unit but now due to hypotension patient is now being admitted to ICU. 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 He was discharged to an LTAC after he left [facility] and was on a wound VAC for approximately 60 days. Morbid obesity He has been bed-bound for nearly 3 years. Peripheral neuropathy Due to diabetes and spinal stenosis. Spinal stenosis Obstructive sleep apnea on CPAP Insulin dependent type 2 diabetes mellitus Hemoglobin A1c was 7.8% on 04/2021. 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 Surgical History Surgical History Status post debridement Extensive debridement 3 separate surgeries for Shahbaz's gangrene in 2014. History of tonsillectomy Family History Family History Father Patient's father is Diabetes mellitus Acute myocardial infarction Mother COPD (chronic obstructive pulmonary disease) Social History Social History Social History: The patient lives in his own house in [place], [place]. 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 He has an aunt and uncle that live next to him who help with his care as well. He designates his mother and his aunt, Kailyn, as his surrogate decision makers. He wishes to be a full code. He denies alcohol, tobacco, and drug use. His brother also comes and stays with him 5 days a week that is care. Primary care physician: Physician at [facility] care Smoking status: Never smoker Alcohol intake: never Substance use: never Gender identity (if verbalized by the patient): Male Spiritual care concerns: No Agree to blood products: Yes Meds Home Medications and Allergies Home Medications ?Medication ?Instructions ?Recorded ?Confirmed ?Type chlorthalidone 25 mg tablet 25 mg PO DAILY 11/09/19 06/11/21 History diltiazem HCl 90 mg tablet 90 mg PO TID 11/09/19 08/06/24 History lisinopril 40 mg tablet 40 mg PO DAILY 11/09/19 08/06/24 History rivaroxaban 20 mg tablet (Xarelto) 20 mg PO DAILY 11/09/19 08/06/24 History insulin glargine 100 unit/mL 15 unit subcut QPM ##0 11/10/19 08/06/24 History subcutaneous solution (Lantus U-100 Insulin) insulin glulisine U-100 100 See Protocol subcut USEASDIRECTD 11/10/19 08/06/24 History unit/mL subcutaneous solution ##0 (Apidra U-100 Insulin) gabapentin 100 mg capsule 300 mg PO TID 01/01/20 08/06/24 History clindamycin HCl 300 mg capsule 300 mg PO Q8H 5 days #15 caps 06/14/21 Rx metronidazole 375 mg capsule 375 mg PO Q8H 10 days #30 caps 06/14/21 Rx (Flagyl) amlodipine 5 mg tablet 5 mg PO DAILY #30 tabs 06/15/21 Rx Allergies Allergy/AdvReac Type Severity Reaction Status Date / Time No Known Allergies Allergy Verified 08/06/24 08:20 Vital Signs Vital Signs - 24 hr 08/06/24 08:08 08/06/24 09:46 08/06/24 10:41 Temperature 37.0 C Pulse Rate 91 118 H 78 Respiratory Rate 20 20 20 Blood Pressure 114/86 126/109 H Pulse Oximetry 98 99 99 Oxygen Delivery Room Air 08/06/24 10:43 08/06/24 10:44 08/06/24 10:45 Temperature Pulse Rate Respiratory Rate Blood Pressure 83/50 L Pulse Oximetry 95 99 99 Oxygen Delivery 08/06/24 10:46 08/06/24 10:49 08/06/24 10:51 Temperature Pulse Rate Respiratory Rate Blood Pressure 71/48 L 73/38 L 61/44 L Pulse Oximetry 98 100 100 Oxygen Delivery 08/06/24 10:58 08/06/24 11:00 08/06/24 11:00 Temperature Pulse Rate 118 H 121 H 119 H Respiratory Rate 18 17 15 Blood Pressure 67/39 L 85/55 L 73/42 L Pulse Oximetry 100 100 100 Oxygen Delivery 08/06/24 11:01 08/06/24 11:02 08/06/24 11:11 Temperature Pulse Rate 127 H 112 H 117 H Respiratory Rate 15 18 17 Blood Pressure 85/55 L 74/52 L Pulse Oximetry 100 99 99 Oxygen Delivery 08/06/24 11:15 08/06/24 11:16 08/06/24 11:17 Temperature Pulse Rate 128 H 121 H 115 H Respiratory Rate 21 H 17 17 Blood Pressure 81/49 L 98/79 L Pulse Oximetry 98 100 99 Oxygen Delivery 08/06/24 12:15 08/06/24 12:16 08/06/24 13:04 Temperature 37.0 C Pulse Rate 120 H 116 H 98 Respiratory Rate 15 17 12 Blood Pressure 91/54 L 88/56 L Pulse Oximetry 97 98 98 Oxygen Delivery 08/06/24 13:15 08/06/24 14:08 08/06/24 14:14 Temperature Pulse Rate 114 H 111 H 104 H Respiratory Rate 15 15 11 L Blood Pressure 104/63 85/66 L Pulse Oximetry 96 98 97 Oxygen Delivery 08/06/24 14:15 08/06/24 14:16 08/06/24 14:44 Temperature Pulse Rate 120 H 113 H 107 H Respiratory Rate 21 H 18 12 Blood Pressure 76/50 L 63/50 L Pulse Oximetry 90 98 97 Oxygen Delivery 08/06/24 15:04 Temperature Pulse Rate 121 H Respiratory Rate 16 Blood Pressure 104/58 L Pulse Oximetry 97 Oxygen Delivery Exam 2 Narrative: General: Pt is alert awake and in NAD Lungs/Chest: Trachea central Clear BS B/L, No crackles or wheezing. Cardiac: Irregular rate rhythm heart rate in 110s to 20s. Normal S1 S2. No murmurs Circulation: Pedal pulses are intact and symmetrical. Abdomen: Morbidly obese male with present bowel sounds.. Soft. Tenderness only on deep palpation on the right side but no significant abnormality seen on the skin no guarding or rigidity. Abdominal exam is limited due to morbid obesity Extremities: Bilateral chronic pedal edema with chronic venous stasis changes : White in place Neurologic: Follows commands. Moves all 4 extremities PERRL AO x3 Skin: Patient has decubitus ulcer in left buttock which I was unable to examine as patient was getting prepped for a PICC line insertion. It was examined by general surgeon Results Labs 08/06/24 08:39 08/06/24 08:39 Labs: Short CBC 08/06/24 Range/Units 08:39 WBC 15.6 H (4.5-10.0) K/mm3 Hgb 12.4 L (14.0-18.0) g/dL Hct 38.4 L (42.0-52.0) % Plt Count 345 (150-375) k/mm3 BMP 08/06/24 08:39 Sodium 128 L Potassium 3.7 Chloride 92 L Carbon Dioxide 28 BUN 21 H D Creatinine 0.81 Glucose 313 H Calcium 8.3 L Liver Function 08/06/24 Range/Units 08:39 Total Bilirubin 1.4 H (0.2-1.3) mg/dL AST 15 L (17-59) U/L ALT 16 (6-50) U/L Alkaline Phosphatase 91 (38-126) U/L Albumin 3.2 L (3.5-5.1) g/dL Urine 08/06/24 Range/Units 08:25 Urine Color Dark yellow (Yellow) Urine Appearance Cloudy H (Clear) Urine pH 5.5 (5.0-9.0) Ur Specific [place] 1.027 (1.001-1.035) Urine Protein 1+ H (Negative) mg/dL Urine Glucose (UA) 3+ H (Negative) mg/dL Quality VTE Prophylaxis VTE prophylaxis: pharmacologic ordered Hospitalist MIPS Advance Care Plan I have confirmed that the patient's Advanced Care Plan is present, code status is documented, or surrogate decision maker is listed in patient medical record.: Yes Medication Reconciliation I have utilized all available resources to obtain, update and review the patients current medications (includes all prescriptions, OTC, herbals, cannabis, and nutritional supplements).: Yes
[2024-08-06] MEDS: MEROPENEM 1 GM/NS 100 ML 1 GM/100 ML BAG IVPB ×2 (16:15→21:24)
[2024-08-06] MEDS: POTASSIUM CHLORIDE 20 MEQ ER TABLET 40 MEQ PO (16:15)
[2024-08-06] MEDS: NOREPINEPHRINE 8 MG/D5W 250 ML 8 MG/250 ML BAG 9.38 MG IV CONT (16:41)
--- NOTE | 2024-08-06 17:29 | ADMGEN ---
This patient, Tito Fam, was admitted to Intensive Care Unit-6 [id number]. Patient/family oriented to hospital policies and general routines including ID bracelet, bed and alarms, visiting hours, pain management, procedures, bathroom and other care routines, personal items, smoking policy, room service/diet, and visiting hours. Information on how to activate the Rapid Response Team has been discussed. Patient/Family are encouraged to report perceived risks to care and to ask questions if they do not understand what they are told or what they should do.
[2024-08-06 17:31] LABS: Glucose Point of Care 264 mg/dl (65-105)
[2024-08-06] MEDS: RIVAROXABAN 20 MG TABLET PO (17:54)
[2024-08-06] MEDS: INSULIN GLARGINE (*BKC) 100 UNITS/ML 15 UNITS SUB-Q (17:55)
[2024-08-06] MEDS: INSULIN ASPART (*BKC) 100 UNITS/ML SUB-Q (17:56)
[2024-08-06 19:23] LABS: MRSA (PCR) NOT DETECTED (NOT DETECTE)
[2024-08-06] MEDS: dilTIAZem HCL TAB 30 MG, dilTIAZem HCL TAB 60 MG 90 MG PO (20:00)
[2024-08-06] MEDS: DOCUSATE SODIUM 100 MG CAPSULE PO (20:00)
[2024-08-06 20:31] LABS: Glucose Point of Care 244 mg/dl (65-105)
[2024-08-06] MEDS: CENTRAL LINE FLUSH 10 ML IV PUSH (21:26)
[2024-08-06] MEDS: VANCOMYCIN 1,500 MG/NS 500 ML 1,500 MG/500 ML BAG 250 MG IVPB (23:27)
[2024-08-07] VITALS (18 sets, daily range): BP systolic 97–142; BP diastolic 59–99; PULSE 93–124; RESP 9–32; TEMP 36.8–38.8; O2SAT 92–98
[2024-08-07] MEDS: LACTATED RINGERS 1,000 ML 125 ML IV CONT (01:42)
[2024-08-07 04:43] LABS: Basophils Percent Auto 0.2 % (0.2-1.2); Eosinophils Absolute Auto 0.2 K/mm3 (0-0.3); Eosinophils Percent Auto 1.2 % (0-4.4); Hematocrit 33.4 % (42.0-52.0); Hemoglobin 10.7 g/dL (14.0-18.0); Immature Granulocyte Absolute 0.11 K/mm3 (0.00-0.031); Immature Granulocyte Percent A 0.7 % (0-0.5); Lymphocytes Absolute Auto 1.86 K/mm3 (0.9-3.2); Lymphocytes Percent Auto 11.1 % (18.3-44.2); Mean Corpuscular Volume 84.1 fl (80-100); Mean Platelet Volume 9.9 fl (7.4-10.4); Monocytes Absolute Auto 1.1 K/mm3 (0.1-0.6); Monocytes Percent Auto 6.7 % (2.6-8.5); Neutrophils Absolute Auto 13.4 K/mm3 (1.3-6.7); Neutrophils Percent Auto 80.1 % (45.5-73.1); Platelet Count Result 305 k/mm3 (150-375); Red Blood Count 3.97 M/mm3 (4.6-6.20); Red Cell Distribution Width 12.3 % (11.5-14.5); White Blood Count 16.8 K/mm3 (4.5-10.0)
[2024-08-07 04:53] LABS: Alanine Aminotransferase 14 U/L (6-50); Albumin Level 2.6 g/dL (3.5-5.1); Alkaline Phosphatase 84 U/L (38-126); Anion Gap 5 mmol/L (4-12); Aspartate Amino Transferase 18 U/L (17-59); Bilirubin,Total 1.1 mg/dL (0.2-1.3); Blood Urea Nitrogen 10 mg/dL (9-20); Calcium 7.7 mg/dL (8.4-10.2); Carbon Dioxide 28 mmol/L (22-30); Chloride 96 mmol/L (98-107); Estimated CRCL calculation 296 ml/min; Estimated Glomerular Filt Rate > 60; Glucose 253 mg/dL (65-110); Magnesium 2.1 mg/dL (1.6-2.3); Potassium 3.9 mmol/L (3.4-5.0); Sodium 129 mmol/L (137-145)
[2024-08-07 04:56] LABS: Hemoglobin A1C 11.1 % (<5.7)
[2024-08-07] MEDS: CENTRAL LINE FLUSH 10 ML IV PUSH ×3 (06:31→20:16)
[2024-08-07] MEDS: dilTIAZem HCL TAB 30 MG, dilTIAZem HCL TAB 60 MG 90 MG PO ×3 (06:31→20:15)
[2024-08-07] MEDS: MEROPENEM 1 GM/NS 100 ML 1 GM/100 ML BAG IVPB ×3 (06:31→21:30)
[2024-08-07 07:35] LABS: Glucose Point of Care 232 mg/dl (65-105)
--- NOTE | 2024-08-07 08:16 | WPDINTPN ---
Progress Note: A&P Assessment and Plan (1) Septic shock: Code(s): A41.9 - Sepsis, unspecified organism; R65.21 - Severe sepsis with septic shock Status: Acute Assessment and Plan: Secondary to UTI Patient is getting 3 L fluid bolus which will complete 30 mL/kg ideal body weight (IBW 91 kg) After that patient will be started on LR 125 mL/hour Blood cultures and urine culture Post fluid bolus patient will be started on Levophed if needed Patient has huge pannus and thick neck. We will request PICC line at this time as central venous catheter is not feasible Continue vancomycin and meropenem (2) Atrial fibrillation with RVR: Code(s): I48.91 - Unspecified atrial fibrillation Status: Acute Assessment and Plan: Continue Xarelto On diltiazem If heart rate further increases we may have to use amiodarone (3) Insulin dependent type 2 diabetes mellitus: Code(s): E11.9 - Type 2 diabetes mellitus without complications; Z79.4 - telesales professional (current) use of insulin Status: Acute Assessment and Plan: Sliding scale insert and Lantus Increase Lantus dose (4) Morbid obesity: Code(s): E66.01 - Morbid (severe) obesity due to excess calories Status: Acute Assessment and Plan: Patient is morbidly obese and will be difficult to examine or manage. We are unable to perform CT scan on this patient if needed. I have discussed this frankly with the patient I explained that our ability to examine him and image him is limited here. As per initial patient's request and refusal to transfer patient is being admitted here. Patient will be started on IV antibiotics IV fluids and IV vasopressors. If he does not improve I have explained to him that he may still need to be transferred to outside facility if we need additional imaging or testing that cannot be performed here. Patient verbalized understanding at this time (5) Urinary tract infection: Code(s): N39.0 - Urinary tract infection, site not specified Status: Acute Assessment and Plan: See (6) Obstructive sleep apnea on CPAP: Code(s): G47.33 - Obstructive sleep apnea (adult) (pediatric); Z99.89 - Dependence on other enabling machines and devices Status: Chronic Assessment and Plan: CPAP ordered (7) Wound of left buttock: Qualifiers: Encounter type: initial encounter Qualified Code(s): S31.829A - Unspecified open wound of left buttock, initial encounter Code(s): S31.829A - Unspecified open wound of left buttock, initial encounter Status: Acute Assessment and Plan: Patient was examined by general surgery and recommend local wound care. Ultrasound was negative for any abscess. Clinically does not appear to be necrotizing fasciitis obviously cannot be completely ruled out without a CT scan which we are unable to do with this time Patient will be started on broad-spectrum antibiotic consult wound care (8) Constipation: Code(s): K59.00 - Constipation, unspecified Status: Acute Assessment and Plan: Laxatives ordered Plan DVT prophylaxis -continue Xarelto Stress ulcer prophylaxis -PPI Nutrition -diabetic diet Code Status - Full Code Patient has been bed-bound for many years I suspect he can do any significant physical therapy. Will encourage incentive spirometry Subjective Date/time seen: 08/07/24 Patient states he feels better than yesterday. He was able to eat his food without any difficulty. He still feels bloated. He is passing gas but has not had any bowel movement. And is constipated. He denies any fever chest pain shortness a breath cough. He states he has been putting a lot of urine. All other systems were reviewed and were negative His blood pressure has improved and he has been off of Levophed since yesterday. Evening. Telemetry shows AFib with controlled ventricular rate for the most part White catheter with clear urine. He is on room air Review of Systems Review of Systems: All systems reviewed & are unremarkable except as noted in HPI and below (HPI) Exam Narrative: General: Pt is alert awake and in NAD Lungs/Chest: Trachea central Clear BS B/L, No crackles or wheezing. Cardiac: Irregular rate rhythm heart rate in 110s to 20s. Normal S1 S2. No murmurs Circulation: Pedal pulses are intact and symmetrical. Abdomen: Morbidly obese male with present bowel sounds.. Soft. Tenderness only on deep palpation on the right side but no significant abnormality seen on the skin no guarding or rigidity. Abdominal exam is limited due to morbid obesity Extremities: Bilateral chronic pedal edema with chronic venous stasis changes : White in place Neurologic: Follows commands. Moves all 4 extremities PERRL AO x3 Skin: Patient has decubitus ulcer in left buttock which I was unable to examine as patient was getting prepped for a PICC line insertion. It was examined by general surgeon Objective Data Vital Signs Vital Signs: Vital Signs - 24 hr 08/06/24 09:46 08/06/24 10:41 08/06/24 10:43 Temperature Pulse Rate 118 H 78 Respiratory Rate 20 20 Blood Pressure 126/109 H 83/50 L Pulse Oximetry 99 99 95 Oxygen Delivery 08/06/24 10:44 08/06/24 10:45 08/06/24 10:46 Temperature Pulse Rate Respiratory Rate Blood Pressure 71/48 L Pulse Oximetry 99 99 98 Oxygen Delivery 08/06/24 10:49 08/06/24 10:51 08/06/24 10:58 Temperature Pulse Rate 118 H Respiratory Rate 18 Blood Pressure 73/38 L 61/44 L 67/39 L Pulse Oximetry 100 100 100 Oxygen Delivery 08/06/24 11:00 08/06/24 11:00 08/06/24 11:01 Temperature Pulse Rate 121 H 119 H 127 H Respiratory Rate 17 15 15 Blood Pressure 85/55 L 73/42 L 85/55 L Pulse Oximetry 100 100 100 Oxygen Delivery 08/06/24 11:02 08/06/24 11:11 08/06/24 11:15 Temperature Pulse Rate 112 H 117 H 128 H Respiratory Rate 18 17 21 H Blood Pressure 74/52 L Pulse Oximetry 99 99 98 Oxygen Delivery 08/06/24 11:16 08/06/24 11:17 08/06/24 12:15 Temperature Pulse Rate 121 H 115 H 120 H Respiratory Rate 17 17 15 Blood Pressure 81/49 L 98/79 L Pulse Oximetry 100 99 97 Oxygen Delivery 08/06/24 12:16 08/06/24 13:04 08/06/24 13:15 Temperature 37.0 C Pulse Rate 116 H 98 114 H Respiratory Rate 17 12 15 Blood Pressure 91/54 L 88/56 L 104/63 Pulse Oximetry 98 98 96 Oxygen Delivery 08/06/24 14:08 08/06/24 14:14 08/06/24 14:15 Temperature Pulse Rate 111 H 104 H 120 H Respiratory Rate 15 11 L 21 H Blood Pressure 85/66 L Pulse Oximetry 98 97 90 Oxygen Delivery 08/06/24 14:16 08/06/24 14:44 08/06/24 15:04 Temperature Pulse Rate 113 H 107 H 121 H Respiratory Rate 18 12 16 Blood Pressure 76/50 L 63/50 L 104/58 L Pulse Oximetry 98 97 97 Oxygen Delivery 08/06/24 15:17 08/06/24 16:31 08/06/24 16:41 Temperature Pulse Rate 96 121 H Respiratory Rate 20 Blood Pressure 100/68 77/58 L 77/58 L Pulse Oximetry 98 Oxygen Delivery 08/06/24 16:47 08/06/24 17:41 08/06/24 17:59 Temperature Pulse Rate 114 H 114 H 111 H Respiratory Rate 19 Blood Pressure 100/74 116/82 129/61 Pulse Oximetry 100 Oxygen Delivery 08/06/24 18:00 08/06/24 18:00 08/06/24 18:15 Temperature 37.2 C Pulse Rate 115 H 129 H 131 H Respiratory Rate 24 H Blood Pressure 132/67 132/67 Pulse Oximetry 99 Oxygen Delivery 08/06/24 18:30 08/06/24 18:45 08/06/24 19:00 Temperature Pulse Rate 121 H 118 H 121 H Respiratory Rate Blood Pressure 128/73 128/83 123/75 Pulse Oximetry Oxygen Delivery 08/06/24 20:00 08/06/24 20:00 08/06/24 20:00 Temperature 37.9 C H Pulse Rate 126 H 103 H 126 H Respiratory Rate 20 20 Blood Pressure 105/69 Pulse Oximetry 97 97 Oxygen Delivery Room Air 08/06/24 20:00 08/06/24 22:00 08/06/24 22:00 Temperature Pulse Rate 126 H 108 H 108 H Respiratory Rate 17 Blood Pressure 105/69 115/54 L Pulse Oximetry 94 Oxygen Delivery 08/06/24 22:00 08/07/24 00:00 08/07/24 00:00 Temperature 36.8 C Pulse Rate 108 H 110 H 110 H Respiratory Rate 18 18 Blood Pressure 115/54 L 117/61 Pulse Oximetry 95 95 Oxygen Delivery CPAP 08/07/24 00:00 08/07/24 00:00 08/07/24 02:00 Temperature Pulse Rate 119 H 109 H 118 H Respiratory Rate Blood Pressure 117/61 Pulse Oximetry Oxygen Delivery 08/07/24 02:00 08/07/24 02:00 08/07/24 04:00 Temperature Pulse Rate 118 H 112 H 119 H Respiratory Rate 9 L Blood Pressure 111/68 111/68 Pulse Oximetry 92 Oxygen Delivery 08/07/24 04:00 08/07/24 04:30 08/07/24 04:30 Temperature 37.0 C Pulse Rate 114 H 124 H 124 H Respiratory Rate 25 H 25 H Blood Pressure 116/66 109/72 Pulse Oximetry 97 97 Oxygen Delivery Room Air 08/07/24 06:00 08/07/24 06:00 Temperature Pulse Rate 112 H 112 H Respiratory Rate 12 Blood Pressure 113/59 L Pulse Oximetry 96 Oxygen Delivery Intake/Output Intake/Output: Intake & Output 08/04/24 08/05/24 08/06/24 08/07/24 23:59 23:59 23:59 23:59 Intake Total 6014.6 2414.6 Output Total 3200 1425 Balance 2814.6 989.6 Meds/Results Medications: Active Medications Generic Name Dose Route Start Last Admin Trade Name Freq PRN Reason Stop Dose Admin Acetaminophen 650 mg 08/06/24 10:28 08/06/24 13:09 Acetaminophen 325 Mg Tablet PO 650 mg Q4H PRN Administration Mild Pain (1-3) or Fever Dextrose 12.5 gm 08/06/24 13:10 Dextrose 50% 25 Gm/50 Ml Syringe IV PUSH PRN PRN Hypoglycemia Protocol Diltiazem HCl 30 mg/ Diltiazem 90 mg 08/06/24 22:00 08/07/24 06:31 HCl 60 mg PO 90 mg Q8HR GATO Administration Docusate Sodium 100 mg 08/06/24 21:00 08/06/24 20:00 Docusate Sodium 100 Mg Capsule PO 100 mg Q12HR GATO Administration Gabapentin 300 mg 08/07/24 09:00 Gabapentin 300 Mg Capsule PO TID GATO Glucagon 1 mg 08/06/24 13:10 Glucagon For Inj 1 Mg Vial IM PRN PRN Hypoglycemia Protocol Glucose 15 gm 08/06/24 13:10 Glucose Oral Gel 15 Gm Of Glucse In 37.5 Gm Tube PO PRN PRN Hypoglycemia Protocol Hydromorphone HCl 0.5 mg 08/06/24 10:28 08/06/24 20:01 Hydromorphone Hcl Inj (*Crx) 1 Mg/Ml Syr IV PUSH 0.5 mg Q4H PRN Administration Pain Rated 7-10 Vancomycin HCl 1,500 mg in 500 mls @ 250 mls/hr 08/06/24 23:00 08/07/24 02:11 Vancomycin 1,500 Mg/Ns 500 Ml IVPB Infused Q12H GATO Infusion Dextrose 1,000 mls @ 100 mls/hr 08/06/24 13:10 Dextrose 5% 1,000 Ml IVPB PRN PRN Hypoglycemia Protocol Lactated Ringer's 1,000 mls @ 125 mls/hr 08/06/24 15:10 08/07/24 06:00 Lr - Lactated Ringers Iv IV CONT 125 mls/hr .Q8H GATO Infusion Meropenem 1 gm in 100 mls @ 200 mls/hr 08/06/24 15:30 08/07/24 07:13 IVPB Infused Q8HR GATO Infusion Norepinephrine Bitartrate 8 mg in 250 mls @ 0 mls/hr 08/06/24 15:25 08/07/24 04:00 Levophed 8 Mg/D5w 250 Ml IV CONT 0 mcg/min .Q0M GATO 0 mls/hr Titration Protocol 0 MCG/MIN Insulin Aspart 4 - 8 units 08/06/24 17:00 08/06/24 17:56 Insulin Aspart (*Bkc) 100 Units/Ml SUB-Q 5 units TIDWM GATO Administration Protocol Insulin Glargine 15 units 08/06/24 18:00 08/06/24 17:55 Insulin Glargine (*Bkc) 100 Units/Ml SUB-Q 15 units QPM GATO Administration Ondansetron HCl 4 mg 08/06/24 10:28 Ondansetron Inj 4 Mg/2 Ml Vial IV PUSH Q4H PRN Nausea Pantoprazole Sodium 40 mg 08/06/24 13:40 08/06/24 14:55 Pantoprazole 40 Mg Tablet PO 40 mg QAM GATO Administration Polyethylene Glycol 17 gm 08/07/24 09:00 Polyethylene Glycol 3350 17 Gm Powd.Pack PO QAM GATO Rivaroxaban 20 mg 08/06/24 17:00 08/06/24 17:54 Rivaroxaban 20 Mg Tablet PO 20 mg DAILY@1700 GATO Administration Sodium Chloride 10 ml 08/06/24 22:00 08/07/24 06:31 Central Line Flush IV PUSH 10 ml Q8HR GATO Administration Sodium Chloride 10 ml 08/06/24 16:44 Central Line Flush IV PUSH PRN PRN with TPN bag changes Sodium Chloride 20 ml 08/06/24 16:44 Central Line Flush IV PUSH PRN PRN after blood draws Radiology Results: ITS Impressions Abdomen X-Ray 08/06/24 09:03 IMPRESSION: 1. Normal bowel gas pattern. Soft Tissue Ultrasound 08/06/24 13:45 IMPRESSION: 1. No abscess. Chest X-Ray 08/06/24 16:47 IMPRESSION: New right upper extremity PICC, terminating in the SVC. Labs Labs: Laboratory Results - last 24 hr 08/06/24 08/06/24 08/06/24 08:25 08:39 12:08 WBC 15.6 H RBC 4.49 L Hgb 12.4 L Hct 38.4 L MCV 85.5 MCH 27.6 MCHC 32.3 RDW 12.4 Plt Count 345 MPV 10.5 H Immature Gran % (Auto) 0.9 H Neut % (Auto) 80.5 H Lymph % (Auto) 9.8 L [place] % (Auto) 7.3 Eos % (Auto) 1.2 Baso % (Auto) 0.3 Lymph # (Auto) 1.52 [place] # (Auto) 1.1 H Eos # (Auto) 0.2 Baso # (Auto) 0.1 Abs Immat Gran (auto) 0.14 H Absolute Neuts (auto) 12.5 H Absolute Nucleated RBC 0.000 Nucleated RBC % 0.0 PT 21.6 H INR 1.8 APTT 34.6 Sodium 128 L Potassium 3.7 Chloride 92 L Carbon Dioxide 28 Anion Gap 8 BUN 21 H D Creatinine 0.81 Estim Creat Clear Calc 208 Estimated GFR > 60 Glucose 313 H POC Capillary Glucose 262 H Hemoglobin A1c Lactic Acid 1.9 Calcium 8.3 L Magnesium Total Bilirubin 1.4 H AST 15 L ALT 16 Alkaline Phosphatase 91 C-Reactive Protein 24.5 H Total Protein 7.0 Albumin 3.2 L Urine Color Dark yellow Urine Appearance Cloudy H Urine pH 5.5 Ur Specific [place] 1.027 Urine Protein 1+ H Urine Glucose (UA) 3+ H Urine Ketones Trace H Ur Blood (Man) Trace Urine Nitrate Negative Urine Bilirubin 1+ H Urine Urobilinogen 2.0 H Add Ur Microanalysis Reviewed Leukocyte Esterase Rfl 1+ H Urine RBC 21-50 H Urine WBC >100 H Ur Squamous Epith Cells None seen Urine Bacteria None seen Urine Casts 3-5 Nasal MRSA (PCR) 0208/06/24 08/06/24 17:27 18:07 19:58 WBC RBC Hgb Hct MCV MCH MCHC RDW Plt Count MPV Immature Gran % (Auto) Neut % (Auto) Lymph % (Auto) [place] % (Auto) Eos % (Auto) Baso % (Auto) Lymph # (Auto) [place] # (Auto) Eos # (Auto) Baso # (Auto) Abs Immat Gran (auto) Absolute Neuts (auto) Absolute Nucleated RBC Nucleated RBC % PT INR APTT Sodium Potassium Chloride Carbon Dioxide Anion Gap BUN Creatinine Estim Creat Clear Calc Estimated GFR Glucose POC Capillary Glucose 264 H 244 H Hemoglobin A1c Lactic Acid Calcium Magnesium Total Bilirubin AST ALT Alkaline Phosphatase C-Reactive Protein Total Protein Albumin Urine Color Urine Appearance Urine pH Ur Specific [place] Urine Protein Urine Glucose (UA) Urine Ketones Ur Blood (Man) Urine Nitrate Urine Bilirubin Urine Urobilinogen Add Ur Microanalysis Leukocyte Esterase Rfl Urine RBC Urine WBC Ur Squamous Epith Cells Urine Bacteria Urine Casts Nasal MRSA (PCR) Not detected 08/07/24 08/07/24 04:38 07:32 WBC 16.8 H RBC 3.97 L Hgb 10.7 L Hct 33.4 L MCV 84.1 MCH 27.0 MCHC 32.0 RDW 12.3 Plt Count 305 MPV 9.9 Immature Gran % (Auto) 0.7 H Neut % (Auto) 80.1 H Lymph % (Auto) 11.1 L [place] % (Auto) 6.7 Eos % (Auto) 1.2 Baso % (Auto) 0.2 Lymph # (Auto) 1.86 [place] # (Auto) 1.1 H Eos # (Auto) 0.2 Baso # (Auto) 0.0 Abs Immat Gran (auto) 0.11 H Absolute Neuts (auto) 13.4 H Absolute Nucleated RBC 0.000 Nucleated RBC % 0.0 PT INR APTT Sodium 129 L Potassium 3.9 Chloride 96 L Carbon Dioxide 28 Anion Gap 5 BUN 10 D Creatinine 0.55 L Estim Creat Clear Calc 296 Estimated GFR > 60 Glucose 253 H POC Capillary Glucose 232 H Hemoglobin A1c 11.1 H Lactic Acid Calcium 7.7 L Magnesium 2.1 Total Bilirubin 1.1 AST 18 ALT 14 Alkaline Phosphatase 84 C-Reactive Protein Total Protein 6.0 L Albumin 2.6 L Urine Color Urine Appearance Urine pH Ur Specific [place] Urine Protein Urine Glucose (UA) Urine Ketones Ur Blood (Man) Urine Nitrate Urine Bilirubin Urine Urobilinogen Add Ur Microanalysis Leukocyte Esterase Rfl Urine RBC Urine WBC Ur Squamous Epith Cells Urine Bacteria Urine Casts Nasal MRSA (PCR) Quality VTE Prophylaxis VTE prophylaxis: pharmacologic ordered
[2024-08-07] MEDS: polyethylene glycoL 3350 17 GM POWD.PACK PO (09:03)
[2024-08-07] MEDS: DOCUSATE SODIUM 100 MG CAPSULE PO ×2 (09:03→20:15)
[2024-08-07] MEDS: PANTOPRAZOLE 40 MG TABLET PO (09:03)
[2024-08-07] MEDS: GABAPENTIN 300 MG CAPSULE PO ×3 (09:03→18:44)
[2024-08-07] MEDS: INSULIN ASPART (*BKC) 100 UNITS/ML SUB-Q ×3 (09:03→17:50)
[2024-08-07] MEDS: VANCOMYCIN 1,500 MG/NS 500 ML 1,500 MG/500 ML BAG 250 MG IVPB (11:11)
[2024-08-07 11:33] LABS: Glucose Point of Care 249 mg/dl (65-105)
--- NOTE | 2024-08-07 12:49 | P.PNGS_ITS ---
Progress Note: A&P Assessment and Plan (1) Sepsis: Qualifiers: Sepsis acute organ dysfunction status: without acute organ dysfunction Sepsis type: sepsis due to unspecified organism Qualified Code(s): A41.9 - S epsis, unspecified organism Code(s): A41.9 - Sepsis, unspecified organism Status: Acute Assessment and Plan: resolving, cont IV abx for UTI (2) Acute UTI: Code(s): N39.0 - Urinary tract infection, site not specified Status: Acute Assessment and Plan: see above (3) Wound of left buttock: Qualifiers: Encounter type: initial encounter Qualified Code(s): S31.829A - Unspecified open wound of left buttock, initial encounter Code(s): S31.829A - Unspecified open wound of left buttock, initial encounter Status: Acute Assessment and Plan: no s/s active infection, cont local wound care, will get wound care consult for further recs Subjective Subjective Date/Time Seen: 08/07/24 12:49 Interval history: feels better, pressors weaned off Review of Systems Review of Systems: All systems reviewed & are unremarkable except as noted in HPI and below Exam Const: General: cooperative, comfortable and no acute distress Resp: Auscultation: clear to auscultation bilaterally Cardio: Rate: regular rate Rhythm: regular rhythm GI: Inspection: normal to inspection Skin: Other: L buttock wound - unchanged, no fluctuance, drainage Objective Data Vital Signs Vital Signs: Vital Signs - 24 hr 08/06/24 13:04 08/06/24 13:15 08/06/24 14:08 Temperature 37.0 C Pulse Rate 98 114 H 111 H Respiratory Rate 12 15 15 Blood Pressure 88/56 L 104/63 85/66 L Pulse Oximetry 98 96 98 Oxygen Delivery 08/06/24 14:14 08/06/24 14:15 08/06/24 14:16 Temperature Pulse Rate 104 H 120 H 113 H Respiratory Rate 11 L 21 H 18 Blood Pressure 76/50 L Pulse Oximetry 97 90 98 Oxygen Delivery 08/06/24 14:44 08/06/24 15:04 08/06/24 15:17 Temperature Pulse Rate 107 H 121 H Respiratory Rate 12 16 Blood Pressure 63/50 L 104/58 L 100/68 Pulse Oximetry 97 97 Oxygen Delivery 08/06/24 16:31 08/06/24 16:41 08/06/24 16:47 Temperature Pulse Rate 96 121 H 114 H Respiratory Rate 20 19 Blood Pressure 77/58 L 77/58 L 100/74 Pulse Oximetry 98 100 Oxygen Delivery 08/06/24 17:41 08/06/24 17:59 08/06/24 18:00 Temperature 37.2 C Pulse Rate 114 H 111 H 115 H Respiratory Rate 24 H Blood Pressure 116/82 129/61 132/67 Pulse Oximetry 99 Oxygen Delivery 08/06/24 18:00 08/06/24 18:15 08/06/24 18:30 Temperature Pulse Rate 129 H 131 H 121 H Respiratory Rate Blood Pressure 132/67 128/73 Pulse Oximetry Oxygen Delivery 08/06/24 18:45 08/06/24 19:00 08/06/24 20:00 Temperature Pulse Rate 118 H 121 H 126 H Respiratory Rate 20 Blood Pressure 128/83 123/75 Pulse Oximetry 97 Oxygen Delivery Room Air 08/06/24 20:00 08/06/24 20:00 08/06/24 20:00 Temperature 37.9 C H Pulse Rate 103 H 126 H 126 H Respiratory Rate 20 Blood Pressure 105/69 105/69 Pulse Oximetry 97 Oxygen Delivery 08/06/24 22:00 08/06/24 22:00 08/06/24 22:00 Temperature Pulse Rate 108 H 108 H 108 H Respiratory Rate 17 Blood Pressure 115/54 L 115/54 L Pulse Oximetry 94 Oxygen Delivery 08/07/24 00:00 08/07/24 00:00 08/07/24 00:00 Temperature 36.8 C Pulse Rate 110 H 110 H 119 H Respiratory Rate 18 18 Blood Pressure 117/61 Pulse Oximetry 95 95 Oxygen Delivery CPAP 08/07/24 00:00 08/07/24 02:00 08/07/24 02:00 Temperature Pulse Rate 109 H 118 H 118 H Respiratory Rate 9 L Blood Pressure 117/61 111/68 Pulse Oximetry 92 Oxygen Delivery 08/07/24 02:00 08/07/24 04:00 08/07/24 04:00 Temperature Pulse Rate 112 H 119 H 114 H Respiratory Rate Blood Pressure 111/68 116/66 Pulse Oximetry Oxygen Delivery 08/07/24 04:30 08/07/24 04:30 08/07/24 06:00 Temperature 37.0 C Pulse Rate 124 H 124 H 112 H Respiratory Rate 25 H 25 H Blood Pressure 109/72 Pulse Oximetry 97 97 Oxygen Delivery Room Air 08/07/24 06:00 08/07/24 08:00 08/07/24 08:00 Temperature 37.5 C 37.5 C Pulse Rate 112 H 101 H 101 H Respiratory Rate 12 17 17 Blood Pressure 113/59 L 113/79 113/79 Pulse Oximetry 96 96 96 Oxygen Delivery 08/07/24 08:00 08/07/24 08:00 08/07/24 10:00 Temperature Pulse Rate 101 H 101 H 101 H Respiratory Rate 17 Blood Pressure Pulse Oximetry 96 Oxygen Delivery Room Air 08/07/24 10:00 08/07/24 11:03 08/07/24 11:03 Temperature Pulse Rate 105 H 105 H 105 H Respiratory Rate 17 Blood Pressure 97/90 L Pulse Oximetry 93 93 Oxygen Delivery Room Air Intake/Output Intake/Output: Intake & Output 08/04/24 08/05/24 08/06/24 08/07/24 23:59 23:59 23:59 23:59 Intake Total 6014.6 2534.6 Output Total 3200 1425 Balance 2814.6 1109.6 Meds/Results Medications: Active Medications Generic Name Dose Route Start Last Admin Trade Name Freq PRN Reason Stop Dose Admin Acetaminophen 650 mg 08/06/24 10:28 08/06/24 13:09 Acetaminophen 325 Mg Tablet PO 650 mg Q4H PRN Administration Mild Pain (1-3) or Fever Bisacodyl 10 mg 08/07/24 08:20 Bisacodyl 10 Mg Suppository RECTAL QAM PRN Constipation Dextrose 12.5 gm 08/06/24 13:10 Dextrose 50% 25 Gm/50 Ml Syringe IV PUSH PRN PRN Hypoglycemia Protocol Diltiazem HCl 30 mg/ Diltiazem 90 mg 08/06/24 22:00 08/07/24 06:31 HCl 60 mg PO 90 mg Q8HR GATO Administration Docusate Sodium 100 mg 08/06/24 21:00 08/07/24 09:03 Docusate Sodium 100 Mg Capsule PO 100 mg Q12HR GATO Administration Gabapentin 300 mg 08/07/24 09:00 08/07/24 09:03 Gabapentin 300 Mg Capsule PO 300 mg TID GATO Administration Glucagon 1 mg 08/06/24 13:10 Glucagon For Inj 1 Mg Vial IM PRN PRN Hypoglycemia Protocol Glucose 15 gm 08/06/24 13:10 Glucose Oral Gel 15 Gm Of Glucse In 37.5 Gm Tube PO PRN PRN Hypoglycemia Protocol Hydromorphone HCl 0.5 mg 08/06/24 10:28 08/06/24 20:01 Hydromorphone Hcl Inj (*Crx) 1 Mg/Ml Syr IV PUSH 0.5 mg Q4H PRN Administration Pain Rated 7-10 Vancomycin HCl 1,500 mg in 500 mls @ 250 mls/hr 08/06/24 23:00 08/07/24 11:11 Vancomycin 1,500 Mg/Ns 500 Ml IVPB 250 mls/hr Q12H AGTO Administration Dextrose 1,000 mls @ 100 mls/hr 08/06/24 13:10 Dextrose 5% 1,000 Ml IVPB PRN PRN Hypoglycemia Protocol Meropenem 1 gm in 100 mls @ 200 mls/hr 08/06/24 15:30 08/07/24 07:13 IVPB Infused Q8HR GATO Infusion Insulin Aspart 4 - 8 units 08/06/24 17:00 08/07/24 09:03 Insulin Aspart (*Bkc) 100 Units/Ml SUB-Q 4 units TIDWM GATO Administration Protocol Insulin Glargine 25 units 08/07/24 18:00 Insulin Glargine (*Bkc) 100 Units/Ml SUB-Q QPM GATO Ondansetron HCl 4 mg 08/06/24 10:28 Ondansetron Inj 4 Mg/2 Ml Vial IV PUSH Q4H PRN Nausea Pantoprazole Sodium 40 mg 08/06/24 13:40 08/07/24 09:03 Pantoprazole 40 Mg Tablet PO 40 mg QAM GATO Administration Polyethylene Glycol 17 gm 08/07/24 09:00 08/07/24 09:03 Polyethylene Glycol 3350 17 Gm Powd.Pack PO 17 gm QAM GATO Administration Rivaroxaban 20 mg 08/06/24 17:00 08/06/24 17:54 Rivaroxaban 20 Mg Tablet PO 20 mg DAILY@1700 GATO Administration Sodium Chloride 10 ml 08/06/24 22:00 08/07/24 06:31 Central Line Flush IV PUSH 10 ml Q8HR GATO Administration Sodium Chloride 10 ml 08/06/24 16:44 Central Line Flush IV PUSH PRN PRN with TPN bag changes Sodium Chloride 20 ml 08/06/24 16:44 Central Line Flush IV PUSH PRN PRN after blood draws Radiology Results: ITS Impressions Abdomen X-Ray 08/06/24 09:03 IMPRESSION: 1. Normal bowel gas pattern. Soft Tissue Ultrasound 08/06/24 13:45 IMPRESSION: 1. No abscess. Chest X-Ray 08/06/24 16:47 IMPRESSION: New right upper extremity PICC, terminating in the SVC. Labs Labs: Laboratory Results - last 24 hr 08/06/24 08/06/24 08/06/24 17:27 18:07 19:58 WBC RBC Hgb Hct MCV MCH MCHC RDW Plt Count MPV Immature Gran % (Auto) Neut % (Auto) Lymph % (Auto) [place] % (Auto) Eos % (Auto) Baso % (Auto) Lymph # (Auto) [place] # (Auto) Eos # (Auto) Baso # (Auto) Abs Immat Gran (auto) Absolute Neuts (auto) Absolute Nucleated RBC Nucleated RBC % Sodium Potassium Chloride Carbon Dioxide Anion Gap BUN Creatinine Estim Creat Clear Calc Estimated GFR Glucose POC Capillary Glucose 264 H 244 H Hemoglobin A1c Calcium Magnesium Total Bilirubin AST ALT Alkaline Phosphatase Total Protein Albumin Nasal MRSA (PCR) Not detected 08/07/24 08/07/24 08/07/24 04:38 07:32 11:24 WBC 16.8 H RBC 3.97 L Hgb 10.7 L Hct 33.4 L MCV 84.1 MCH 27.0 MCHC 32.0 RDW 12.3 Plt Count 305 MPV 9.9 Immature Gran % (Auto) 0.7 H Neut % (Auto) 80.1 H Lymph % (Auto) 11.1 L [place] % (Auto) 6.7 Eos % (Auto) 1.2 Baso % (Auto) 0.2 Lymph # (Auto) 1.86 [place] # (Auto) 1.1 H Eos # (Auto) 0.2 Baso # (Auto) 0.0 Abs Immat Gran (auto) 0.11 H Absolute Neuts (auto) 13.4 H Absolute Nucleated RBC 0.000 Nucleated RBC % 0.0 Sodium 129 L Potassium 3.9 Chloride 96 L Carbon Dioxide 28 Anion Gap 5 BUN 10 D Creatinine 0.55 L Estim Creat Clear Calc 296 Estimated GFR > 60 Glucose 253 H POC Capillary Glucose 232 H 249 H Hemoglobin A1c 11.1 H Calcium 7.7 L Magnesium 2.1 Total Bilirubin 1.1 AST 18 ALT 14 Alkaline Phosphatase 84 Total Protein 6.0 L Albumin 2.6 L Nasal MRSA (PCR)
[2024-08-07 16:51] LABS: Glucose Point of Care 234 mg/dl (65-105)
[2024-08-07] MEDS: RIVAROXABAN 20 MG TABLET PO (18:44)
[2024-08-07] MEDS: INSULIN GLARGINE (*BKC) 100 UNITS/ML 25 UNITS SUB-Q (18:49)
[2024-08-07 20:25] LABS: Glucose Point of Care 277 mg/dl (65-105)
--- NOTE | 2024-08-07 21:00 | ADMGEN ---
This patient, Tito Fam, was admitted to Medical Room 253-01. Patient/family oriented to hospital policies and general routines including ID bracelet, bed and alarms, visiting hours, pain management, procedures, bathroom and other care routines, personal items, smoking policy, room service/diet, and visiting hours. Information on how to activate the Rapid Response Team has been discussed. Patient/Family are encouraged to report perceived risks to care and to ask questions if they do not understand what they are told or what they should do.
[2024-08-07 21:58] LABS: Vancomycin Trough 5.7 ug/mL (10.0-20.0)
[2024-08-07] MEDS: VANCOMYCIN 2,000 MG/NS 500 ML 2,000 MG/500 ML BAG 250 MG IVPB (23:12)
[2024-08-08] VITALS (7 sets, daily range): BP systolic 123–127; BP diastolic 70–71; PULSE 89–117; RESP 18–19; TEMP 36.7–37.2; O2SAT 97–98; BMI 61.7
[2024-08-08] MEDS: ACETAMINOPHEN 325 MG TABLET 650 MG PO (01:24)
--- NOTE | 2024-08-08 02:39 | PC.NURSE ---
SBAR sent and verbal report given to Inocencio RN on medical.
--- NOTE | 2024-08-08 03:22 | PC.NURSE ---
Patient transferred via bed to room 258 at 0315. Belongings sent with patient, except for wallet. Wallet is in ICU safe and the safe will not open. Patient and Inocencio RN of [address] [place] [address] aware wallet is still in ICU and we will have safe opened in the morning.
[2024-08-08] MEDS: CENTRAL LINE FLUSH 10 ML IV PUSH ×3 (05:45→21:26)
[2024-08-08] MEDS: MEROPENEM 1 GM/NS 100 ML 1 GM/100 ML BAG IVPB ×3 (05:45→21:22)
[2024-08-08] MEDS: dilTIAZem HCL TAB 30 MG, dilTIAZem HCL TAB 60 MG 90 MG PO ×3 (05:45→21:25)
[2024-08-08] MEDS: VANCOMYCIN 2,000 MG/NS 500 ML 2,000 MG/500 ML BAG 250 MG IVPB (06:29)
[2024-08-08 06:45] LABS: Alanine Aminotransferase 16 U/L (6-50); Albumin Level 2.6 g/dL (3.5-5.1); Alkaline Phosphatase 95 U/L (38-126); Anion Gap 5 mmol/L (4-12); Aspartate Amino Transferase 14 U/L (17-59); Bilirubin,Total 0.9 mg/dL (0.2-1.3); Blood Urea Nitrogen 10 mg/dL (9-20); Calcium 7.8 mg/dL (8.4-10.2); Carbon Dioxide 30 mmol/L (22-30); Chloride 95 mmol/L (98-107); Estimated CRCL calculation 319 ml/min; Estimated Glomerular Filt Rate > 60; Glucose 226 mg/dL (65-110); Magnesium 2.1 mg/dL (1.6-2.3); Potassium 3.8 mmol/L (3.4-5.0); Sodium 130 mmol/L (137-145)
[2024-08-08 06:49] LABS: Hematocrit 34.3 % (42.0-52.0); Hemoglobin 10.8 g/dL (14.0-18.0); Mean Corpuscular HGB Conc 31.5 g/dl (32-36); Mean Corpuscular Volume 85.8 fl (80-100); Mean Platelet Volume 10.5 fl (7.4-10.4); Platelet Count Result 361 k/mm3 (150-375); Red Cell Distribution Width 12.2 % (11.5-14.5); White Blood Count 15.7 K/mm3 (4.5-10.0)
[2024-08-08 07:47] LABS: Glucose Point of Care 220 mg/dl (65-105)
[2024-08-08] MEDS: INSULIN ASPART (*BKC) 100 UNITS/ML SUB-Q ×3 (08:16→17:26)
[2024-08-08] MEDS: PANTOPRAZOLE 40 MG TABLET PO (08:16)
[2024-08-08] MEDS: GABAPENTIN 300 MG CAPSULE PO ×3 (08:16→17:21)
[2024-08-08] MEDS: polyethylene glycoL 3350 17 GM POWD.PACK PO (08:16)
[2024-08-08] MEDS: DOCUSATE SODIUM 100 MG CAPSULE PO (08:16)
--- NOTE | 2024-08-08 08:22 | WPDCDIQUERY2 ---
CDI Query Clarification Request Cellulitis has been documented by ER provider. treatment: Vanocomycin IVPB daily, Meropenem IVPB Q 8 HR Please clarify if cellulitis has been ruled in or ruled out. <Monique Hopkins RN - Last Filed: 08/08/24 08:25> Provider Comments ruled out <Liss Spencer APRN - Last Filed: 08/08/24 08:33>
[2024-08-08] MEDS: BISACODYL 10 MG SUPPOSITORY RECTAL (08:24)
--- NOTE | 2024-08-08 09:42 | P.PNGS_ITS ---
Progress Note: A&P Assessment and Plan (1) Sepsis: Qualifiers: Sepsis acute organ dysfunction status: without acute organ dysfunction Sepsis type: sepsis due to unspecified organism Qualified Code(s): A41.9 - S epsis, unspecified organism Code(s): A41.9 - Sepsis, unspecified organism Status: Acute Assessment and Plan: * Initially felt to be secondary to UTI. He also has a draining buttock wound. Exam limited as we are unable to obtain a CT scan on patient due to morbid obesity. Blood cx NGTD * WBC count still around 15,000. He was febrile last night. * Continue IV antibiotics (2) Acute UTI: Code(s): N39.0 - Urinary tract infection, site not specified Status: Acute Assessment and Plan: * Continue IV antibiotics. Urine cx negative. (3) Wound of left buttock: Qualifiers: Encounter type: initial encounter Qualified Code(s): S31.829A - Unspecified open wound of left buttock, initial encounter Code(s): S31.829A - Unspecified open wound of left buttock, initial encounter Status: Acute Assessment and Plan: * Wound care consulted and wound examined today. There is purulent drainage from this wound but no obvious opening to be packed. * Although soft tissue US negative for abscess, his exam is concerning for an infection/abscess. Evaluation is limited without a CT scan due to his morbid obesity. Will discuss further with Dr. Dick as he may need incision and drainage. He has increased risks for anesthesia/surgery given his morbid obesity and multiple comorbidities. Subjective Subjective Date/Time Seen: 08/08/24 09:42 Patient reports: no new complaints and fever (T 101.8F) Interval history: Chart reviewed. Patient had a fever 101.8 F last night. When questioned about his wound, he reports this started over a week ago. He does still have some tenderness and soreness in the area of his buttock wound. He is seen with Wound Care nurses this morning. Exam Const: General: comfortable and no acute distress Nutritional Appearance: obese morbidly obese GI: Inspection: Pannus present and obesity GI Palp: Yes Soft to palpation and No Tenderness to palpation present (GI) Other: Large excoriated open wound to the left buttock with two areas of darkened/dusky skin within the wound that have ramirez/brown purulent drainage oozing from these two areas. There is surrounding induration and tenderness around the wound. No obvious openings that I was able to probe where there was purulent drainage coming from the darkened skin. Objective Data Vital Signs Vital Signs: Vital Signs - 24 hr 08/07/24 10:00 08/07/24 10:00 08/07/24 11:03 Temperature Pulse Rate 101 H 105 H 105 H Respiratory Rate 17 Blood Pressure 97/90 L Pulse Oximetry 93 93 Oxygen Delivery Room Air 08/07/24 11:03 08/07/24 12:00 08/07/24 14:00 Temperature 98.9 F Pulse Rate 105 H 105 H 105 H Respiratory Rate 16 Blood Pressure 111/76 Pulse Oximetry 97 Oxygen Delivery 08/07/24 16:00 08/07/24 16:00 08/07/24 16:00 Temperature 99.4 F Pulse Rate 93 93 93 Respiratory Rate 32 H 32 H Blood Pressure 129/66 Pulse Oximetry 98 98 Oxygen Delivery Room Air 08/07/24 16:00 08/07/24 17:16 08/07/24 17:20 Temperature 99.4 F Pulse Rate 93 93 Respiratory Rate 32 H Blood Pressure 129/66 118/99 H Pulse Oximetry 98 Oxygen Delivery 08/07/24 19:21 08/07/24 19:24 08/07/24 20:00 Temperature Pulse Rate 115 H 115 H 97 Respiratory Rate 16 Blood Pressure Pulse Oximetry 97 97 Oxygen Delivery Room Air 08/07/24 20:00 08/07/24 22:00 08/07/24 23:19 Temperature 98.9 F 101.8 F H Pulse Rate 114 H 116 H 107 H Respiratory Rate 16 24 H 20 Blood Pressure 128/60 121/61 142/68 H Pulse Oximetry 97 97 94 Oxygen Delivery 08/08/24 00:00 08/08/24 01:30 08/08/24 04:00 Temperature 99.0 F Pulse Rate 104 H 107 H Respiratory Rate Blood Pressure Pulse Oximetry Oxygen Delivery 08/08/24 08:00 Temperature 98.1 F Pulse Rate 89 Respiratory Rate 19 Blood Pressure 123/70 Pulse Oximetry 98 Oxygen Delivery Intake/Output Intake/Output: Intake & Output 08/05/24 08/06/24 08/07/24 08/08/24 23:59 23:59 23:59 23:59 Intake Total 6014.6 3214.6 1686 Output Total 3200 5775 850 Balance 2814.6 -2560.4 836 Meds/Results Medications: Active Medications Generic Name Dose Route Start Last Admin Trade Name Nilsq PRN Reason Stop Dose Admin Acetaminophen 650 mg 08/06/24 10:28 08/08/24 01:24 Acetaminophen 325 Mg Tablet PO 650 mg Q4H PRN Administration Mild Pain (1-3) or Fever Bisacodyl 10 mg 08/07/24 08:20 08/08/24 08:24 Bisacodyl 10 Mg Suppository RECTAL 10 mg QAM PRN Administration Constipation Dextrose 12.5 gm 08/06/24 13:10 Dextrose 50% 25 Gm/50 Ml Syringe IV PUSH PRN PRN Hypoglycemia Protocol Diltiazem HCl 30 mg/ Diltiazem 90 mg 08/06/24 22:00 08/08/24 05:45 HCl 60 mg PO 90 mg Q8HR GATO Administration Docusate Sodium 100 mg 08/06/24 21:00 08/08/24 08:16 Docusate Sodium 100 Mg Capsule PO 100 mg Q12HR GATO Administration Gabapentin 300 mg 08/07/24 09:00 08/08/24 08:16 Gabapentin 300 Mg Capsule PO 300 mg TID GATO Administration Glucagon 1 mg 08/06/24 13:10 Glucagon For Inj 1 Mg Vial IM PRN PRN Hypoglycemia Protocol Glucose 15 gm 08/06/24 13:10 Glucose Oral Gel 15 Gm Of Glucse In 37.5 Gm Tube PO PRN PRN Hypoglycemia Protocol Hydromorphone HCl 0.5 mg 08/06/24 10:28 08/06/24 20:01 Hydromorphone Hcl Inj (*Crx) 1 Mg/Ml Syr IV PUSH 0.5 mg Q4H PRN Administration Pain Rated 7-10 Dextrose 1,000 mls @ 100 mls/hr 08/06/24 13:10 Dextrose 5% 1,000 Ml IVPB PRN PRN Hypoglycemia Protocol Meropenem 1 gm in 100 mls @ 200 mls/hr 08/06/24 15:30 08/08/24 06:15 IVPB Infused Q8HR GATO Infusion Vancomycin HCl 2,000 mg in 500 mls @ 250 mls/hr 08/07/24 23:00 08/08/24 06:29 Vancomycin 2,000 Mg/Ns 500 Ml IVPB 250 mls/hr Q8H GATO Administration Insulin Aspart 4 - 8 units 08/06/24 17:00 08/08/24 08:16 Insulin Aspart (*Bkc) 100 Units/Ml SUB-Q 4 units TIDWM GATO Administration Protocol Insulin Glargine 25 units 08/07/24 18:00 08/07/24 18:49 Insulin Glargine (*Bkc) 100 Units/Ml SUB-Q 25 units QPM GATO Administration Ondansetron HCl 4 mg 08/06/24 10:28 Ondansetron Inj 4 Mg/2 Ml Vial IV PUSH Q4H PRN Nausea Pantoprazole Sodium 40 mg 08/06/24 13:40 08/08/24 08:16 Pantoprazole 40 Mg Tablet PO 40 mg QAM GATO Administration Polyethylene Glycol 17 gm 08/07/24 09:00 08/08/24 08:16 Polyethylene Glycol 3350 17 Gm Powd.Pack PO 17 gm QAM GATO Administration Rivaroxaban 20 mg 08/06/24 17:00 08/07/24 18:44 Rivaroxaban 20 Mg Tablet PO 20 mg DAILY@1700 GATO Administration Sodium Chloride 10 ml 08/06/24 22:00 08/08/24 05:45 Central Line Flush IV PUSH 10 ml Q8HR GATO Administration Sodium Chloride 10 ml 08/06/24 16:44 Central Line Flush IV PUSH PRN PRN with TPN bag changes Sodium Chloride 20 ml 08/06/24 16:44 Central Line Flush IV PUSH PRN PRN after blood draws Radiology Results: ITS Impressions Abdomen X-Ray 08/06/24 09:03 IMPRESSION: 1. Normal bowel gas pattern. Soft Tissue Ultrasound 08/06/24 13:45 IMPRESSION: 1. No abscess. Chest X-Ray 08/06/24 16:47 IMPRESSION: New right upper extremity PICC, terminating in the SVC. Labs Labs: Laboratory Results - last 24 hr 08/07/24 08/07/24 08/07/24 11:24 16:48 20:13 WBC RBC Hgb Hct MCV MCH MCHC RDW Plt Count MPV Sodium Potassium Chloride Carbon Dioxide Anion Gap BUN Creatinine Estim Creat Clear Calc Estimated GFR Glucose POC Capillary Glucose 249 H 234 H 277 H Calcium Magnesium Total Bilirubin AST ALT Alkaline Phosphatase Total Protein Albumin Vancomycin Trough 08/07/24 08/08/24 08/08/24 21:26 06:23 07:42 WBC 15.7 H RBC 4.00 L Hgb 10.8 L Hct 34.3 L MCV 85.8 MCH 27.0 MCHC 31.5 L RDW 12.2 Plt Count 361 MPV 10.5 H Sodium 130 L Potassium 3.8 Chloride 95 L Carbon Dioxide 30 Anion Gap 5 BUN 10 Creatinine 0.52 L Estim Creat Clear Calc 319 Estimated GFR > 60 Glucose 226 H POC Capillary Glucose 220 H Calcium 7.8 L Magnesium 2.1 Total Bilirubin 0.9 AST 14 L ALT 16 Alkaline Phosphatase 95 Total Protein 6.0 L Albumin 2.6 L Vancomycin Trough 5.7 L
[2024-08-08 12:01] LABS: Glucose Point of Care 230 mg/dl (65-105)
--- NOTE | 2024-08-08 13:49 | PC.NURSE ---
Items that were secured in ICU safe were taken to 2 med chargemaster specialist Светлана. Confirmed that tag was on chart.
[2024-08-08 14:59] LABS: Vancomycin Trough 9.1 ug/mL (10.0-20.0)
--- NOTE | 2024-08-08 16:43 | P.PNIM_ITS ---
Progress Note: A&P Assessment and Plan (1) Septic shock: Code(s): A41.9 - Sepsis, unspecified organism; R65.21 - Severe sepsis with septic shock Status: Acute Assessment and Plan: Secondary to UTI Patient is getting 3 L fluid bolus which will complete 30 mL/kg ideal body weight (IBW 91 kg) After that patient will be started on LR 125 mL/hour Blood cultures and urine culture Post fluid bolus patient will be started on Levophed if needed Patient has huge pannus and thick neck. We will request PICC line at this time as central venous catheter is not feasible - discussed with Pharm ID- will be long time for pt to get therapeutic with level based on weight. Will switch to Linezolid for now (2) Atrial fibrillation with RVR: Code(s): I48.91 - Unspecified atrial fibrillation Status: Acute Assessment and Plan: Continue Xarelto On diltiazem If heart rate further increases we may have to use amiodarone (3) Insulin dependent type 2 diabetes mellitus: Code(s): E11.9 - Type 2 diabetes mellitus without complications; Z79.4 - jail (current) use of insulin Status: Acute Assessment and Plan: Sliding scale insert and Lantus Increase Lantus dose hga1c 11.1 states his PCP had him on metfromin and insulin he never tried any glp1 will need addressed in more details later (4) Morbid obesity: Code(s): E66.01 - Morbid (severe) obesity due to excess calories Status: Acute Assessment and Plan: Patient is morbidly obese and will be difficult to examine or manage. We are unable to perform CT scan on this patient if needed. I have discussed this manuel griffith with the patient I explained that our ability to examine him and image him is limited here. As per initial patient's request and refusal to transfer patient is being admitted here. Patient will be started on IV antibiotics IV fluids and IV vasopressors. If he does not improve I have explained to him that he may still need to be transferred to outside facility if we need additional imaging or testing that cannot be performed here. Patient verbalized understanding at this time (5) Urinary tract infection: Code(s): N39.0 - Urinary tract infection, site not specified Status: Acute Assessment and Plan: See (6) Obstructive sleep apnea on CPAP: Code(s): G47.33 - Obstructive sleep apnea (adult) (pediatric); Z99.89 - Dependence on other enabling machines and devices Status: Chronic Assessment and Plan: CPAP ordered (7) Wound of left buttock: Qualifiers: Encounter type: initial encounter Qualified Code(s): S31.829A - Unspecified open wound of left buttock, initial encounter Code(s): S31.829A - Unspecified open wound of left buttock, initial encounter Status: Acute Assessment and Plan: Patient was examined by general surgery and recommend local wound care. Ultrasound was negative for any abscess. Clinically does not appear to be necrotizing fasciitis obviously cannot be completely ruled out without a CT scan which we are unable to do with this time Patient will be started on broad-spectrum antibiotic consult wound care (8) Constipation: Code(s): K59.00 - Constipation, unspecified Status: Acute Assessment and Plan: Laxatives ordered Plan DVT prophylaxis -continue Xarelto Stress ulcer prophylaxis -PPI Nutrition -diabetic diet Code Status - Full Code Patient has been bed-bound for many years I suspect he can do any significant physical therapy. Will encourage incentive spirometry Subjective Date/time seen: 08/08/24 16:43 Interval history: 44 y/o M presents here with hematuria with PMH of anemia, Shahbaz's gangrene (2015), JANEY, diabetes, hypertension, spinal stenosis, and chronic AFib on anticoagulation. Initial VS at presentation: 98.6? F, HR 91, R 20, 114/86, 98% on RA. ED workup showed: WBC 15.6, hemoglobin 12.4 (previously 12.0 in 2020), INR 1.8, creatinine 0.81 and GFR >60, glucose 313, CRP 24.5, and UA suspicious for UTI. Abdominal x-ray showed normal bowel gas pattern. He was admitted to ICU initially, was given IV fluids and briefly was on pressors. Surgery was consulted and he was on IV vanc and ceftriaxone. 2/3 assuming care. Pt is seen and examined. He reports chills and hot flashes, abd is painful as he had not had BM in 9 days. Had been taking miralax and suppositories. Feeling uncomfortable now. Surgery was concern about wound presentations, areas of necrosis and foul smelling drainage, indurated areas appears to be enlarging. Advised to transfer to tertiary facility. PT initially didnot want to be transferred. BUt now agreable. 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 Called [facility] transfer center- he will need medical transfer- info provided. Waiting for call back. Accepting Md Dr Franklin Gallegos. Review of Systems Review of Systems: All systems reviewed & are unremarkable except as noted in HPI and below (HPI) Exam Narrative: General: Pt is alert awake and in NAD Lungs/Chest: Trachea central Clear BS B/L, No crackles or wheezing. Cardiac: Irregular rate rhythm heart rate in 110s to 20s. Normal S1 S2. No murmurs Circulation: Pedal pulses are intact and symmetrical. Abdomen: Morbidly obese male with present bowel sounds.. Soft. Tenderness only on deep palpation on the right side but no significant abnormality seen on the skin no guarding or rigidity. Abdominal exam is limited due to morbid obesity Extremities: Bilateral chronic pedal edema with chronic venous stasis changes : White in place Neurologic: Follows commands. Moves all 4 extremities PERRL AO x3 Skin: Patient has decubitus ulcer in left buttock which I was unable to examine as patient was getting prepped for a PICC line insertion. It was examined by general surgeon Const: General: comfortable and no acute distress Other: , male, obese body habitus HENMT: Face/Nose/Sinus: Normal nares present Mouth: Yes moist mucous membranes Eyes: General: appearance normal, both eyes and all related structures Sclera: sclerae normal Pupils: Equal, round and reactive pupils present EOM: EOMs intact bilaterally Resp: Effort & Inspection: normal respiratory effort Auscultation: clear to auscultation bilaterally Cardio: Rate: regular rate Rhythm: regular rhythm Other: S1-S2 present without murmur, rub, ectopy GI: Other: Abdomen soft, nondistended, nontender. Urinary Catheter: Urinary Catheter: patent and draining Skin: General skin exam: normal color, no rashes or lesions noted and wounds noted Wounds: wounds noted Other: shallow wound proximal to coccyx with weeping, no active purulent drainage, pink wound bed. Neuro: Cranial nerves: Yes Equal, round and reactive pupils present Speech: normal speech Motor exam (neuro): 5/5 motor strength present throughout Sensory Exam: normal sensation Other: A&O 4 Extrem: General: normal exam except as noted Other: minimally blanchable hyperpigmentation to BLE. Trace nonpitting edema. Psych: Mental Status: mental status grossly normal Affect: normal affect Other: Good insight and judgment, pleasant Objective Data Vital Signs Vital Signs: Vital Signs - 24 hr 08/07/24 17:16 08/07/24 17:20 08/07/24 19:21 Temperature Pulse Rate 93 115 H Respiratory Rate Blood Pressure 118/99 H Pulse Oximetry 97 Oxygen Delivery 08/07/24 19:24 08/07/24 20:00 08/07/24 20:00 Temperature 98.9 F Pulse Rate 115 H 97 114 H Respiratory Rate 16 16 Blood Pressure 128/60 Pulse Oximetry 97 97 Oxygen Delivery Room Air 08/07/24 22:00 08/07/24 23:19 08/08/24 00:00 Temperature 101.8 F H Pulse Rate 116 H 107 H 104 H Respiratory Rate 24 H 20 Blood Pressure 121/61 142/68 H Pulse Oximetry 97 94 Oxygen Delivery 08/08/24 01:30 08/08/24 04:00 08/08/24 08:00 Temperature 99.0 F 98.1 F Pulse Rate 107 H 89 Respiratory Rate 19 Blood Pressure 123/70 Pulse Oximetry 98 Oxygen Delivery 08/08/24 08:00 08/08/24 08:00 08/08/24 12:00 Temperature Pulse Rate 115 H 105 H Respiratory Rate Blood Pressure Pulse Oximetry Oxygen Delivery Room Air 08/08/24 16:00 Temperature Pulse Rate 106 H Respiratory Rate Blood Pressure Pulse Oximetry Oxygen Delivery Intake/Output Intake/Output: Intake & Output 08/05/24 08/06/24 08/07/24 08/08/24 23:59 23:59 23:59 23:59 Intake Total 6014.6 3214.6 1922 Output Total 3200 5775 850 Balance 2814.6 -2560.4 1072 Meds/Results Medications: Active Medications Generic Name Dose Route Start Last Admin Trade Name Freq PRN Reason Stop Dose Admin Acetaminophen 650 mg 08/06/24 10:28 08/08/24 01:24 Acetaminophen 325 Mg Tablet PO 650 mg Q4H PRN Administration Mild Pain (1-3) or Fever Bisacodyl 10 mg 08/07/24 08:20 08/08/24 08:24 Bisacodyl 10 Mg Suppository RECTAL 10 mg QAM PRN Administration Constipation Dextrose 12.5 gm 08/06/24 13:10 Dextrose 50% 25 Gm/50 Ml Syringe IV PUSH PRN PRN Hypoglycemia Protocol Diltiazem HCl 30 mg/ Diltiazem 90 mg 08/06/24 22:00 08/08/24 14:04 HCl 60 mg PO 90 mg Q8HR GATO Administration Docusate Sodium 100 mg 08/06/24 21:00 08/08/24 08:16 Docusate Sodium 100 Mg Capsule PO 100 mg Q12HR GATO Administration Gabapentin 300 mg 08/07/24 09:00 08/08/24 12:47 Gabapentin 300 Mg Capsule PO 300 mg TID GATO Administration Glucagon 1 mg 08/06/24 13:10 Glucagon For Inj 1 Mg Vial IM PRN PRN Hypoglycemia Protocol Glucose 15 gm 08/06/24 13:10 Glucose Oral Gel 15 Gm Of Glucse In 37.5 Gm Tube PO PRN PRN Hypoglycemia Protocol Hydromorphone HCl 0.5 mg 08/06/24 10:28 08/06/24 20:01 Hydromorphone Hcl Inj (*Crx) 1 Mg/Ml Syr IV PUSH 0.5 mg Q4H PRN Administration Pain Rated 7-10 Dextrose 1,000 mls @ 100 mls/hr 08/06/24 13:10 Dextrose 5% 1,000 Ml IVPB PRN PRN Hypoglycemia Protocol Meropenem 1 gm in 100 mls @ 200 mls/hr 08/06/24 15:30 08/08/24 14:05 IVPB 200 mls/hr Q8HR GATO Administration Insulin Aspart 4 - 8 units 08/06/24 17:00 08/08/24 12:47 Insulin Aspart (*Bkc) 100 Units/Ml SUB-Q 4 units TIDWM GATO Administration Protocol Insulin Glargine 25 units 08/07/24 18:00 08/07/24 18:49 Insulin Glargine (*Bkc) 100 Units/Ml SUB-Q 25 units QPM GATO Administration Linezolid 600 mg 08/08/24 18:00 Linezolid 600 Mg Tablet PO BID@1800,0600 [facility] Ondansetron HCl 4 mg 08/06/24 10:28 Ondansetron Inj 4 Mg/2 Ml Vial IV PUSH Q4H PRN Nausea Pantoprazole Sodium 40 mg 08/06/24 13:40 08/08/24 08:16 Pantoprazole 40 Mg Tablet PO 40 mg QAM GATO Administration Polyethylene Glycol 17 gm 08/07/24 09:00 08/08/24 08:16 Polyethylene Glycol 3350 17 Gm Powd.Pack PO 17 gm QAM GATO Administration Rivaroxaban 20 mg 08/06/24 17:00 08/07/24 18:44 Rivaroxaban 20 Mg Tablet PO 20 mg DAILY@1700 GATO Administration Sodium Chloride 10 ml 08/06/24 22:00 08/08/24 14:27 Central Line Flush IV PUSH 10 ml Q8HR GATO Administration Sodium Chloride 10 ml 08/06/24 16:44 Central Line Flush IV PUSH PRN PRN with TPN bag changes Sodium Chloride 20 ml 08/06/24 16:44 Central Line Flush IV PUSH PRN PRN after blood draws Radiology Results: ITS Impressions Abdomen X-Ray 08/06/24 09:03 IMPRESSION: 1. Normal bowel gas pattern. Soft Tissue Ultrasound 08/06/24 13:45 IMPRESSION: 1. No abscess. Chest X-Ray 08/06/24 16:47 IMPRESSION: New right upper extremity PICC, terminating in the SVC. Labs Labs: Laboratory Results - last 24 hr 08/07/24 08/07/24 08/07/24 16:48 20:13 21:26 WBC RBC Hgb Hct MCV MCH MCHC RDW Plt Count MPV Sodium Potassium Chloride Carbon Dioxide Anion Gap BUN Creatinine Estim Creat Clear Calc Estimated GFR Glucose POC Capillary Glucose 234 H 277 H Calcium Magnesium Total Bilirubin AST ALT Alkaline Phosphatase Total Protein Albumin Vancomycin Trough 5.7 L 08/08/24 08/08/24 08/08/24 06:23 07:42 11:42 WBC 15.7 H RBC 4.00 L Hgb 10.8 L Hct 34.3 L MCV 85.8 MCH 27.0 MCHC 31.5 L RDW 12.2 Plt Count 361 MPV 10.5 H Sodium 130 L Potassium 3.8 Chloride 95 L Carbon Dioxide 30 Anion Gap 5 BUN 10 Creatinine 0.52 L Estim Creat Clear Calc 319 Estimated GFR > 60 Glucose 226 H POC Capillary Glucose 220 H 230 H Calcium 7.8 L Magnesium 2.1 Total Bilirubin 0.9 AST 14 L ALT 16 Alkaline Phosphatase 95 Total Protein 6.0 L Albumin 2.6 L Vancomycin Trough 08/08/24 14:28 WBC RBC Hgb Hct MCV MCH MCHC RDW Plt Count MPV Sodium Potassium Chloride Carbon Dioxide Anion Gap BUN Creatinine Estim Creat Clear Calc Estimated GFR Glucose POC Capillary Glucose Calcium Magnesium Total Bilirubin AST ALT Alkaline Phosphatase Total Protein Albumin Vancomycin Trough 9.1 L Quality VTE Prophylaxis VTE prophylaxis: pharmacologic ordered
[2024-08-08] MEDS: RIVAROXABAN 20 MG TABLET PO (17:21)
[2024-08-08] MEDS: INSULIN GLARGINE (*BKC) 100 UNITS/ML 25 UNITS SUB-Q (17:21)
[2024-08-08 17:23] LABS: Glucose Point of Care 219 mg/dl (65-105)
[2024-08-08] MEDS: LINEZOLID 600 MG TABLET PO (17:29)
[2024-08-08 20:24] LABS: Glucose Point of Care 282 mg/dl (65-105)
[2024-08-08] MEDS: ONDANSETRON INJ 4 MG/2 ML VIAL IV PUSH (21:34)
[2024-08-09] VITALS (9 sets, daily range): BP systolic 121–140; BP diastolic 59–70; PULSE 94–124; RESP 18–19; TEMP 36.2–37.1; O2SAT 94–97
[2024-08-09] MEDS: MEROPENEM 1 GM/NS 100 ML 1 GM/100 ML BAG IVPB ×3 (05:27→21:26)
[2024-08-09] MEDS: LINEZOLID 600 MG TABLET PO ×2 (05:27→17:32)
[2024-08-09] MEDS: dilTIAZem HCL TAB 30 MG, dilTIAZem HCL TAB 60 MG 90 MG PO ×3 (05:27→21:21)
[2024-08-09] MEDS: CENTRAL LINE FLUSH 10 ML IV PUSH ×3 (05:28→21:22)
[2024-08-09 05:35] LABS: Hematocrit 35.5 % (42.0-52.0); Hemoglobin 11.4 g/dL (14.0-18.0); Mean Corpuscular HGB Conc 32.1 g/dl (32-36); Mean Corpuscular Hemoglobin 27.3 pg (26-34); Mean Corpuscular Volume 84.9 fl (80-100); Mean Platelet Volume 10.1 fl (7.4-10.4); Platelet Count Result 372 k/mm3 (150-375); Red Blood Count 4.18 M/mm3 (4.6-6.20); Red Cell Distribution Width 12.3 % (11.5-14.5); White Blood Count 17.3 K/mm3 (4.5-10.0)
[2024-08-09 05:46] LABS: Alanine Aminotransferase 18 U/L (6-50); Albumin Level 2.6 g/dL (3.5-5.1); Alkaline Phosphatase 111 U/L (38-126); Anion Gap 5 mmol/L (4-12); Aspartate Amino Transferase 20 U/L (17-59); Bilirubin,Total 1.1 mg/dL (0.2-1.3); Blood Urea Nitrogen 11 mg/dL (9-20); Calcium 7.5 mg/dL (8.4-10.2); Carbon Dioxide 31 mmol/L (22-30); Chloride 93 mmol/L (98-107); Estimated CRCL calculation 291 ml/min; Estimated Glomerular Filt Rate > 60; Glucose 221 mg/dL (65-110); Magnesium 2.2 mg/dL (1.6-2.3); Potassium 3.7 mmol/L (3.4-5.0); Sodium 129 mmol/L (137-145)
[2024-08-09 08:18] LABS: Glucose Point of Care 203 mg/dl (65-105)
[2024-08-09] MEDS: PANTOPRAZOLE 40 MG TABLET PO (08:42)
[2024-08-09] MEDS: INSULIN ASPART (*BKC) 100 UNITS/ML SUB-Q ×3 (08:42→17:31)
[2024-08-09] MEDS: GABAPENTIN 300 MG CAPSULE PO ×3 (08:42→17:32)
[2024-08-09] MEDS: DOCUSATE SODIUM 100 MG CAPSULE PO ×2 (08:42→21:21)
[2024-08-09] MEDS: ACETAMINOPHEN 325 MG TABLET 650 MG PO (08:49)
--- NOTE | 2024-08-09 10:28 | P.PNGS_ITS ---
Progress Note: A&P Assessment and Plan (1) Wound of left buttock: Qualifiers: Encounter type: initial encounter Qualified Code(s): S31.829A - Unspecified open wound of left buttock, initial encounter Code(s): S31.829A - Unspecified open wound of left buttock, initial encounter Status: Acute Assessment and Plan: * Buttock abscess vs necrotizing infection in the setting of a patient with history of severe Shahbaz's gangrene. Unable to get further imaging d/t morbid obesity. * L buttock wound with more purulent drainage and fluctuance today, and WBC count up to 17. We recommend transfer to tertiary care facility, which was discussed with the Hospitalist. He has been accepted at [facility], but still waiting for bed availability this morning. [facility] is at capacity and unable to accept transfers. Discussed with Hospitalist, who has also attempted to contact [facility] for transfer. * Continue local wound care and IV antibiotics for now, switched to Linezolid and Meropenem, which provides coverage for necrotizing infection. (2) Sepsis: Qualifiers: Sepsis acute organ dysfunction status: without acute organ dysfunction Sepsis type: sepsis due to unspecified organism Qualified Code(s): A41.9 - Sepsis, unspecified organism Code(s): A41.9 - Sepsis, unspecified organism Status: Acute Assessment and Plan: * Secondary to buttock wound/infection. Urine cx negative. See plan above. * WBC up to 17k today. Afebrile today. Continue IV antibiotics. Blood cx NGTD. (3) Acute UTI: Code(s): N39.0 - Urinary tract infection, site not specified Status: Acute Assessment and Plan: * Initially treated for UTI, but less likely the source of his sepsis. Plan I have discussed the patient's case and plan of care with Dr. Dick. Subjective Subjective Date/Time Seen: 08/09/24 10:28 Patient reports: afebrile (Afebrile since 08/07/2024. T-max of 99? over the past 24 hours) Interval history: Patient reports more pain in the left buttock area near his wound. No fevers this morning, but white blood cell count went up to 17,000 today. He has been accepted to [facility], awaiting bed placement. Exam Const: General: comfortable and no acute distress Orientation/consciousness: patient oriented x3 Skin: Other: Left buttock wound with more purulent drainage today and the two darkened areas in the superficial wound are softer with fluctuance. It feels like there some crepitus on exam to one of the soft eschars. Objective Data Vital Signs Vital Signs: Vital Signs - 24 hr 08/08/24 12:00 08/08/24 16:00 08/08/24 16:00 Temperature 99.0 F Pulse Rate 105 H 106 H 117 H Respiratory Rate 18 Blood Pressure 127/71 Pulse Oximetry 97 Oxygen Delivery 08/08/24 20:00 08/08/24 20:00 08/09/24 00:00 Temperature 98.0 F Pulse Rate 117 H 115 H 104 H Respiratory Rate 18 18 Blood Pressure 130/68 Pulse Oximetry 97 94 Oxygen Delivery Room Air 08/09/24 00:00 08/09/24 04:00 08/09/24 06:08 Temperature 98.7 F Pulse Rate 124 H 113 H 94 Respiratory Rate 18 Blood Pressure 140/59 L Pulse Oximetry 96 Oxygen Delivery 08/09/24 08:00 08/09/24 08:00 08/09/24 08:55 Temperature 97.7 F Pulse Rate 102 H 99 Respiratory Rate 19 Blood Pressure 123/63 Pulse Oximetry 97 Oxygen Delivery Room Air Intake/Output Intake/Output: Intake & Output 08/06/24 08/07/24 08/08/24 08/09/24 23:59 23:59 23:59 23:59 Intake Total 6014.6 3214.6 3362 480 Output Total 3200 5775 2650 2800 Balance 2814.6 -2560.4 712 -2320 Meds/Results Medications: Active Medications Generic Name Dose Route Start Last Admin Trade Name Freq PRN Reason Stop Dose Admin Acetaminophen 650 mg 08/06/24 10:28 08/09/24 08:49 Acetaminophen 325 Mg Tablet PO 650 mg Q4H PRN Administration Mild Pain (1-3) or Fever Hydrocodone Bitart/Acetaminophen 1 tab 08/09/24 09:53 Hydrocodone/Acetaminophen (*Crx) 5-325 Mg Tablet PO Q6H PRN Pain Rated 4-6 Hydrocodone Bitart/Acetaminophen 1 tab 08/09/24 09:53 Hydrocodone/Acetaminophen (*Crx) 10-325 Mg Tablet PO Q6H PRN Pain Rated 7-10 Bisacodyl 10 mg 08/07/24 08:20 08/08/24 08:24 Bisacodyl 10 Mg Suppository RECTAL 10 mg QAM PRN Administration Constipation Dextrose 12.5 gm 08/06/24 13:10 Dextrose 50% 25 Gm/50 Ml Syringe IV PUSH PRN PRN Hypoglycemia Protocol Diltiazem HCl 30 mg/ Diltiazem 90 mg 08/06/24 22:00 08/09/24 05:27 HCl 60 mg PO 90 mg Q8HR GATO Administration Docusate Sodium 100 mg 08/06/24 21:00 08/09/24 08:42 Docusate Sodium 100 Mg Capsule PO 100 mg Q12HR GATO Administration Gabapentin 300 mg 08/07/24 09:00 08/09/24 08:42 Gabapentin 300 Mg Capsule PO 300 mg TID GATO Administration Glucagon 1 mg 08/06/24 13:10 Glucagon For Inj 1 Mg Vial IM PRN PRN Hypoglycemia Protocol Glucose 15 gm 08/06/24 13:10 Glucose Oral Gel 15 Gm Of Glucse In 37.5 Gm Tube PO PRN PRN Hypoglycemia Protocol Hydromorphone HCl 0.5 mg 08/06/24 10:28 08/06/24 20:01 Hydromorphone Hcl Inj (*Crx) 1 Mg/Ml Syr IV PUSH 0.5 mg Q4H PRN Administration Pain Rated 7-10 Dextrose 1,000 mls @ 100 mls/hr 08/06/24 13:10 Dextrose 5% 1,000 Ml IVPB PRN PRN Hypoglycemia Protocol Meropenem 1 gm in 100 mls @ 200 mls/hr 08/06/24 15:30 08/09/24 05:27 IVPB 200 mls/hr Q8HR GATO Administration Insulin Aspart 4 - 8 units 08/06/24 17:00 08/09/24 08:42 Insulin Aspart (*Bkc) 100 Units/Ml SUB-Q 4 units TIDWM GATO Administration Protocol Insulin Glargine 25 units 08/07/24 18:00 08/08/24 17:21 Insulin Glargine (*Bkc) 100 Units/Ml SUB-Q 25 units QPM GATO Administration Linezolid 600 mg 08/08/24 18:00 08/09/24 05:27 Linezolid 600 Mg Tablet PO 600 mg BID@1800,0600 GATO Administration Ondansetron HCl 4 mg 08/06/24 10:28 08/08/24 21:34 Ondansetron Inj 4 Mg/2 Ml Vial IV PUSH 4 mg Q4H PRN Administration Nausea Pantoprazole Sodium 40 mg 08/06/24 13:40 08/09/24 08:42 Pantoprazole 40 Mg Tablet PO 40 mg QAM GATO Administration Polyethylene Glycol 17 gm 08/07/24 09:00 08/09/24 08:44 Polyethylene Glycol 3350 17 Gm Powd.Pack PO Not Given QAM GATO Rivaroxaban 20 mg 08/06/24 17:00 08/08/24 17:21 Rivaroxaban 20 Mg Tablet PO 20 mg DAILY@1700 GATO Administration Sodium Chloride 10 ml 08/06/24 22:00 08/09/24 05:28 Central Line Flush IV PUSH 10 ml Q8HR GATO Administration Sodium Chloride 10 ml 08/06/24 16:44 Central Line Flush IV PUSH PRN PRN with TPN bag changes Sodium Chloride 20 ml 08/06/24 16:44 Central Line Flush IV PUSH PRN PRN after blood draws Radiology Results: ITS Impressions Abdomen X-Ray 08/06/24 09:03 IMPRESSION: 1. Normal bowel gas pattern. Soft Tissue Ultrasound 08/06/24 13:45 IMPRESSION: 1. No abscess. Chest X-Ray 08/06/24 16:47 IMPRESSION: New right upper extremity PICC, terminating in the SVC. Labs Labs: Laboratory Results - last 24 hr 08/08/24 08/08/24 08/08/24 11:42 14:28 17:11 WBC RBC Hgb Hct MCV MCH MCHC RDW Plt Count MPV Sodium Potassium Chloride Carbon Dioxide Anion Gap BUN Creatinine Estim Creat Clear Calc Estimated GFR Glucose POC Capillary Glucose 230 H 219 H Calcium Magnesium Total Bilirubin AST ALT Alkaline Phosphatase Total Protein Albumin Vancomycin Trough 9.1 L 08/08/24 08/09/24 08/09/24 20:13 05:23 08:14 WBC 17.3 H RBC 4.18 L Hgb 11.4 L Hct 35.5 L MCV 84.9 MCH 27.3 MCHC 32.1 RDW 12.3 Plt Count 372 MPV 10.1 Sodium 129 L Potassium 3.7 Chloride 93 L Carbon Dioxide 31 H Anion Gap 5 BUN 11 Creatinine 0.58 L Estim Creat Clear Calc 291 Estimated GFR > 60 Glucose 221 H POC Capillary Glucose 282 H 203 H Calcium 7.5 L Magnesium 2.2 Total Bilirubin 1.1 AST 20 ALT 18 Alkaline Phosphatase 111 Total Protein 6.0 L Albumin 2.6 L Vancomycin Trough
[2024-08-09 12:02] LABS: Glucose Point of Care 235 mg/dl (65-105)
--- NOTE | 2024-08-09 15:59 | PM.IMPN ---
Progress Note: A&P Assessment and Plan (1) Septic shock: Code(s): A41.9 - Sepsis, unspecified organism; R65.21 - Severe sepsis with septic shock Status: Acute Assessment and Plan: Secondary to UTI Patient is getting 3 L fluid bolus which will complete 30 mL/kg ideal body weight (IBW 91 kg) After that patient will be started on LR 125 mL/hour Blood cultures and urine culture Post fluid bolus patient will be started on Levophed if needed Patient has huge pannus and thick neck. We will request PICC line at this time as central venous catheter is not feasible - discussed with Pharm ID- will be long time for pt to get therapeutic with level based on weight. 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 We are unable to perform CT scan on this patient if needed. I have discussed this frankly with the patient I explained that our ability to examine him and image him is limited here. As per initial patient's request and refusal to transfer patient is being admitted here. Patient will be started on IV antibiotics IV fluids and IV vasopressors. If he does not improve I have explained to him that he may still need to be transferred to outside facility if we need additional imaging or testing that cannot be performed here. Patient verbalized understanding at this time (5) Urinary tract infection: Code(s): N39.0 - Urinary tract infection, site not specified Status: Acute Assessment and Plan: See (6) Obstructive sleep apnea on CPAP: Code(s): G47.33 - Obstructive sleep apnea (adult) (pediatric); Z99.89 - Dependence on other enabling machines and devices Status: Chronic Assessment and Plan: CPAP ordered (7) Wound of left buttock: Qualifiers: Encounter type: initial encounter Qualified Code(s): S31.829A - Unspecified open wound of left buttock, initial encounter Code(s): S31.829A - Unspecified open wound of left buttock, initial encounter Status: Acute Assessment and Plan: 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 He was discharged to an LTAC after he left [facility] and was on a wound VAC for approximately 60 days. Ultrasound was negative for any abscess. surgery recommend transfer [facility] was contacted and pt was accepted continue antibiotics [facility] cannot take pt- they are over capacity Pt prefers to go to [facility] as previous care was done there (8) Constipation: Code(s): K59.00 - Constipation, unspecified Status: Acute Assessment and Plan: Laxatives ordered Plan DVT prophylaxis -continue Xarelto Stress ulcer prophylaxis -PPI Nutrition -diabetic diet Code Status - Full Code Patient has been bed-bound for many years I suspect he can do any significant physical therapy. Will encourage incentive spirometry Time Spent With Patient Time with patient: 25 - 35 minutes Subjective Date/time seen: 08/09/24 15:59 Interval history: 44 y/o M presents here with hematuria with PMH of anemia, Shahbaz's gangrene (2014), JANEY, diabetes, hypertension, spinal stenosis, and chronic AFib on anticoagulation. Initial VS at presentation: 98.6? F, HR 91, R 20, 114/86, 98% on RA. ED workup showed: WBC 15.6, hemoglobin 12.4 (previously 12.0 in 2020), INR 1.8, creatinine 0.81 and GFR >60, glucose 313, CRP 24.5, and UA suspicious for UTI. Abdominal x-ray showed normal bowel gas pattern. He was admitted to ICU initially, was given IV fluids and briefly was on pressors. Surgery was consulted and he was on IV vanc and ceftriaxone. 2/3 assuming care. Pt is seen and examined. He reports chills and hot flashes, abd is painful as he had not had BM in 9 days. Had been taking miralax and suppositories. Feeling uncomfortable now. Surgery was concern about wound presentations, areas of necrosis and foul smelling drainage, indurated areas appears to be enlarging. Advised to transfer to tertiary facility. PT initially didnot want to be transferred. BUt now agreable. Preference [facility] as he was there in 2014 for Fournie gangrene- required 3 extensive surgery with debridemnt, LTAC and wound vac x 60 days. Called [facility] transfer center- he will need medical transfer- info provided. Waiting for call back. Accepting Md Dr Franklin Gallegos. / pt is seen and examined. he had bm last night, feels a lot better. no acute complains wbc worse. continue antibiotics. Awaiting for bed in [facility]. Review of Systems Review of Systems: All systems reviewed & are unremarkable except as noted in HPI and below (HPI) Exam Narrative: General: Pt is alert awake and in NAD Lungs/Chest: Trachea central Clear BS B/L, No crackles or wheezing. Cardiac: Irregular rate rhythm heart rate in 110s to 20s. Normal S1 S2. No murmurs Circulation: Pedal pulses are intact and symmetrical. Abdomen: Morbidly obese male with present bowel sounds.. Soft. Tenderness only on deep palpation on the right side but no significant abnormality seen on the skin no guarding or rigidity. Abdominal exam is limited due to morbid obesity Extremities: Bilateral chronic pedal edema with chronic venous stasis changes : White in place Neurologic: Follows commands. Moves all 4 extremities PERRL AO x3 Skin: Patient has decubitus ulcer in left buttock Const: General: comfortable and no acute distress Other: , male, obese body habitus HENMT: Face/Nose/Sinus: Normal nares present Mouth: Yes moist mucous membranes Eyes: General: appearance normal, both eyes and all related structures Sclera: sclerae normal Pupils: Equal, round and reactive pupils present EOM: EOMs intact bilaterally Resp: Effort & Inspection: normal respiratory effort Auscultation: clear to auscultation bilaterally Cardio: Rate: regular rate Rhythm: regular rhythm Other: S1-S2 present without murmur, rub, ectopy GI: Other: Abdomen soft, nondistended, nontender. Urinary Catheter: Urinary Catheter: patent and draining Skin: General skin exam: normal color, no rashes or lesions noted and wounds noted Wounds: wounds noted Other: shallow wound proximal to coccyx with weeping, no active purulent drainage, pink wound bed. Neuro: Cranial nerves: Yes Equal, round and reactive pupils present Speech: normal speech Motor exam (neuro): 5/5 motor strength present throughout Sensory Exam: normal sensation Other: A&O 4 Extrem: General: normal exam except as noted Other: minimally blanchable hyperpigmentation to BLE. Trace nonpitting edema. Psych: Mental Status: mental status grossly normal Affect: normal affect Other: Good insight and judgment, pleasant Objective Data Vital Signs Vital Signs: Vital Signs - 24 hr 08/08/24 16:00 08/08/24 16:00 08/08/24 20:00 Temperature 99.0 F Pulse Rate 106 H 117 H 117 H Respiratory Rate 18 18 Blood Pressure 127/71 Pulse Oximetry 97 97 Oxygen Delivery Room Air 08/08/24 20:00 08/09/24 00:00 08/09/24 00:00 Temperature 98.0 F Pulse Rate 115 H 104 H 124 H Respiratory Rate 18 Blood Pressure 130/68 Pulse Oximetry 94 Oxygen Delivery 08/09/24 04:00 08/09/24 06:08 08/09/24 08:00 Temperature 98.7 F 97.7 F Pulse Rate 113 H 94 102 H Respiratory Rate 18 19 Blood Pressure 140/59 L 123/63 Pulse Oximetry 96 97 Oxygen Delivery 08/09/24 08:00 08/09/24 08:55 08/09/24 12:00 Temperature Pulse Rate 99 97 Respiratory Rate Blood Pressure Pulse Oximetry Oxygen Delivery Room Air Intake/Output Intake/Output: Intake & Output 08/06/24 08/07/24 08/08/24 08/09/24 23:59 23:59 23:59 23:59 Intake Total 6014.6 3214.6 3362 802 Output Total 3480 5775 2650 2800 Balance 2814.6 -2560.4 Meds/Results Medications: Active Medications Generic Name Dose Route Start Last Admin Trade Name Freq PRN Reason Stop Dose Admin Acetaminophen 650 mg 08/06/24 10:28 08/09/24 08:49 Acetaminophen 325 Mg Tablet PO 650 mg Q4H PRN Administration Mild Pain (1-3) or Fever Hydrocodone Bitart/Acetaminophen 1 tab 08/09/24 09:53 Hydrocodone/Acetaminophen (*Crx) 5-325 Mg Tablet PO Q6H PRN Pain Rated 4-6 Hydrocodone Bitart/Acetaminophen 1 tab 08/09/24 09:53 Hydrocodone/Acetaminophen (*Crx) 10-325 Mg Tablet PO Q6H PRN Pain Rated 7-10 Bisacodyl 10 mg 08/07/24 08:20 08/08/24 08:24 Bisacodyl 10 Mg Suppository RECTAL 10 mg QAM PRN Administration Constipation Dextrose 12.5 gm 08/06/24 13:10 Dextrose 50% 25 Gm/50 Ml Syringe IV PUSH PRN PRN Hypoglycemia Protocol Diltiazem HCl 30 mg/ Diltiazem 90 mg 08/06/24 22:00 08/09/24 14:58 HCl 60 mg PO 90 mg Q8HR GATO Administration Docusate Sodium 100 mg 08/06/24 21:00 08/09/24 08:42 Docusate Sodium 100 Mg Capsule PO 100 mg Q12HR GATO Administration Gabapentin 300 mg 08/07/24 09:00 08/09/24 12:28 Gabapentin 300 Mg Capsule PO 300 mg TID GATO Administration Glucagon 1 mg 08/06/24 13:10 Glucagon For Inj 1 Mg Vial IM PRN PRN Hypoglycemia Protocol Glucose 15 gm 08/06/24 13:10 Glucose Oral Gel 15 Gm Of Glucse In 37.5 Gm Tube PO PRN PRN Hypoglycemia Protocol Hydromorphone HCl 0.5 mg 08/06/24 10:28 08/06/24 20:01 Hydromorphone Hcl Inj (*Crx) 1 Mg/Ml Syr IV PUSH 0.5 mg Q4H PRN Administration Pain Rated 7-10 Dextrose 1,000 mls @ 100 mls/hr 08/06/24 13:10 Dextrose 5% 1,000 Ml IVPB PRN PRN Hypoglycemia Protocol Meropenem 1 gm in 100 mls @ 200 mls/hr 08/06/24 15:30 08/09/24 14:59 IVPB 100 mls/hr Q8HR GATO Administration Insulin Aspart 4 - 8 units 08/06/24 17:00 08/09/24 12:28 Insulin Aspart (*Bkc) 100 Units/Ml SUB-Q 4 units TIDWM GATO Administration Protocol Insulin Glargine 25 units 08/07/24 18:00 08/08/24 17:21 Insulin Glargine (*Bkc) 100 Units/Ml SUB-Q 25 units QPM GATO Administration Linezolid 600 mg 08/08/24 18:00 08/09/24 05:27 Linezolid 600 Mg Tablet PO 600 mg BID@1800,0600 [facility] Administration Ondansetron HCl 4 mg 08/06/24 10:28 08/08/24 21:34 Ondansetron Inj 4 Mg/2 Ml Vial IV PUSH 4 mg Q4H PRN Administration Nausea Pantoprazole Sodium 40 mg 08/06/24 13:40 08/09/24 08:42 Pantoprazole 40 Mg Tablet PO 40 mg QAM [facility] Administration Polyethylene Glycol 17 gm 08/07/24 09:00 08/09/24 08:44 Polyethylene Glycol 3350 17 Gm Powd.Pack PO [place] [facility] [place] 20 mg 08/06/24 17:00 08/08/24 17:21 Rivaroxaban 20 Mg Tablet PO 20 mg DAILY@1700 [facility] Administration Sodium Chloride 10 ml 08/06/24 22:00 08/09/24 14:59 Central Line Flush IV PUSH 10 ml Q8HR [facility] Administration Sodium Chloride 10 ml 08/06/24 16:44 Central Line Flush IV PUSH PRN PRN with TPN bag changes Sodium Chloride 20 ml 08/06/24 16:44 Central Line Flush IV PUSH PRN PRN after blood draws Radiology Results: ITS Impressions Abdomen X-Ray 08/06/24 09:03 IMPRESSION: 1. Normal bowel gas pattern. Soft Tissue Ultrasound 08/06/24 13:45 IMPRESSION: 1. No abscess. Chest X-Ray 08/06/24 16:47 IMPRESSION: New right upper extremity PICC, terminating in the SVC. Labs Labs: Laboratory Results - last 24 hr 08/08/24 08/08/24 08/09/24 17:11 20:13 05:23 WBC 17.3 H RBC 4.18 L Hgb 11.4 L Hct 35.5 L MCV 84.9 MCH 27.3 MCHC 32.1 RDW 12.3 Plt Count 372 MPV 10.1 Sodium 129 L Potassium 3.7 Chloride 93 L Carbon Dioxide 31 H Anion Gap 5 BUN 11 Creatinine 0.58 L Estim Creat Clear Calc 291 Estimated GFR > 60 Glucose 221 H POC Capillary Glucose 219 H 282 H Calcium 7.5 L Magnesium 2.2 Total Bilirubin 1.1 AST 20 ALT 18 Alkaline Phosphatase 111 Total Protein 6.0 L Albumin 2.6 L 08/09/24 08/09/24 08:14 11:57 WBC RBC Hgb Hct MCV MCH MCHC RDW Plt Count MPV Sodium Potassium Chloride Carbon Dioxide Anion Gap BUN Creatinine Estim Creat Clear Calc Estimated GFR Glucose POC Capillary Glucose 203 H 235 H Calcium Magnesium Total Bilirubin AST ALT Alkaline Phosphatase Total Protein Albumin Quality VTE Prophylaxis VTE prophylaxis: pharmacologic ordered
[2024-08-09 17:18] LABS: Glucose Point of Care 235 mg/dl (65-105)
[2024-08-09] MEDS: INSULIN GLARGINE (*BKC) 100 UNITS/ML 30 UNITS SUB-Q (17:32)
[2024-08-09] MEDS: RIVAROXABAN 20 MG TABLET PO (17:32)
[2024-08-09 20:19] LABS: Glucose Point of Care 205 mg/dl (65-105)
[2024-08-09] MEDS: HYDROcodone/acetaminophen (*CRX) 10-325 MG TABLET 1 TAB PO (21:25)
[2024-08-10] VITALS (8 sets, daily range): BP systolic 116–117; BP diastolic 58–64; PULSE 85–105; RESP 18–19; TEMP 36.3–36.4; O2SAT 94–97
[2024-08-10] MEDS: HYDROcodone/acetaminophen (*CRX) 10-325 MG TABLET 1 TAB PO ×2 (05:37→17:51)
[2024-08-10] MEDS: MEROPENEM 1 GM/NS 100 ML 1 GM/100 ML BAG IVPB ×3 (05:38→21:53)
[2024-08-10] MEDS: dilTIAZem HCL TAB 30 MG, dilTIAZem HCL TAB 60 MG 90 MG PO ×3 (05:38→21:53)
[2024-08-10] MEDS: LINEZOLID 600 MG TABLET PO ×2 (05:38→17:43)
[2024-08-10] MEDS: CENTRAL LINE FLUSH 10 ML IV PUSH ×3 (05:39→22:00)
[2024-08-10 08:07] LABS: Hematocrit 34.1 % (42.0-52.0); Mean Corpuscular HGB Conc 32.3 g/dl (32-36); Mean Corpuscular Hemoglobin 27.5 pg (26-34); Mean Corpuscular Volume 85.3 fl (80-100); Mean Platelet Volume 9.8 fl (7.4-10.4); Platelet Count Result 400 k/mm3 (150-375); Red Cell Distribution Width 12.3 % (11.5-14.5); White Blood Count 13.6 K/mm3 (4.5-10.0)
[2024-08-10 08:18] LABS: Glucose Point of Care 165 mg/dl (65-105)
[2024-08-10 08:21] LABS: Alanine Aminotransferase 19 U/L (6-50); Albumin Level 2.4 g/dL (3.5-5.1); Alkaline Phosphatase 107 U/L (38-126); Anion Gap 4 mmol/L (4-12); Aspartate Amino Transferase 22 U/L (17-59); Bilirubin,Total 0.9 mg/dL (0.2-1.3); Blood Urea Nitrogen 11 mg/dL (9-20); Calcium 7.8 mg/dL (8.4-10.2); Carbon Dioxide 32 mmol/L (22-30); Chloride 93 mmol/L (98-107); Estimated CRCL calculation 309 ml/min; Estimated Glomerular Filt Rate > 60; Glucose 158 mg/dL (65-110); Magnesium 2.2 mg/dL (1.6-2.3); Potassium 3.9 mmol/L (3.4-5.0); Sodium 129 mmol/L (137-145)
--- NOTE | 2024-08-10 09:18 | P.PNIM_ITS ---
Progress Note: A&P Assessment and Plan (1) Septic shock: Code(s): A41.9 - Sepsis, unspecified organism; R65.21 - Severe sepsis with septic shock Status: Acute Assessment and Plan: Secondary to UTI vs buttock wound Patient is received 3 L fluid bolus which completed 30 mL/kg ideal body weight (IBW 91 kg) After that patient was started on LR 125 mL/hour which has been discontinued Urine culture negative Blood culture: NGTD Buttock wound: Bacteroides fragilis Patient has huge pannus and thick neck. We will request PICC line at this time as central venous catheter is not feasible - discussed with Pharm ID- will be long time for pt to get therapeutic with level based on weight. Will switch to Linezolid for now, continue that and IV meropenem awaiting for bed at [facility] Vitals remain stable. Continue treatment. 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 He was discharged to an LTAC after he left [facility] and was on a wound VAC for approximately 60 days. - Buttock abscess vs necrotizing infection in the setting of a patient with history of severe Shahbaz's gangrene. Unable to get further imaging d/t morbid obesity. - Buttock wound: Bacteroides fragilis - Ultrasound was negative for any abscess. - Antibiotics: linezolid and meropenem - Surgery consulted Recommend transfer L buttock wound with more purulent drainage and fluctuance today, and WBC count up to 17. We recommend transfer to tertiary care facility, which was discussed with the Hospitalist. He has been accepted at [facility], but still waiting for bed availability this morning. [facility] is at capacity and unable to accept transfers. Discussed with Hospitalist, who has also attempted to contact [facility] for transfer. Continue local wound care and IV antibiotics for now, switched to Linezolid and Meropenem, which provides coverage for necrotizing infection. [facility] was contacted and pt was accepted. Pt prefers to go to [facility] as previous care was done there [facility] cannot take pt- they are over capacity (3) Urinary tract infection: Code(s): N39.0 - Urinary tract infection, site not specified Status: Acute Assessment and Plan: - UA: cloudy appearance with 1+ protein, 3+ glucose, trace ketones, 1+ bili, 1+ leukocytes, 21-50 RBC, > 100 WBC - UC obtained on 08/06: Negative - previous micro reviewed 12/31: E coli pansensitive (4) Atrial fibrillation with RVR: Code(s): I48.91 - Unspecified atrial fibrillation Status: Acute Assessment and Plan: HR remains stable in the 90s. Continue to monitor. Continue Xarelto On diltiazem 90 mg Q8 Telemetry If heart rate further increases we may have to use amiodarone (5) Insulin dependent type 2 diabetes mellitus: Code(s): E11.9 - Type 2 diabetes mellitus without complications; Z79.4 - group home (current) use of insulin Status: Acute Assessment and Plan: Sliding scale insert and Lantus hga1c 11.1 states his PCP had him on metfromin and insulin he never tried any glp1 will need addressed in more details later lantus 30 units as consistently above 200 monitor (6) Morbid obesity: Code(s): E66.01 - Morbid (severe) obesity due to excess calories Status: Acute Assessment and Plan: Patient is morbidly obese and will be difficult to examine or manage. Discussed improved diet and exercise. (7) Obstructive sleep apnea on CPAP: Code(s): G47.33 - Obstructive sleep apnea (adult) (pediatric); Z99.89 - Dependence on other enabling machines and devices Status: Chronic Assessment and Plan: CPAP ordered (8) Constipation: Code(s): K59.00 - Constipation, unspecified Status: Acute Assessment and Plan: Laxatives ordered Time Spent With Patient Time with patient: 25 - 35 minutes Subjective Date/time seen: 08/10/24 09:18 Interval history: 44 y/o M presents here with hematuria with PMH of anemia, Shahbaz's gangrene (2015), JANEY, diabetes, hypertension, spinal stenosis, and chronic AFib on anticoagulation. Patient is pleasant lying comfortably in bed. he continues to endorse pain to his bottom mostly on the left side in relation to his chronic wound. He has no other complaints denying chest pain, shortness a breath, palpitations, nause a/vomiting, and abdominal pain. Still waiting on a bed at [facility]. Review of Systems Review of Systems: All systems reviewed & are unremarkable except as noted in HPI and below (HPI) Exam Narrative: AF HR 93 RR 19 SpO2 94 BP 116/58 General: morbidly obese male in no acute respiratory distress who is nontoxic appearing, lying semi recumbent in bed. HEENT: Normocephalic. Atraumatic. Extraocular movement intact. Sclera clear and anicteric. No facial asymmetry. Chest: Lungs are clear to auscultation bilaterally. No wheezes or crackles. CV: Heart was regular rate and irregularly irregular rhythm. S1/S2. No murmurs, gallops, or rubs. Abd: Abdomen was soft. Nontender. Nondistended. Positive bowel sounds. No organomegaly or masses. Ext: No clubbing, cyanosis, or edema. 2+ DP pulses bilaterally. Neuro: Patient is alert. Speech is clear. Skin: large wound to the left buttock without drainage Objective Data Vital Signs Vital Signs: Vital Signs - 24 hr 08/09/24 12:00 08/09/24 16:00 08/09/24 16:00 Temperature 97.8 F Pulse Rate 97 118 H 101 H Respiratory Rate 19 Blood Pressure 130/70 Pulse Oximetry 97 Oxygen Delivery 08/09/24 19:56 08/09/24 20:00 08/09/24 20:23 Temperature 97.2 F L Pulse Rate 101 H 102 H 106 H Respiratory Rate 19 18 Blood Pressure 121/68 Pulse Oximetry 97 97 Oxygen Delivery Room Air 08/10/24 00:00 08/10/24 04:00 08/10/24 05:07 Temperature 97.3 F L Pulse Rate 105 H 103 H 92 Respiratory Rate 18 Blood Pressure 117/64 Pulse Oximetry 97 Oxygen Delivery Intake/Output Intake/Output: Intake & Output 08/07/24 08/08/24 08/09/24 08/10/24 23:59 23:59 23:59 23:59 Intake Total 3214.6 3362 1952 Output Total 5775 1180 2913 1250 Balance -2560.4 980 -8605 -5774 Meds/Results Medications: Active Medications Generic Name Dose Route Start Last Admin Trade Name Freq PRN Reason Stop Dose Admin Acetaminophen 650 mg 08/06/24 10:28 08/09/24 08:49 Acetaminophen 325 Mg Tablet PO 650 mg Q4H PRN Administration Mild Pain (1-3) or Fever Hydrocodone Bitart/Acetaminophen 1 tab 08/09/24 09:53 Hydrocodone/Acetaminophen (*Crx) 5-325 Mg Tablet PO Q6H PRN Pain Rated 4-6 Hydrocodone Bitart/Acetaminophen 1 tab 08/09/24 09:53 08/10/24 05:37 Hydrocodone/Acetaminophen (*Crx) 10-325 Mg Tablet PO 1 tab Q6H PRN Administration Pain Rated 7-10 Bisacodyl 10 mg 08/07/24 08:20 08/08/24 08:24 Bisacodyl 10 Mg Suppository RECTAL 10 mg QAM PRN Administration Constipation Dextrose 12.5 gm 08/06/24 13:10 Dextrose 50% 25 Gm/50 Ml Syringe IV PUSH PRN PRN Hypoglycemia Protocol Diltiazem HCl 30 mg/ Diltiazem 90 mg 08/06/24 22:00 08/10/24 05:38 HCl 60 mg PO 90 mg Q8HR GATO Administration Docusate Sodium 100 mg 08/06/24 21:00 08/09/24 21:21 Docusate Sodium 100 Mg Capsule PO 100 mg Q12HR GATO Administration Gabapentin 300 mg 08/07/24 09:00 08/09/24 17:32 Gabapentin 300 Mg Capsule PO 300 mg TID GATO Administration Glucagon 1 mg 08/06/24 13:10 Glucagon For Inj 1 Mg Vial IM PRN PRN Hypoglycemia Protocol Glucose 15 gm 08/06/24 13:10 Glucose Oral Gel 15 Gm Of Glucse In 37.5 Gm Tube PO PRN PRN Hypoglycemia Protocol Hydromorphone HCl 0.5 mg 08/06/24 10:28 08/06/24 20:01 Hydromorphone Hcl Inj (*Crx) 1 Mg/Ml Syr IV PUSH 0.5 mg Q4H PRN Administration Pain Rated 7-10 Dextrose 1,000 mls @ 100 mls/hr 08/06/24 13:10 Dextrose 5% 1,000 Ml IVPB PRN PRN Hypoglycemia Protocol Meropenem 1 gm in 100 mls @ 200 mls/hr 08/06/24 15:30 08/10/24 05:38 IVPB 200 mls/hr Q8HR GATO Administration Insulin Aspart 4 - 8 units 08/06/24 17:00 08/09/24 17:31 Insulin Aspart (*Bkc) 100 Units/Ml SUB-Q 4 units TIDWM GATO Administration Protocol Insulin Glargine 30 units 08/09/24 18:00 08/09/24 17:32 Insulin Glargine (*Bkc) 100 Units/Ml SUB-Q 30 units QPM GATO Administration Linezolid 600 mg 08/08/24 18:00 08/10/24 05:38 Linezolid 600 Mg Tablet PO 600 mg BID@1800,0600 GATO Administration Ondansetron HCl 4 mg 08/06/24 10:28 08/08/24 21:34 Ondansetron Inj 4 Mg/2 Ml Vial IV PUSH 4 mg Q4H PRN Administration Nausea Pantoprazole Sodium 40 mg 08/06/24 13:40 08/09/24 08:42 Pantoprazole 40 Mg Tablet PO 40 mg QAM [facility] Administration Polyethylene Glycol 17 gm 08/07/24 09:00 08/09/24 08:44 Polyethylene Glycol 3350 17 Gm Powd.Pack PO Not Given QAM [facility] Rivaroxaban 20 mg 08/06/24 17:00 08/09/24 17:32 Rivaroxaban 20 Mg Tablet PO 20 mg DAILY@1700 GATO Administration Sodium Chloride 10 ml 08/06/24 22:00 08/10/24 05:39 Central Line Flush IV PUSH 10 ml Q8HR GATO Administration Sodium Chloride 10 ml 08/06/24 16:44 Central Line Flush IV PUSH PRN PRN with TPN bag changes Sodium Chloride 20 ml 08/06/24 16:44 Central Line Flush IV PUSH PRN PRN after blood draws Radiology Results: ITS Impressions Abdomen X-Ray 08/06/24 09:03 IMPRESSION: 1. Normal bowel gas pattern. Soft Tissue Ultrasound 08/06/24 13:45 IMPRESSION: 1. No abscess. Chest X-Ray 08/06/24 16:47 IMPRESSION: New right upper extremity PICC, terminating in the SVC. Labs Labs: Laboratory Results - last 24 hr 08/09/24 08/09/24 08/09/24 11:57 17:12 20:07 WBC RBC Hgb Hct MCV MCH MCHC RDW Plt Count MPV Sodium Potassium Chloride Carbon Dioxide Anion Gap BUN Creatinine Estim Creat Clear Calc Estimated GFR Glucose POC Capillary Glucose 235 H 235 H 205 H Calcium Magnesium Total Bilirubin AST ALT Alkaline Phosphatase Total Protein Albumin 08/10/24 08/10/24 07:56 08:14 WBC 13.6 H RBC 4.00 L Hgb 11.0 L Hct 34.1 L MCV 85.3 MCH 27.5 MCHC 32.3 RDW 12.3 Plt Count 400 H MPV 9.8 Sodium 129 L Potassium 3.9 Chloride 93 L Carbon Dioxide 32 H Anion Gap 4 BUN 11 Creatinine 0.54 L Estim Creat Clear Calc 309 Estimated GFR > 60 Glucose 158 H POC Capillary Glucose 165 H Calcium 7.8 L Magnesium 2.2 Total Bilirubin 0.9 AST 22 ALT 19 Alkaline Phosphatase 107 Total Protein 6.0 L Albumin 2.4 L Quality VTE Prophylaxis VTE prophylaxis: pharmacologic ordered
[2024-08-10] MEDS: GABAPENTIN 300 MG CAPSULE PO ×3 (09:40→17:43)
[2024-08-10] MEDS: DOCUSATE SODIUM 100 MG CAPSULE PO ×2 (09:40→21:02)
[2024-08-10] MEDS: PANTOPRAZOLE 40 MG TABLET PO (09:40)
--- NOTE | 2024-08-10 10:21 | PM.PNGS ---
Progress Note: A&P Assessment and Plan (1) Wound of left buttock: Qualifiers: Encounter type: initial encounter Qualified Code(s): S31.829A - Unspecified open wound of left buttock, initial encounter Code(s): S31.829A - Unspecified open wound of left buttock, initial encounter Status: Acute Assessment and Plan: cont local wound care and abx, awaiting tx to [facility] for imaging, further wound care Subjective Subjective Date/Time Seen: 08/10/24 10:21 Interval history: feels a little better, still awaiting tx to [facility] Review of Systems Review of Systems: All systems reviewed & are unremarkable except as noted in HPI and below Exam Const: General: cooperative, comfortable and no acute distress Resp: Auscultation: clear to auscultation bilaterally Cardio: Rate: regular rate Rhythm: regular rhythm GI: Inspection: normal to inspection and obesity GI Palp: No abdominal tenderness Skin: Other: L buttock - largely unchanged, indurated, mild fluctuance, thin foul smelling dc with pressure Objective Data Vital Signs Vital Signs: Vital Signs - 24 hr 08/09/24 12:00 08/09/24 16:00 08/09/24 16:00 Temperature 36.6 C Pulse Rate 97 118 H 101 H Respiratory Rate 19 Blood Pressure 130/70 Pulse Oximetry 97 Oxygen Delivery 08/09/24 19:56 08/09/24 20:00 08/09/24 20:23 Temperature 36.2 C L Pulse Rate 101 H 102 H 106 H Respiratory Rate 19 18 Blood Pressure 121/68 Pulse Oximetry 97 97 Oxygen Delivery Room Air 08/10/24 00:00 08/10/24 04:00 08/10/24 05:07 Temperature 36.3 C L Pulse Rate 105 H 103 H 92 Respiratory Rate 18 Blood Pressure 117/64 Pulse Oximetry 97 Oxygen Delivery 08/10/24 09:43 Temperature Pulse Rate Respiratory Rate Blood Pressure Pulse Oximetry Oxygen Delivery Room Air Intake/Output Intake/Output: Intake & Output 08/07/24 08/08/24 08/09/24 08/10/24 23:59 23:59 23:59 23:59 Intake Total 3214.6 3362 1952 240 Output Total 5775 0570 2610 1250 Balance -2560.4 712 -2998 -1010 Meds/Results Medications: Active Medications Generic Name Dose Route Start Last Admin Trade Name Freq PRN Reason Stop Dose Admin Acetaminophen 650 mg 08/06/24 10:28 08/09/24 08:49 Acetaminophen 325 Mg Tablet PO 650 mg Q4H PRN Administration Mild Pain (1-3) or Fever Hydrocodone Bitart/Acetaminophen 1 tab 08/09/24 09:53 Hydrocodone/Acetaminophen (*Crx) 5-325 Mg Tablet PO Q6H PRN Pain Rated 4-6 Hydrocodone Bitart/Acetaminophen 1 tab 08/09/24 09:53 08/10/24 05:37 Hydrocodone/Acetaminophen (*Crx) 10-325 Mg Tablet PO 1 tab Q6H PRN Administration Pain Rated 7-10 Bisacodyl 10 mg 08/07/24 08:20 08/08/24 08:24 Bisacodyl 10 Mg Suppository RECTAL 10 mg QAM PRN Administration Constipation Dextrose 12.5 gm 08/06/24 13:10 Dextrose 50% 25 Gm/50 Ml Syringe IV PUSH PRN PRN Hypoglycemia Protocol Diltiazem HCl 30 mg/ Diltiazem 90 mg 08/06/24 22:00 08/10/24 05:38 HCl 60 mg PO 90 mg Q8HR GATO Administration Docusate Sodium 100 mg 08/06/24 21:00 08/10/24 09:40 Docusate Sodium 100 Mg Capsule PO 100 mg Q12HR GATO Administration Gabapentin 300 mg 08/07/24 09:00 08/10/24 09:40 Gabapentin 300 Mg Capsule PO 300 mg TID GATO Administration Glucagon 1 mg 08/06/24 13:10 Glucagon For Inj 1 Mg Vial IM PRN PRN Hypoglycemia Protocol Glucose 15 gm 08/06/24 13:10 Glucose Oral Gel 15 Gm Of Glucse In 37.5 Gm Tube PO PRN PRN Hypoglycemia Protocol Hydromorphone HCl 0.5 mg 08/06/24 10:28 08/06/24 20:01 Hydromorphone Hcl Inj (*Crx) 1 Mg/Ml Syr IV PUSH 0.5 mg Q4H PRN Administration Pain Rated 7-10 Dextrose 1,000 mls @ 100 mls/hr 08/06/24 13:10 Dextrose 5% 1,000 Ml IVPB PRN PRN Hypoglycemia Protocol Meropenem 1 gm in 100 mls @ 200 mls/hr 08/06/24 15:30 08/10/24 05:38 IVPB 200 mls/hr Q8HR [facility] Administration Insulin Aspart 4 - 8 units 08/06/24 17:00 08/10/24 09:39 Insulin Aspart (*Bkc) 100 Units/Ml SUB-Q Not Given TIDWM [facility] Protocol Insulin Glargine 30 units 08/09/24 18:00 08/09/24 17:32 Insulin Glargine (*Bkc) 100 Units/Ml SUB-Q 30 units QPM [facility] Administration Linezolid 600 mg 08/08/24 18:00 08/10/24 05:38 Linezolid 600 Mg Tablet PO 600 mg BID@1800,0600 [facility] Administration Ondansetron HCl 4 mg 08/06/24 10:28 08/08/24 21:34 Ondansetron Inj 4 Mg/2 Ml Vial IV PUSH 4 mg Q4H PRN Administration Nausea Pantoprazole Sodium 40 mg 08/06/24 13:40 08/10/24 09:40 Pantoprazole 40 Mg Tablet PO 40 mg QAM [facility] Administration Polyethylene Glycol 17 gm 08/07/24 09:00 08/10/24 09:40 Polyethylene Glycol 3350 17 Gm Powd.Pack PO Not Given QAM [facility] Rivaroxaban 20 mg 08/06/24 17:00 08/09/24 17:32 Rivaroxaban 20 Mg Tablet PO 20 mg DAILY@1700 [facility] Administration Sodium Chloride 10 ml 08/06/24 22:00 08/10/24 05:39 Central Line Flush IV PUSH 10 ml Q8HR GATO Administration Sodium Chloride 10 ml 08/06/24 16:44 Central Line Flush IV PUSH PRN PRN with TPN bag changes Sodium Chloride 20 ml 08/06/24 16:44 Central Line Flush IV PUSH PRN PRN after blood draws Radiology Results: ITS Impressions Abdomen X-Ray 08/06/24 09:03 IMPRESSION: 1. Normal bowel gas pattern. Soft Tissue Ultrasound 08/06/24 13:45 IMPRESSION: 1. No abscess. Chest X-Ray 08/06/24 16:47 IMPRESSION: New right upper extremity PICC, terminating in the SVC. Labs Labs: Laboratory Results - last 24 hr 08/09/24 08/09/24 08/09/24 11:57 17:12 20:07 WBC RBC Hgb Hct MCV MCH MCHC RDW Plt Count MPV Sodium Potassium Chloride Carbon Dioxide Anion Gap BUN Creatinine Estim Creat Clear Calc Estimated GFR Glucose POC Capillary Glucose 235 H 235 H 205 H Calcium Magnesium Total Bilirubin AST ALT Alkaline Phosphatase Total Protein Albumin 08/10/24 08/10/24 07:56 08:14 WBC 13.6 H RBC 4.00 L Hgb 11.0 L Hct 34.1 L MCV 85.3 MCH 27.5 MCHC 32.3 RDW 12.3 Plt Count 400 H MPV 9.8 Sodium 129 L Potassium 3.9 Chloride 93 L Carbon Dioxide 32 H Anion Gap 4 BUN 11 Creatinine 0.54 L Estim Creat Clear Calc 309 Estimated GFR > 60 Glucose 158 H POC Capillary Glucose 165 H Calcium 7.8 L Magnesium 2.2 Total Bilirubin 0.9 AST 22 ALT 19 Alkaline Phosphatase 107 Total Protein 6.0 L Albumin 2.4 L
[2024-08-10 12:14] LABS: Glucose Point of Care 234 mg/dl (65-105)
[2024-08-10] MEDS: INSULIN ASPART (*BKC) 100 UNITS/ML SUB-Q ×2 (12:23→17:42)
[2024-08-10] MEDS: ALTEPLASE 2 MG VIAL (CATHFLO) IV PUSH ×2 (15:12→15:17)
[2024-08-10 17:14] LABS: Glucose Point of Care 209 mg/dl (65-105)
[2024-08-10] MEDS: INSULIN GLARGINE (*BKC) 100 UNITS/ML 30 UNITS SUB-Q (17:42)
[2024-08-10] MEDS: RIVAROXABAN 20 MG TABLET PO (17:43)
[2024-08-10 21:49] LABS: Glucose Point of Care 191 mg/dl (65-105)
[2024-08-11] VITALS: BP 125/70; PULSE 103; PULSE 108; RESP 18; TEMP 36.8; O2SAT 95
[2024-08-11 04:00] VITALS: PULSE 93
[2024-08-11] MEDS: CENTRAL LINE FLUSH 20 ML IV PUSH (06:00)
[2024-08-11] MEDS: MEROPENEM 1 GM/NS 100 ML 1 GM/100 ML BAG IVPB ×2 (06:21→13:08)
[2024-08-11] MEDS: dilTIAZem HCL TAB 30 MG, dilTIAZem HCL TAB 60 MG 90 MG PO ×2 (06:21→13:06)
[2024-08-11 06:27] LABS: Hemoglobin 10.9 g/dL (14.0-18.0); Mean Corpuscular HGB Conc 32.1 g/dl (32-36); Mean Corpuscular Hemoglobin 27.5 pg (26-34); Mean Corpuscular Volume 85.6 fl (80-100); Mean Platelet Volume 9.9 fl (7.4-10.4); Platelet Count Result 431 k/mm3 (150-375); Red Blood Count 3.97 M/mm3 (4.6-6.20); Red Cell Distribution Width 12.3 % (11.5-14.5); White Blood Count 13.2 K/mm3 (4.5-10.0)
[2024-08-11] MEDS: LINEZOLID 600 MG TABLET PO ×2 (06:28→17:38)
[2024-08-11] MEDS: CENTRAL LINE FLUSH 10 ML IV PUSH ×2 (06:30→13:14)
[2024-08-11 06:38] LABS: Alanine Aminotransferase 18 U/L (6-50); Albumin Level 2.4 g/dL (3.5-5.1); Alkaline Phosphatase 105 U/L (38-126); Anion Gap 6 mmol/L (4-12); Aspartate Amino Transferase 20 U/L (17-59); Bilirubin,Total 0.8 mg/dL (0.2-1.3); Blood Urea Nitrogen 9 mg/dL (9-20); Calcium 7.7 mg/dL (8.4-10.2); Carbon Dioxide 31 mmol/L (22-30); Chloride 93 mmol/L (98-107); Estimated CRCL calculation 132 ml/min; Estimated Glomerular Filt Rate > 60; Glucose 161 mg/dL (65-110); Magnesium 2.2 mg/dL (1.6-2.3); Sodium 130 mmol/L (137-145)
[2024-08-11] MEDS: HYDROcodone/acetaminophen (*CRX) 10-325 MG TABLET 1 TAB PO ×2 (06:58→13:07)
[2024-08-11 08:00] VITALS: PULSE 88
[2024-08-11 08:15] LABS: Glucose Point of Care 167 mg/dl (65-105)
--- NOTE | 2024-08-11 08:31 | P.PNIM_ITS ---
Progress Note: A&P Assessment and Plan (1) Septic shock: Code(s): A41.9 - Sepsis, unspecified organism; R65.21 - Severe sepsis with septic shock Status: Acute Assessment and Plan: Secondary to UTI vs buttock wound Patient is received 3 L fluid bolus which completed 30 mL/kg ideal body weight (IBW 91 kg) After that patient was started on LR 125 mL/hour which has been discontinued Urine culture negative Blood culture: NGTD Buttock wound: Bacteroides fragilis Patient has huge pannus and thick neck. We will request PICC line at this time as central venous catheter is not feasible - discussed with Pharm ID- will be long time for pt to get therapeutic with level based on weight. Will switch to Linezolid for now, continue that and IV meropenem awaiting for bed at [facility] Vitals remain stable. Continue treatment. 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 He was discharged to an LTAC after he left [facility] and was on a wound VAC for approximately 60 days. - Buttock abscess vs necrotizing infection in the setting of a patient with history of severe Shahbaz's gangrene. Unable to get further imaging d/t morbid obesity. - Buttock wound: Bacteroides fragilis - Ultrasound was negative for any abscess. - Antibiotics: linezolid and meropenem - Surgery consulted Recommend transfer L buttock wound with more purulent drainage and fluctuance today, and WBC count up to 17. We recommend transfer to tertiary care facility, which was discussed with the Hospitalist. He has been accepted at [facility], but still waiting for bed availability this morning. [facility] is at capacity and unable to accept transfers. Discussed with Hospitalist, who has also attempted to contact [facility] for transfer. Continue local wound care and IV antibiotics for now, switched to Linezolid and Meropenem, which provides coverage for necrotizing infection. [facility] was contacted and pt was accepted. Pt prefers to go to [facility] as previous care was done there [facility] cannot take pt- they are over capacity (3) Atrial fibrillation with RVR: Code(s): I48.91 - Unspecified atrial fibrillation Status: Acute Assessment and Plan: HR remains stable in the 80-100s. Continue to monitor. Continue Xarelto On diltiazem 90 mg Q8 Telemetry If heart rate further increases we may have to use amiodarone (4) Insulin dependent type 2 diabetes mellitus: Code(s): E11.9 - Type 2 diabetes mellitus without complications; Z79.4 - alf (current) use of insulin Status: Acute Assessment and Plan: Sliding scale insert and Lantus hga1c 11.1 states his PCP had him on metformin and insulin he never tried any glp1 will need addressed in more details later lantus 32 units as consistently above 200 monitor (5) Morbid obesity: Code(s): E66.01 - Morbid (severe) obesity due to excess calories Status: Acute Assessment and Plan: Patient is morbidly obese and will be difficult to examine or manage. Discussed improved diet and exercise. (6) Obstructive sleep apnea on CPAP: Code(s): G47.33 - Obstructive sleep apnea (adult) (pediatric); Z99.89 - Dependence on other enabling machines and devices Status: Chronic Assessment and Plan: CPAP ordered (7) Constipation: Code(s): K59.00 - Constipation, unspecified Status: Acute Assessment and Plan: Laxatives ordered (8) Urinary tract infection: Code(s): N39.0 - Urinary tract infection, site not specified Status: Acute Assessment and Plan: - UA: cloudy appearance with 1+ protein, 3+ glucose, trace ketones, 1+ bili, 1+ leukocytes, 21-50 RBC, > 100 WBC - UC obtained on 08/06: Negative - previous micro reviewed 12/31: E coli pansensitive Time Spent With Patient Time with patient: 25 - 35 minutes Subjective Date/time seen: 08/11/24 08:31 Interval history: 44 y/o M presents here with hematuria with PMH of anemia, Shahbaz's gangrene (2015), JANEY, diabetes, hypertension, spinal stenosis, and chronic AFib on anticoagulation. Patient is pleasant lying comfortably in bed. He has no complaints denying chest pain, shortness a breath, palpitations, nausea/ vomiting, and abdominal pain. He continues to wait for transfer to [facility]. Review of Systems Review of Systems: All systems reviewed & are unremarkable except as noted in HPI and below (HPI) Exam Narrative: AF HR 88 RR 18 SpO2 95 BP 125/70 General: morbidly obese male in no acute respiratory distress who is nontoxic appearing, lying semi recumbent in bed. HEENT: Normocephalic. Atraumatic. Extraocular movement intact. No facial asymmetry. Chest: Lungs are clear to auscultation bilaterally. No wheezes or crackles. CV: Heart was regular rate and irregularly irregular rhythm. Abd: Abdomen was soft. Nontender. Nondistended. Positive bowel sounds. Ext: No clubbing, cyanosis, or edema. 2+ DP pulses bilaterally. Neuro: Patient is alert. Speech is clear. Skin: large wound to the left buttock Objective Data Vital Signs Vital Signs: Vital Signs - 24 hr 08/10/24 09:43 08/10/24 11:06 08/10/24 12:00 Temperature Pulse Rate 85 103 H Respiratory Rate Blood Pressure Pulse Oximetry Oxygen Delivery Room Air 08/10/24 16:00 08/10/24 16:00 08/10/24 20:00 Temperature 97.6 F Pulse Rate 101 H 93 Respiratory Rate 19 Blood Pressure 116/58 L Pulse Oximetry 94 Oxygen Delivery Room Air 08/10/24 20:00 08/10/24 22:45 08/11/24 00:00 Temperature 98.3 F Pulse Rate 101 H 105 H 108 H Respiratory Rate 18 Blood Pressure 125/70 Pulse Oximetry 95 95 Oxygen Delivery CPAP 08/11/24 00:00 08/11/24 04:00 Temperature Pulse Rate 103 H 93 Respiratory Rate Blood Pressure Pulse Oximetry Oxygen Delivery Intake/Output Intake/Output: Intake & Output 08/08/24 08/09/24 08/10/24 08/11/24 23:59 23:59 23:59 23:59 Intake Total 3362 1952 1450 900 Output Total 2650 7670 3350 1300 Balance 712 -2998 -1900 -400 Meds/Results Medications: Active Medications Generic Name Dose Route Start Last Admin Trade Name Freq PRN Reason Stop Dose Admin Acetaminophen 650 mg 08/06/24 10:28 08/09/24 08:49 Acetaminophen 325 Mg Tablet PO 650 mg Q4H PRN Administration Mild Pain (1-3) or Fever Hydrocodone Bitart/Acetaminophen 1 tab 08/09/24 09:53 Hydrocodone/Acetaminophen (*Crx) 5-325 Mg Tablet PO Q6H PRN Pain Rated 4-6 Hydrocodone Bitart/Acetaminophen 1 tab 08/09/24 09:53 08/11/24 06:58 Hydrocodone/Acetaminophen (*Crx) 10-325 Mg Tablet PO 1 tab Q6H PRN Administration Pain Rated 7-10 Alteplase, Recombinant 2 mg 08/10/24 12:27 08/10/24 15:17 Alteplase 2 Mg Vial (Cathflo) IV PUSH 2 mg ONCE PRN Administration Line Occlusion Alteplase, Recombinant 2 mg 08/10/24 15:17 Alteplase 2 Mg Vial (Cathflo) IV PUSH ONCE PRN Line Occlusion Bisacodyl 10 mg 08/07/24 08:20 08/08/24 08:24 Bisacodyl 10 Mg Suppository RECTAL 10 mg QAM PRN Administration Constipation Dextrose 12.5 gm 08/06/24 13:10 Dextrose 50% 25 Gm/50 Ml Syringe IV PUSH PRN PRN Hypoglycemia Protocol Diltiazem HCl 30 mg/ Diltiazem 90 mg 08/06/24 22:00 08/11/24 06:21 HCl 60 mg PO 90 mg Q8HR GATO Administration Docusate Sodium 100 mg 08/06/24 21:00 08/10/24 21:02 Docusate Sodium 100 Mg Capsule PO 100 mg Q12HR GATO Administration Gabapentin 300 mg 08/07/24 09:00 08/10/24 17:43 Gabapentin 300 Mg Capsule PO 300 mg TID GATO Administration Glucagon 1 mg 08/06/24 13:10 Glucagon For Inj 1 Mg Vial IM PRN PRN Hypoglycemia Protocol Glucose 15 gm 08/06/24 13:10 Glucose Oral Gel 15 Gm Of Glucse In 37.5 Gm Tube PO PRN PRN Hypoglycemia Protocol Hydromorphone HCl 0.5 mg 08/06/24 10:28 08/06/24 20:01 Hydromorphone Hcl Inj (*Crx) 1 Mg/Ml Syr IV PUSH 0.5 mg Q4H PRN Administration Pain Rated 7-10 Dextrose 1,000 mls @ 100 mls/hr 08/06/24 13:10 Dextrose 5% 1,000 Ml IVPB PRN PRN Hypoglycemia Protocol Meropenem 1 gm in 100 mls @ 200 mls/hr 08/06/24 15:30 08/11/24 06:51 IVPB Infused Q8HR [facility] Infusion Insulin Aspart 4 - 8 units 08/06/24 17:00 08/10/24 17:42 Insulin Aspart (*Bkc) 100 Units/Ml SUB-Q 4 units TIDWM GATO Administration Protocol Insulin Glargine 30 units 08/09/24 18:00 08/10/24 17:42 Insulin Glargine (*Bkc) 100 Units/Ml SUB-Q 30 units QPM GATO Administration Linezolid 600 mg 08/08/24 18:00 08/11/24 06:28 Linezolid 600 Mg Tablet PO 600 mg BID@1800,0600 GATO Administration Ondansetron HCl 4 mg 08/06/24 10:28 08/08/24 21:34 Ondansetron Inj 4 Mg/2 Ml Vial IV PUSH 4 mg Q4H PRN Administration Nausea Pantoprazole Sodium 40 mg 08/06/24 13:40 08/10/24 09:40 Pantoprazole 40 Mg Tablet PO 40 mg QAM GATO Administration Polyethylene Glycol 17 gm 08/10/24 12:27 Polyethylene Glycol 3350 17 Gm Powd.Pack PO QAM PRN Constipation Rivaroxaban 20 mg 08/06/24 17:00 08/10/24 17:43 Rivaroxaban 20 Mg Tablet PO 20 mg DAILY@1700 GATO Administration Sodium Chloride 10 ml 08/06/24 22:00 08/11/24 06:30 Central Line Flush IV PUSH 10 ml Q8HR GATO Administration Sodium Chloride 10 ml 08/06/24 16:44 Central Line Flush IV PUSH PRN PRN with TPN bag changes Sodium Chloride 20 ml 08/06/24 16:44 08/11/24 06:00 Central Line Flush IV PUSH 20 ml PRN PRN Administration after blood draws Radiology Results: ITS Impressions Abdomen X-Ray 08/06/24 09:03 IMPRESSION: 1. Normal bowel gas pattern. Soft Tissue Ultrasound 08/06/24 13:45 IMPRESSION: 1. No abscess. Chest X-Ray 08/06/24 16:47 IMPRESSION: New right upper extremity PICC, terminating in the SVC. Labs Labs: Laboratory Results - last 24 hr 08/10/24 08/10/24 08/10/24 12:11 16:44 20:37 WBC RBC Hgb Hct MCV MCH MCHC RDW Plt Count MPV Sodium Potassium Chloride Carbon Dioxide Anion Gap BUN Creatinine Estim Creat Clear Calc Estimated GFR Glucose POC Capillary Glucose 234 H 209 H 191 H Calcium Magnesium Total Bilirubin AST ALT Alkaline Phosphatase Total Protein Albumin 08/11/24 08/11/24 06:18 08:00 WBC 13.2 H RBC 3.97 L Hgb 10.9 L Hct 34.0 L MCV 85.6 MCH 27.5 MCHC 32.1 RDW 12.3 Plt Count 431 H MPV 9.9 Sodium 130 L Potassium 4.0 Chloride 93 L Carbon Dioxide 31 H Anion Gap 6 BUN 9 Creatinine 0.57 L Estim Creat Clear Calc 132 Estimated GFR > 60 Glucose 161 H POC Capillary Glucose 167 H Calcium 7.7 L Magnesium 2.2 Total Bilirubin 0.8 AST 20 ALT 18 Alkaline Phosphatase 105 Total Protein 6.0 L Albumin 2.4 L Quality VTE Prophylaxis VTE prophylaxis: pharmacologic ordered
[2024-08-11] MEDS: DOCUSATE SODIUM 100 MG CAPSULE PO (09:13)
[2024-08-11] MEDS: GABAPENTIN 300 MG CAPSULE PO ×3 (09:13→17:38)
[2024-08-11] MEDS: PANTOPRAZOLE 40 MG TABLET PO (09:13)
[2024-08-11 12:00] VITALS: PULSE 106
[2024-08-11 12:13] LABS: Glucose Point of Care 223 mg/dl (65-105)
--- NOTE | 2024-08-11 12:58 | P.PNGS_ITS ---
Progress Note: A&P Assessment and Plan (1) Wound of left buttock: Qualifiers: Encounter type: initial encounter Qualified Code(s): S31.829A - Unspecified open wound of left buttock, initial encounter Code(s): S31.829A - Unspecified open wound of left buttock, initial encounter Status: Acute Assessment and Plan: * Continue local wound care and abx, awaiting tx to [facility] for imaging, further wound care Plan I have discussed the patient's case and plan of care with Dr. Dick. Subjective Subjective Date/Time Seen: 08/11/24 12:58 Patient reports: afebrile (Since 08/07/24) Interval history: Still has tenderness at buttock area, no significant change. Still waiting transferred of [facility]. Exam Narrative: Unchanged left buttock wound with 2 areas of fluctuance and significant amount of purulent drainage, surrounding induration Objective Data Vital Signs Vital Signs: Vital Signs - 24 hr 08/10/24 16:00 08/10/24 16:00 08/10/24 20:00 Temperature 97.6 F Pulse Rate 101 H 93 Respiratory Rate 19 Blood Pressure 116/58 L Pulse Oximetry 94 Oxygen Delivery Room Air 08/10/24 20:00 08/10/24 22:45 08/11/24 00:00 Temperature 98.3 F Pulse Rate 101 H 105 H 108 H Respiratory Rate 18 Blood Pressure 125/70 Pulse Oximetry 95 95 Oxygen Delivery CPAP 08/11/24 00:00 08/11/24 04:00 08/11/24 08:00 Temperature Pulse Rate 103 H 93 88 Respiratory Rate Blood Pressure Pulse Oximetry Oxygen Delivery Intake/Output Intake/Output: Intake & Output 08/08/24 08/09/24 08/10/24 08/11/24 23:59 23:59 23:59 23:59 Intake Total 3362 1952 1450 1140 Output Total 2650 4950 3350 1900 Balance 909 -9478 -1900 -342 Meds/Results Medications: Active Medications Generic Name Dose Route Start Last Admin Trade Name Freq PRN Reason Stop Dose Admin Acetaminophen 650 mg 08/06/24 10:28 08/09/24 08:49 Acetaminophen 325 Mg Tablet PO 650 mg Q4H PRN Administration Mild Pain (1-3) or Fever Hydrocodone Bitart/Acetaminophen 1 tab 08/09/24 09:53 Hydrocodone/Acetaminophen (*Crx) 5-325 Mg Tablet PO Q6H PRN Pain Rated 4-6 Hydrocodone Bitart/Acetaminophen 1 tab 08/09/24 09:53 08/11/24 06:58 Hydrocodone/Acetaminophen (*Crx) 10-325 Mg Tablet PO 1 tab Q6H PRN Administration Pain Rated 7-10 Alteplase, Recombinant 2 mg 08/10/24 12:27 08/10/24 15:17 Alteplase 2 Mg Vial (Cathflo) IV PUSH 2 mg ONCE PRN Administration Line Occlusion Alteplase, Recombinant 2 mg 08/10/24 15:17 Alteplase 2 Mg Vial (Cathflo) IV PUSH ONCE PRN Line Occlusion Bisacodyl 10 mg 08/07/24 08:20 08/08/24 08:24 Bisacodyl 10 Mg Suppository RECTAL 10 mg QAM PRN Administration Constipation Dextrose 12.5 gm 08/06/24 13:10 Dextrose 50% 25 Gm/50 Ml Syringe IV PUSH PRN PRN Hypoglycemia Protocol Diltiazem HCl 30 mg/ Diltiazem 90 mg 08/06/24 22:00 08/11/24 06:21 HCl 60 mg PO 90 mg Q8HR GATO Administration Docusate Sodium 100 mg 08/06/24 21:00 08/11/24 09:13 Docusate Sodium 100 Mg Capsule PO 100 mg Q12HR GATO Administration Gabapentin 300 mg 08/07/24 09:00 08/11/24 09:13 Gabapentin 300 Mg Capsule PO 300 mg TID GATO Administration Glucagon 1 mg 08/06/24 13:10 Glucagon For Inj 1 Mg Vial IM PRN PRN Hypoglycemia Protocol Glucose 15 gm 08/06/24 13:10 Glucose Oral Gel 15 Gm Of Glucse In 37.5 Gm Tube PO PRN PRN Hypoglycemia Protocol Hydromorphone HCl 0.5 mg 08/06/24 10:28 08/06/24 20:01 Hydromorphone Hcl Inj (*Crx) 1 Mg/Ml Syr IV PUSH 0.5 mg Q4H PRN Administration Pain Rated 7-10 Dextrose 1,000 mls @ 100 mls/hr 08/06/24 13:10 Dextrose 5% 1,000 Ml IVPB PRN PRN Hypoglycemia Protocol Meropenem 1 gm in 100 mls @ 200 mls/hr 08/06/24 15:30 08/11/24 06:51 IVPB Infused Q8HR [facility] Infusion Insulin Aspart 4 - 8 units 08/06/24 17:00 08/11/24 09:12 Insulin Aspart (*Bkc) 100 Units/Ml SUB-Q Not Given TIDWM [facility] Protocol Insulin Glargine 30 units 08/09/24 18:00 08/10/24 17:42 Insulin Glargine (*Bkc) 100 Units/Ml SUB-Q 30 units QPM [facility] Administration Linezolid 600 mg 08/08/24 18:00 08/11/24 06:28 Linezolid 600 Mg Tablet PO 600 mg BID@1800,0600 [facility] Administration Ondansetron HCl 4 mg 08/06/24 10:28 08/08/24 21:34 Ondansetron Inj 4 Mg/2 Ml Vial IV PUSH 4 mg Q4H PRN Administration Nausea Pantoprazole Sodium 40 mg 08/06/24 13:40 08/11/24 09:13 Pantoprazole 40 Mg Tablet PO 40 mg QAM GATO Administration Polyethylene Glycol 17 gm 08/10/24 12:27 Polyethylene Glycol 3350 17 Gm Powd.Pack PO QAM PRN Constipation Rivaroxaban 20 mg 08/06/24 17:00 08/10/24 17:43 Rivaroxaban 20 Mg Tablet PO 20 mg DAILY@1700 [facility] Administration Sodium Chloride 10 ml 08/06/24 22:00 08/11/24 06:30 Central Line Flush IV PUSH 10 ml Q8HR [facility] Administration Sodium Chloride 10 ml 08/06/24 16:44 Central Line Flush IV PUSH PRN PRN with TPN bag changes Sodium Chloride 20 ml 08/06/24 16:44 08/11/24 06:00 Central Line Flush IV PUSH 20 ml PRN PRN Administration after blood draws Radiology Results: ITS Impressions Abdomen X-Ray 08/06/24 09:03 IMPRESSION: 1. Normal bowel gas pattern. Soft Tissue Ultrasound 08/06/24 13:45 IMPRESSION: 1. No abscess. Chest X-Ray 08/06/24 16:47 IMPRESSION: New right upper extremity PICC, terminating in the SVC. Labs Labs: Laboratory Results - last 24 hr 08/10/24 08/10/24 08/11/24 16:44 20:37 06:18 WBC 13.2 H RBC 3.97 L Hgb 10.9 L Hct 34.0 L MCV 85.6 MCH 27.5 MCHC 32.1 RDW 12.3 Plt Count 431 H MPV 9.9 Sodium 130 L Potassium 4.0 Chloride 93 L Carbon Dioxide 31 H Anion Gap 6 BUN 9 Creatinine 0.57 L Estim Creat Clear Calc 132 Estimated GFR > 60 Glucose 161 H POC Capillary Glucose 209 H 191 H Calcium 7.7 L Magnesium 2.2 Total Bilirubin 0.8 AST 20 ALT 18 Alkaline Phosphatase 105 Total Protein 6.0 L Albumin 2.4 L 08/11/24 08/11/24 08:00 12:09 WBC RBC Hgb Hct MCV MCH MCHC RDW Plt Count MPV Sodium Potassium Chloride Carbon Dioxide Anion Gap BUN Creatinine Estim Creat Clear Calc Estimated GFR Glucose POC Capillary Glucose 167 H 223 H Calcium Magnesium Total Bilirubin AST ALT Alkaline Phosphatase Total Protein Albumin
[2024-08-11] MEDS: INSULIN ASPART (*BKC) 100 UNITS/ML SUB-Q (13:09)
[2024-08-11 14:53] VITALS: BP 121/63; PULSE 107; RESP 18; TEMP 36.1; O2SAT 96
--- NOTE | 2024-08-11 15:42 | PM.TDS ---
Transfer Discharge Sum: Prov Provider Date of admission: 08/07/24 07:38 Primary care physician: UNKNOWN,DOCTOR Admitting clinician: Ariel James MD Consults: 08/06/24 Consult to Physician Routine Comment: Consulting Provider: Manny Mukherjee Reason for consultation: icu Has provider been notified: Yes Wound/ET Consult Routine Reason for Consult:: Buttock wound 08/06/24 10:29 Consult to Physician Routine Comment: Consulting Provider: Dayan Dick Reason for consultation: Cellulitis, decubitus ulcer Has provider been notified: Yes 08/07/24 Wound/ET Consult Routine Reason for Consult:: L buttock wound Attending physician on discharge: Marc Novak Discharging clinician: Ginny Becerra Anticipated date of transfer: 08/11/24 Receiving physician/facility: Dr. Gallegos/[facility] DS: Admitting Diagnosis Discharge Date 08/11/2024 Admitting Diagnosis Septic shock wound left buttock atrial fibrillation with RVR insulin-dependent type 2 diabetes morbid obesity JANEY constipation urinary tract infection DS: Discharge Diagnosis Discharge Diagnosis (1) Septic shock: Code(s): A41.9 - Sepsis, unspecified organism; R65.21 - Severe sepsis with septic shock Status: Acute (2) Wound of left buttock: Qualifiers: Encounter type: initial encounter Qualified Code(s): S31.829A - Unspecified open wound of left buttock, initial encounter Code(s): S31.829A - Unspecified open wound of left buttock, initial encounter Status: Acute (3) Atrial fibrillation with RVR: Code(s): I48.91 - Unspecified atrial fibrillation Status: Acute (4) Insulin dependent type 2 diabetes mellitus: Code(s): E11.9 - Type 2 diabetes mellitus without complications; Z79.4 - residential (current) use of insulin Status: Acute (5) Morbid obesity: Code(s): E66.01 - Morbid (severe) obesity due to excess calories Status: Acute (6) Obstructive sleep apnea on CPAP: Code(s): G47.33 - Obstructive sleep apnea (adult) (pediatric); Z99.89 - Dependence on other enabling machines and devices Status: Chronic (7) Constipation: Code(s): K59.00 - Constipation, unspecified Status: Acute (8) Urinary tract infection: Code(s): N39.0 - Urinary tract infection, site not specified Status: Acute Transfer Discharge Sum: Med Medications Active and Home Medications: Home Medications chlorthalidone 25 mg tablet 25 mg PO DAILY 11/09/19 [History Confirmed 08/06/24] diltiazem HCl 90 mg tablet 90 mg PO TID 11/09/19 [History Confirmed 08/06/24] lisinopril 40 mg tablet 40 mg PO DAILY 11/09/19 [History Confirmed 08/06/24] rivaroxaban 20 mg tablet (Xarelto) 20 mg PO DAILY 11/09/19 [History Confirmed 08/06/24] insulin glargine 100 unit/mL subcutaneous solution (Lantus U-100 Insulin) 15 unit subcut QPM ##0 11/10/19 [History Confirmed 08/06/24] insulin glulisine U-100 100 unit/mL subcutaneous solution (Apidra U-100 Insulin) See Protocol subcut USEASDIRECTD ##0 11/10/19 [History Confirmed 08/06/24] gabapentin 100 mg capsule 300 mg PO TID 01/01/20 [History Confirmed 08/06/24] Active Medications Acetaminophen (Acetaminophen 325 Mg Tablet) 650 mg PO Q4H PRN PRN Reason: Mild Pain (1-3) or Fever Last Admin: 08/09/24 08:49 Dose: 650 mg Hydrocodone Bitart/Acetaminophen (Hydrocodone/Acetaminophen (*Crx) 5-325 Mg Tablet) 1 tab PO Q6H PRN PRN Reason: Pain Rated 4-6 Hydrocodone Bitart/Acetaminophen (Hydrocodone/Acetaminophen (*Crx) 10-325 Mg Tablet) 1 tab PO Q6H PRN PRN Reason: Pain Rated 7-10 Last Admin: 08/11/24 13:07 Dose: 1 tab Alteplase, Recombinant (Alteplase 2 Mg Vial (Cathflo)) 2 mg IV PUSH ONCE PRN PRN Reason: Line Occlusion Last Admin: 08/10/24 15:17 Dose: 2 mg Alteplase, Recombinant (Alteplase 2 Mg Vial (Cathflo)) 2 mg IV PUSH ONCE PRN PRN Reason: Line Occlusion Bisacodyl (Bisacodyl 10 Mg Suppository) 10 mg RECTAL QAM PRN PRN Reason: Constipation Last Admin: 08/08/24 08:24 Dose: 10 mg Dextrose (Dextrose 50% 25 Gm/50 Ml Syringe) 12.5 gm IV PUSH PRN PRN; Protocol PRN Reason: Hypoglycemia Diltiazem HCl 30 mg/ Diltiazem (HCl 60 mg) 90 mg PO Q8HR [facility] Last Admin: 08/11/24 13:06 Dose: 90 mg Docusate Sodium (Docusate Sodium 100 Mg Capsule) 100 mg PO Q12HR [facility] Last Admin: 08/11/24 09:13 Dose: 100 mg Gabapentin (Gabapentin 300 Mg Capsule) 300 mg PO TID [facility] Last Admin: 08/11/24 13:06 Dose: 300 mg Glucagon (Glucagon For Inj 1 Mg Vial) 1 mg IM PRN PRN; Protocol PRN Reason: Hypoglycemia Glucose (Glucose Oral Gel 15 Gm Of Glucse In 37.5 Gm Tube) 15 gm PO PRN PRN; Protocol PRN Reason: Hypoglycemia Hydromorphone HCl (Hydromorphone Hcl Inj (*Crx) 1 Mg/Ml Syr) 0.5 mg IV PUSH Q4H PRN PRN Reason: Pain Rated 7-10 Last Admin: 08/06/24 20:01 Dose: 0.5 mg Dextrose (Dextrose 5% 1,000 Ml) 1,000 mls @ 100 mls/hr IVPB PRN PRN; Protocol PRN Reason: Hypoglycemia Meropenem () 1 gm in 100 mls @ 200 mls/hr IVPB Q8HR [facility] Last Infusion: 08/11/24 13:38 Dose: Infused Insulin Aspart (Insulin Aspart (*Bkc) 100 Units/Ml) 4 - 8 units SUB-Q TIDWM [facility]; Protocol Last Admin: 08/11/24 13:09 Dose: 4 units Insulin Glargine (Insulin Glargine (*Bkc) 100 Units/Ml) 32 units SUB-Q QPM GATO Linezolid (Linezolid 600 Mg Tablet) 600 mg PO BID@1800,0600 [facility] Last Admin: 08/11/24 06:28 Dose: 600 mg Ondansetron HCl (Ondansetron Inj 4 Mg/2 Ml Vial) 4 mg IV PUSH Q4H PRN PRN Reason: Nausea Last Admin: 08/08/24 21:34 Dose: 4 mg Pantoprazole Sodium (Pantoprazole 40 Mg Tablet) 40 mg PO QAM [facility] Last Admin: 08/11/24 09:13 Dose: 40 mg Polyethylene Glycol (Polyethylene Glycol 3350 17 Gm Powd.Pack) 17 gm PO QAM PRN PRN Reason: Constipation Rivaroxaban (Rivaroxaban 20 Mg Tablet) 20 mg PO DAILY@1700 [facility] Last Admin: 08/10/24 17:43 Dose: 20 mg Sodium Chloride (Central Line Flush) 10 ml IV PUSH Q8HR [facility] Last Admin: 08/11/24 13:14 Dose: 10 ml Sodium Chloride (Central Line Flush) 10 ml IV PUSH PRN PRN PRN Reason: with TPN bag changes Sodium Chloride (Central Line Flush) 20 ml IV PUSH PRN PRN PRN Reason: after blood draws Last Admin: 08/11/24 06:00 Dose: 20 ml Transfer Discharge Sum: Hosp Hospital Course Hospital course: Tito Fam is a 44 year old male with past medical history of anemia, Shahbaz's gangrene (2014), JANEY, diabetes, hypertension, spinal stenosis, and chronic AFib on anticoagulation presents to the hospital with hematuria. Patient was meeting septic shock criteria with hypotension and afib RVR requiring transfer to ICU. He received sepsis bolus and started on broad spectrum antibiotics and Levophed. Shock and RVR resolved during admission, patient was weaned off of pressors. Initial etiology for shock was thought to be the UA concerning for infection, however culture was negative. Patients chronic left buttock wound then started to have foul smelling purulent drainage and two small areas of necrosis with an indurated area that appeared to be enlarging. Wound culture grew bacteroides fragilis. Blood cultures show NGTD. Abdomen XR showed normal bowel gas pattern. Soft tissue US showed no abscess. Per surgery due to patients history of [place] he would benefit from transfer to [facility]. Patient transferred to [facility] in a stable condition. At time of transfer he had no complaints denying chest pain, shortness of breath, palpitations, nausea/vomiting and abdominal pain. Patient transferred to [facility]. Time Spent with Patient Time attestation: Total time spent providing and/or coordinating transfer services: Total time spent: Greater than 30 minutes Exam Narrative: AF HR 88 RR 18 SpO2 95 BP 125/70 General: morbidly obese male in no acute respiratory distress who is nontoxic appearing, lying semi recumbent in bed. HEENT: Normocephalic. Atraumatic. Extraocular movement intact. No facial asymmetry. Chest: Lungs are clear to auscultation bilaterally. No wheezes or crackles. CV: Heart was regular rate and irregularly irregular rhythm. Abd: Abdomen was soft. Nontender. Nondistended. Positive bowel sounds. Ext: No clubbing, cyanosis, or edema. 2+ DP pulses bilaterally. Neuro: Patient is alert. Speech is clear. Skin: large wound to the left buttock DS: Data Data Completed and Pending Completed studies during hospitalization: chest x-ray soft tissue ultrasound abdomen x-ray Labs on day of discharge: Labs from last 24 hours 08/11/24 08/11/24 08/11/24 12:09 08:00 06:18 WBC 13.2 H RBC 3.97 L Hgb 10.9 L Hct 34.0 L MCV 85.6 MCH 27.5 MCHC 32.1 RDW 12.3 Plt Count 431 H MPV 9.9 Sodium 130 L Potassium 4.0 Chloride 93 L Carbon Dioxide 31 H Anion Gap 6 BUN 9 Creatinine 0.57 L Estim Creat Clear Calc 132 Estimated GFR > 60 Glucose 161 H POC Capillary Glucose 223 H 167 H Calcium 7.7 L Magnesium 2.2 Total Bilirubin 0.8 AST 20 ALT 18 Alkaline Phosphatase 105 Total Protein 6.0 L Albumin 2.4 L 08/10/24 08/10/24 20:37 16:44 WBC RBC Hgb Hct MCV MCH MCHC RDW Plt Count MPV Sodium Potassium Chloride Carbon Dioxide Anion Gap BUN Creatinine Estim Creat Clear Calc Estimated GFR Glucose POC Capillary Glucose 191 H 209 H Calcium Magnesium Total Bilirubin AST ALT Alkaline Phosphatase Total Protein Albumin Preliminary micro results at discharge 08/06/24 17:20 Anaerobic Culture - Preliminary Buttock Bacteroides fragilis 08/06/24 09:31 Blood Culture - Preliminary Blood 08/06/24 08:40 Blood Culture - Preliminary Blood
[2024-08-11 16:00] VITALS: PULSE 81
[2024-08-11 17:19] LABS: Glucose Point of Care 170 mg/dl (65-105)
[2024-08-11] MEDS: RIVAROXABAN 20 MG TABLET PO (17:37)
[2024-08-11] MEDS: INSULIN GLARGINE (*BKC) 100 UNITS/ML 32 UNITS SUB-Q (17:37)
== END 2024-08-11 19:00 | disposition short-term general hospital (02) | DRG 720 ==
LOC: ANHED 10:40 → ANH3MEDSUR 12:35 → ANHICU 16:01 → ANH2MED 08-08 03:45
PROVIDERS: Internal Medicine; Student in an Organized Health Care Education/Training Program; Admitting Provider General Practice; Emergency Provider Emergency Medicine; Visit Provider Student in an Organized Health Care Education/Training Program
DX: A41.9 Sepsis, unspecified organism (principal); R65.21 Severe sepsis with septic shock; L89.320 Pressure ulcer of left buttock, unstageable; N39.0 Urinary tract infection, site not specified; I48.20 Chronic atrial fibrillation, unspecified; I10 Essential (primary) hypertension; E66.01 Morbid (severe) obesity due to excess calories; E11.40 Type 2 diabetes mellitus with diabetic neuropathy, unspecified; K59.00 Constipation, unspecified; M48.00 Spinal stenosis, site unspecified; B96.6 Bacteroides fragilis [B. fragilis] as the cause of diseases classified elsewhere; G47.33 Obstructive sleep apnea (adult) (pediatric); Z68.44 Body mass index [BMI] 60.0-69.9, adult; Z79.4 Long term (current) use of insulin; Z74.01 Bed confinement status; Z79.01 Long term (current) use of anticoagulants
CPT/HCPCS: 36415; 36569; 74019; 76705; 80053; 80202; 81001; 82948; 83036; 83605; 83735; 85025; 85027; 85610; 85730; 86140; 87040; 87070; 87075; 87086; 87205; 87641; 93005; 96361; 96365; 96366; 96368; 96375; 96376; 99285; A9270; C1751; G0378; G0379; J0696; J1171; J1815; J2185; J2405; J2997; J3370; J7030; J7120